=== PATIENT | female | born 1940 | race Caucasian/White ===

== ENCOUNTER → 2017-01-16 | Outpatient (CLI) | payer MEDICARE, OTHER ==
--- NOTE | 2017-01-16 16:23 | BD ---
EXAMINATION TYPE: MG DEXA axial skeleton. DATE OF EXAM: 01/16/2017 COMPARISON: NONE CLINICAL HISTORY: 76-year-old female osteoporosis Height: 5 FT 2 1/2 IN Weight: 151 FRAX RISK QUESTIONS: Alcohol (3 or more units per day): NO Family History (Parent hip fracture): YES Glucocorticoids (More than 3mos): NO (Ex: prednisone, prednisolone, methylprednisolone, dexamethasone, and hydrocortisone). History of Fracture in Adulthood: NO Secondary Osteoporosis: 1. Type 1 Diabetes: NO 2. Hyperthyroidism: NO 3. Menopause before 45: NO 4. Malnutrition: NO 5. Chronic liver disease: NO Rheumatoid Arthritis: NO Current Tobacco Use: NO RISK FACTORS HISTORY OF: Active: YES Postmenopausal woman: AGE 48 [employer] Lost more than 2 inches in height since high school: YES MEDICATIONS: Additional Medications: AMLODIPINE, ASPIRIN, LASIX, HYDROLAZINE, VIT D 3 , DIGOXIN, WARFARIN, ATORVAS TATIN,POTASSIUM, Additional History: EXAM MEASUREMENTS: Bone mineral densitometry was performed using the UserTesting System. Bone mineral density as measured about the Lumbar spine is: ----- L1-L4(G/cm2): 1.224 T Score Values are as follows: ----- L2: -0.5 ----- L3: 0.9 ----- L4: 1.7 ----- L1-L4: 0.4 BASELINE Bone mineral density about the R hip (g/cm2): 0.886 Bone mineral density about the L hip (g/cm2): 0.779 T Score values are as follows: -----R Neck: -1.1 -----L Neck: -1.9 -----R Total: -0.1 -----L Total: -1.1 BASELINE IMPRESSION: Osteopenia (T Score between -2.5 and -1 as noted by T score values There is slightly increased risk of fracture and the patient may be considered for treatment. Re-Scre en 2-5 years. NOTE: T-SCORE=SD OF THE YOUNG ADULT MEAN.
== END | disposition home or self-care (01) ==
LOC: RADBDWWP 13:12
PROVIDERS: ATTEND Family Medicine
DX: M85.88 Other specified disorders of bone density and structure, other site (principal)
CPT/HCPCS: 77080

== ENCOUNTER → 2017-06-25 | Outpatient (CLI) | payer MEDICARE, OTHER ==
--- NOTE | 2017-06-25 14:48 | XR ---
Left clavicle HISTORY: Pain 2 views of the left clavicle Relation to left ribs same date There is arthropathy at the acromioclavicular joint. Alignment and bone mineralization maintained. Le ft lung apex as visualized is normal. Patient is post median sternotomy. The aorta is dense. IMPRESSION: No fracture or dislocation. Acromioclavicular joint arthropathy.
--- NOTE | 2017-06-25 16:13 | XR ---
Left RIBS HISTORY: Chest pain left side, R07.89 4 views of the left ribs Bone mineralization is maintained. No evident displaced rib fracture. Left lung shows no abnormal den sity, pneumothorax, or pleural effusion. Postop changes incidentally noted to the left chest. Inferio r sternal wire is fractured. IMPRESSION: No evident displaced rib fracture. Bone scan could be performed for increased sensitivity as indicated.
--- NOTE | 2017-06-25 16:16 | XR ---
Left shoulder HISTORY: Pain 3 views of the left shoulder Acromioclavicular joint arthropathy is noted. Calcification present along the articular cartilage of the humeral head. There is no evident pneumothorax, left lung apex as visualized is normal. Bone mine ralization and alignment are maintained. Postop changes noted to the chest. Patient is status post me ashleigh sternotomy. There may be calcified granuloma present in the left upper lobe. IMPRESSION: No acute fracture or dislocation. Consider crystal deposition arthropathy.
== END | disposition home or self-care (01) ==
LOC: RADXRMAIN 12:14
PROVIDERS: ATTEND Internal Medicine Cardiovascular Disease
DX: M25.512 Pain in left shoulder (principal); R07.89 Other chest pain

== ENCOUNTER → 2018-03-06 | Outpatient (CLI) | payer MEDICARE, OTHER ==
[2018-03-06 11:03] LABS: HCT 41.4 % (34.0-46.0); HGB 13.2 gm/dL (11.4-16.0); MCH 30.4 pg (25.0-35.0); MCV 95.1 fL (80.0-100.0); Mean Platelet Volume 6.6; Platelet Count 296 k/uL (150-450); RBC 4.35 m/uL (3.80-5.40); RDW 13.8 % (11.5-15.5); WBC 6.1 k/uL (3.8-10.6)
[2018-03-06 11:15] LABS: Potassium 4.2 mmol/L (3.5-5.1)
== END | disposition home or self-care (01) ==
LOC: LABPAT 10:09
PROVIDERS: ATTEND Internal Medicine Interventional Cardiology
DX: Z01.812 Encounter for preprocedural laboratory examination (principal); I10 Essential (primary) hypertension; E78.1 Pure hyperglyceridemia; I25.10 Atherosclerotic heart disease of native coronary artery without angina pectoris
CPT/HCPCS: 36415; 80051; 82565; 84520; 85027

== ENCOUNTER 2018-03-25 08:53 | Day surgery (SDC) | payer MEDICARE, OTHER ==
[2018-03-17 17:07] VITALS: BMI 25.9
[2018-03-25] MEDS ORDERED: ASPIRIN 81 MG ONE (09:12)
[2018-03-25] MEDS ORDERED: SODIUM CHLORIDE 0.9% 1,000 ML IV ONE (09:20)
[2018-03-25 09:41] VITALS: RESP 16; TEMP 98.4
[2018-03-25 09:57] LABS: INR 1.1 (<1.2); Prothrombin Time 10.7 sec (9.0-12.0)
[2018-03-25] MEDS ORDERED: MIDAZOLAM 2 MG/2 ML VIAL IVP ONE (10:30)
[2018-03-25] MEDS ORDERED: LIDOCAINE 1% INJ 10MG/ML (20 ML MDV) SQ ONE (10:30)
[2018-03-25] MEDS ORDERED: IOPAMIDOL-250 100ML BTL IV ONE (10:40)
[2018-03-25] MEDS ORDERED: SODIUM CHLORIDE 0.9% 1,000 ML IV SCH (10:45)
--- NOTE | 2018-03-25 11:09 | AN ---
ANGIOGRAPHY REPORT PERIPHERAL ANGIOGRAM: DATE OF SERVICE: March 25, 2018 PERFORMING PHYSICIAN: Finn Márquez MD, control panel operator. PROCEDURE PERFORMED: 1. An abdominal aortogram. 2. Bilateral lower extremity runoff. INDICATION: This is a pleasant 78-year-old female patient who sees Dr. Graves in the office as an outpatient and sees Dr. Feldman as well who was experiencing bilateral lower extremities intermittent claudication and underwent an arterial duplex study and that revealed severe bilateral femoral artery disease. Because of that, she was brought in today to undergo an abdominal aortogram and bilateral lower extremity runoff. APPROACH: Right common femoral artery. COMPLICATION: None. LEVEL OF SEDATION: Moderate with sedation length of 10 minutes. PROCEDURE DESCRIPTION: After obtaining an informed consent, the patient was brought to cardiac catheter builder. The right common femoral artery was cannulated using micropuncture technique, the micropuncture wire passed easily and then I placed a 4-Congolese sheath in the right common femoral artery. After that, I did an abdominal aortogram and bilateral lower extremity runoff using 4-Congolese pigtail catheter which was initially placed at the level of the renal arteries then it was pulled into above the bifurcation of the aorta to right and left common iliac arteries. The procedure was completed without any complication. SELECTIVE PERIPHERAL ANGIOGRAM: 1. The aorta is calcified with mild disease only. 2. Iliac arteries: The right and left common iliac arteries are angiographically normal. 3. Common iliac arteries: The right and left common iliac arteries are calcified with mild disease only. 4. Internal iliac artery: The right and left internal are patent. 5. External iliac arteries the right and left external iliac arteries are angiographically normal. 6. Femoral: The right and left femoral arteries are angiographically normal. 7. Profunda: The right and left profunda are normal. 8. SFA: Both SFA are heavily calcified with severe disease bilaterally about 70% to 80%. Actually the disease on the left is worse than the right. 9. Popliteal: The right and left popliteal appeared to be normal. 10.Below the knee: There are 3 vessels runoff below the knee bilaterally. 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 POSTPROCEDURE MANAGEMENT: CRIPPLE CHASER of the right and left SFA on 2 separate sessions. MMODL / IJN: [id number] /
--- NOTE | 2018-03-25 11:09 | LTR ---
DATE OF SERVICE: 03/25/2018 RE: Erika Rogers Dear Dr. Feldman; Ms. Erika Rogers underwent today a peripheral angiogram and that revealed severe bilateral femoral artery disease. She will be brought back to undergo a balloon angioplasty of both femoral arteries. I want to thank you for allowing us to participate in her care and please do not hesitate to call if you have any question or concern. Sincerely, MD FABIENNE Khan / BRIANN: [id number] /
[2018-03-25] MEDS ORDERED: IOPAMIDOL-300 50ML BTL IV ONE (12:09)
[2018-03-25 16:44] VITALS: BP 145/65; PULSE 60
--- NOTE | 2018-03-26 10:26 | IR ---
Fluoroscopy HISTORY: Pain in right leg 1.4 minutes fluoroscopy time supplied to the referring clinician. 124 intraoperative C-arm images do cument the procedure. See dictated report from cardiology.
== END 2018-03-25 16:32 | disposition home or self-care (01) ==
LOC: CATHCVL 08:53
PROVIDERS: ATTEND Internal Medicine Interventional Cardiology
DX: I70.213 Atherosclerosis of native arteries of extremities with intermittent claudication, bilateral legs (principal); I70.0 Atherosclerosis of aorta; I25.10 Atherosclerotic heart disease of native coronary artery without angina pectoris; I48.2 Chronic atrial fibrillation; Z87.891 Personal history of nicotine dependence; Z95.2 Presence of prosthetic heart valve; Z95.5 Presence of coronary angioplasty implant and graft; E78.5 Hyperlipidemia, unspecified; Z79.01 Long term (current) use of anticoagulants; Z79.82 Long term (current) use of aspirin; Z79.899 Other long term (current) drug therapy
CPT/HCPCS: 36200; 75625; 75716; 85610; C1769 ×3; C1894; J2250; J2001; Q9966; Q9967

== ENCOUNTER → 2018-05-12 | Outpatient (CLI) | payer MEDICARE, OTHER ==
[2018-05-12 15:10] LABS: Potassium 4.3 mmol/L (3.5-5.1)
[2018-05-12 15:39] LABS: HCT 41.4 % (34.0-46.0); HGB 13.1 gm/dL (11.4-16.0); MCH 30.3 pg (25.0-35.0); MCHC 31.7 g/dL (31.0-37.0); MCV 95.5 fL (80.0-100.0); Mean Platelet Volume 6.2; Platelet Count 316 k/uL (150-450); RBC 4.34 m/uL (3.80-5.40); RDW 13.4 % (11.5-15.5); WBC 8.2 k/uL (3.8-10.6)
== END | disposition home or self-care (01) ==
LOC: LABPAT 13:45
PROVIDERS: ATTEND Internal Medicine Interventional Cardiology
DX: Z01.812 Encounter for preprocedural laboratory examination (principal); I70.213 Atherosclerosis of native arteries of extremities with intermittent claudication, bilateral legs
CPT/HCPCS: 36415; 80051; 82565; 84520; 85027

== ENCOUNTER 2018-05-27 12:37 | Day surgery (SDC) | payer MEDICARE, OTHER ==
[~2018-05-27 12:37] MED LIST: ASPIRIN 325 MG TAB PO ONE; SODIUM CHLORIDE 0.9% 1,000 ML in EMPTY BAG 1 BAG IV ONE
[2018-05-27 13:45] LABS: Prothrombin Time 10.8 sec (9.0-12.0)
[2018-05-27] MEDS ORDERED: MIDAZOLAM 2 MG/2 ML VIAL IVP ONE (15:16)
[2018-05-27] MEDS ORDERED: LIDOCAINE 1% INJ 10MG/ML (20 ML MDV) SQ ONE (15:17)
[2018-05-27] MEDS ORDERED: HEPARIN SODIUM 1,000 UN/ML (10ML VL) IV ONE (15:21)
[2018-05-27] MEDS ORDERED: fentaNYL (PF) 50 MCG/ML 2 ML AMP IVP ONE (15:46)
[2018-05-27] MEDS ORDERED: NITROGLYCERIN 1000MCG/10ML SYRINGE INTRAARTER ONE (15:54)
[2018-05-27] MEDS ORDERED: niCARdipine Syringe (1,000 mcg/10 mL) INTRAARTER ONE (15:54)
[2018-05-27] MEDS ORDERED: CLOPIDOGREL 75 MG TAB PO ONE (15:55)
[2018-05-27] MEDS ORDERED: traMADol 50 MG TAB PO PRN (16:07)
[2018-05-27] MEDS ORDERED: SODIUM CHLORIDE 0.9% 1,000 ML IV SCH (16:15)
[2018-05-27] MEDS: hydrALAZINE HCL 25 MG TAB PO SCH (17:43)
--- NOTE | 2018-05-27 18:05 | LTR ---
DATE OF SERVICE: 05/27/[address] Feldman: Ms. Ashleigh Rogers underwent successful balloon angioplasty of the left femoral artery with good angiographic results and without any complication. Thank you for allowing us to participate in her care and please do not hesitate to call for any questions or concerns. Sincerely, MMODL / IJN: [id number] /
[2018-05-27] MEDS ORDERED: ATROPINE SULFATE 0.1 MG/ML 10ML SYRINGE ONE (20:22)
[2018-05-27] MEDS ORDERED: ATORVASTATIN 20 MG TAB PO SCH (21:00)
[2018-05-27] MEDS ORDERED: DIGOXIN 125 MCG TAB PO SCH (21:00)
--- NOTE | 2018-05-28 01:32 | AN ---
ANGIOGRAPHY REPORT DATE OF SERVICE: 05/27/2018 PERFORMING PHYSICIAN: Finn Márquez MD, railway signal electrician. PROCEDURE PERFORMED: 1. Selective left [id number] angiogram. 2. Selective left SFA angiogram. 3. An atherectomy of the left SFA using the orbital atherectomy device from [employer]. 4. Successful balloon angioplasty of the left SFA using 5 mm x 150 mm Impact drug coated balloon with excellent angiographic results. 5. Selective right common femoral artery angiogram. INDICATION: This is a pleasant 86-year-old female patient who sees Dr. Graves in the office as an outpatient with a known history of hypertension and dyslipidemia and who was experiencing bilateral lower extremity intermittent claudication and underwent a peripheral angiogram and that revealed severe bilateral SFA disease. She was brought today to undergo a DICTATING MACHINE TYPIST of the left SFA. APPROACH: Right common femoral artery. COMPLICATION: None. LEVEL OF SEDATION: Moderate with sedation length of 45 minutes. PROCEDURE DESCRIPTION: After obtaining an informed consent, the patient was brought to cardiac concrete plant laborer. The right common femoral artery was cannulated using micropuncture technique, the micropuncture wire passed easily. Hen I placed a 6-Cymro sheath in the right common femoral artery. After that anticoagulation was initiated using heparin. After that I did select the left SFA using a 5-Cymro Rim catheter with 0.035 [employer] wire. After that, I did exchange my 11 cm 6-Cymro sheath into 55 cm 6-Cymro Raabe sheath using the 0.035 [employer] wire. After that, I did selective left [id number]-muq-[id number] angiogram and selective left SFA angiogram before I did atherectomy of the left SFA using the orbital atherectomy device from [employer]. Subsequently, balloon angioplasty using 5 mm x 100 mm drug-coated balloon wire and the balloon was inflated under 10 atmospheres for 20 seconds. The following angiogram showed good angiographic results and the procedure was completed without any complication. After that I did exchange my long sheath into short sheath using 0.035 [employer] wire. The procedure was completed without any complication. POSTPROCEDURE MANAGEMENT: 1. Dual anti-platelet therapy. 2. Risk factors modifications. 3. Follow up with the patient. MMODL / IJN: [id number] /
--- NOTE | 2018-05-28 07:56 | DS ---
DISCHARGE SUMMARY DATE OF ADMISSION: 05/27/2018 DATE OF DISCHARGE: 05/28/2018 BRIEF HISTORY: This is a pleasant 78-year-old female patient who underwent yesterday successful atherectomy and balloon angioplasty of the left SFA with good angiographic results and without any complication. The procedure was performed from the right groin which is soft and nontender and without any bruises. The patient is going to be discharged home on dual antiplatelet therapy and I will follow up with the patient in a week in the office to undergo a CONSTRUCTION ESTIMATOR of the right leg. MMDOMONIQUE / BRIANN: [id number] /
[2018-05-28 08:08] VITALS: BP 171/70; PULSE 56; RESP 16; TEMP 98.6
[2018-05-28] MEDS: hydrALAZINE HCL 25 MG TAB PO SCH (08:14)
[2018-05-28] MEDS ORDERED: CHOLECALCIFEROL 1,000 UNIT TAB PO SCH (09:00)
[2018-05-28] MEDS ORDERED: ASCORBIC ACID 500 MG TAB PO SCH (09:00)
[2018-05-28] MEDS ORDERED: amLODIPine 5 MG TAB PO SCH (09:00)
[2018-05-28] MEDS ORDERED: NON-FORMULARY DRUG (Ubidecarenone [Co Q-10] 100 MG) PO SCH (09:00)
[2018-05-28] MEDS ORDERED: CLOPIDOGREL 75 MG TAB PO SCH (09:00)
[2018-05-28] MEDS ORDERED: TURMERIC ROOT EXTRACT PO SCH (09:00)
[2018-05-28] MEDS ORDERED: CALCIUM CARB-VIT D 500MG-200UN 1 EACH TAB PO SCH (09:00)
[2018-05-28] MEDS ORDERED: FUROSEMIDE 40 MG TAB PO SCH (09:00)
[2018-05-28] MEDS ORDERED: ASPIRIN 81 MG PO SCH (09:00)
--- NOTE | 2018-05-28 09:34 | IR ---
EXAMINATION TYPE: IR ski maker wood femoral popliteal DATE OF EXAM: 05/27/2018 COMPARISON: NONE HISTORY: Fluoroscopy time. Fluoroscopy was provided to the referring clinician.
[2018-05-28] MEDS ORDERED: MULTIVITAMINS, THERA 1 EACH TAB PO SCH (12:00)
== END 2018-05-28 11:20 | disposition home or self-care (01) ==
LOC: CATHCVL 12:37 → 3SCARD 16:00 → CATHCVL 05-28 11:20
PROVIDERS: ATTEND Internal Medicine Interventional Cardiology
DX: I70.213 Atherosclerosis of native arteries of extremities with intermittent claudication, bilateral legs (principal); I25.10 Atherosclerotic heart disease of native coronary artery without angina pectoris; I10 Essential (primary) hypertension; E78.5 Hyperlipidemia, unspecified; I35.1 Nonrheumatic aortic (valve) insufficiency; E78.00 Pure hypercholesterolemia, unspecified; I25.9 Chronic ischemic heart disease, unspecified; I48.2 Chronic atrial fibrillation; R00.1 Bradycardia, unspecified; Z95.2 Presence of prosthetic heart valve; Z95.5 Presence of coronary angioplasty implant and graft; Z95.1 Presence of aortocoronary bypass graft; Z72.0 Tobacco use; Z79.01 Long term (current) use of anticoagulants; Z79.82 Long term (current) use of aspirin; Z79.899 Other long term (current) drug therapy
CPT/HCPCS: 37225; 82565; 85610; C1894 ×2; C1714; C1769 ×5; C1887; C1725; J2250; J2001; J3010; J1644

== ENCOUNTER → 2018-06-09 | Outpatient (CLI) | payer MEDICARE, OTHER ==
[2018-06-09 15:48] LABS: HCT 41.1 % (34.0-46.0); HGB 13.1 gm/dL (11.4-16.0); MCH 30.5 pg (25.0-35.0); MCHC 31.8 g/dL (31.0-37.0); Mean Platelet Volume 7.2; Platelet Count 371 k/uL (150-450); RBC 4.28 m/uL (3.80-5.40); RDW 13.6 % (11.5-15.5)
[2018-06-09 16:01] LABS: Potassium 3.7 mmol/L (3.5-5.1)
== END | disposition home or self-care (01) ==
LOC: LABPAT 15:12
PROVIDERS: ATTEND Internal Medicine Interventional Cardiology
DX: Z01.812 Encounter for preprocedural laboratory examination (principal); I70.213 Atherosclerosis of native arteries of extremities with intermittent claudication, bilateral legs
CPT/HCPCS: 80051; 82565; 84520; 85027

== ENCOUNTER 2018-06-18 14:52 | Emergency (ER) | payer MEDICARE, OTHER ==
--- NOTE | 2018-06-18 16:15 | ED ---
Extremity Problem HPI - General Chief complaint: Extremity Problem,Nontraumatic Stated complaint: Leg pain, had arteries removed Time Seen by Provider: 06/18/18 15:24 Source: patient, RN notes reviewed, old records reviewed Mode of arrival: wheelchair Limitations: no limitations - History of Present Illness Initial comments: Patient is an 78-year-old female who presents emergency department today with tingling of left knee pain and swelling. Patient reports that she twisted her knee 2 days ago. She's had a recent history of oral stenting by Dr. Leiva. She is on multiple blood thinners including Plavix aspirin L Rose. Patient reports that she has pain with any range of motion of her knee. She was seen by her concrete precast moulder today and they believe that she may have may hematoma or hemarthrosis. Patient reports that she has no peripheral paresthesias. She denies any other complaints. - Related Data Home Medications Medication Instructions Recorded Confirmed Aspirin [Adult Low Dose Aspirin EC] 81 mg PO DAILY 03/17/18 06/18/18 Atorvastatin [Lipitor] 40 mg PO HS 03/17/18 06/18/18 Calcium Carbonate/Vitamin D3 1 tab PO Q48H 03/17/18 06/18/18 [Calcium 600-Vit D3 400 Caplet] Cholecalciferol (Vitamin D3) 2,000 unit PO DAILY 03/17/18 06/18/18 [Vitamin D3] Digoxin [Lanoxin] 125 mcg PO HS 03/17/18 06/18/18 Furosemide [Lasix] 40 mg PO DAILY 03/17/18 06/18/18 Potassium Chloride [K-Tab ER] 10 meq PO Q48H 03/17/18 06/18/18 amLODIPine [Norvasc] 5 mg PO DAILY 03/17/18 06/18/18 hydrALAZINE HCL [Apresoline] 25 mg PO AC-BID 03/17/18 06/18/18 Ascorbic Acid [Vitamin C] 500 mg PO DAILY 05/19/18 06/18/18 Naproxen Sodium [Aleve] 220 - 440 mg PO Q6H PRN 05/19/18 06/18/18 Turmeric Root Extract [Turmeric] 1 tab PO DAILY 05/19/18 06/18/18 Ubidecarenone [Co Q-10] 100 mg PO DAILY 05/19/18 06/18/18 Warfarin [Coumadin] 5 mg PO SUTUTHSA 05/19/18 06/18/18 Warfarin [Coumadin] 7.5 mg PO MOWEFR 05/19/18 06/18/18 traMADol HCL [Ultram] 100 mg PO HS PRN 05/19/18 06/18/18 Atorvastatin [Lipitor] 20 mg PO HS 06/18/18 06/18/18 Previous Rx's Medication Instructions Recorded Clopidogrel [Plavix] 75 mg PO DAILY #90 tab 05/28/18 traMADol HCL [Ultram] 50 mg PO Q6HR PRN 3 Days #12 tab 06/18/18 Allergies Allergy/AdvReac Type Severity Reaction Status Date / Time No Known Allergies Allergy Verified 06/18/18 15:59 Review of Systems ROS Statement: Those systems with pertinent positive or pertinent negative responses have been documented in the HPI. ROS Other: All systems not noted in ROS Statement are negative. Past Medical History Past Medical History: Coronary Artery Disease (CAD), Hyperlipidemia, Hypertension, Musculoskeletal Disorder Additional Past Medical History / Comment(s): AORTIC VALVE REPAIRED W/ COW VALVE ; TAKES PO AB RX DAY OF DENTAL WORK, PLANNED 03/19/18. HEMORRHOIDS CURRENT. BACK PAIN, DDD. LEGS GET TIRED, HEAVY WHEN WALKING, US SHOWED POSS BLOCKAGE. OCC EDEMA LT ANKLE. History of Any Multi-Drug Resistant Organisms: None Reported Past Surgical History: Cardiac Valve Replacement, Heart Catheterization With Stent Additional Past Surgical History / Comment(s): FACELIFT. AORTIC VALVE REPLACED , COW VALVE, 06/2010. Past Anesthesia/Blood Transfusion Reactions: Motion Sickness Additional Past Anesthesia/Blood Transfusion Reaction / Comment(s): MOTION SICK MANY YEARS AGO Date of Last Stent Placement:: 04/2007 Past Psychological History: No Psychological Hx Reported Smoking Status: Former smoker - Past Family History Mother Family Medical History: Dementia General Exam Limitations: no limitations General appearance: alert, in no apparent distress Head exam: Present: atraumatic, normocephalic, normal inspection Eye exam: Present: normal appearance, PERRL, EOMI. Absent: scleral icterus, conjunctival injection, periorbital swelling ENT exam: Present: normal exam, mucous membranes moist Neck exam: Present: normal inspection. Absent: tenderness, meningismus, lymphadenopathy Respiratory exam: Present: normal lung sounds bilaterally. Absent: respiratory distress, wheezes, rales, rhonchi, stridor Cardiovascular Exam: Present: regular rate, normal rhythm, normal heart sounds. Absent: systolic murmur, diastolic murmur, rubs, gallop, clicks GI/Abdominal exam: Present: soft, normal bowel sounds. Absent: distended, tenderness, guarding, rebound, rigid Extremities exam: Present: normal inspection, full ROM, normal capillary refill. Absent: tenderness, pedal edema, joint swelling, calf tenderness Back exam: Present: normal inspection Neurological exam: Present: alert, oriented X3, CN II-XII intact Psychiatric exam: Present: normal affect, normal mood Skin exam: Present: warm, dry, intact, normal color. Absent: rash Course Vital Signs 06/18/18 06/18/18 15:04 17:39 Temperature 98.9 F 99.4 F Pulse Rate 58 L 63 Respiratory 16 18 Rate Blood Pressure 120/73 136/64 O2 Sat by Pulse 94 L 98 Oximetry Disposition Clinical Impression: Knee swelling Disposition: HOME SELF-CARE Condition: Good Additional Instructions: Follow-up with your primary care provider. Follow-up with orthopedics for possible knee drainage. Return to ED if any alarming signs or symptoms occur. Prescriptions: traMADol HCL [Ultram] 50 mg PO Q6HR PRN 3 Days #12 tab PRN Reason: Pain Is patient prescribed a controlled substance at d/c from ED?: Yes Referrals: Jermaine Feldman DO [Primary Care Provider] - 1-2 days Ryley Littlejohn DO [Medical Doctor] - 1-2 days Time of Disposition: 17:43
--- NOTE | 2018-06-18 16:40 | XR ---
Left knee HISTORY: Left knee pain 3 views of the left knee Bone mineralization is reduced. There are vascular calcifications present. Chondrocalcinosis is prese nt. Alignment is maintained. Marginal spurring present at the medial compartment. No fracture or disl ocation. Suprapatellar increased density is compatible joint effusion. Cloudlike calcification presen t posterior to the knee joint. IMPRESSION: Correlate for crystal deposition arthropathy. Joint effusion. Peripheral vascular occlusi ve disease.
[2018-06-18 17:40] VITALS: BP 136/64; PULSE 63; RESP 18; TEMP 99.4
[2018-06-18] MEDS ORDERED: traMADol 50 MG STARTER PACK 3 TAB BTL PO STA (17:41)
== END 2018-06-18 18:01 | disposition home or self-care (01) ==
LOC: EC 14:52
DX: M79.89 Other specified soft tissue disorders (principal); E78.5 Hyperlipidemia, unspecified; M25.562 Pain in left knee; R20.2 Paresthesia of skin; I25.10 Atherosclerotic heart disease of native coronary artery without angina pectoris; I10 Essential (primary) hypertension; Z87.891 Personal history of nicotine dependence; Z79.01 Long term (current) use of anticoagulants; Z79.02 Long term (current) use of antithrombotics/antiplatelets; Z79.82 Long term (current) use of aspirin; Z79.899 Other long term (current) drug therapy; Z87.39 Personal history of other diseases of the musculoskeletal system and connective tissue; Z95.2 Presence of prosthetic heart valve; Z95.5 Presence of coronary angioplasty implant and graft; Z98.890 Other specified postprocedural states; X50.1XXA Overexertion from prolonged static or awkward postures, initial encounter
CPT/HCPCS: 99284

== ENCOUNTER 2019-04-19 20:14 | Inpatient (IN) | payer MEDICARE, OTHER ==
--- NOTE | 2019-04-19 20:47 | ED ---
Weakness HPI - General Chief complaint: Nausea/Vomiting/Diarrhea Stated complaint: Flu Like Symptoms Time Seen by Provider: 04/19/19 20:17 Source: patient, EMS, RN notes reviewed, old records reviewed Mode of arrival: EMS Limitations: no limitations - History of Present Illness Initial comments: This is an 79-year-old female here with increasing weakness and feeling well. Patient states she has not been febrile for 2 days 3 days with increased nausea vomiting decreased oral intake and fevers. She was diagnosed with urinary tract infection yesterday given cough medication no other testing was done. Patient states she feels like U-splint medications she has not feeling well at this point is vomiting to the point the unable to take medications. MD Complaint: generalized weakness -: days(s) Location: generalized Severity: moderate Severity scale (1-10): 4 Consistency: constant Improves with: none Worsens with: none Associated Symptoms: dysuria, fever/chills, loss of appetite, nausea/vomiting, myalgias - Related Data Home Medications Medication Instructions Recorded Confirmed Aspirin [Adult Low Dose Aspirin EC] 81 mg PO DAILY 03/17/18 06/18/18 Atorvastatin [Lipitor] 40 mg PO HS 03/17/18 06/18/18 Calcium Carbonate/Vitamin D3 1 tab PO Q48H 03/17/18 06/18/18 [Calcium 600-Vit D3 400 Caplet] Cholecalciferol (Vitamin D3) 2,000 unit PO DAILY 03/17/18 06/18/18 [Vitamin D3] Digoxin [Lanoxin] 125 mcg PO HS 03/17/18 06/18/18 Furosemide [Lasix] 40 mg PO DAILY 03/17/18 06/18/18 Potassium Chloride [K-Tab ER] 10 meq PO Q48H 03/17/18 06/18/18 amLODIPine [Norvasc] 5 mg PO DAILY 03/17/18 06/18/18 hydrALAZINE HCL [Apresoline] 25 mg PO AC-BID 03/17/18 06/18/18 Ascorbic Acid [Vitamin C] 500 mg PO DAILY 05/19/18 06/18/18 Naproxen Sodium [Aleve] 220 - 440 mg PO Q6H PRN 05/19/18 06/18/18 Turmeric Root Extract [Turmeric] 1 tab PO DAILY 05/19/18 06/18/18 Ubidecarenone [Co Q-10] 100 mg PO DAILY 05/19/18 06/18/18 Warfarin [Coumadin] 5 mg PO SUTUTHSA 05/19/18 06/18/18 Warfarin [Coumadin] 7.5 mg PO MOWEFR 05/19/18 06/18/18 traMADol HCL [Ultram] 100 mg PO HS PRN 05/19/18 06/18/18 Atorvastatin [Lipitor] 20 mg PO HS 06/18/18 06/18/18 Previous Rx's Medication Instructions Recorded Clopidogrel [Plavix] 75 mg PO DAILY #90 tab 05/28/18 traMADol HCL [Ultram] 50 mg PO Q6HR PRN 3 Days #12 tab 06/18/18 Allergies Allergy/AdvReac Type Severity Reaction Status Date / Time No Known Allergies Allergy Verified 04/19/19 20:23 Review of Systems ROS Statement: Those systems with pertinent positive or pertinent negative responses have been documented in the HPI. ROS Other: All systems not noted in ROS Statement are negative. Past Medical History Past Medical History: Coronary Artery Disease (CAD), Hyperlipidemia, Hypertension, Musculoskeletal Disorder Additional Past Medical History / Comment(s): AORTIC VALVE REPAIRED W/ COW VALVE; TAKES PO AB RX DAY OF DENTAL WORK, PLANNED 03/19/18. HEMORRHOIDS CURRENT. BACK PAIN, DDD. LEGS GET TIRED, HEAVY WHEN WALKING, US SHOWED POSS BLOCKAGE. OCC EDEMA LT ANKLE. History of Any Multi-Drug Resistant Organisms: None Reported Past Surgical History: Cardiac Valve Replacement, Heart Catheterization With Stent Additional Past Surgical History / Comment(s): FACELIFT. AORTIC VALVE REPLACED, COW VALVE, 06/2010. Past Anesthesia/Blood Transfusion Reactions: Motion Sickness Additional Past Anesthesia/Blood Transfusion Reaction / Comment(s): MOTION SICK MANY YEARS AGO Date of Last Stent Placement:: 04/2007 Past Psychological History: No Psychological Hx Reported Smoking Status: Former smoker Past Alcohol Use History: Occasional Past Drug Use History: None Reported - Past Family History Mother Family Medical History: Dementia General Exam Limitations: no limitations General appearance: alert, in no apparent distress Head exam: Present: atraumatic, normocephalic, normal inspection Eye exam: Present: normal appearance, PERRL, EOMI. Absent: scleral icterus, conjunctival injection, periorbital swelling ENT exam: Present: normal exam, mucous membranes moist Neck exam: Present: normal inspection. Absent: tenderness, meningismus, lymphadenopathy Respiratory exam: Present: wheezes, decreased breath sounds. Absent: respiratory distress, rales, rhonchi, stridor Cardiovascular Exam: Present: regular rate, normal rhythm, normal heart sounds. Absent: systolic murmur, diastolic murmur, rubs, gallop, clicks GI/Abdominal exam: Present: soft, normal bowel sounds. Absent: distended, tenderness, guarding, rebound, rigid Extremities exam: Present: normal inspection, full ROM, normal capillary refill. Absent: tenderness, pedal edema, joint swelling, calf tenderness Back exam: Present: normal inspection Neurological exam: Present: alert, oriented X3, CN II-XII intact Psychiatric exam: Present: normal affect, normal mood Skin exam: Present: warm, dry, intact, normal color. Absent: rash Course Vital Signs 04/19/19 20:20 Temperature 99.2 F Pulse Rate 79 Respiratory 18 Rate Blood Pressure 150/75 O2 Sat by Pulse 95 Oximetry - Reevaluation(s) Reevaluation #1: 04/19/19 21:45 Medical records reviewed Reevaluation #2: 04/19/19 21:45 Patient improvement with symptom control here in the ER - Consultations Consultation #1: spoke w [facility] who are agreeable to admit Medical Decision Making - Medical Decision Making 79 female to the ED increasing weakness nausea and vomiting and cough with fever, patient found of pneumonia here year she has been on outpatient treatment for urinary tract infection since yesterday, will admit for IV antibiotics. He is keeping patient from being able tolerate oral medications - Lab Data Result diagrams: 04/19/19 20:25 Lab Results 04/19/19 04/19/19 Range/Units 20:25 20:25 WBC 7.1 (3.8-10.6) k/uL RBC 4.17 (3.80-5.40) m/uL Hgb 12.6 (11.4-16.0) gm/dL Hct 38.4 (34.0-46.0) % MCV 92.0 (80.0-100.0) fL MCH 30.2 (25.0-35.0) pg MCHC 32.8 (31.0-37.0) g/dL RDW 13.3 (11.5-15.5) % Plt Count 219 (150-450) k/uL Neutrophils % 81 % Lymphocytes % 9 % Monocytes % 7 % Eosinophils % 0 % Basophils % 0 % Neutrophils # 5.8 (1.3-7.7) k/uL Lymphocytes # 0.7 L (1.0-4.8) k/uL Monocytes # 0.5 (0-1.0) k/uL Eosinophils # 0.0 (0-0.7) k/uL Basophils # 0.0 (0-0.2) k/uL PT 15.9 H (9.0-12.0) sec INR 1.6 H (<1.2) APTT 29.4 (22.0-30.0) sec - Radiology Data Radiology results: report reviewed (X-rays positive for pneumonia), image reviewed Disposition Clinical Impression: Dehydration, Fever, Community acquired bacterial pneumonia, UTI (urinary tract infection) Disposition: ADMITTED IP TO THIS [facility] Condition: Fair Is patient prescribed a controlled substance at d/c from ED?: No Referrals: Jermaine Feldman DO [Primary Care Provider] - 1-2 days
[2019-04-19] MEDS ORDERED: SODIUM CHLORIDE 0.9% 500 ML 500 ML IV STA (20:53)
[2019-04-19] MEDS ORDERED: KETOROLAC 30 MG/ML 1 ML VIAL IVP STA (20:53)
[2019-04-19] MEDS ORDERED: ONDANSETRON 4 MG/2 ML VIAL IVP STA (20:53)
[2019-04-19] MEDS ORDERED: SODIUM CHLORIDE 0.9% 1,000 ML IV STA ×2 (20:53)
[2019-04-19 21:26] LABS: Basophils % (A) 0 %; Eosinophils % (A) 0 %; HCT 38.4 % (34.0-46.0); HGB 12.6 gm/dL (11.4-16.0); Lymphocytes # (A) 0.7 k/uL (1.0-4.8); Lymphocytes % (A) 9 %; MCH 30.2 pg (25.0-35.0); MCHC 32.8 g/dL (31.0-37.0); Mean Platelet Volume 7.3; Monocytes # (A) 0.5 k/uL (0-1.0); Monocytes % (A) 7 %; Neutrophils # (A) 5.8 k/uL (1.3-7.7); Neutrophils % (A) 81 %; Platelet Count 219 k/uL (150-450); RBC 4.17 m/uL (3.80-5.40); RDW 13.3 % (11.5-15.5); WBC 7.1 k/uL (3.8-10.6)
--- NOTE | 2019-04-19 21:33 | XR ---
EXAMINATION TYPE: XR chest 1V portable DATE OF EXAM: 04/19/2019 COMPARISON: 08/13/2010 HISTORY: Weakness TECHNIQUE: FINDINGS: Heart is enlarged. There is a mild infiltrate in the right lower lobe. The other lung field s are clear. There is no heart failure. There are sternal wires. There is no pleural effusion. IMPRESSION: There is mild right lower lobe pneumonia that appears new compared to old exam. Mild card iomegaly. No heart failure seen.
[2019-04-19 21:35] LABS: INR 1.6 (<1.2); Partial Thromboplastin Time 29.4 sec (22.0-30.0); Prothrombin Time 15.9 sec (9.0-12.0)
[2019-04-19] MEDS ORDERED: PNEUMONIA PROTOCOL UTILIZED 1 EACH MISC PO PRN (21:42)
[2019-04-19] MEDS ORDERED: AZITHROMYCIN 500 MG in SODIUM CHLORIDE 0.9% 250 ML IVPB STA (21:42)
[2019-04-19 21:54] LABS: Albumin 3.9 g/dL (3.5-5.0); Calcium 8.6 mg/dL (8.4-10.2); Magnesium 2.1 mg/dL (1.6-2.3); Phosphorus 3.4 mg/dL (2.5-4.5); Potassium 4.3 mmol/L (3.5-5.1); Total Bilirubin 0.9 mg/dL (0.2-1.3); Total Protein 6.5 g/dL (6.3-8.2)
[2019-04-20] MEDS: ACETAMINOPHEN TAB 325 MG TAB PO PRN ×2 (00:14→21:21)
[2019-04-20 06:18] LABS: Appearance,Urine Clear (Clear); Bilirubin,Urine Negative (Negative); Blood,Urine Negative (Negative); Color,Urine Yellow; Glucose,Urine (UA) Negative (Negative); Ketones,Urine Trace (Negative); Leukocyte Esterase,Urine Negative (Negative); Nitrite,Urine Negative (Negative); PH, Urine 5.5 (5.0-8.0); Protein,Urine Trace (Negative); Specific Gravity,Urine 1.019 (1.001-1.035); Urobilinogen,Urine <2.0 mg/dL (<2.0)
[2019-04-20] MEDS: IPRATROPIUM-ALBUTEROL 3 ML NEB INHALATION PRN ×3 (07:28→15:37)
[2019-04-20] MEDS: IBUPROFEN 600 MG TAB PO SCH ×2 (08:34→18:06)
--- NOTE | 2019-04-20 08:37 | XR ---
EXAMINATION TYPE: XR chest 1V DATE OF EXAM: 04/20/2019 COMPARISON: NONE HISTORY: Cough possible pneumonia TECHNIQUE: Single frontal view of the chest is obtained. FINDINGS: Heart is enlarged and is postsurgical change. There is soft tissue fullness in the upper m ediastinum. May represent a prominent thyroid gland. Slight mass effect upon the right margin of the trachea noted. Right lower lobe infiltrate seen. Underlying COPD noted. Arthropathy of the shoulders. No overt failure. IMPRESSION: 1. Cardiomegaly, COPD and right lower lobe infiltrate. 2. Impression upon the right lateral trachea could be related to thyroid, adenopathy not excluded con suture winder hand follow-up CT chest.
[2019-04-20] MEDS: ONDANSETRON 4 MG/2 ML VIAL IVP PRN ×2 (08:43→20:17)
[2019-04-20] MEDS ORDERED: ENOXAPARIN 40 MG/0.4 ML SYRINGE SQ SCH (09:00)
[2019-04-20] MEDS: amLODIPine 5 MG TAB PO SCH (14:35)
[2019-04-20] MEDS ORDERED: FUROSEMIDE 40 MG TAB PO SCH (15:00)
[2019-04-20 17:10] LABS: INR 1.8 (<1.2); Prothrombin Time 17.8 sec (9.0-12.0)
[2019-04-20] MEDS: WARFARIN 5 MG TAB PO SCH (18:08)
--- NOTE | 2019-04-20 18:51 | P.HPIM ---
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 Patient has not been feeling very well nauseous and was also having vomiting episodes at home. Patient says that she was recently presented to medical clinic with fever chills and low-grade fever and sweats. Patient was found to have urinary tract infection and was started on antibiotics. Patient says that she has not been feeling very well and continues to have nausea and generalized weakness. Patient does have cough without much sputum production. Does have decreased oral intake and subjective fevers at home. Presented to ER for further evaluation. Denied any complaints of chest pain. Patient did have mild short of breath. Denied any leg swelling. Chest x-ray showed there is mild right lower lobe pneumonia that appears new compared to old exam. Mild cardiomegaly. No heart failure seen. Repeat chest x-ray showed cardiomegaly, COPD and right lower lobe infiltrate. Impression upon the right lateral trachea could be related to thyroid, adenopathy not excluded consider follow-up CT chest. Influenza negative Urinalysis is negative for infection WBC 7.1 INR 1.6 T-max 101.2 on admission Review of Systems Constitutional: Patient does have subjective fever and chills. Generalized weakness and malaise.. Abdomen: Patient denied nausea vomiting and diarrhea and abdominal pain. Cardiovascular: Patient denies any chest pain or short of breath no palpitations. Respiratory: Patient does have cough congestion and shortness of breath Neurologic: Patient denied any numbness or tingling headache. Musculoskeletal: Patient denies any complaints of joint swelling or deformity. Skin: Negative Psychiatric: Negative Endocrine: No heat or cold intolerance. No recent weight gain. Genitourinary: No dysuria or hematuria. All other 14 point ROS negative except the above Past Medical History Past Medical History: Coronary Artery Disease (CAD), Hyperlipidemia, Hypertension, Musculoskeletal Disorder Additional Past Medical History / Comment(s): AORTIC VALVE REPAIRED W/ COW VALVE; TAKES PO AB RX DAY OF DENTAL WORK, PLANNED 03/19/18. HEMORRHOIDS CURRENT. BACK PAIN, DDD. LEGS GET TIRED, HEAVY WHEN WALKING, US SHOWED POSS BLOCKAGE. OCC EDEMA LT ANKLE. History of Any Multi-Drug Resistant Organisms: None Reported Past Surgical History: Cardiac Valve Replacement, Heart Catheterization With Stent Additional Past Surgical History / Comment(s): FACELIFT. AORTIC VALVE REPLACED, COW VALVE, 06/2010. Past Anesthesia/Blood Transfusion Reactions: Motion Sickness Additional Past Anesthesia/Blood Transfusion Reaction / Comment(s): MOTION SICK MANY YEARS AGO Date of Last Stent Placement:: 04/2007 Past Psychological History: No Psychological Hx Reported Smoking Status: Former smoker Past Alcohol Use History: Occasional Past Drug Use History: None Reported - Past Family History Mother Family Medical History: Dementia Medications and Allergies Home Medications Medication Instructions Recorded Confirmed Type Aspirin [Adult Low Dose Aspirin EC] 81 mg PO HS 03/17/18 04/19/19 History Atorvastatin [Lipitor] 40 mg PO HS 03/17/18 04/19/19 History Calcium Carbonate/Vitamin D3 1 tab PO Q7D 03/17/18 04/19/19 History [Calcium 600-Vit D3 400 Caplet] Cholecalciferol (Vitamin D3) 2,000 unit PO DAILY 03/17/18 04/19/19 History [Vitamin D3] Digoxin [Lanoxin] 125 mcg PO HS 03/17/18 04/19/19 History Furosemide [Lasix] 40 mg PO DAILY 03/17/18 04/19/19 History Potassium Chloride [K-Tab ER] 10 meq PO Q72H 03/17/18 04/19/19 History amLODIPine [Norvasc] 5 mg PO DAILY 03/17/18 04/19/19 History hydrALAZINE HCL [Apresoline] 25 mg PO AC-BID 03/17/18 04/19/19 History Ascorbic Acid [Vitamin C] 500 mg PO DAILY 05/19/18 04/19/19 History Turmeric Root Extract [Turmeric] 1 tab PO DAILY 05/19/18 04/19/19 History Ubidecarenone [Co Q-10] 100 mg PO DAILY 05/19/18 04/19/19 History Warfarin [Coumadin] 5 mg PO SUTUTHSA 05/19/18 04/19/19 History Warfarin [Coumadin] 7.5 mg PO MOWEFR 05/19/18 04/19/19 History Atorvastatin [Lipitor] 20 mg PO HS 06/18/18 04/19/19 History Benzonatate [Tessalon Perles] 100 mg PO TID 04/19/19 04/19/19 History Cephalexin [Keflex] 500 mg PO BID 04/19/19 04/19/19 History Multivitamins, Thera [Multivitamin 1 tab PO DAILY 04/19/19 04/19/19 History (formulary)] Allergies Allergy/AdvReac Type Severity Reaction Status Date / Time No Known Allergies Allergy Verified 04/19/19 22:11 Physical Exam Vitals: Vital Signs Temp Pulse Resp BP Pulse Ox 04/20/19 07:51 66 16 149/78 93 L 04/20/19 07:43 66 04/20/19 07:29 66 04/20/19 06:19 98.4 F 66 18 117/61 94 L 04/20/19 01:00 18 123/62 94 L 04/20/19 00:20 98.9 F 04/19/19 22:00 101.2 F H 72 20 141/68 95 04/19/19 20:20 99.2 F 79 18 150/75 95 Intake and Output 04/19/19 04/20/19 04/20/19 22:59 06:59 14:59 Other: Weight 63.503 kg PHYSICAL EXAMINATION: Patient is lying in the bed comfortably, no acute distress, awake alert and oriented.. HEENT: Normocephalic. Neck is supple. Pupils reactive. Nostrils clear. Oral cavity is moist. Ears reveal no drainage. Neck reveals no JVD, carotid bruits, or thyromegaly. CHEST EXAMINATION: Trachea is central. Symmetrical expansion. Bibasilar coarse breath sounds and no wheezing. Scattered rhonchi.. CARDIAC: Normal S1, S2 with no gallops. No murmurs ABDOMEN: Soft. Bowel sounds normal. No organomegaly. No abdominal bruits. Extremities: Trace edema. No clubbing or cyanosis Neurologically awake, alert, oriented x3 with well-coordinated movements. No focal deficits noted Skin: No rash or skin lesions. Psychiatric: Coperative. Nonsuicidal Musculoskeletal: No joint swelling or deformity. Normal range of motion. Results CBC & Chem 7: 04/19/19 20:25 04/19/19 20:25 Labs: Abnormal Lab Results - Last 24 Hours (Table) 04/19/19 04/19/19 04/19/19 Range/Units 20:25 20:25 20:25 Lymphocytes # 0.7 L (1.0-4.8) k/uL PT 15.9 H (9.0-12.0) sec INR 1.6 H (<1.2) Sodium 135 L (137-145) mmol/L BUN 19 H (7-17) mg/dL Glucose 129 H (74-99) mg/dL AST 49 H (14-36) U/L Urine Protein (Negative) Urine Ketones (Negative) 04/20/19 Range/Units 05:21 Lymphocytes # (1.0-4.8) k/uL PT (9.0-12.0) sec INR (<1.2) Sodium (137-145) mmol/L BUN (7-17) mg/dL Glucose (74-99) mg/dL AST (14-36) U/L Urine Protein Trace H (Negative) Urine Ketones Trace H (Negative) Thrombosis Risk Factor Assmnt - DVT/VTE Prophylaxis DVT/VTE Prophylaxis: Pharmacologic Prophylaxis ordered Assessment and Plan Assessment: Acute right lower lobe pneumonia sepsis secondary to above Recently diagnosed a UTI, currently on antibiotics at home in the form of keflex. Hypertension Hyperlipidemia Coronary artery disease with history of stent placement History of aortic valve replacement Previous history of smoking Subtherapeutic INR level Chronic atrial fibrillation with controlled ventricular rate Coumadin dosing Plan: Patient will be continued on antibiotics the form of ceftriaxone and az ithromycin. Continue with oxygen therapy as needed. IV hydration and monitor closely Continue with Coumadin dosing. Continue with metoprolol and digoxin. Continue the home medications and follow up closely. Further recommendations based on the clinical course. Time with Patient: Greater than 30
[2019-04-20] MEDS: ASPIRIN 81 MG PO SCH (20:26)
[2019-04-20] MEDS: ATORVASTATIN 20 MG TAB PO SCH (20:26)
[2019-04-20] MEDS: hydrALAZINE HCL 25 MG TAB PO SCH (20:26)
[2019-04-20] MEDS ORDERED: DIGOXIN 125 MCG TAB PO SCH (21:00)
[2019-04-20] MEDS ORDERED: AZITHROMYCIN 500 MG TAB PO SCH (21:43)
--- NOTE | 2019-04-20 22:19 | XR ---
EXAMINATION TYPE: XR chest 1V portable DATE OF EXAM: 04/20/2019 COMPARISON: Today HISTORY: Hypoxemia TECHNIQUE: Single view FINDINGS: There is blunting right costophrenic angle. There is some pulmonary interstitial edema and coalescent density right lower lobe. There are sternal wires. Heart appears enlarged. IMPRESSION: There is pulmonary edema that is new compared to exam this morning. There is new airspace infiltrate and pleural fluid right lung base compared to last exam. This could be congestive heart f ailure.
[2019-04-21] MEDS: IPRATROPIUM-ALBUTEROL 3 ML NEB INHALATION PRN ×4 (07:11→21:44)
[2019-04-21 07:27] LABS: INR 1.6 (<1.2); Prothrombin Time 15.7 sec (9.0-12.0)
--- NOTE | 2019-04-21 07:50 | XR ---
EXAMINATION TYPE: XR chest 1V portable DATE OF EXAM: 04/21/2019 COMPARISON: 04/20/2019 INDICATION: Increased short of breath TECHNIQUE: Single frontal view of the chest is obtained. FINDINGS: The heart size is moderately prominent. Sternotomy wires are present from prior cardiac valve surgery .. The pulmonary vasculature is normal. There is a right lower lobe infiltrate. Small right pleural effusion may be present. Mild left lower lobe infiltrate is not excluded. Findings appear stable from comparison. IMPRESSION: 1. Bibasilar infiltrates, stable. This is greater on the right. 2. Developing small right pleural effusion
[2019-04-21 08:06] LABS: Basophils % (A) 0 %; Eosinophils % (A) 0 %; HCT 39.3 % (34.0-46.0); HGB 12.8 gm/dL (11.4-16.0); Lymphocytes # (A) 0.9 k/uL (1.0-4.8); Lymphocytes % (A) 11 %; MCH 30.2 pg (25.0-35.0); MCHC 32.5 g/dL (31.0-37.0); MCV 92.9 fL (80.0-100.0); Mean Platelet Volume 7.2; Monocytes # (A) 0.2 k/uL (0-1.0); Monocytes % (A) 3 %; Neutrophils # (A) 6.8 k/uL (1.3-7.7); Neutrophils % (A) 84 %; Platelet Count 189 k/uL (150-450); RBC 4.23 m/uL (3.80-5.40); RDW 13.3 % (11.5-15.5)
[2019-04-21 08:13] LABS: Albumin 3.5 g/dL (3.5-5.0); Calcium 8.6 mg/dL (8.4-10.2); Potassium 3.7 mmol/L (3.5-5.1); Total Bilirubin 0.7 mg/dL (0.2-1.3); Total Protein 6.1 g/dL (6.3-8.2)
[2019-04-21 08:22] LABS: ABG HCO3 27 mmol/L (21-25); ABG Oxygen Saturation 97.9 % (94-97); ABG PCO2 36 mmHg (35-45); ABG PH 7.49 (7.35-7.45); ABG PO2 95 mmHg (83-108); ABG TCO2 28 mmol/L (19-24); Allen Test Performed? Yes
[2019-04-21] MEDS ORDERED: NON FORMULARY DRUG (Ubidecarenone [Co Q-10] 100 MG) PO SCH (09:00)
[2019-04-21] MEDS ORDERED: FUROSEMIDE 10 MG/ML 4 ML VIAL IV SCH (09:00)
[2019-04-21] MEDS: ONDANSETRON 4 MG/2 ML VIAL IVP PRN (09:21)
[2019-04-21] MEDS: ACETAMINOPHEN TAB 325 MG TAB PO PRN (09:21)
[2019-04-21] MEDS ORDERED: NALOXONE 0.4 MG/ML 1 ML VIAL IV PRN (09:52)
[2019-04-21 10:12] LABS: Glucose,Whole Blood 137 mg/dL (75-99)
[2019-04-21] MEDS ORDERED: FUROSEMIDE 10 MG/ML 4 ML VIAL IV STA (11:17)
[2019-04-21] MEDS: CHOLECALCIFEROL 1,000 UNIT TAB PO SCH (11:18)
[2019-04-21] MEDS: MULTIVITAMINS, THERA 1 EACH TAB PO SCH (11:18)
[2019-04-21] MEDS: amLODIPine 5 MG TAB PO SCH (11:18)
[2019-04-21] MEDS: hydrALAZINE HCL 25 MG TAB PO SCH ×2 (11:18→22:02)
[2019-04-21] MEDS: ASCORBIC ACID 500 MG TAB PO SCH (11:18)
[2019-04-21] MEDS: POTASSIUM CHLORIDE ER 10 MEQ TAB.ER.PRT PO SCH (11:18)
--- NOTE | 2019-04-21 12:03 | P.CRDCN ---
History of Present Illness History of present illness: This is Dr. 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 Graves as an outpatient PLAN: Stop digoxin If a heart rates increase then he will start on low-dose beta blockers Continue anticoagulation and keep INR at therapeutic level of the internal medicine/ICU team Management of pneumonitis per ICU team 2-D echo and Doppler study to assess cardiac structure and function and valves IV Lasix 40 mg every 12 Watch BUN/creatinine tsh HPI 79-year-old female presenting to the emergency room with weakness and not feeling well. She was complaining of nausea cough and shortness of breath initially. She had nausea vomiting and fever. She was initially diagnosed with UTI which was also complaining of a cough and shortness of breath The symptoms began about 2 days prior to admission Chest x-ray on the revealed a mild right lower lobe pneumonia that was new as compared to her old exam Twelve-lead ECG showed atrial fibrillation with a controlled ventricular response narrow QRS patient is on digoxin follow-up chest x-ray showed pulmonary edema with new airspace disease and pleural reaction in the right lung base She was transferred from the fourth floor as she started to deteriorate and become more short of breath ROS: No fever chills or rigors, no cough, phlegm or expectoration, no nausea, vomiting or diarrhea, no hematuria, dysuria, no musculoskeletal complaints, no strokes or seizures, no skin lesions. EXAMINATION: Visibly short of breath at rest Elevated blood pressure readings today but prior to that her blood pressures were in the normal range Reduced breath sounds bilaterally with bibasilar crackles heart sounds irregular normal no murmurs, S1 and S2 normal Abdomen is soft nontender No lower extremity edema Possible hepatojugular reflux REVIEW OF LABS, ECG & MEDICAL DATA sodium 140, potassium 3.7, BUN 17, creatinine 0.77, AST 46, ALT 26 BNP 2260 Hemoglobin 12.8 white count 8000 no leftward shift, low lymphocyte count Past Medical History Past Medical History: Coronary Artery Disease (CAD), Hyperlipidemia, Hypertension, Musculoskeletal Disorder Additional Past Medical History / Comment(s): AORTIC VALVE REPAIRED W/ COW VALVE; TAKES PO AB RX DAY OF DENTAL WORK, PLANNED 03/19/18. HEMORRHOIDS CURRENT. BACK PAIN, DDD. LEGS GET TIRED, HEAVY WHEN WALKING, US SHOWED POSS BLOCKAGE. OCC EDEMA LT ANKLE. History of Any Multi-Drug Resistant Organisms: None Reported Past Surgical History: Cardiac Valve Replacement, Heart Catheterization With Stent Additional Past Surgical History / Comment(s): FACELIFT. AORTIC VALVE REPLACED, COW VALVE, 06/2010. Past Anesthesia/Blood Transfusion Reactions: Motion Sickness Additional Past Anesthesia/Blood Transfusion Reaction / Comment(s): MOTION SICK MANY YEARS AGO Date of Last Stent Placement:: 04/2007 Past Psychological History: No Psychological Hx Reported Smoking Status: Former smoker Past Alcohol Use History: Occasional Past Drug Use History: None Reported - Past Family History Mother Family Medical History: Dementia Medications and Allergies Home Medications Medication Instructions Recorded Confirmed Type Aspirin [Adult Low Dose Aspirin EC] 81 mg PO HS 03/17/18 04/19/19 History Atorvastatin [Lipitor] 40 mg PO HS 03/17/18 04/19/19 History Calcium Carbonate/Vitamin D3 1 tab PO Q7D 03/17/18 04/19/19 History [Calcium 600-Vit D3 400 Caplet] Cholecalciferol (Vitamin D3) 2,000 unit PO DAILY 03/17/18 04/19/19 History [Vitamin D3] Digoxin [Lanoxin] 125 mcg PO HS 03/17/18 04/19/19 History Furosemide [Lasix] 40 mg PO DAILY 03/17/18 04/19/19 History Potassium Chloride [K-Tab ER] 10 meq PO Q72H 03/17/18 04/19/19 History amLODIPine [Norvasc] 5 mg PO DAILY 03/17/18 04/19/19 History hydrALAZINE HCL [Apresoline] 25 mg PO AC-BID 03/17/18 04/19/19 History Ascorbic Acid [Vitamin C] 500 mg PO DAILY 05/19/18 04/19/19 History Turmeric Root Extract [Turmeric] 1 tab PO DAILY 05/19/18 04/19/19 History Ubidecarenone [Co Q-10] 100 mg PO DAILY 05/19/18 04/19/19 History Warfarin [Coumadin] 5 mg PO SUTUTHSA 05/19/18 04/19/19 History Warfarin [Coumadin] 7.5 mg PO MOWEFR 05/19/18 04/19/19 History Atorvastatin [Lipitor] 20 mg PO HS 06/18/18 04/19/19 History Benzonatate [Tessalon Perles] 100 mg PO TID 04/19/19 04/19/19 History Cephalexin [Keflex] 500 mg PO BID 04/19/19 04/19/19 History Multivitamins, Thera [Multivitamin 1 tab PO DAILY 04/19/19 04/19/19 History (formulary)] Allergies Allergy/AdvReac Type Severity Reaction Status Date / Time No Known Allergies Allergy Verified 04/19/19 22:11 Physical Exam Vitals: Vital Signs Temp Pulse Pulse Resp BP BP Pulse Ox 04/21/19 09:20 102.4 F H 04/21/19 08:14 99.1 F 108 H 177/82 04/21/19 08:00 28 H 04/21/19 07:14 94 L 04/21/19 07:00 98 F 83 22 197/92 79 L 04/21/19 00:00 98 04/20/19 23:00 99.1 F 98 24 131/72 95 04/20/19 21:49 93 L 04/20/19 21:48 93 L 04/20/19 21:40 85 L 04/20/19 16:42 98.3 F 92 16 129/64 93 L 04/20/19 15:37 72 04/20/19 14:36 76 18 120/72 99 Intake and Output 04/20/19 04/21/19 04/21/19 22:59 06:59 14:59 Intake Total 800 80 530 Output Total 333 321 9529 Balance 650 -120 -1270 Intake: IV 80 50 0.9 Normal Saline 80 50 Intake, IV Titration 800 Amount cefTRIAXone 1 gm In 800 Sodium Chloride 0.9% 50 ml @ 100 mls/hr IVPB Q24H [facility] Rx#:[id number] Oral 480 Output: Urine 721 875 8848 Other: Weight 63.503 kg Results 04/21/19 07:30 04/21/19 07:30 Cardiac Enzymes 04/19/19 04/19/19 04/19/19 Range/Units 20:25 20:25 20:25 WBC 7.1 (3.8-10.6) k/uL RBC 4.17 (3.80-5.40) m/uL Hgb 12.6 (11.4-16.0) gm/dL Hct 38.4 (34.0-46.0) % MCV 92.0 (80.0-100.0) fL MCH 30.2 (25.0-35.0) pg MCHC 32.8 (31.0-37.0) g/dL RDW 13.3 (11.5-15.5) % Plt Count 219 (150-450) k/uL Neutrophils % 81 % Lymphocytes % 9 % Monocytes % 7 % Eosinophils % 0 % Basophils % 0 % Neutrophils # 5.8 (1.3-7.7) k/uL Lymphocytes # 0.7 L (1.0-4.8) k/uL Monocytes # 0.5 (0-1.0) k/uL Eosinophils # 0.0 (0-0.7) k/uL Basophils # 0.0 (0-0.2) k/uL PT (9.0-12.0) sec INR (<1.2) APTT (22.0-30.0) sec D-Dimer (<0.60) mg/L FEU Sample Site ABG pH (7.35-7.45) ABG pCO2 (35-45) mmHg ABG pO2 (83-108) mmHg ABG HCO3 (21-25) mmol/L ABG Total CO2 (19-24) mmol/L ABG O2 Saturation (94-97) % ABG Base Excess mmol/L Stephen Test FiO2 % Sodium 135 L (137-145) mmol/L Potassium 4.3 (3.5-5.1) mmol/L Chloride 101 (98-107) mmol/L Carbon Dioxide 28 (22-30) mmol/L Anion Gap 6 mmol/L BUN 19 H (7-17) mg/dL Creatinine 0.84 (0.52-1.04) mg/dL Est GFR (CKD-EPI)AfAm 75 (>60 ml/min/1.73 sqM) Est GFR (CKD-EPI)NonAf 65 (>60 ml/min/1.73 sqM) Glucose 129 H (74-99) mg/dL POC Glucose (mg/dL) (75-99) mg/dL POC Glu Convalescent Sitter ID Plasma Lactic Acid Mik 1.0 (0.7-2.0) mmol/L Calcium 8.6 (8.4-10.2) mg/dL Phosphorus 3.4 (2.5-4.5) mg/dL Magnesium 2.1 (1.6-2.3) mg/dL Total Bilirubin 0.9 (0.2-1.3) mg/dL AST (14-36) U/L ALT 24 (4-34) U/L Alkaline Phosphatase 69 (38-126) U/L NT-Pro-B Natriuret Pep pg/mL Total Protein 6.5 (6.3-8.2) g/dL Albumin 3.9 (3.5-5.0) g/dL Urine Color Urine Appearance (Clear) Urine pH (5.0-8.0) Ur Specific Henderson (1.001-1.035) Urine Protein (Negative) Urine Glucose (UA) (Negative) Urine Ketones (Negative) Urine Blood (Negative) Urine Nitrite (Negative) Urine Bilirubin (Negative) Urine Urobilinogen (<2.0) mg/dL Ur Leukocyte Esterase (Negative) Influenza Type A RNA (Not Detectd) Influenza Type B (PCR) (Not Detectd) 04/19/19 04/19/19 04/20/19 Range/Units 20:25 22:00 05:21 WBC (3.8-10.6) k/uL RBC (3.80-5.40) m/uL Hgb (11.4-16.0) gm/dL Hct (34.0-46.0) % MCV (80.0-100.0) fL MCH (25.0-35.0) pg MCHC (31.0-37.0) g/dL RDW (11.5-15.5) % Plt Count (150-450) k/uL Neutrophils % % Lymphocytes % % Monocytes % % Eosinophils % % Basophils % % Neutrophils # (1.3-7.7) k/uL Lymphocytes # (1.0-4.8) k/uL Monocytes # (0-1.0) k/uL Eosinophils # (0-0.7) k/uL Basophils # (0-0.2) k/uL PT 15.9 H (9.0-12.0) sec INR 1.6 H (<1.2) APTT 29.4 (22.0-30.0) sec D-Dimer (<0.60) mg/L FEU Sample Site ABG pH (7.35-7.45) ABG pCO2 (35-45) mmHg ABG pO2 (83-108) mmHg ABG HCO3 (21-25) mmol/L ABG Total CO2 (19-24) mmol/L ABG O2 Saturation (94-97) % ABG Base Excess mmol/L Stephen Test FiO2 % Sodium (137-145) mmol/L Potassium (3.5-5.1) mmol/L Chloride (98-107) mmol/L Carbon Dioxide (22-30) mmol/L Anion Gap mmol/L BUN (7-17) mg/dL Creatinine (0.52-1.04) mg/dL Est GFR (CKD-EPI)AfAm (>60 ml/min/1.73 sqM) Est GFR (CKD-EPI)NonAf (>60 ml/min/1.73 sqM) Glucose (74-99) mg/dL POC Glucose (mg/dL) (75-99) mg/dL POC Glu Convalescent Sitter ID Plasma Lactic Acid Mik (0.7-2.0) mmol/L Calcium (8.4-10.2) mg/dL Phosphorus (2.5-4.5) mg/dL Magnesium (1.6-2.3) mg/dL Total Bilirubin (0.2-1.3) mg/dL AST (14-36) U/L ALT (4-34) U/L Alkaline Phosphatase (38-126) U/L NT-Pro-B Natriuret Pep pg/mL Total Protein (6.3-8.2) g/dL Albumin (3.5-5.0) g/dL Urine Color Yellow Urine Appearance Clear (Clear) Urine pH 5.5 (5.0-8.0) Ur Specific Henderson 1.019 (1.001-1.035) Urine Protein Trace H (Negative) Urine Glucose (UA) Negative (Negative) Urine Ketones Trace H (Negative) Urine Blood Negative (Negative) Urine Nitrite Negative (Negative) Urine Bilirubin Negative (Negative) Urine Urobilinogen <2.0 (<2.0) mg/dL Ur Leukocyte Esterase Negative (Negative) Influenza Type A RNA Not Detected (Not Detectd) Influenza Type B (PCR) Not Detected (Not Detectd) 04/20/19 04/21/19 04/21/19 Range/Units 16:49 06:15 07:30 WBC 8.0 (3.8-10.6) k/uL RBC 4.23 (3.80-5.40) m/uL Hgb 12.8 (11.4-16.0) gm/dL Hct 39.3 (34.0-46.0) % MCV 92.9 (80.0-100.0) fL MCH 30.2 (25.0-35.0) pg MCHC 32.5 (31.0-37.0) g/dL RDW 13.3 (11.5-15.5) % Plt Count 189 (150-450) k/uL Neutrophils % 84 % Lymphocytes % 11 % Monocytes % 3 % Eosinophils % 0 % Basophils % 0 % Neutrophils # 6.8 (1.3-7.7) k/uL Lymphocytes # 0.9 L (1.0-4.8) k/uL Monocytes # 0.2 (0-1.0) k/uL Eosinophils # 0.0 (0-0.7) k/uL Basophils # 0.0 (0-0.2) k/uL PT 17.8 H 15.7 H (9.0-12.0) sec INR 1.8 H 1.6 H (<1.2) APTT (22.0-30.0) sec D-Dimer (<0.60) mg/L FEU Sample Site ABG pH (7.35-7.45) ABG pCO2 (35-45) mmHg ABG pO2 (83-108) mmHg ABG HCO3 (21-25) mmol/L ABG Total CO2 (19-24) mmol/L ABG O2 Saturation (94-97) % ABG Base Excess mmol/L Stephen Test FiO2 % Sodium (137-145) mmol/L Potassium (3.5-5.1) mmol/L Chloride (98-107) mmol/L Carbon Dioxide (22-30) mmol/L Anion Gap mmol/L BUN (7-17) mg/dL Creatinine (0.52-1.04) mg/dL Est GFR (CKD-EPI)AfAm (>60 ml/min/1.73 sqM) Est GFR (CKD-EPI)NonAf (>60 ml/min/1.73 sqM) Glucose (74-99) mg/dL POC Glucose (mg/dL) (75-99) mg/dL POC Glu Convalescent Sitter ID Plasma Lactic Acid Mik (0.7-2.0) mmol/L Calcium (8.4-10.2) mg/dL Phosphorus (2.5-4.5) mg/dL Magnesium (1.6-2.3) mg/dL Total Bilirubin (0.2-1.3) mg/dL AST (14-36) U/L ALT (4-34) U/L Alkaline Phosphatase (38-126) U/L NT-Pro-B Natriuret Pep pg/mL Total Protein (6.3-8.2) g/dL Albumin (3.5-5.0) g/dL Urine Color Urine Appearance (Clear) Urine pH (5.0-8.0) Ur Specific Henderson (1.001-1.035) Urine Protein (Negative) Urine Glucose (UA) (Negative) Urine Ketones (Negative) Urine Blood (Negative) Urine Nitrite (Negative) Urine Bilirubin (Negative) Urine Urobilinogen (<2.0) mg/dL Ur Leukocyte Esterase (Negative) Influenza Type A RNA (Not Detectd) Influenza Type B (PCR) (Not Detectd) 04/21/19 04/21/19 04/21/19 Range/Units 07:30 07:30 07:30 WBC (3.8-10.6) k/uL RBC (3.80-5.40) m/uL Hgb (11.4-16.0) gm/dL Hct (34.0-46.0) % MCV (80.0-100.0) fL MCH (25.0-35.0) pg MCHC (31.0-37.0) g/dL RDW (11.5-15.5) % Plt Count (150-450) k/uL Neutrophils % % Lymphocytes % % Monocytes % % Eosinophils % % Basophils % % Neutrophils # (1.3-7.7) k/uL Lymphocytes # (1.0-4.8) k/uL Monocytes # (0-1.0) k/uL Eosinophils # (0-0.7) k/uL Basophils # (0-0.2) k/uL PT (9.0-12.0) sec INR (<1.2) APTT (22.0-30.0) sec D-Dimer (<0.60) mg/L FEU Sample Site ABG pH (7.35-7.45) ABG pCO2 (35-45) mmHg ABG pO2 (83-108) mmHg ABG HCO3 (21-25) mmol/L ABG Total CO2 (19-24) mmol/L ABG O2 Saturation (94-97) % ABG Base Excess mmol/L Stephen Test FiO2 % Sodium 140 (137-145) mmol/L Potassium 3.7 (3.5-5.1) mmol/L Chloride 106 (98-107) mmol/L Carbon Dioxide 26 (22-30) mmol/L Anion Gap 8 mmol/L BUN 17 (7-17) mg/dL Creatinine 0.77 (0.52-1.04) mg/dL Est GFR (CKD-EPI)AfAm 84 (>60 ml/min/1.73 sqM) Est GFR (CKD-EPI)NonAf 73 (>60 ml/min/1.73 sqM) Glucose 122 H (74-99) mg/dL POC Glucose (mg/dL) (75-99) mg/dL POC Glu Convalescent Sitter ID Plasma Lactic Acid Mik 0.7 (0.7-2.0) mmol/L Calcium 8.6 (8.4-10.2) mg/dL Phosphorus (2.5-4.5) mg/dL Magnesium (1.6-2.3) mg/dL Total Bilirubin 0.7 (0.2-1.3) mg/dL AST 46 H (14-36) U/L ALT 26 (4-34) U/L Alkaline Phosphatase 70 (38-126) U/L NT-Pro-B Natriuret Pep 2260 pg/mL Total Protein 6.1 L (6.3-8.2) g/dL Albumin 3.5 (3.5-5.0) g/dL Urine Color Urine Appearance (Clear) Urine pH (5.0-8.0) Ur Specific Henderson (1.001-1.035) Urine Protein (Negative) Urine Glucose (UA) (Negative) Urine Ketones (Negative) Urine Blood (Negative) Urine Nitrite (Negative) Urine Bilirubin (Negative) Urine Urobilinogen (<2.0) mg/dL Ur Leukocyte Esterase (Negative) Influenza Type A RNA (Not Detectd) Influenza Type B (PCR) (Not Detectd) 04/21/19 04/21/19 04/21/19 Range/Units 07:30 07:30 08:20 WBC (3.8-10.6) k/uL RBC (3.80-5.40) m/uL Hgb (11.4-16.0) gm/dL Hct (34.0-46.0) % MCV (80.0-100.0) fL MCH (25.0-35.0) pg MCHC (31.0-37.0) g/dL RDW (11.5-15.5) % Plt Count (150-450) k/uL Neutrophils % % Lymphocytes % % Monocytes % % Eosinophils % % Basophils % % Neutrophils # (1.3-7.7) k/uL Lymphocytes # (1.0-4.8) k/uL Monocytes # (0-1.0) k/uL Eosinophils # (0-0.7) k/uL Basophils # (0-0.2) k/uL PT (9.0-12.0) sec INR (<1.2) APTT (22.0-30.0) sec D-Dimer 0.52 (<0.60) mg/L FEU Sample Site RRAD ABG pH 7.49 H (7.35-7.45) ABG pCO2 36 (35-45) mmHg ABG pO2 95 (83-108) mmHg ABG HCO3 27 H (21-25) mmol/L ABG Total CO2 28 H (19-24) mmol/L ABG O2 Saturation 97.9 H (94-97) % ABG Base Excess 4.0 mmol/L Stephen Test Yes FiO2 100 % Sodium (137-145) mmol/L Potassium (3.5-5.1) mmol/L Chloride (98-107) mmol/L Carbon Dioxide (22-30) mmol/L Anion Gap mmol/L BUN (7-17) mg/dL Creatinine (0.52-1.04) mg/dL Est GFR (CKD-EPI)AfAm (>60 ml/min/1.73 sqM) Est GFR (CKD-EPI)NonAf (>60 ml/min/1.73 sqM) Glucose (74-99) mg/dL POC Glucose (mg/dL) (75-99) mg/dL POC Glu Convalescent Sitter ID Plasma Lactic Acid Mik (0.7-2.0) mmol/L Calcium (8.4-10.2) mg/dL Phosphorus (2.5-4.5) mg/dL Magnesium 2.1 (1.6-2.3) mg/dL Total Bilirubin (0.2-1.3) mg/dL AST (14-36) U/L ALT (4-34) U/L Alkaline Phosphatase (38-126) U/L NT-Pro-B Natriuret Pep pg/mL Total Protein (6.3-8.2) g/dL Albumin (3.5-5.0) g/dL Urine Color Urine Appearance (Clear) Urine pH (5.0-8.0) Ur Specific Henderson (1.001-1.035) Urine Protein (Negative) Urine Glucose (UA) (Negative) Urine Ketones (Negative) Urine Blood (Negative) Urine Nitrite (Negative) Urine Bilirubin (Negative) Urine Urobilinogen (<2.0) mg/dL Ur Leukocyte Esterase (Negative) Influenza Type A RNA (Not Detectd) Influenza Type B (PCR) (Not Detectd) 04/21/19 Range/Units 10:10 WBC (3.8-10.6) k/uL RBC (3.80-5.40) m/uL Hgb (11.4-16.0) gm/dL Hct (34.0-46.0) % MCV (80.0-100.0) fL MCH (25.0-35.0) pg MCHC (31.0-37.0) g/dL RDW (11.5-15.5) % Plt Count (150-450) k/uL Neutrophils % % Lymphocytes % % Monocytes % % Eosinophils % % Basophils % % Neutrophils # (1.3-7.7) k/uL Lymphocytes # (1.0-4.8) k/uL Monocytes # (0-1.0) k/uL Eosinophils # (0-0.7) k/uL Basophils # (0-0.2) k/uL PT (9.0-12.0) sec INR (<1.2) APTT (22.0-30.0) sec D-Dimer (<0.60) mg/L FEU Sample Site ABG pH (7.35-7.45) ABG pCO2 (35-45) mmHg ABG pO2 (83-108) mmHg ABG HCO3 (21-25) mmol/L ABG Total CO2 (19-24) mmol/L ABG O2 Saturation (94-97) % ABG Base Excess mmol/L Stephen Test FiO2 % Sodium (137-145) mmol/L Potassium (3.5-5.1) mmol/L Chloride (98-107) mmol/L Carbon Dioxide (22-30) mmol/L Anion Gap mmol/L BUN (7-17) mg/dL Creatinine (0.52-1.04) mg/dL Est GFR (CKD-EPI)AfAm (>60 ml/min/1.73 sqM) Est GFR (CKD-EPI)NonAf (>60 ml/min/1.73 sqM) Glucose (74-99) mg/dL POC Glucose (mg/dL) 137 H (75-99) mg/dL POC Glu Convalescent Sitter ID Ursula Arrington Plasma Lactic Acid Mik (0.7-2.0) mmol/L Calcium (8.4-10.2) mg/dL Phosphorus (2.5-4.5) mg/dL Magnesium (1.6-2.3) mg/dL Total Bilirubin (0.2-1.3) mg/dL AST (14-36) U/L ALT (4-34) U/L Alkaline Phosphatase (38-126) U/L NT-Pro-B Natriuret Pep pg/mL Total Protein (6.3-8.2) g/dL Albumin (3.5-5.0) g/dL Urine Color Urine Appearance (Clear) Urine pH (5.0-8.0) Ur Specific Henderson (1.001-1.035) Urine Protein (Negative) Urine Glucose (UA) (Negative) Urine Ketones (Negative) Urine Blood (Negative) Urine Nitrite (Negative) Urine Bilirubin (Negative) Urine Urobilinogen (<2.0) mg/dL Ur Leukocyte Esterase (Negative) Influenza Type A RNA (Not Detectd) Influenza Type B (PCR) (Not Detectd) Coagulation 04/20/19 04/21/19 Range/Units 16:49 06:15 PT 17.8 H 15.7 H (9.0-12.0) sec CBC 04/21/19 Range/Units 07:30 WBC 8.0 (3.8-10.6) k/uL RBC 4.23 (3.80-5.40) m/uL Hgb 12.8 (11.4-16.0) gm/dL Hct 39.3 (34.0-46.0) % Plt Count 189 (150-450) k/uL Comprehensive Metabolic Panel 04/21/19 Range/Units 07:30 Sodium 140 (137-145) mmol/L Potassium 3.7 (3.5-5.1) mmol/L Chloride 106 (98-107) mmol/L Carbon Dioxide 26 (22-30) mmol/L BUN 17 (7-17) mg/dL Creatinine 0.77 (0.52-1.04) mg/dL Glucose 122 H (74-99) mg/dL Calcium 8.6 (8.4-10.2) mg/dL AST 46 H (14-36) U/L ALT 26 (4-34) U/L Alkaline Phosphatase 70 (38-126) U/L Total Protein 6.1 L (6.3-8.2) g/dL Albumin 3.5 (3.5-5.0) g/dL Current Medications Generic Name Dose Route Start Last Admin Trade Name Rustyq PRN Reason Stop Dose Admin Acetaminophen 650 mg 04/19/19 23:49 04/21/19 09:21 Tylenol Tab PO 650 mg Q4HR PRN Administration Fever and/ or Pain Albuterol/Ipratropium 3 ml 04/19/19 21:42 04/20/19 15:37 Duoneb 0.5 Mg-3 Mg/3 Ml Soln INHALATION 3 ml RT-Q4H PRN Administration shortness of breath Amlodipine Besylate 5 mg 04/20/19 14:30 04/21/19 11:18 Norvasc PO 5 mg DAILY MICHELLE Administration Ascorbic Acid 500 mg 04/21/19 09:00 04/21/19 11:18 Vitamin C PO 500 mg DAILY MICHELLE Administration Aspirin 81 mg 04/20/19 21:00 04/20/19 20:26 Aspirin PO 81 mg HS MICHELLE Administration Atorvastatin Calcium 20 mg 04/20/19 21:00 04/20/19 20:26 Lipitor PO 20 mg HS MICHELLE Administration Cholecalciferol 2,000 unit 04/21/19 09:00 04/21/19 11:18 Vitamin D3 (25 Mcg = 1000 Iu) PO 2,000 unit DAILY [facility] Administration Famotidine 20 mg 04/21/19 21:00 Pepcid PO BID MICHELLE Furosemide 40 mg 04/21/19 12:15 Lasix IV Q12HR MICHELLE Hydralazine HCl 25 mg 04/20/19 21:00 04/21/19 11:18 Apresoline PO 25 mg BID MICHELLE Administration Ceftriaxone Sodium 1 gm/ 50 mls @ 100 mls/hr 04/20/19 21:43 04/19/19 22:34 Sodium Chloride IVPB 100 mls/hr Q24H MICHELLE Administration Miscellaneous Information 1 each 04/19/19 21:42 Pneumonia Protocol Utilized PO ONCE PRN Per Protocol Miscellaneous Information 1 each 04/20/19 16:08 Coumadin Per Pharmacy MISCELLANE DIRECTED PRN Per Protocol Multivitamins 1 each 04/21/19 09:00 04/21/19 11:18 Theragran PO 1 each DAILY [facility] Administration Naloxone HCl 0.2 mg 04/21/19 09:52 Narcan IV Q2M PRN Opioid Reversal Ondansetron HCl 4 mg 04/20/19 08:38 04/21/19 09:21 Zofran IVP 4 mg Q6HR PRN Administration Nausea And Vomiting Potassium Chloride 10 meq 04/21/19 09:00 04/21/19 11:18 K-Dur 10 PO 10 meq Q72H [facility] Administration Warfarin Sodium 5 mg 04/20/19 18:15 04/20/19 18:08 Coumadin PO 5 mg [id number] [facility] Administration Protocol Warfarin Sodium 7.5 mg 04/21/19 18:00 Coumadin PO [email or web address] [facility] Protocol Intake and Output 04/20/19 04/21/19 04/21/19 22:59 06:59 14:59 Intake Total 800 80 530 Output Total 886 702 0092 Balance 650 -120 -1270 Intake: IV 80 50 0.9 Normal Saline 80 50 Intake, IV Titration 800 Amount cefTRIAXone 1 gm In 800 Sodium Chloride 0.9% 50 ml @ 100 mls/hr IVPB Q24H [facility] Rx#:[id number] Oral 480 Output: Urine 986 155 2790 Other: Weight 63.503 kg 04/21/19 07:30 04/21/19 07:30
[2019-04-21] MEDS: FUROSEMIDE 10 MG/ML 4 ML VIAL IV SCH ×2 (12:16→21:57)
[2019-04-21 12:23] LABS: Creatine Kinase MB 1.4 ng/mL (0.0-2.4)
[2019-04-21 12:35] LABS: Troponin I 0.038 ng/mL (0.000-0.034)
[2019-04-21 12:54] LABS: Appearance,Urine Clear (Clear); Bilirubin,Urine Negative (Negative); Blood,Urine Negative (Negative); Color,Urine Yellow; Glucose,Urine (UA) Negative (Negative); Ketones,Urine Negative (Negative); Leukocyte Esterase,Urine Negative (Negative); Nitrite,Urine Negative (Negative); PH, Urine 5.5 (5.0-8.0); Protein,Urine Negative (Negative); Urobilinogen,Urine <2.0 mg/dL (<2.0)
--- NOTE | 2019-04-21 13:46 | CONS ---
CONSULTATION PULMONARY/CRITICAL CARE CONSULTATION: DATE OF SERVICE: April 21, 2019 HISTORY OF PRESENT ILLNESS: This is an 79-year-old female who came into the emergency room, brought in by EMS for increasing weakness and not feeling well. The patient apparently was initially seen at [facility] or [facility], was thought to have a possible urinary tract infection and placed on antibiotics. The patient had been afebrile for a couple days prior to admission. In addition, she has had some nausea and vomiting as well as decreased oral intake. The patient does have a history of coronary artery disease and did have a cardiac stent many years ago. Her initial chest x-ray showed it to be normal, but subsequent to that and sometime today, she developed worsening respiratory status, fever, difficulty breathing, increased work of breathing and we transferred the patient to the ICU. We were going to place her on BiPAP because it appears that she does have heart failure. Anyway, because of the nausea and vomiting, we decided to go with AIRVO. Anyway, the patient is here now in the ICU. I have asked for a stat EKG and cardiology consultation. I believe she will need an echocardiogram. In addition, we are going to stop the Zithromax, Cipro, just on the Rocephin for now. It does not appear that she has a pneumonia. If anything, possible urinary tract infection, although the urinalysis here looks pretty good. She has only had 1 troponin. I will repeat that as well. Her IV is 0.9 at KVO. In addition, she is on AIRVO at 60 L/minutes and 100% FiO2. CURRENT MEDICATIONS: Include aspirin, Lipitor, vitamin D with calcium, digoxin, Lasix, potassium chloride, Norvasc, Apresoline, ascorbic acid, Aleve, turmeric root extract, coenzyme Q, warfarin, tramadol, and Lipitor. In addition, the patient was or is on Plavix. ALLERGIES: Denied. 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 SURGICAL HISTORY: Includes cardiac valve replacement, aortic valve, with a bovine valve, heart catheterization with stent, face-lift, and a stent in 1 of her peripheral lower extremities. SOCIAL HISTORY: Positive for about 40 years of tobacco use at about a pack a day. She started when she was about 16 or 18, quit when she was about 58 or 59. She does admit to occasional alcohol use. No illicit drug use. FAMILY HISTORY: Positive for mother with dementia. REVIEW OF SYSTEMS: CONSTITUTIONAL: Fatigue, fever. NEUROLOGIC negative. HEENT negative. CARDIOVASCULAR negative. PULMONARY shortness of breath. GI nausea and dry heaves. negative. RHEUMATOLOGIC negative. IMMUNOLOGIC negative ENDOCRINOLOGIC negative. DERMATOLOGIC negative. PHYSICAL EXAMINATION: VITAL SIGNS: Current vital signs are reviewed. Temperature is 102.4, heart rate is 108, respiratory rate 28, blood pressure 177/82. Mean 113. Saturations are in the mid 90s on 60 L/minute AIRVO and a FiO2 of about 92%. GENERAL: Appears in no acute distress. Looks pale. HEENT examination is grossly unremarkable. AIRVO is in place. NECK: Supple. Full range of motion. No adenopathy. Neck veins are flat. CARDIOVASCULAR examination reveals regular rhythm and rate. She is tachycardic. No distinct murmur noted. LUNGS: Reveal some coarse rhonchi and crackles. Breath sounds equal. ABDOMEN: Soft. EXTREMITIES are intact. No edema. SKIN: Without rash. NEUROLOGIC: Examination is nonfocal. LABS: Reviewed. White count 8, hemoglobin 12.8, hematocrit 39.3, platelet count 189,000. PT/INR is 15.7 and 1.6. D-dimer 0.52. Blood gases show a pO2 of 95, pCO2 of 36 and a pH is 7.49. That was on a non-rebreather. Sodium 140, potassium 3.7, chloride 106. CO2 26, anion gap is 8. BUN and creatinine were 17 and 0.77. The rest of the labs look okay. N terminal proBNP is elevated at 2260. Her troponin is less than 0.012. That was done yesterday. Urine looked clean. Influenza studies are negative. ' Her admission chest x-ray appears to be relatively normal. There may be some very mild early interstitial edema. The next x-ray done yesterday again looks about the same with some cardiomegaly and some mild interstitial changes. She had another x-ray done yesterday, which shows worsening fluid overload and possible infiltrate in the right lower lobe. Finally the chest x-ray from today shows a pattern that is consistent with fluid overload. She has cephalization fluid in the minor fissure. Bilateral pleural effusions and cardiomegaly. Medications are reviewed. They were adjusted. ASSESSMENT: 1. Rule out acute fluid overload, of unclear etiology, rule out ischemia. 2. Possible urinary tract infection/sepsis. 3. Status post aortic valve replacement with a bovine valve. 4. History of coronary artery disease with previous PCI and stent placement. 5. History of hyperlipidemia. 6. History of hypertension. 7. History of hemorrhoids. 8. Degenerative disc disease. 9. Lower extremity arterial blockage with claudication, status post stent placement. 10.Previous history of 40 years of tobacco use without significant pulmonary symptoms. PLAN: The patient is here in the ICU. We moved her from the 4th floor. She is on AIRVO. She will be maintained on AIRVO for the time being. I have asked Cardiology to see her. We will get another set of cardiac enzymes. We will ask for an echocardiogram. In addition, we stopped the Zithromax, maintain the Rocephin. We will make sure that she has cultures including blood urine and sputum. Additional recommendations and suggestions are forthcoming. Prognosis is guarded. Unnecessary medications were discontinued. She appears to be feeling a bit better over the last hour or so. MMODL / IJN: [id number] /
[2019-04-21] MEDS ORDERED: Potassium Replacement Protocol 1 EACH MISC MISCELLANE PRN (16:58)
[2019-04-21] MEDS: WARFARIN 7.5 MG TAB PO SCH (17:41)
[2019-04-21] MEDS: POTASSIUM CHLORIDE ER 20 MEQ TAB.ER PO SCH ×2 (17:41→18:51)
[2019-04-21] MEDS: FAMOTIDINE 20 MG TAB PO SCH (22:03)
[2019-04-21] MEDS: ASPIRIN 81 MG PO SCH (22:03)
[2019-04-21] MEDS: ATORVASTATIN 20 MG TAB PO SCH (22:03)
[2019-04-21] MEDS ORDERED: POTASSIUM CHLORIDE ER 20 MEQ TAB.ER PO SCH (23:00)
--- NOTE | 2019-04-22 00:03 | P.PN ---
Subjective Progress Note Date: 04/21/19 Principal diagnosis: Acute respiratory failure due to fluid overload is lying Patient is a 79-year-old female with a known history of atrial fibrillation, currently on Coumadin, coronary artery disease with history of stent placement, cardiac valve replacement with a bovine valve, hypertension, hyperlipidemia and previous history of smoking came to ER with complaints of cough and congestion for the past 4 days. Patient has not been feeling very well nauseous and was also having vomiting episodes at home. Patient says that she was recently presented to medical clinic with fever chills and low-grade fever and sweats. Patient was found to have urinary tract infection and was started on antibiotics. Patient says that she has not been feeling very well and continues to have nausea and generalized weakness. Patient does have cough without much sputum production. Does have decreased oral intake and subjective fevers at home. Presented to ER for further evaluation. Denied any complaints of chest pain. Patient did have mild short of breath. Denied any leg swelling. Chest x-ray showed there is mild right lower lobe pneumonia that appears new compared to old exam. Mild cardiomegaly. No heart failure seen. Repeat chest x-ray showed cardiomegaly, COPD and right lower lobe infiltrate. Impression upon the right lateral trachea could be related to thyroid, ad enopathy not excluded consider follow-up CT chest. Influenza negative Urinalysis is negative for infection WBC 7.1 INR 1.6 T-max 101.2 on admission 04/21/2019 Overnight patient went into respiratory distress and was desaturating. Repeat chest x-ray showed pulmonary edema which is new compared to last exam. There is new infiltrate and pleural fluid in the right lung base. Patient also developed fever with T-max of 102.2. Due to worsening respiratory status and fever patient was transferred to MICU for further management. BNP was 2140 and troponin 0.38 . patient is currently on Airvo. No complaints of chest pain. Nausea and vomiting improved. No headache or dizziness or lightheadedness. Patient was started on Lasix 40 mg IV twice daily. 2-D echocardiography was ordered. Cardiology and pulmonary is following. Active Medications Acetaminophen (Tylenol Tab) 650 mg PO Q4HR PRN PRN Reason: Fever and/ or Pain Last Admin: 04/21/19 09:21 Dose: 650 mg Documented by: Albuterol/Ipratropium (Duoneb 0.5 Mg-3 Mg/3 Ml Soln) 3 ml INHALATION RT-Q4H PRN PRN Reason: shortness of breath Last Admin: 04/21/19 21:44 Dose: 3 ml Documented by: Amlodipine Besylate (Norvasc) 5 mg PO DAILY [facility] Last Admin: 04/21/19 11:18 Dose: 5 mg Documented by: Ascorbic Acid (Vitamin C) 500 mg PO DAILY [facility] Last Admin: 04/21/19 11:18 Dose: 500 mg Documented by: Aspirin (Aspirin) 81 mg PO [facility] Last Admin: 04/21/19 22:03 Dose: 81 mg Documented by: Atorvastatin Calcium (Lipitor) 20 mg PO [facility] Last Admin: 04/21/19 22:03 Dose: 20 mg Documented by: Cholecalciferol (Vitamin D3 (25 Mcg = 1000 Iu)) 2,000 unit PO DAILY [facility] Last Admin: 04/21/19 11:18 Dose: 2,000 unit Documented by: Famotidine (Pepcid) 20 mg PO BID [facility] Last Admin: 04/21/19 22:03 Dose: 20 mg Documented by: Furosemide (Lasix) 40 mg IV Q12HR [facility] Last Admin: 04/21/19 21:57 Dose: 40 mg Documented by: Hydralazine HCl (Apresoline) 25 mg PO BID [facility] Last Admin: 04/21/19 22:02 Dose: 25 mg Documented by: Ceftriaxone Sodium 1 gm/ (Sodium Chloride) 50 mls @ 100 mls/hr IVPB Q24H [facility] Last Admin: 04/21/19 22:06 Dose: 100 mls/hr Documented by: Miscellaneous Information (Pneumonia Protocol Utilized) 1 each PO ONCE PRN PRN Reason: Per Protocol Miscellaneous Information (Coumadin Per Pharmacy) 1 each MISCELLANE DIRECTED PRN PRN Reason: Per Protocol Miscellaneous Information (Potassium Per Protocol) 1 each MISCELLANE DAILY PRN; Protocol PRN Reason: Per Protocol Multivitamins (Theragran) 1 each PO DAILY [facility] Last Admin: 04/21/19 11:18 Dose: 1 each Documented by: Naloxone HCl (Narcan) 0.2 mg IV Q2M PRN PRN Reason: Opioid Reversal Ondansetron HCl (Zofran) 4 mg IVP Q6HR PRN PRN Reason: Nausea And Vomiting Last Admin: 04/21/19 09:21 Dose: 4 mg Documented by: Potassium Chloride (K-Dur 10) 10 meq PO Q72H [facility] Last Admin: 04/21/19 11:18 Dose: 10 meq Documented by: Warfarin Sodium (Coumadin) 5 mg PO SuTuThSa@1800 MICHELLE; Protocol Last Admin: 04/20/19 18:08 Dose: 5 mg Documented by: Warfarin Sodium (Coumadin) 7.5 mg PO MoWeFr@1800 MICHELLE; Protocol Last Admin: 04/21/19 17:41 Dose: 7.5 mg Documented by: Objective - Vital Signs Vital signs: Vital Signs Temp 99.0 F 04/21/19 12:00 Pulse 73 04/21/19 21:57 Resp 15 04/21/19 19:00 BP 139/70 04/21/19 19:00 Pulse Ox 96 04/21/19 21:46 Intake & Output 04/21/19 04/21/19 04/22/19 06:59 18:59 06:59 Intake Total 880 840 10 Output Total 350 3035 45 Balance 530 -2195 -35 Intake: IV 80 120 10 0.9 Normal Saline 80 120 10 Intake, IV Titration 800 Amount cefTRIAXone 1 gm In 800 Sodium Chloride 0.9% 50 ml @ 100 mls/hr IVPB Q24H [facility] Rx#:[id number] Oral 720 Output: Urine 350 3035 45 - Exam PHYSICAL EXAMINATION: Patient is lying in the bed comfortably, no acute distress, awake alert and jose ented.. HEENT: Normocephalic. Neck is supple. Pupils reactive. Nostrils clear. Oral cavity is moist. Ears reveal no drainage. Neck reveals no JVD, carotid bruits, or thyromegaly. CHEST EXAMINATION: Trachea is central. Symmetrical expansion. Right basilar crackles. No wheezing. Scattered rhonchi.. CARDIAC: Normal S1, S2 with no gallops. No murmurs . Irregular rhythm ABDOMEN: Soft. Bowel sounds normal. No organomegaly. No abdominal bruits. Extremities: Trace edema. No clubbing or cyanosis Neurologically awake, alert, oriented x3 with well-coordinated movements. No focal deficits noted Skin: No rash or skin lesions. Psychiatric: Coperative. Nonsuicidal Musculoskeletal: No joint swelling or deformity. Normal range of motion. - Labs CBC & Chem 7: 04/21/19 07:30 04/21/19 20:42 Labs: Abnormal Lab Results - Last 24 Hours (Table) 04/21/19 04/21/19 04/21/19 Range/Units 06:15 07:30 07:30 Lymphocytes # 0.9 L (1.0-4.8) k/uL PT 15.7 H (9.0-12.0) sec INR 1.6 H (<1.2) ABG pH (7.35-7.45) ABG HCO3 (21-25) mmol/L ABG Total CO2 (19-24) mmol/L ABG O2 Saturation (94-97) % Potassium (3.5-5.1) mmol/L Glucose 122 H (74-99) mg/dL POC Glucose (mg/dL) (75-99) mg/dL AST 46 H (14-36) U/L Total Creatine Kinase (30-135) U/L Troponin I (0.000-0.034) ng/mL Total Protein 6.1 L (6.3-8.2) g/dL 04/21/19 04/21/19 04/21/19 Range/Units 07:30 08:20 10:10 Lymphocytes # (1.0-4.8) k/uL PT (9.0-12.0) sec INR (<1.2) ABG pH 7.49 H (7.35-7.45) ABG HCO3 27 H (21-25) mmol/L ABG Total CO2 28 H (19-24) mmol/L ABG O2 Saturation 97.9 H (94-97) % Potassium (3.5-5.1) mmol/L Glucose (74-99) mg/dL POC Glucose (mg/dL) 137 H (75-99) mg/dL AST (14-36) U/L Total Creatine Kinase 141 H (30-135) U/L Troponin I 0.038 H* (0.000-0.034) ng/mL Total Protein (6.3-8.2) g/dL 04/21/19 Range/Units 15:50 Lymphocytes # (1.0-4.8) k/uL PT (9.0-12.0) sec INR (<1.2) ABG pH (7.35-7.45) ABG HCO3 (21-25) mmol/L ABG Total CO2 (19-24) mmol/L ABG O2 Saturation (94-97) % Potassium 3.2 L (3.5-5.1) mmol/L Glucose (74-99) mg/dL POC Glucose (mg/dL) (75-99) mg/dL AST (14-36) U/L Total Creatine Kinase (30-135) U/L Troponin I (0.000-0.034) ng/mL Total Protein (6.3-8.2) g/dL Microbiology - Last 24 Hours (Table) 04/19/19 21:09 Blood Culture - Preliminary Blood No Growth after 24 hours Assessment and Plan Assessment: Fluid overload/pulmonary edema. Possible acute CHF. Ejection fraction unknown. BNP 2140. Acute right lower lobe pneumonia/pneumonitis sepsis secondary to above Recently diagnosed a UTI, currently on antibiotics at home in the form of keflex. Hypertension Hyperlipidemia Coronary artery disease with history of stent placement History of aortic valve replacement Previous history of smoking Subtherapeutic INR level Chronic atrial fibrillation with controlled ventricular rate Coumadin dosing Plan: Patient was started on IV Lasix 40 mg twice daily. Patient will be continued on antibiotics the form of ceftriaxone , discontinued azithromycin.. Continue with oxygen therapy as needed. currently on Airvo. Continue with Coumadin dosing. Continue with metoprolol. 2-D echocardiography was ordered. Pulmonary and cardiology is following. Continue the home medications and follow up closely. Further recommendations based on the clinical course. Time with Patient: Greater than 30
[2019-04-22 04:59] LABS: Basophils % (A) 0 %; Eosinophils % (A) 0 %; HCT 33.5 % (34.0-46.0); Lymphocytes # (A) 1.2 k/uL (1.0-4.8); Lymphocytes % (A) 20 %; MCH 33.5 pg (25.0-35.0); MCHC 35.9 g/dL (31.0-37.0); MCV 93.2 fL (80.0-100.0); Mean Platelet Volume 7.8; Monocytes # (A) 0.3 k/uL (0-1.0); Monocytes % (A) 6 %; Neutrophils # (A) 4.2 k/uL (1.3-7.7); Neutrophils % (A) 71 %; Platelet Count 171 k/uL (150-450); RDW 13.4 % (11.5-15.5); WBC 5.9 k/uL (3.8-10.6)
[2019-04-22 05:02] LABS: INR 2.1 (<1.2); Prothrombin Time 20.6 sec (9.0-12.0)
[2019-04-22 05:08] LABS: Calcium 8.3 mg/dL (8.4-10.2); Potassium 3.5 mmol/L (3.5-5.1)
[2019-04-22] MEDS: POTASSIUM CHLORIDE ER 20 MEQ TAB.ER PO SCH ×2 (06:18→10:25)
--- NOTE | 2019-04-22 08:58 | XR ---
EXAMINATION TYPE: XR chest 1V DATE OF EXAM: 04/22/2019 COMPARISON: 04/21/2019 HISTORY: Shortness of breath TECHNIQUE: Single frontal view of the chest is obtained. FINDINGS: The heart size is moderately prominent. Sternotomy wires are present from prior cardiac va lve surgery.. The pulmonary vasculature is normal. There is a right lower lobe infiltrate. Small righ t pleural effusion may be present. Mild left lower lobe infiltrate is not excluded. Findings appear s table from comparison. IMPRESSION: 1. Stable x-ray correlate for CHF otherwise consider pneumonia.
[2019-04-22] MEDS: methylPREDNISolone SOD SUCCI 40 MG/ML 1 ML VIAL IV SCH ×2 (09:22→16:49)
[2019-04-22] MEDS: amLODIPine 5 MG TAB PO SCH (09:23)
[2019-04-22] MEDS: MULTIVITAMINS, THERA 1 EACH TAB PO SCH (09:23)
[2019-04-22] MEDS: ASCORBIC ACID 500 MG TAB PO SCH (09:23)
[2019-04-22] MEDS: FAMOTIDINE 20 MG TAB PO SCH ×2 (09:23→21:05)
[2019-04-22] MEDS: CHOLECALCIFEROL 1,000 UNIT TAB PO SCH (09:23)
[2019-04-22] MEDS: hydrALAZINE HCL 25 MG TAB PO SCH ×2 (09:23→21:03)
[2019-04-22] MEDS: FUROSEMIDE 10 MG/ML 4 ML VIAL IV SCH ×2 (09:23→21:02)
--- NOTE | 2019-04-22 09:56 | ECHOF ---
Referral Reason:assess heart function MEASUREMENTS -------- HEIGHT: 162.6 cm WEIGHT: 65.8 kg BP: 124/65 RVIDd: 3.5 cm (< 3.3) IVSd: 1.1 cm (0.6 - 1.1) LVIDd: 3.7 cm (3.9 - 5.3) LVPWd: 1.1 cm (0.6 - 1.1) IVSs: 1.3 cm LVIDs: 2.8 cm LVPWs: 1.7 cm LA Diam: 4.2 cm (2.7 - 3.8) LAESV Index (A-L): 36.45 ml/m Ao Diam: 2.5 cm (2.0 - 3.7) AV Cusp: 1.1 cm (1.5 - 2.6) MV EXCURSION: 12.690 mm (> 18.000) MV EF SLOPE: 32 mm/s (70 - 150) EPSS: 0.6 cm AV maxP.98 mmHg AV meanP.44 mmHg RAP: 5.00 mmHg RVSP: 37.14 mmHg FINDINGS -------- Atrial fibrillation. This was a technically adequate study. The left ventricular size is normal. There is borderline concentric left ventricular hypertrophy. Overall left ventricular systolic function is normal with, an EF between 55 - 60 %. The right ventricle is mildly enlarged. LA is moderately dilated 34-39 ml/m2 The right atrial size is normal. Interatrial and interventricular septum intact. Peak/mean gradient across the Aortic Valve is 15.98mmHg / 7.44mmHg. Normally functioning bioprosthe tic valve. There is no stenosis of the bioprosthetic aortic valve. Mild mitral annular calcification present. Mild mitral regurgitation is present. Moderate to severe tricuspid regurgitation present. There is mild pulmonary hypertension. The rig ht ventricular systolic pressure, as measured by Doppler, is 37.14mmHg. Trace/mild (physiologic) pulmonic regurgitation. The aortic root size is normal. Normal inferior vena cava with normal inspiratory collapse consistent with estimated right atrial pre ssure of 5 mmHg. There is no pericardial effusion. CONCLUSIONS -------- 1. Atrial fibrillation. 2. This was a technically adequate study. 3. The left ventricular size is normal. 4. There is borderline concentric left ventricular hypertrophy. 5. Overall left ventricular systolic function is normal with, an EF between 55 - 60 %. 6. The right ventricle is mildly enlarged. 7. LA is moderately dilated 34-39 ml/m2 8. Peak/mean gradient across the Aortic Valve is 15.98mmHg / 7.44mmHg. 9. Normally functioning bioprosthetic valve. 10. There is no stenosis of the bioprosthetic aortic valve. 11. Mild mitral annular calcification present. 12. Mild mitral regurgitation is present. 13. Moderate to severe tricuspid regurgitation present. 14. There is mild pulmonary hypertension. 15. Trace/mild (physiologic) pulmonic regurgitation. 16. There is no pericardial effusion. CERTIFICATION TECHNICIAN: Florinda Alba RDCS
[2019-04-22] MEDS: SYMBICORT 160-4.5 MCG INHALER INHALATION SCH ×2 (10:29→20:06)
[2019-04-22] MEDS: IPRATROPIUM-ALBUTEROL 3 ML NEB INHALATION PRN ×3 (10:47→20:06)
--- NOTE | 2019-04-22 11:19 | P.PN ---
Subjective Progress Note Date: 04/22/19 This is a 79-year-old female with history of aortic valve replacement, chronic atrial fibrillation and also known ischemic heart disease with stent placement of the RCA who was admitted to the hospital with complaints of cough, shortness of breath for a few days prior to admission. Patient was seen in the [facility] clinic and was treated with antibiotics and cough stops. Because of progressive symptoms patient came to the emergency room and is admitted to the hospital for treatment of pneumonia. Patient also having fever and chills. Her EKG showed atrial fibrillation with controlled ventricular response. Echo Cardigan showed preserved LV function with a mild gradient across the aortic valve which seemed to be physiological. There is a moderate to severe tricuspid regurgitation, which patient is known to have with mildly elevated pulmonary artery pressures. Her symptoms appear more a pulmonary and pneumonia related. Chest x-ray shows bilateral infiltrates. Continue current medical therapy. From Cardec standpoint, we'll continue current medical therapy Objective - Vital Signs Vital signs: Vital Signs Temp 98.8 F 04/22/19 08:00 Pulse 74 04/22/19 11:10 Resp 13 04/22/19 10:00 BP 116/60 04/22/19 10:00 Pulse Ox 96 04/22/19 10:49 Intake & Output 04/21/19 04/22/19 04/22/19 18:59 06:59 18:59 Intake Total 840 630 30 Output Total 3035 1435 260 Balance -2195 -805 -230 Weight 66 kg Intake: IV 120 130 30 0.9 Normal Saline 120 130 30 Oral 720 500 Output: Urine 3035 1435 260 Other: Voiding Method Indwelling Catheter - Exam GENERAL EXAM: Patient is alert and oriented and doesn't appear to be in any acu te distress HEENT: Normocephalic. Normal reaction of pupils, equal size, normal range of extraocular motion. No erythema or exudates in the throat. NECK: No masses, no nuchal rigidity. CHEST: No chest wall deformity. LUNGS: Expiratory wheezes and rhonchi HEART: S1 and S2 normal. Irregular heart sounds ABDOMEN: No hepatosplenomegaly, normal bowel sounds, no guarding or rigidity. SKIN: No rashes CENTRAL NERVOUS SYSTEM: No focal deficits. EXTREMITIES: No cyanosis, clubbing or edema. - Labs CBC & Chem 7: 04/22/19 04:41 04/22/19 09:44 Labs: Abnormal Lab Results - Last 24 Hours (Table) 04/21/19 04/21/19 04/21/19 Range/Units 07:30 07:30 15:50 RBC (3.80-5.40) m/uL Hct (34.0-46.0) % PT (9.0-12.0) sec INR (<1.2) Potassium 3.2 L (3.5-5.1) mmol/L Carbon Dioxide (22-30) mmol/L Glucose (74-99) mg/dL Calcium (8.4-10.2) mg/dL Total Creatine Kinase 141 H (30-135) U/L Troponin I 0.038 H* (0.000-0.034) ng/mL Procalcitonin 1.71 H (0.02-0.09) ng/mL 04/22/19 04/22/19 04/22/19 Range/Units 04:41 04:41 04:41 RBC 3.60 L (3.80-5.40) m/uL Hct 33.5 L (34.0-46.0) % PT 20.6 H (9.0-12.0) sec INR 2.1 H (<1.2) Potassium (3.5-5.1) mmol/L Carbon Dioxide 34 H (22-30) mmol/L Glucose 100 H (74-99) mg/dL Calcium 8.3 L (8.4-10.2) mg/dL Total Creatine Kinase (30-135) U/L Troponin I (0.000-0.034) ng/mL Procalcitonin (0.02-0.09) ng/mL Microbiology - Last 24 Hours (Table) 04/21/19 17:13 Gram Stain - Preliminary Sputum Sputum Culture - Preliminary 04/19/19 21:09 Blood Culture - Preliminary Blood No Growth after 48 hours Assessment and Plan (1) Chronic atrial fibrillation Current Visit: Yes Status: Acute Code(s): I48.20 - CHRONIC ATRIAL FIBRILLATION, UNSPECIFIED SNOMED Code(s): 692882684 (2) Community acquired bacterial pneumonia Current Visit: Yes Status: Acute Code(s): J15.9 - UNSPECIFIED BACTERIAL PNEUMONIA SNOMED Code(s): 999273377 (3) Fever Current Visit: Yes Status: Acute Code(s): R50.9 - FEVER, UNSPECIFIED SNOMED Code(s): 551776239 (4) UTI (urinary tract infection) Current Visit: Yes Status: Acute Code(s): N39.0 - URINARY TRACT INFECTION, SITE NOT SPECIFIED SNOMED Code(s): 76763459 (5) Status post aortic valve replacement Current Visit: Yes Status: Acute Code(s): Z95.2 - PRESENCE OF PROSTHETIC HEART VALVE SNOMED Code(s): 2188139302593 (6) History of ischemic heart disease Current Visit: Yes Status: Acute Code(s): Z86.79 - PERSONAL HISTORY OF OTHER DISEASES OF THE CIRCULATORY SYSTEM SNOMED Code(s): 087326196 Plan: Continue current medical therapy. We will follow her echocardiogram showed normal LV function
--- NOTE | 2019-04-22 11:33 | PN ---
PROGRESS NOTE PULMONARY/CRITICAL CARE PROGRESS NOTE: DATE OF SERVICE: April 22, 2019. CRITICAL CARE TIME: 33 minutes. This is an 79-year-old female who we saw yesterday in consultation. She came into the emergency room, brought in by EMS for increasing weakness and just not feeling well. The patient was [facility], she was thought to have a urinary tract infection, placed on antibiotics. She had apparently been having a fever for a couple days prior to admission. In addition to fever, the patient was complaining of nausea and dry heaves. The patient was not able to take much in orally. The patient anyway developed worsening respiratory status and because of increased work of breathing. We transferred the patient to the ICU. We attempted BiPAP, but she could not tolerate it because of the dry heaves. We placed her on AIRVO. Currently, the patient is still on AIRVO at 50 L/minutes and 50% FiO2. That is an improvement from yesterday where she was on 60 L/minute and about 100% FiO2. The patient is not receiving any IV fluids save for saline at 10 mL an hour. The echocardiogram was done this morning by the multi care technician. She stated that the patient had pretty significant tricuspid regurgitation and her bilateral atria were enlarged. Her overall ejection fraction and cardiac function apparently looked normal. The rest of the valves apparently were okay. The patient is short of breath. She is coughing up some yellow phlegm. Today we added some Symbicort and steroids. Her chest x-ray shows a pattern of CHF. I was concerned about ischemia and I did have Cardiology see the patient. She is better today than she was yesterday, although I really do not have a good handle as to what the primary process is. I am not sure this is primarily a COPD exacerbation with purulent tracheobronchitis versus fluid overload for unclear reasons versus urinary tract infection/urosepsis. Anyway, as I mentioned, she is improved. PHYSICAL EXAMINATION: VITAL SIGNS: Current vital signs are reviewed. Her temperature is 99.2, heart rate 62, respiratory rate 17, blood pressure 124/65, mean 84, saturations are mid-to-high 90s on the AIRVO. GENERAL: She appears in no acute distress. She does appear a little pale and she is mildly diaphoretic. No respiratory distress. No audible wheezing, use of accessory muscles or conversational dyspnea. HEENT: Examination is grossly unremarkable. AIRVO cannula in place. NECK: Supple. Full range of motion. No adenopathy. CARDIOVASCULAR: Examination revealed regular rhythm and rate. Heart rate 70 beats per minute. S1, S2 normal. No murmur. LUNGS: Reveal some coarse rhonchi and some crackles. There are some mild expiratory wheezes. Breath sounds equal. ABDOMEN: Soft. Bowel sounds are heard. EXTREMITIES: Are intact. No cyanosis, clubbing, or edema. SKIN: Without rash. NEUROLOGIC: Examination is brief but nonfocal. Blood and sputum sampling thus far are negative. Urine apparently is negative thus far. LABS: Labs are reviewed. White count 5.9, hemoglobin 12.0, hematocrit 33.5, platelet count 171,000. PT, INR 20.6 and 2.1. Sodium, potassium normal. Chloride normal. CO2 is 34. Anion gap is 3. BUN and creatinine were 16 and 0.83. Urine is completely clear. N terminal proBNP was 2140. Troponin was just mildly elevated at 0.038. Chest x-ray in my opinion shows a pattern of ongoing fluid overload. Obviously, pneumonia cannot be excluded. There is cardiomegaly. There appears to be relatively smaller effusions maybe left greater than right. MEDICATIONS: Medications are reviewed. Currently, she is on Tylenol, amlodipine, ascorbic acid, aspirin, Lipitor, Symbicort, Rocephin, vitamin D3, famotidine, Lasix, hydralazine, DuoNeb, Solu-Medrol, multivitamins, Narcan, Zofran, potassium replacement protocol, and Coumadin. ASSESSMENT: 1. Rule out myocardial ischemia with associated fluid overload, currently being evaluated by Cardiology. 2. Possible urinary tract infection/sepsis. 3. Status post aortic valve replacement with bovine valve. 4. Rule out chronic obstructive pulmonary disease exacerbation in a patient with a previous history of heavy tobacco use. 5. History of coronary artery disease with previous PCI and stent placement. 6. History of hyperlipidemia. 7. History of hypertension. 8. History of hemorrhoids. 9. Degenerative disc disease. 10.Peripheral vascular occlusive disease with claudication, status post stent placement. 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 PLAN: The patient will have Symbicort and steroids added to her regimen. She is coughing up some yellow phlegm. She is on antibiotic. Her IV is saline at 10 mL an hour. She remains on AIRVO at 50 L/minute and 50% FiO2, which is improvement. We will wait for the official echocardiogram report. I will get an another cardiac enzyme. Additional recommendations and suggestions are forthcoming. Prognosis is guarded. CRITICAL CARE TIME: 33 minutes. MMSAHILL / BRIANN: [id number] /
[2019-04-22] MEDS: WARFARIN 5 MG TAB PO SCH (17:46)
[2019-04-22] MEDS: ASPIRIN 81 MG PO SCH (21:03)
[2019-04-22] MEDS: ATORVASTATIN 20 MG TAB PO SCH (21:03)
[2019-04-23] MEDS: methylPREDNISolone SOD SUCCI 40 MG/ML 1 ML VIAL IV SCH ×4 (00:51→23:55)
[2019-04-23 06:07] LABS: HCT 41.1 % (34.0-46.0); HGB 13.8 gm/dL (11.4-16.0); MCH 30.5 pg (25.0-35.0); MCHC 33.7 g/dL (31.0-37.0); MCV 90.5 fL (80.0-100.0); Mean Platelet Volume 7.8; Platelet Count 215 k/uL (150-450); RBC 4.55 m/uL (3.80-5.40); RDW 12.9 % (11.5-15.5); WBC 4.4 k/uL (3.8-10.6)
[2019-04-23 06:22] LABS: INR 2.4 (<1.2); Prothrombin Time 23.5 sec (9.0-12.0)
[2019-04-23 06:36] LABS: Potassium 4.3 mmol/L (3.5-5.1)
[2019-04-23 06:42] LABS: Lymphocytes # (M) 0.84 k/uL (1.0-4.8); Monocytes # (M) 0.13 k/uL (0-1.0); Neutrophils # (M) 3.43 k/uL (1.3-7.7); Neutrophils % (M) 78 %; Nucleated Red Blood Cells 0 /100 WBC (0-0); Total Cells Counted 100
[2019-04-23] MEDS: MULTIVITAMINS, THERA 1 EACH TAB PO SCH (08:58)
[2019-04-23] MEDS: FUROSEMIDE 10 MG/ML 4 ML VIAL IV SCH (08:58)
[2019-04-23] MEDS: amLODIPine 5 MG TAB PO SCH (08:58)
[2019-04-23] MEDS: ASCORBIC ACID 500 MG TAB PO SCH (08:58)
[2019-04-23] MEDS: FAMOTIDINE 20 MG TAB PO SCH ×2 (08:58→20:30)
[2019-04-23] MEDS: CHOLECALCIFEROL 1,000 UNIT TAB PO SCH (08:58)
[2019-04-23] MEDS: hydrALAZINE HCL 25 MG TAB PO SCH ×3 (08:58→20:30)
--- NOTE | 2019-04-23 09:39 | P.PN ---
Subjective Progress Note Date: 04/23/19 Principal diagnosis: Acute exacerbation of COPD, possible left lower lobe pneumonia, rule out myocardial ischemia, fluid overload, and urinary tract infection On 04/23/2019 patient seen in follow-up in intensive care unit, she is resting comfortably in bed, currently on 6 L per high flow nasal cannula with a pulse ox of 94-96%, afebrile, hemodynamically stable, 0.9 normal saline at a rate of 10 ML per hour, no other drips. Patient states she is breathing easier, still coug shelby up some brown phlegm, still congested, and bronchospastic but overall doing better, today's chest x-ray has been reviewed showing some patchy left base infiltrate or atelectasis, and atelectasis involving the right lower lobe. No fever last 48 hours, blood and sputum culture have shown no growth. Today's labs have been reviewed, showing white blood cell count of 4.4, hemoglobin of 13.8, INR is 2.4, sodium is 135, the rest of the electrolytes were within normal limits, BUN is 28, creatinine 0.74. Patient denies any chest pain, echocardiogram has been reviewed showing normal EF 55-60%, normally functioning bioprosthetic aortic valve, mild mitral regurg, moderate to severe tricuspid reg urgitation mild pulmonary hypertension with right-sided pressures of 37 mmHg. No pericardial effusion. Patient is on Rocephin for antibiotic coverage, she also remains on diuretics, and she is in -1715 mL fluid balance over the last 24 hours. Objective - Vital Signs Vital signs: Vital Signs Temp 98.6 F 04/23/19 08:00 Pulse 71 04/23/19 09:00 Resp 16 04/23/19 09:00 BP 120/56 04/23/19 09:00 Pulse Ox 94 L 04/23/19 09:00 Intake & Output 04/22/19 04/23/19 04/23/19 18:59 06:59 18:59 Intake Total 110 120 270 Output Total 1100 845 135 Balance -990 -725 135 Weight 66.2 kg Intake: IV 110 120 30 0.9 Normal Saline 110 120 30 Oral 240 Output: Urine 1100 845 135 Other: Voiding Method Indwelling Catheter Indwelling Catheter - Exam GENERAL EXAM: Alert, very pleasant, 79-year-old white female, on 6 L of oxygen per high flow cannula comfortable in no apparent distress. HEAD: Normocephalic/atraumatic. EYES: Normal reaction of pupils, equal size. Conjunctiva pink, sclera white. NOSE: Clear with pink turbinates. THROAT: No erythema or exudates. NECK: No masses, no JVD, no thyroid enlargement, no adenopathy. CHEST: No chest wall deformity. Symmetrical expansion. LUNGS: Equal air entry with diffuse rhonchi, wheezing, congested loose cough production of brown sputum CVS: Regular rate and rhythm, normal S1 and S2, no gallops, no murmurs, no rubs ABDOMEN: Soft, nontender. No hepatosplenomegaly, normal bowel sounds, no guarding or rigidity. EXTREMITIES: No clubbing, no edema, no cyanosis, 2+ pulses and upper and lower extremities. MUSCULOSKELETAL: Muscle strength and tone normal. SPINE: No scoliosis or deformity SKIN: No rashes CENTRAL NERVOUS SYSTEM: Alert and oriented -3. No focal deficits, tone is normal in all 4 extremities. PSYCHIATRIC: Alert and oriented -3. Appropriate affect. Intact judgment and insight. - Labs CBC & Chem 7: 04/23/19 05:42 04/23/19 05:42 Labs: Abnormal Lab Results - Last 24 Hours (Table) 04/21/19 04/23/19 04/23/19 Range/Units 07:30 05:42 05:42 Lymphocytes # (Manual) 0.84 L (1.0-4.8) k/uL PT 23.5 H (9.0-12.0) sec INR 2.4 H (<1.2) Sodium (137-145) mmol/L BUN (7-17) mg/dL Glucose (74-99) mg/dL Procalcitonin 1.71 H (0.02-0.09) ng/mL 04/23/19 Range/Units 05:42 Lymphocytes # (Manual) (1.0-4.8) k/uL PT (9.0-12.0) sec INR (<1.2) Sodium 135 L (137-145) mmol/L BUN 28 H (7-17) mg/dL Glucose 169 H (74-99) mg/dL Procalcitonin (0.02-0.09) ng/mL Microbiology - Last 24 Hours (Table) 04/21/19 17:13 Gram Stain - Final Sputum Sputum Culture - Final 12/30/19 21:09 Blood Culture - Preliminary Blood No Growth after 72 hours Assessment and Plan Plan: Assessment: #1. Acute hypoxemic respiratory failure related to acute exacerbation of chronic obstructive pulmonary disease, acute exacerbation of CHF with diastolic dysfunction, and possibility of left base pneumonia is not entirely excluded #2. Rule out myocardial ischemia with associated fluid overload being followed by cardiology #3. Urinary tract infection has been treated with antibiotics, this admission urinalysis was negative #4. 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 Suspect underlying chronic obstructive pulmonary disease in the patient with previous history of heavy tobacco use #6. History of coronary artery disease with previous PCI and stent placement #7. History of hyperlipidemia #8. History of hypertension #9. History of degenerative disc disease #10. Peripheral vascular occlusive disease with claudication status post stent placement #11. 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 Chronic atrial fibrillation, remains in A. fib, on Coumadin with therapeutic INR Plan: Continue current antibiotics, continue nebulized bronchodilators, and IV steroids, IV Lasix has been transitioned to oral Lasix, patient is maintaining negative fluid balance, oxygenation is improving, breathing easier, continue following electrolytes and renal profile. Today's chest x-ray has been reviewed, showing Possible left lower lobe infiltrate, and right lower lobe atelectasis. Her fever pattern has improved. Blood and sputum cultures have shown no growth. Continue Symbicort, continue DuoNeb. I performed a history & physical examination of the patient and discussed their management with my nurse practitioner, Monica Rios. I reviewed the nurse practitioner's note and agree with the documented findings and plan of care. Lung sounds are positive for diffuse rhonchi and wheezes throughout the lung alves. The findings and the impression was discussed with the patient. I attest to the documentation by the nurse practitioner. Time with Patient: Less than 30
--- NOTE | 2019-04-23 09:57 | P.PN ---
Subjective Progress Note Date: 04/23/19 This is a 79-year-old female with history of aortic valve replacement, chronic atrial fibrillation and also known ischemic heart disease with stent placement of the RCA who was admitted to the hospital with complaints of cough, shortness of breath for a few days prior to admission. Patient was seen in the [facility] clinic and was treated with antibiotics and cough stops. Because of progressive symptoms patient came to the emergency room and is admitted to the hospital for treatment of pneumonia. Patient also having fever and chills. Her EKG showed atrial fibrillation with controlled ventricular response. Echo Cardigan showed preserved LV function with a mild gradient across the aortic valve which seemed to be physiological. There is a moderate to severe tricuspid regurgitation, which patient is known to have with mildly elevated pulmonary artery pressures. Her symptoms appear more a pulmonary and pneumonia related. Chest x-ray shows bilateral infiltrates. Continue current medical therapy. From Cardec standpoint, we'll continue current medical therapy. 04/23/2019 : This 79-year-old female was admitted to the hospital with cough, shortness of breath and findings consistent with pneumonia and bronchitis. She is feeling much better today. Still coughing but improved during the usual low- sodium. Lungs show some crackles at both bases. Chest x-ray shows some improvement. Her blood pressures running about 110. We'll may discontinue Norvasc. Continue with the hydralazine. We'll also switch to by mouth diuretics. Patient is being transferred to medical floor Objective - Vital Signs Vital signs: Vital Signs Temp 98.6 F 04/23/19 08:00 Pulse 71 04/23/19 09:00 Resp 16 04/23/19 09:00 BP 120/56 04/23/19 09:00 Pulse Ox 94 L 04/23/19 09:00 Intake & Output 04/22/19 04/23/19 04/23/19 18:59 06:59 18:59 Intake Total 110 120 270 Output Total 1100 845 135 Balance -990 -725 135 Weight 66.2 kg Intake: IV 110 120 30 0.9 Normal Saline 110 120 30 Oral 240 Output: Urine 1100 845 135 Other: Voiding Method Indwelling Catheter Indwelling Catheter Indwelling Catheter - Exam GENERAL EXAM: Patient is alert and oriented and doesn't appear to be in any acute distress HEENT: Normocephalic. Normal reaction of pupils, equal size, normal range of extraocular motion. No erythema or exudates in the throat. NECK: No masses, no nuchal rigidity. CHEST: No chest wall deformity. LUNGS: Rales at both bases HEART: S1 and S2 normal. Irregular heart sounds ABDOMEN: No hepatosplenomegaly, normal bowel sounds, no guarding or rigidity. SKIN: No rashes CENTRAL NERVOUS SYSTEM: No focal deficits. EXTREMITIES: No cyanosis, clubbing or edema. - Labs CBC & Chem 7: 04/23/19 05:42 04/23/19 05:42 Labs: Abnormal Lab Results - Last 24 Hours (Table) 04/21/19 04/23/19 04/23/19 Range/Units 07:30 05:42 05:42 Lymphocytes # (Manual) 0.84 L (1.0-4.8) k/uL PT 23.5 H (9.0-12.0) sec INR 2.4 H (<1.2) Sodium (137-145) mmol/L BUN (7-17) mg/dL Glucose (74-99) mg/dL Procalcitonin 1.71 H (0.02-0.09) ng/mL 04/23/19 Range/Units 05:42 Lymphocytes # (Manual) (1.0-4.8) k/uL PT (9.0-12.0) sec INR (<1.2) Sodium 135 L (137-145) mmol/L BUN 28 H (7-17) mg/dL Glucose 169 H (74-99) mg/dL Procalcitonin (0.02-0.09) ng/mL Microbiology - Last 24 Hours (Table) 04/21/19 17:13 Gram Stain - Final Sputum Sputum Culture - Final 04/19/19 21:09 Blood Culture - Preliminary Blood No Growth after 72 hours Assessment and Plan (1) Chronic atrial fibrillation Current Visit: Yes Status: Acute Code(s): I48.20 - CHRONIC ATRIAL FIBRILLATION, UNSPECIFIED SNOMED Code(s): 472675109 (2) Community acquired bacterial pneumonia Current Visit: Yes Status: Acute Code(s): J15.9 - UNSPECIFIED BACTERIAL PNEUMONIA SNOMED Code(s): 508145419 (3) Fever Current Visit: Yes Status: Acute Code(s): R50.9 - FEVER, UNSPECIFIED SNOMED Code(s): 378261979 (4) UTI (urinary tract infection) Current Visit: Yes Status: Acute Code(s): N39.0 - URINARY TRACT INFECTION, SITE NOT SPECIFIED SNOMED Code(s): 91026059 (5) Status post aortic valve replacement Current Visit: Yes Status: Acute Code(s): Z95.2 - PRESENCE OF PROSTHETIC HEART VALVE SNOMED Code(s): 2446726631743 (6) History of ischemic heart disease Current Visit: Yes Status: Acute Code(s): Z86.79 - PERSONAL HISTORY OF OTHER DISEASES OF THE CIRCULATORY SYSTEM SNOMED Code(s): 881523119 Plan: Patient is feeling much better and seemed to be clinically improved. Changing to by mouth diuretics. Continue rest of the medication. Being transferred to medical floor.
--- NOTE | 2019-04-23 10:08 | XR ---
EXAMINATION TYPE: XR chest 1V portable DATE OF EXAM: 04/23/2019 COMPARISON: 04/22/2019 HISTORY: Shortness of breath TECHNIQUE: Single frontal view of the chest is obtained. FINDINGS: Heart is prominent is postoperative change with subsegmental areas of consolidation small left effusion. Hyperinflation suggests COPD. Postoperative change and atherosclerotic change aorta. N o pneumothorax. IMPRESSION: 1. Bilateral infiltrate with small effusion. Interval improvement of the interstitium suggestive of i mproving venous congestion or interstitial pneumonia.
[2019-04-23] MEDS: SYMBICORT 160-4.5 MCG INHALER INHALATION SCH ×2 (10:45→21:51)
[2019-04-23] MEDS: IPRATROPIUM-ALBUTEROL 3 ML NEB INHALATION PRN (10:45)
[2019-04-23] MEDS: FUROSEMIDE 40 MG TAB PO SCH (16:10)
[2019-04-23] MEDS: WARFARIN 7.5 MG TAB PO SCH (18:56)
[2019-04-23] MEDS: ATORVASTATIN 20 MG TAB PO SCH (20:30)
[2019-04-23] MEDS: ASPIRIN 81 MG PO SCH (20:30)
--- NOTE | 2019-04-23 22:01 | P.PN ---
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 Patient has not been feeling very well nauseous and was also having vomiting episodes at home. Patient says that she was recently presented to medical clinic with fever chills and low-grade fever and sweats. Patient was found to have urinary tract infection and was started on antibiotics. Patient says that she has not been feeling very well and continues to have nausea and generalized weakness. Patient does have cough without much sputum production. Does have decreased oral intake and subjective fevers at home. Presented to ER for further evaluation. Denied any complaints of chest pain. Patient did have mild short of breath. Denied any leg swelling. Chest x-ray showed there is mild right lower lobe pneumonia that appears new compared to old exam. Mild cardiomegaly. No heart failure seen. Repeat chest x-ray showed cardiomegaly, COPD and right lower lobe infiltrate. Impression upon the right lateral trachea could be related to thyroid, ad enopathy not excluded consider follow-up CT chest. Influenza negative Urinalysis is negative for infection WBC 7.1 INR 1.6 T-max 101.2 on admission 04/21/2019 Overnight patient went into respiratory distress and was desaturating. Repeat chest x-ray showed pulmonary edema which is new compared to last exam. There is new infiltrate and pleural fluid in the right lung base. Patient also developed fever with T-max of 102.2. Due to worsening respiratory status and fever patient was transferred to MICU for further management. BNP was 2140 and troponin 0.38 . patient is currently on Airvo. No complaints of chest pain. Nausea and vomiting improved. No headache or dizziness or lightheadedness. Patient was started on Lasix 40 mg IV twice daily. 2-D echocardiography was ordered. Cardiology and pulmonary is following. 04/22/2019 Patient's breathing status is improving. Currently on Airvo. Patient went into atrial fibrillation otherwise mentally retarded is controlled. 2-D echocardiogram showed normal ejection fraction. Moderate to severe tricuspid regurgitation. Patient is being continued on IV diuresis. Chest x- ray showed bilateral infiltrates. Continue with antibiotics. Pulmonary and cardiology is following. Active Medications Acetaminophen (Tylenol Tab) 650 mg PO Q4HR PRN PRN Reason: Fever and/ or Pain Last Admin: 04/21/19 09:21 Dose: 650 mg Documented by: Albuterol/Ipratropium (Duoneb 0.5 Mg-3 Mg/3 Ml Soln) 3 ml INHALATION RT-Q4H PRN PRN Reason: shortness of breath Last Admin: 04/21/19 21:44 Dose: 3 ml Documented by: Amlodipine Besylate (Norvasc) 5 mg PO DAILY [facility] Last Admin: 04/21/19 11:18 Dose: 5 mg Documented by: Ascorbic Acid (Vitamin C) 500 mg PO DAILY [facility] Last Admin: 04/21/19 11:18 Dose: 500 mg Documented by: Aspirin (Aspirin) 81 mg PO [facility] Last Admin: 04/21/19 22:03 Dose: 81 mg Documented by: Atorvastatin Calcium (Lipitor) 20 mg PO [facility] Last Admin: 04/21/19 22:03 Dose: 20 mg Documented by: Cholecalciferol (Vitamin D3 (25 Mcg = 1000 Iu)) 2,000 unit PO DAILY [facility] Last Admin: 04/21/19 11:18 Dose: 2,000 unit Documented by: Famotidine (Pepcid) 20 mg PO BID [facility] Last Admin: 04/21/19 22:03 Dose: 20 mg Documented by: Furosemide (Lasix) 40 mg IV Q12HR [facility] Last Admin: 04/21/19 21:57 Dose: 40 mg Documented by: Hydralazine HCl (Apresoline) 25 mg PO BID [facility] Last Admin: 04/21/19 22:02 Dose: 25 mg Documented by: Ceftriaxone Sodium 1 gm/ (Sodium Chloride) 50 mls @ 100 mls/hr IVPB Q24H [facility] Last Admin: 04/21/19 22:06 Dose: 100 mls/hr Documented by: Miscellaneous Information (Pneumonia Protocol Utilized) 1 each PO ONCE PRN PRN Reason: Per Protocol Miscellaneous Information (Coumadin Per Pharmacy) 1 each MISCELLANE DIRECTED PRN PRN Reason: Per Protocol Miscellaneous Information (Potassium Per Protocol) 1 each MISCELLANE DAILY PRN; Protocol PRN Reason: Per Protocol Multivitamins (Theragran) 1 each PO DAILY [facility] Last Admin: 04/21/19 11:18 Dose: 1 each Documented by: Naloxone HCl (Narcan) 0.2 mg IV Q2M PRN PRN Reason: Opioid Reversal Ondansetron HCl (Zofran) 4 mg IVP Q6HR PRN PRN Reason: Nausea And Vomiting Last Admin: 04/21/19 09:21 Dose: 4 mg Documented by: Potassium Chloride (K-Dur 10) 10 meq PO Q72H [facility] Last Admin: 04/21/19 11:18 Dose: 10 meq Documented by: Warfarin Sodium (Coumadin) 5 mg PO SuTuThSa@1800 MICHELLE; Protocol Last Admin: 04/20/19 18:08 Dose: 5 mg Documented by: Warfarin Sodium (Coumadin) 7.5 mg PO MoWeFr@1800 MICHELLE; Protocol Last Admin: 04/21/19 17:41 Dose: 7.5 mg Documented by: Objective - Vital Signs Vital signs: Vital Signs Temp 99.5 F 04/22/19 20:00 Pulse 88 04/22/19 21:00 Resp 22 04/22/19 21:00 BP 123/97 04/22/19 21:00 Pulse Ox 94 L 04/22/19 21:48 Intake & Output 04/22/19 04/22/19 04/23/19 06:59 18:59 06:59 Intake Total 630 110 30 Output Total 1435 1100 120 Balance -805 -990 -90 Weight 66 kg Intake: IV 130 110 30 0.9 Normal Saline 130 110 30 Oral 500 Output: Urine 1435 1100 120 Other: Voiding Method Indwelling Catheter Indwelling Catheter Indwelling Catheter - Exam PHYSICAL EXAMINATION: Patient is lying in the bed comfortably, no acute distress, awake alert and oriented.. HEENT: Normocephalic. Neck is supple. Pupils reactive. Nostrils clear. Oral cavity is moist. Ears reveal no drainage. Neck reveals no JVD, carotid bruits, or thyromegaly. CHEST EXAMINATION: Trachea is central. Symmetrical expansion. Right basilar crackles. No wheezing. Scattered rhonchi.. CARDIAC: Normal S1, S2 with no gallops. No murmurs . Irregular rhythm ABDOMEN: Soft. Bowel sounds normal. No organomegaly. No abdominal bruits. Extremities: Trace edema. No clubbing or cyanosis Neurologically awake, alert, oriented x3 with well-coordinated movements. No focal deficits noted Skin: No rash or skin lesions. Psychiatric: Coperative. Nonsuicidal Musculoskeletal: No joint swelling or deformity. Normal range of motion. - Labs CBC & Chem 7: 04/23/19 05:42 04/23/19 05:42 Labs: Abnormal Lab Results - Last 24 Hours (Table) 04/21/19 04/22/19 04/22/19 Range/Units 07:30 04:41 04:41 RBC 3.60 L (3.80-5.40) m/uL Hct 33.5 L (34.0-46.0) % PT 20.6 H (9.0-12.0) sec INR 2.1 H (<1.2) Carbon Dioxide (22-30) mmol/L Glucose (74-99) mg/dL Calcium (8.4-10.2) mg/dL Procalcitonin 1.71 H (0.02-0.09) ng/mL 04/22/19 Range/Units 04:41 RBC (3.80-5.40) m/uL Hct (34.0-46.0) % PT (9.0-12.0) sec INR (<1.2) Carbon Dioxide 34 H (22-30) mmol/L Glucose 100 H (74-99) mg/dL Calcium 8.3 L (8.4-10.2) mg/dL Procalcitonin (0.02-0.09) ng/mL Microbiology - Last 24 Hours (Table) 04/21/19 17:13 Gram Stain - Preliminary Sputum Sputum Culture - Preliminary 04/19/19 21:09 Blood Culture - Preliminary Blood No Growth after 48 hours Assessment and Plan Assessment: Fluid overload/pulmonary edema. Possible acute CHF with diastolic dysfunction/valvular abnormality.. BNP 2140. Moderate to severe tricuspid regurgitation. Acute right lower lobe pneumonia/pneumonitis sepsis secondary to above Recently diagnosed a UTI, currently on antibiotics at home in the form of keflex. Hypertension Hyperlipidemia Coronary artery disease with history of stent placement History of aortic valve replacement Previous history of smoking Subtherapeutic INR level Chronic atrial fibrillation with controlled ventricular rate Coumadin dosing Plan: Patient was started on IV Lasix 40 mg twice daily. Patient will be continued on antibiotics the form of ceftriaxone , discontinued azithromycin.. Continue with oxygen therapy as needed. currently on Airvo. Continue with Coumadin dosing. Continue with metoprolol. 2-D echocardiography showed normal LV function.. Pulmonary and cardiology is following. Time with Patient: Greater than 30
--- NOTE | 2019-04-23 22:42 | P.PN ---
Subjective Progress Note Date: 04/23/19 Principal diagnosis: Acute respiratory failure due to fluid overload is lying Patient is a 79-year-old female with a known history of atrial fibrillation, currently on Coumadin, coronary artery disease with history of stent placement, cardiac valve replacement with a bovine valve, hypertension, hyperlipidemia and previous history of smoking came to ER with complaints of cough and congestion for the past 4 days. Patient has not been feeling very well nauseous and was also having vomiting episodes at home. Patient says that she was recently presented to medical clinic with fever chills and low-grade fever and sweats. Patient was found to have urinary tract infection and was started on antibiotics. Patient says that she has not been feeling very well and continues to have nausea and generalized weakness. Patient does have cough without much sputum production. Does have decreased oral intake and subjective fevers at home. Presented to ER for further evaluation. Denied any complaints of chest pain. Patient did have mild short of breath. Denied any leg swelling. Chest x-ray showed there is mild right lower lobe pneumonia that appears new compared to old exam. Mild cardiomegaly. No heart failure seen. Repeat chest x-ray showed cardiomegaly, COPD and right lower lobe infiltrate. Impression upon the right lateral trachea could be related to thyroid, ad enopathy not excluded consider follow-up CT chest. Influenza negative Urinalysis is negative for infection WBC 7.1 INR 1.6 T-max 101.2 on admission 04/21/2019 Overnight patient went into respiratory distress and was desaturating. Repeat chest x-ray showed pulmonary edema which is new compared to last exam. There is new infiltrate and pleural fluid in the right lung base. Patient also developed fever with T-max of 102.2. Due to worsening respiratory status and fever patient was transferred to MICU for further management. BNP was 2140 and troponin 0.38 . patient is currently on Airvo. No complaints of chest pain. Nausea and vomiting improved. No headache or dizziness or lightheadedness. Patient was started on Lasix 40 mg IV twice daily. 2-D echocardiography was ordered. Cardiology and pulmonary is following. 04/22/2019 Patient's breathing status is improving. Currently on Airvo. Patient went into atrial fibrillation otherwise mentally retarded is controlled. 2-D echocardiogram showed normal ejection fraction. Moderate to severe tricuspid regurgitation. Patient is being continued on IV diuresis. Chest x- ray showed bilateral infiltrates. Continue with antibiotics. Pulmonary and cardiology is following. 04/23/2019 Patient is currently resting in the bed comfortably. Still requiring oxygen when nausea cannula at 6 L. Patient has been afebrile. Lasix has been changed to by mouth 40 mg twice a day. Chest x-ray showed patchy left basilar infiltrate or atelectasis. Patient has been afebrile. WBC 4.4, hemoglobin 13.8 and INR 2.4 patient is currently maintained in sinus rhythm. Patient is being transferred to medical floor today. Active Medications Acetaminophen (Tylenol Tab) 650 mg PO Q4HR PRN PRN Reason: Fever and/ or Pain Last Admin: 04/21/19 09:21 Dose: 650 mg Documented by: Albuterol/Ipratropium (Duoneb 0.5 Mg-3 Mg/3 Ml Soln) 3 ml INHALATION RT-Q4H PRN PRN Reason: shortness of breath Last Admin: 04/23/19 10:45 Dose: 3 ml Documented by: Amlodipine Besylate (Norvasc) 5 mg PO DAILY [facility] Last Admin: 04/23/19 08:58 Dose: 5 mg Documented by: Ascorbic Acid (Vitamin C) 500 mg PO DAILY [facility] Last Admin: 04/23/19 08:58 Dose: 500 mg Documented by: Aspirin (Aspirin) 81 mg PO HS [facility] Last Admin: 04/23/19 20:30 Dose: 81 mg Documented by: Atorvastatin Calcium (Lipitor) 20 mg PO HS [facility] Last Admin: 04/23/19 20:30 Dose: 20 mg Documented by: Budesonide/Formoterol Fumarate (Symbicort 160-4.5 Mcg Inhaler) 2 puff INHALATION RT-BID [facility] Last Admin: 04/23/19 21:51 Dose: 2 puff Documented by: Cholecalciferol (Vitamin D3 (25 Mcg = 1000 Iu)) 2,000 unit PO DAILY [facility] Last Admin: 04/23/19 08:58 Dose: 2,000 unit Documented by: Famotidine (Pepcid) 20 mg PO BID [facility] Last Admin: 04/23/19 20:30 Dose: 20 mg Documented by: Furosemide (Lasix) 40 mg PO BID@0900,1600 [facility] Last Admin: 04/23/19 16:10 Dose: 40 mg Documented by: Hydralazine HCl (Apresoline) 25 mg PO BID [facility] Last Admin: 04/23/19 20:30 Dose: 25 mg Documented by: Ceftriaxone Sodium 1 gm/ (Sodium Chloride) 50 mls @ 100 mls/hr IVPB Q24H [facility] Last Admin: 04/22/19 21:03 Dose: 100 mls/hr Documented by: Methylprednisolone Sodium Succinate (Solu-Medrol) 40 mg IV Q8HR [facility] Last Admin: 04/23/19 16:10 Dose: 40 mg Documented by: Miscellaneous Information (Pneumonia Protocol Utilized) 1 each PO ONCE PRN PRN Reason: Per Protocol Miscellaneous Information (Coumadin Per Pharmacy) 1 each MISCELLANE DIRECTED PRN PRN Reason: Per Protocol Miscellaneous Information (Potassium Per Protocol) 1 each MISCELLANE DAILY PRN; Protocol PRN Reason: Per Protocol Multivitamins (Theragran) 1 each PO DAILY [facility] Last Admin: 04/23/19 08:58 Dose: 1 each Documented by: Naloxone HCl (Narcan) 0.2 mg IV Q2M PRN PRN Reason: Opioid Reversal Ondansetron HCl (Zofran) 4 mg IVP Q6HR PRN PRN Reason: Nausea And Vomiting Last Admin: 04/21/19 09:21 Dose: 4 mg Documented by: Potassium Chloride (K-Dur 10) 10 meq PO Q72H [facility] Last Admin: 04/21/19 11:18 Dose: 10 meq Documented by: Warfarin Sodium (Coumadin) 5 mg PO SuTuThSa@1800 MICHELLE; Protocol Last Admin: 04/22/19 17:46 Dose: 5 mg Documented by: Warfarin Sodium (Coumadin) 7.5 mg PO MoWeFr@1800 MICHELLE; Protocol Last Admin: 04/23/19 18:56 Dose: 7.5 mg Documented by: Objective - Vital Signs Vital signs: Vital Signs Temp 98.6 F 04/23/19 08:00 Pulse 80 04/23/19 10:57 Resp 19 04/23/19 10:00 BP 105/61 04/23/19 10:00 Pulse Ox 96 04/23/19 10:00 Intake & Output 04/22/19 04/23/19 04/23/19 18:59 06:59 18:59 Intake Total 110 120 520 Output Total 1100 845 350 Balance -990 -725 170 Weight 66.2 kg Intake: IV 110 120 40 0.9 Normal Saline 110 120 40 Oral 480 Output: Urine 1100 845 350 Other: Voiding Method Indwelling Catheter Indwelling Catheter Indwelling Catheter - Exam PHYSICAL EXAMINATION: Patient is lying in the bed comfortably, no acute distress, awake alert and oriented.. HEENT: Normocephalic. Neck is supple. Pupils reactive. Nostrils clear. Oral cavity is moist. Ears reveal no drainage. Neck reveals no JVD, carotid bruits, or thyromegaly. CHEST EXAMINATION: Trachea is central. Symmetrical expansion. Right basilar crackles. No wheezing. Nonlabored breathing... CARDIAC: Normal S1, S2 with no gallops. No murmurs . Irregular rhythm ABDOMEN: Soft. Bowel sounds normal. No organomegaly. No abdominal bruits. Extremities: Trace edema. No clubbing or cyanosis Neurologically awake, alert, oriented x3 with well-coordinated movements. No focal deficits noted Skin: No rash or skin lesions. Psychiatric: Coperative. Nonsuicidal Musculoskeletal: No joint swelling or deformity. Normal range of motion. - Labs CBC & Chem 7: 04/23/19 05:42 04/23/19 05:42 Labs: Abnormal Lab Results - Last 24 Hours (Table) 04/23/19 04/23/19 04/23/19 Range/Units 05:42 05:42 05:42 Lymphocytes # (Manual) 0.84 L (1.0-4.8) k/uL PT 23.5 H (9.0-12.0) sec INR 2.4 H (<1.2) Sodium 135 L (137-145) mmol/L BUN 28 H (7-17) mg/dL Glucose 169 H (74-99) mg/dL Microbiology - Last 24 Hours (Table) 04/21/19 17:13 Gram Stain - Final Sputum Sputum Culture - Final 04/19/19 21:09 Blood Culture - Preliminary Blood No Growth after 72 hours Assessment and Plan Assessment: Fluid overload/pulmonary edema. Possible acute CHF with diastolic dysfunction/valvular abnormality.. BNP 2140. Moderate to severe tricuspid regurgitation. Acute right lower lobe pneumonia/pneumonitis sepsis secondary to above Recently diagnosed a UTI, currently on antibiotics at home in the form of keflex. Hypertension Hyperlipidemia Coronary artery disease with history of stent placement History of aortic valve replacement Previous history of smoking Subtherapeutic INR level Chronic atrial fibrillation with controlled ventricular rate Coumadin dosing Plan: Patient was started on IV Lasix 40 mg twice daily. Patient will be continued on antibiotics the form of ceftriaxone , discontinued azithromycin.. Continue with oxygen therapy as needed. currently on Airvo. Continue with Coumadin dosing. Continue with metoprolol. Lasix changed to by mouth 40 mg twice a day. 2-D echocardiography showed normal LV function.. Pulmonary and cardiology is following. Time with Patient: Greater than 30
[2019-04-24 07:55] LABS: INR 2.9 (<1.2); Prothrombin Time 28.4 sec (9.0-12.0)
[2019-04-24] MEDS: hydrALAZINE HCL 25 MG TAB PO SCH ×2 (08:09→20:33)
[2019-04-24] MEDS: FAMOTIDINE 20 MG TAB PO SCH ×2 (08:09→20:33)
[2019-04-24] MEDS: amLODIPine 5 MG TAB PO SCH (08:09)
[2019-04-24] MEDS: FUROSEMIDE 40 MG TAB PO SCH ×2 (08:09→16:18)
[2019-04-24] MEDS: POTASSIUM CHLORIDE ER 10 MEQ TAB.ER.PRT PO SCH (08:09)
[2019-04-24] MEDS: MULTIVITAMINS, THERA 1 EACH TAB PO SCH (08:09)
[2019-04-24] MEDS: ASCORBIC ACID 500 MG TAB PO SCH (08:09)
[2019-04-24] MEDS: methylPREDNISolone SOD SUCCI 40 MG/ML 1 ML VIAL IV SCH ×2 (08:09→16:18)
[2019-04-24] MEDS: CHOLECALCIFEROL 1,000 UNIT TAB PO SCH (08:09)
[2019-04-24] MEDS: SYMBICORT 160-4.5 MCG INHALER INHALATION SCH ×2 (10:02→19:55)
--- NOTE | 2019-04-24 14:57 | P.PN ---
Subjective Progress Note Date: 04/24/19 Principal diagnosis: Acute exacerbation of chronic obstructive pulmonary disease, left lower lobe pneumonia, fluid overload, urinary tract infection The patient is seen today 04/24/2019 in follow-up on the regular medical floor. She is awake and alert in no acute distress. Resting comfortably in bed. Denies any worsening shortness of breath, cough or congestion. She is yudelka ntaining O2 saturations in the mid 90s on 4 L high flow nasal cannula. She's afebrile. Hemodynamically stable. Sputum culture reveals no growth. Blood cultures reveal no growth. INR 2.9. She is continued on DuoNeb inhalations, Symbicort, IV Solu-Medrol, antibiotics in the form of ceftriaxone. Objective - Vital Signs Vital signs: Vital Signs Temp 97.4 F L 04/24/19 04:44 Pulse 70 04/24/19 04:44 Resp 16 04/24/19 04:44 BP 134/72 04/24/19 04:44 Pulse Ox 96 04/24/19 04:44 Intake & Output 04/23/19 04/24/19 04/24/19 18:59 06:59 18:59 Intake Total 520 1360 Output Total 350 Balance 170 1360 Intake: IV 40 0.9 Normal Saline 40 Intake, IV Titration 50 Amount cefTRIAXone 1 gm In 50 Sodium Chloride 0.9% 50 ml @ 100 mls/hr IVPB Q24H [facility] Rx#:[id number] Oral 480 1310 Output: Urine 350 Other: Voiding Method Indwelling Catheter Bedside Commode Bedside Commode # Voids 0 3 - Exam GENERAL EXAM: Alert, very pleasant, 79-year-old female patient, on 4 L of oxygen per high flow cannula comfortable in no apparent distress. HEAD: Normocephalic/atraumatic. EYES: Normal reaction of pupils, equal size. Conjunctiva pink, sclera white. NOSE: Clear with pink turbinates. THROAT: No erythema or exudates. NECK: No masses, no JVD, no thyroid enlargement, no adenopathy. CHEST: No chest wall deformity. Symmetrical expansion. LUNGS: Equal air entry with few scattered rhonchi, wheezing, congested cough CVS: Regular rate and rhythm, normal S1 and S2, no gallops, no murmurs, no rubs ABDOMEN: Soft, nontender. No hepatosplenomegaly, normal bowel sounds, no guarding or rigidity. EXTREMITIES: No clubbing, no edema, no cyanosis, 2+ pulses and upper and lower extremities. MUSCULOSKELETAL: Muscle strength and tone normal. SPINE: No scoliosis or deformity SKIN: No rashes CENTRAL NERVOUS SYSTEM: No focal deficits, tone is normal in all 4 extremities. PSYCHIATRIC: Alert and oriented -3. Appropriate affect. Intact judgment and insight. - Labs CBC & Chem 7: 04/23/19 05:42 04/23/19 05:42 Labs: Abnormal Lab Results - Last 24 Hours (Table) 04/24/19 Range/Units 07:25 PT 28.4 H (9.0-12.0) sec INR 2.9 H (<1.2) Microbiology - Last 24 Hours (Table) 04/19/19 21:09 Blood Culture - Preliminary Blood No Growth after 96 hours Assessment and Plan Assessment: #1. Acute hypoxemic respiratory failure related to acute exacerbation of chronic obstructive pulmonary disease, acute exacerbation of CHF with diastolic dysfunction, and possibility of left base pneumonia is not entirely excluded #2. Rule out myocardial ischemia with associated fluid overload being followed by cardiology #3. Urinary tract infection has been treated with antibiotics, this admission urinalysis was negative #4. 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 Suspect underlying chronic obstructive pulmonary disease in the patient with previous history of heavy tobacco use #6. History of coronary artery disease with previous PCI and stent placement #7. History of hyperlipidemia #8. History of hypertension #9. History of degenerative disc disease #10. Peripheral vascular occlusive disease with claudication status post stent placement #11. 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 Chronic atrial fibrillation, remains in A. fib, on Coumadin with therapeutic INR Plan: The patient was seen and evaluated by Dr. Chen. She is improved today and on the regular medical floor. We'll continue the current treatment plan for now. She is on oral diuretics. Continue antibiotics and bronchodilators. Increase her activity as tolerated. We'll continue to follow. I, the cosigning physician, performed a history & physical examination of the patient. Lungs sounds with few scattered rhonchi, end expiratory wheeze, diminished. Maintaining good O2 saturations in the 90s on 4 L high flow nasal cannula. I discussed the assessment and plan of care with my nurse practitioner, Alessandra Wong. I attest to the above note as dictated by her.
[2019-04-24] MEDS: WARFARIN 5 MG TAB PO SCH (17:35)
[2019-04-24] MEDS: ASPIRIN 81 MG PO SCH (20:33)
[2019-04-24] MEDS: ATORVASTATIN 20 MG TAB PO SCH (20:33)
--- NOTE | 2019-04-24 23:45 | P.PN ---
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 Patient has not been feeling very well nauseous and was also having vomiting episodes at home. Patient says that she was recently presented to medical clinic with fever chills and low-grade fever and sweats. Patient was found to have urinary tract infection and was started on antibiotics. Patient says that she has not been feeling very well and continues to have nausea and generalized weakness. Patient does have cough without much sputum production. Does have decreased oral intake and subjective fevers at home. Presented to ER for further evaluation. Denied any complaints of chest pain. Patient did have mild short of breath. Denied any leg swelling. Chest x-ray showed there is mild right lower lobe pneumonia that appears new compared to old exam. Mild cardiomegaly. No heart failure seen. Repeat chest x-ray showed cardiomegaly, COPD and right lower lobe infiltrate. Impression upon the right lateral trachea could be related to thyroid, ad enopathy not excluded consider follow-up CT chest. Influenza negative Urinalysis is negative for infection WBC 7.1 INR 1.6 T-max 101.2 on admission 04/21/2019 Overnight patient went into respiratory distress and was desaturating. Repeat chest x-ray showed pulmonary edema which is new compared to last exam. There is new infiltrate and pleural fluid in the right lung base. Patient also developed fever with T-max of 102.2. Due to worsening respiratory status and fever patient was transferred to MICU for further management. BNP was 2140 and troponin 0.38 . patient is currently on Airvo. No complaints of chest pain. Nausea and vomiting improved. No headache or dizziness or lightheadedness. Patient was started on Lasix 40 mg IV twice daily. 2-D echocardiography was ordered. Cardiology and pulmonary is following. 04/22/2019 Patient's breathing status is improving. Currently on Airvo. Patient went into atrial fibrillation otherwise mentally retarded is controlled. 2-D echocardiogram showed normal ejection fraction. Moderate to severe tricuspid regurgitation. Patient is being continued on IV diuresis. Chest x- ray showed bilateral infiltrates. Continue with antibiotics. Pulmonary and cardiology is following. 04/23/2019 Patient is currently resting in the bed comfortably. Still requiring oxygen when nausea cannula at 6 L. Patient has been afebrile. Lasix has been changed to by mouth 40 mg twice a day. Chest x-ray showed patchy left basilar infiltrate or atelectasis. Patient has been afebrile. WBC 4.4, hemoglobin 13.8 and INR 2.4 patient is currently maintained in sinus rhythm. Patient is being transferred to medical floor today. 04/24/2019 Patient is currently on 2 L oxygen with another cannula. Breathing status is much improved. Awake alert and oriented 3. Denied any complaints of chest pain or worsening shortness of breath. Cultures showed no growth. Patient is being continued on antibiotics in the form of ceftriaxone, Solu-Medrol and Symbicort. Pulmonary is following. INR is 2.9 today. Continued on Coumadin dosing for atrial fibrillation. Active Medications Acetaminophen (Tylenol Tab) 650 mg PO Q4HR PRN PRN Reason: Fever and/ or Pain Last Admin: 04/21/19 09:21 Dose: 650 mg Documented by: Albuterol/Ipratropium (Duoneb 0.5 Mg-3 Mg/3 Ml Soln) 3 ml INHALATION RT-Q4H PRN PRN Reason: shortness of breath Last Admin: 04/23/19 10:45 Dose: 3 ml Documented by: Amlodipine Besylate (Norvasc) 5 mg PO DAILY [facility] Last Admin: 04/23/19 08:58 Dose: 5 mg Documented by: Ascorbic Acid (Vitamin C) 500 mg PO DAILY [facility] Last Admin: 04/23/19 08:58 Dose: 500 mg Documented by: Aspirin (Aspirin) 81 mg PO HS [facility] Last Admin: 04/23/19 20:30 Dose: 81 mg Documented by: Atorvastatin Calcium (Lipitor) 20 mg PO [facility] Last Admin: 04/23/19 20:30 Dose: 20 mg Documented by: Budesonide/Formoterol Fumarate (Symbicort 160-4.5 Mcg Inhaler) 2 puff INHALATION RT-BID [facility] Last Admin: 04/23/19 21:51 Dose: 2 puff Documented by: Cholecalciferol (Vitamin D3 (25 Mcg = 1000 Iu)) 2,000 unit PO DAILY [facility] Last Admin: 04/23/19 08:58 Dose: 2,000 unit Documented by: Famotidine (Pepcid) 20 mg PO BID [facility] Last Admin: 04/23/19 20:30 Dose: 20 mg Documented by: Furosemide (Lasix) 40 mg PO BID@0900,1600 [facility] Last Admin: 04/23/19 16:10 Dose: 40 mg Documented by: Hydralazine HCl (Apresoline) 25 mg PO BID [facility] Last Admin: 04/23/19 20:30 Dose: 25 mg Documented by: Ceftriaxone Sodium 1 gm/ (Sodium Chloride) 50 mls @ 100 mls/hr IVPB Q24H [facility] Last Admin: 04/22/19 21:03 Dose: 100 mls/hr Documented by: Methylprednisolone Sodium Succinate (Solu-Medrol) 40 mg IV Q8HR [facility] Last Admin: 04/23/19 16:10 Dose: 40 mg Documented by: Miscellaneous Information (Pneumonia Protocol Utilized) 1 each PO ONCE PRN PRN Reason: Per Protocol Miscellaneous Information (Coumadin Per Pharmacy) 1 each MISCELLANE DIRECTED PRN PRN Reason: Per Protocol Miscellaneous Information (Potassium Per Protocol) 1 each MISCELLANE DAILY PRN; Protocol PRN Reason: Per Protocol Multivitamins (Theragran) 1 each PO DAILY [facility] Last Admin: 04/23/19 08:58 Dose: 1 each Documented by: Naloxone HCl (Narcan) 0.2 mg IV Q2M PRN PRN Reason: Opioid Reversal Ondansetron HCl (Zofran) 4 mg IVP Q6HR PRN PRN Reason: Nausea And Vomiting Last Admin: 04/21/19 09:21 Dose: 4 mg Documented by: Potassium Chloride (K-Dur 10) 10 meq PO Q72H [facility] Last Admin: 04/21/19 11:18 Dose: 10 meq Documented by: Warfarin Sodium (Coumadin) 5 mg PO SuTuThSa@1800 [facility]; Protocol Last Admin: 04/22/19 17:46 Dose: 5 mg Documented by: Warfarin Sodium (Coumadin) 7.5 mg PO MoWeFr@1800 [facility]; Protocol Last Admin: 04/23/19 18:56 Dose: 7.5 mg Documented by: Objective - Vital Signs Vital signs: Vital Signs Temp 97.4 F L 04/24/19 04:44 Pulse 70 04/24/19 04:44 Resp 16 04/24/19 04:44 BP 134/72 04/24/19 04:44 Pulse Ox 96 04/24/19 04:44 Intake & Output 04/23/19 04/24/19 04/24/19 18:59 06:59 18:59 Intake Total 520 1360 Output Total 350 Balance 170 1360 Intake: IV 40 0.9 Normal Saline 40 Intake, IV Titration 50 Amount cefTRIAXone 1 gm In 50 Sodium Chloride 0.9% 50 ml @ 100 mls/hr IVPB Q24H [facility] Rx#:[id number] Oral 480 1310 Output: Urine 350 Other: Voiding Method Indwelling Catheter Bedside Commode Bedside Commode # Voids 0 3 - Exam PHYSICAL EXAMINATION: Patient is lying in the bed comfortably, no acute distress, awake alert and oriented.. HEENT: Normocephalic. Neck is supple. Pupils reactive. Nostrils clear. Oral cavity is moist. Ears reveal no drainage. Neck reveals no JVD, carotid bruits, or thyromegaly. CHEST EXAMINATION: Trachea is central. Symmetrical expansion. Right basilar crackles. No wheezing. Nonlabored breathing... CARDIAC: Normal S1, S2 with no gallops. No murmurs . Irregular rhythm ABDOMEN: Soft. Bowel sounds normal. No organomegaly. No abdominal bruits. Extremities: Trace edema. No clubbing or cyanosis Neurologically awake, alert, oriented x3 with well-coordinated movements. No focal deficits noted Skin: No rash or skin lesions. Psychiatric: Coperative. Nonsuicidal Musculoskeletal: No joint swelling or deformity. Normal range of motion. - Labs CBC & Chem 7: 04/23/19 05:42 04/23/19 05:42 Labs: Abnormal Lab Results - Last 24 Hours (Table) 04/24/19 Range/Units 07:25 PT 28.4 H (9.0-12.0) sec INR 2.9 H (<1.2) Microbiology - Last 24 Hours (Table) 04/19/19 21:09 Blood Culture - Preliminary Blood No Growth after 96 hours 04/21/19 17:13 Gram Stain - Final Sputum Sputum Culture - Final Assessment and Plan Assessment: Fluid overload/pulmonary edema. Possible acute CHF with diastolic dysfunction/valvular abnormality.. BNP 2140. Moderate to severe tricuspid regurgitation. Acute right lower lobe pneumonia/pneumonitis sepsis secondary to above Recently diagnosed a UTI, currently on antibiotics at home in the form of keflex. Hypertension Hyperlipidemia Coronary artery disease with history of stent placement History of aortic valve replacement Previous history of smoking Subtherapeutic INR level Chronic atrial fibrillation with controlled ventricular rate Coumadin dosing Plan: Patient was started on IV Lasix 40 mg twice daily. Changed to by mouth. Patient will be continued on antibiotics the form of ceftriaxone , discontinued azithromycin.. Continue with oxygen therapy as needed. Titrate down to room air. Continue with Coumadin dosing. Continue with metoprolol. Lasix changed to by mouth 40 mg twice a day. 2-D echocardiography showed normal LV function.. Pulmonary and cardiology is following. Time with Patient: Greater than 30
[2019-04-25] MEDS: methylPREDNISolone SOD SUCCI 40 MG/ML 1 ML VIAL IV SCH ×4 (00:13→23:27)
[2019-04-25] MEDS: FAMOTIDINE 20 MG TAB PO SCH ×2 (08:15→20:46)
[2019-04-25] MEDS: FUROSEMIDE 40 MG TAB PO SCH ×2 (08:15→15:05)
[2019-04-25] MEDS: ASCORBIC ACID 500 MG TAB PO SCH (08:15)
[2019-04-25] MEDS: hydrALAZINE HCL 25 MG TAB PO SCH ×2 (08:15→20:46)
[2019-04-25] MEDS: MULTIVITAMINS, THERA 1 EACH TAB PO SCH (08:15)
[2019-04-25] MEDS: CHOLECALCIFEROL 1,000 UNIT TAB PO SCH (08:15)
[2019-04-25] MEDS: amLODIPine 5 MG TAB PO SCH (08:16)
[2019-04-25 08:41] LABS: Basophils % (A) 0 %; Eosinophils % (A) 0 %; HCT 41.8 % (34.0-46.0); HGB 13.6 gm/dL (11.4-16.0); Lymphocytes # (A) 1.2 k/uL (1.0-4.8); Lymphocytes % (A) 13 %; MCH 29.6 pg (25.0-35.0); MCHC 32.4 g/dL (31.0-37.0); MCV 91.4 fL (80.0-100.0); Mean Platelet Volume 7.7; Monocytes # (A) 0.8 k/uL (0-1.0); Monocytes % (A) 8 %; Neutrophils # (A) 7.6 k/uL (1.3-7.7); Neutrophils % (A) 77 %; Platelet Count 362 k/uL (150-450); RBC 4.57 m/uL (3.80-5.40); RDW 12.8 % (11.5-15.5); WBC 9.9 k/uL (3.8-10.6)
[2019-04-25] MEDS: SYMBICORT 160-4.5 MCG INHALER INHALATION SCH ×2 (08:41→19:51)
[2019-04-25 08:54] LABS: INR 3.7 (<1.2); Prothrombin Time 35.8 sec (9.0-12.0)
--- NOTE | 2019-04-25 12:49 | P.PN ---
Subjective Progress Note Date: 04/25/19 Principal diagnosis: Acute exacerbation of chronic obstructive pulmonary disease, left lower lobe pneumonia, fluid overload, urinary tract infection The patient is seen today 04/24/2019 in follow-up on the regular medical floor. She is awake and alert in no acute distress. Resting comfortably in bed. Denies any worsening shortness of breath, cough or congestion. She is yudelka ntaining O2 saturations in the mid 90s on 4 L high flow nasal cannula. She's afebrile. Hemodynamically stable. Sputum culture reveals no growth. Blood cultures reveal no growth. INR 2.9. She is continued on DuoNeb inhalations, Symbicort, IV Solu-Medrol, antibiotics in the form of ceftriaxone. Patient is seen today 04/25/2019 in follow-up on the regular medical floor. She is sitting up in a chair at the bedside. Doing much better today compared to the previous couple of days. No worsening shortness of breath, cough or congestion. She is maintaining O2 saturations in the 90s on 2 L/m per nasal cannula. She's been afebrile. Blood and sputum cultures reveal no growth. White count 9.9. Hemoglobin 13.6. INR 3.7. Creatinine 1.01. She is continued on DuoNeb inhalations, Symbicort, IV Solu-Medrol, antibiotics in the form of ceftriaxone. Objective - Vital Signs Vital signs: Vital Signs Temp 96.3 F L 04/25/19 05:00 Pulse 53 L 04/25/19 05:00 Resp 16 04/25/19 05:00 BP 151/80 04/25/19 05:00 Pulse Ox 93 L 04/25/19 05:00 Intake & Output 04/24/19 04/25/19 04/25/19 18:59 06:59 18:59 Intake Total 2360 50 Balance 2360 50 Intake: Intake, IV Titration 50 Amount cefTRIAXone 1 gm In 50 Sodium Chloride 0.9% 50 ml @ 100 mls/hr IVPB Q24H [facility] Rx#:[id number] Oral 2360 Other: Voiding Method Bedside Commode Bedside Commode Bedside Commode # Voids 2 2 # Bowel Movements 1 1 - Exam GENERAL EXAM: Alert, very pleasant, 79-year-old female patient, on 3 L of oxygen per cannula comfortable in no apparent distress. HEAD: Normocephalic/atraumatic. EYES: Normal reaction of pupils, equal size. Conjunctiva pink, sclera white. NOSE: Clear with pink turbinates. THROAT: No erythema or exudates. NECK: No masses, no JVD, no thyroid enlargement, no adenopathy. CHEST: No chest wall deformity. Symmetrical expansion. LUNGS: Equal air entry with few scattered rhonchi, wheezing CVS: Regular rate and rhythm, normal S1 and S2, no gallops, no murmurs, no rubs ABDOMEN: Soft, nontender. No hepatosplenomegaly, normal bowel sounds, no guarding or rigidity. EXTREMITIES: No clubbing, no edema, no cyanosis, 2+ pulses and upper and lower extremities. MUSCULOSKELETAL: Muscle strength and tone normal. SPINE: No scoliosis or deformity SKIN: No rashes CENTRAL NERVOUS SYSTEM: No focal deficits, tone is normal in all 4 extremities. PSYCHIATRIC: Alert and oriented -3. Appropriate affect. Intact judgment and insight. - Labs CBC & Chem 7: 04/25/19 07:54 04/25/19 07:54 Labs: Abnormal Lab Results - Last 24 Hours (Table) 04/25/19 04/25/19 Range/Units 07:54 07:54 PT 35.8 H (9.0-12.0) sec INR 3.7 H (<1.2) Carbon Dioxide 31 H (22-30) mmol/L BUN 40 H (7-17) mg/dL Glucose 132 H (74-99) mg/dL Microbiology - Last 24 Hours (Table) 04/19/19 21:09 Blood Culture - Preliminary Blood No Growth after 120 hours Assessment and Plan Assessment: #1. Acute hypoxemic respiratory failure related to acute exacerbation of chronic obstructive pulmonary disease, acute exacerbation of CHF with diastolic dysfunction, and possibility of left base pneumonia is not entirely excluded #2. Rule out myocardial ischemia with associated fluid overload being followed by cardiology #3. Urinary tract infection has been treated with antibiotics, this admission urinalysis was negative #4. 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 Suspect underlying chronic obstructive pulmonary disease in the patient with previous history of heavy tobacco use #6. History of coronary artery disease with previous PCI and stent placement #7. History of hyperlipidemia #8. History of hypertension #9. History of degenerative disc disease #10. Peripheral vascular occlusive disease with claudication status post stent placement #11. 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 Chronic atrial fibrillation, remains in A. fib, on Coumadin with therape utic INR Plan: The patient was seen and evaluated by Dr. Chen. She is improved today and on the regular medical floor. We'll continue the current treatment plan for now. We'll continue to follow. Probable discharge in the a.m. I, the cosigning physician, performed a history & physical examination of the patient. Lungs sounds with few scattered rhonchi, end expiratory wheeze, diminished. Maintaining good O2 saturations in the 90s on 2 L nasal cannula. I discussed the assessment and plan of care with my nurse practitioner, Alessandra Wong. I attest to the above note as dictated by her.
[2019-04-25] MEDS ORDERED: WARFARIN 0.5 MG TAB PO ONE (18:00)
[2019-04-25] MEDS: ATORVASTATIN 20 MG TAB PO SCH (20:46)
[2019-04-25] MEDS: ASPIRIN 81 MG PO SCH (20:46)
--- NOTE | 2019-04-26 00:15 | P.PN ---
Subjective Progress Note Date: 04/25/19 Principal diagnosis: Acute respiratory failure due to fluid overload is lying Patient is a 79-year-old female with a known history of atrial fibrillation, currently on Coumadin, coronary artery disease with history of stent placement, cardiac valve replacement with a bovine valve, hypertension, hyperlipidemia and previous history of smoking came to ER with complaints of cough and congestion for the past 4 days. Patient has not been feeling very well nauseous and was also having vomiting episodes at home. Patient says that she was recently presented to medical clinic with fever chills and low-grade fever and sweats. Patient was found to have urinary tract infection and was started on antibiotics. Patient says that she has not been feeling very well and continues to have nausea and generalized weakness. Patient does have cough without much sputum production. Does have decreased oral intake and subjective fevers at home. Presented to ER for further evaluation. Denied any complaints of chest pain. Patient did have mild short of breath. Denied any leg swelling. Chest x-ray showed there is mild right lower lobe pneumonia that appears new compared to old exam. Mild cardiomegaly. No heart failure seen. Repeat chest x-ray showed cardiomegaly, COPD and right lower lobe infiltrate. Impression upon the right lateral trachea could be related to thyroid, ad enopathy not excluded consider follow-up CT chest. Influenza negative Urinalysis is negative for infection WBC 7.1 INR 1.6 T-max 101.2 on admission 04/21/2019 Overnight patient went into respiratory distress and was desaturating. Repeat chest x-ray showed pulmonary edema which is new compared to last exam. There is new infiltrate and pleural fluid in the right lung base. Patient also developed fever with T-max of 102.2. Due to worsening respiratory status and fever patient was transferred to MICU for further management. BNP was 2140 and troponin 0.38 . patient is currently on Airvo. No complaints of chest pain. Nausea and vomiting improved. No headache or dizziness or lightheadedness. Patient was started on Lasix 40 mg IV twice daily. 2-D echocardiography was ordered. Cardiology and pulmonary is following. 04/22/2019 Patient's breathing status is improving. Currently on Airvo. Patient went into atrial fibrillation otherwise mentally retarded is controlled. 2-D echocardiogram showed normal ejection fraction. Moderate to severe tricuspid regurgitation. Patient is being continued on IV diuresis. Chest x- ray showed bilateral infiltrates. Continue with antibiotics. Pulmonary and cardiology is following. 04/23/2019 Patient is currently resting in the bed comfortably. Still requiring oxygen when nausea cannula at 6 L. Patient has been afebrile. Lasix has been changed to by mouth 40 mg twice a day. Chest x-ray showed patchy left basilar infiltrate or atelectasis. Patient has been afebrile. WBC 4.4, hemoglobin 13.8 and INR 2.4 patient is currently maintained in sinus rhythm. Patient is being transferred to medical floor today. 04/24/2019 Patient is currently on 2 L oxygen with another cannula. Breathing status is much improved. Awake alert and oriented 3. Denied any complaints of chest pain or worsening shortness of breath. Cultures showed no growth. Patient is being continued on antibiotics in the form of ceftriaxone, Solu-Medrol and Symbicort. Pulmonary is following. INR is 2.9 today. Continued on Coumadin dosing for atrial fibrillation. 04/25/2019 Patient is currently sitting in the bed comfortably. Oxygen is being titrated to room air. Tolerating very well. No complains of chest pain or shortness of breath. No nausea vomiting or abdominal pain. Tolerating oral diet. Diuresing 9.9, hemoglobin 13.6 and INR 3.7. Creatinine 1.01 Patient is being continued on IV steroids, DuoNeb's and Symbicort. Antibiotics in the form of ceftriaxone. Continued on oral Lasix. Anticipate discharge in the next 24 hours with more clinical improvement. Active Medications Acetaminophen (Tylenol Tab) 650 mg PO Q4HR PRN PRN Reason: Fever and/ or Pain Last Admin: 04/21/19 09:21 Dose: 650 mg Documented by: Albuterol/Ipratropium (Duoneb 0.5 Mg-3 Mg/3 Ml Soln) 3 ml INHALATION RT-Q4H PRN PRN Reason: shortness of breath Last Admin: 04/23/19 10:45 Dose: 3 ml Documented by: Amlodipine Besylate (Norvasc) 5 mg PO DAILY [facility] Last Admin: 04/23/19 08:58 Dose: 5 mg Documented by: Ascorbic Acid (Vitamin C) 500 mg PO DAILY [facility] Last Admin: 04/23/19 08:58 Dose: 500 mg Documented by: Aspirin (Aspirin) 81 mg PO HS [facility] Last Admin: 04/23/19 20:30 Dose: 81 mg Documented by: Atorvastatin Calcium (Lipitor) 20 mg PO HS [facility] Last Admin: 04/23/19 20:30 Dose: 20 mg Documented by: Budesonide/Formoterol Fumarate (Symbicort 160-4.5 Mcg Inhaler) 2 puff INHALATION RT-BID [facility] Last Admin: 04/23/19 21:51 Dose: 2 puff Documented by: Cholecalciferol (Vitamin D3 (25 Mcg = 1000 Iu)) 2,000 unit PO DAILY [facility] Last Admin: 04/23/19 08:58 Dose: 2,000 unit Documented by: Famotidine (Pepcid) 20 mg PO BID [facility] Last Admin: 04/23/19 20:30 Dose: 20 mg Documented by: Furosemide (Lasix) 40 mg PO BID@0900,1600 [facility] Last Admin: 04/23/19 16:10 Dose: 40 mg Documented by: Hydralazine HCl (Apresoline) 25 mg PO BID [facility] Last Admin: 04/23/19 20:30 Dose: 25 mg Documented by: Ceftriaxone Sodium 1 gm/ (Sodium Chloride) 50 mls @ 100 mls/hr IVPB Q24H [facility] Last Admin: 04/22/19 21:03 Dose: 100 mls/hr Documented by: Methylprednisolone Sodium Succinate (Solu-Medrol) 40 mg IV Q8HR [facility] Last Admin: 04/23/19 16:10 Dose: 40 mg Documented by: Miscellaneous Information (Pneumonia Protocol Utilized) 1 each PO ONCE PRN PRN Reason: Per Protocol Miscellaneous Information (Coumadin Per Pharmacy) 1 each MISCELLANE DIRECTED PRN PRN Reason: Per Protocol Miscellaneous Information (Potassium Per Protocol) 1 each MISCELLANE DAILY PRN; Protocol PRN Reason: Per Protocol Multivitamins (Theragran) 1 each PO DAILY [facility] Last Admin: 04/23/19 08:58 Dose: 1 each Documented by: Naloxone HCl (Narcan) 0.2 mg IV Q2M PRN PRN Reason: Opioid Reversal Ondansetron HCl (Zofran) 4 mg IVP Q6HR PRN PRN Reason: Nausea And Vomiting Last Admin: 04/21/19 09:21 Dose: 4 mg Documented by: Potassium Chloride (K-Dur 10) 10 meq PO Q72H [facility] Last Admin: 04/21/19 11:18 Dose: 10 meq Documented by: Warfarin Sodium (Coumadin) 5 mg PO SuTuThSa@1800 [facility]; Protocol Last Admin: 04/22/19 17:46 Dose: 5 mg Documented by: Warfarin Sodium (Coumadin) 7.5 mg PO MoWeFr@1800 [facility]; Protocol Last Admin: 04/23/19 18:56 Dose: 7.5 mg Documented by: Objective - Vital Signs Vital signs: Vital Signs Temp 98 F 04/25/19 21:00 Pulse 76 04/25/19 22:08 Resp 18 04/25/19 21:00 BP 166/81 04/25/19 22:08 Pulse Ox 93 L 04/25/19 21:00 Intake & Output 04/25/19 04/25/19 04/26/19 06:59 18:59 06:59 Intake Total 2360 50 50 Balance 2360 50 50 Intake: Intake, IV Titration 50 50 Amount cefTRIAXone 1 gm In 50 50 Sodium Chloride 0.9% 50 ml @ 100 mls/hr IVPB Q24H [facility] Rx#:[id number] Oral 2360 Other: Voiding Method Bedside Commode Bedside Commode Toilet # Voids 2 # Bowel Movements 1 - Exam PHYSICAL EXAMINATION: Patient is lying in the bed comfortably, no acute distress, awake alert and oriented.. HEENT: Normocephalic. Neck is supple. Pupils reactive. Nostrils clear. Oral cavity is moist. Ears reveal no drainage. Neck reveals no JVD, carotid bruits, or thyromegaly. CHEST EXAMINATION: Trachea is central. Symmetrical expansion. Right basilar crackles. No wheezing. Nonlabored breathing... CARDIAC: Normal S1, S2 with no gallops. No murmurs . Irregular rhythm ABDOMEN: Soft. Bowel sounds normal. No organomegaly. No abdominal bruits. Extremities: Trace edema. No clubbing or cyanosis Neurologically awake, alert, oriented x3 with well-coordinated movements. No focal deficits noted Skin: No rash or skin lesions. Psychiatric: Coperative. Nonsuicidal Musculoskeletal: No joint swelling or deformity. Normal range of motion. - Labs CBC & Chem 7: 04/25/19 07:54 04/25/19 07:54 Labs: Abnormal Lab Results - Last 24 Hours (Table) 04/25/19 04/25/19 Range/Units 07:54 07:54 PT 35.8 H (9.0-12.0) sec INR 3.7 H (<1.2) Carbon Dioxide 31 H (22-30) mmol/L BUN 40 H (7-17) mg/dL Glucose 132 H (74-99) mg/dL Microbiology - Last 24 Hours (Table) 04/19/19 21:09 Blood Culture - Final Blood No Growth after 144 hours Assessment and Plan Assessment: Fluid overload/pulmonary edema. Possible acute CHF with diastolic dysfunction/valvular abnormality.. BNP 2140. Moderate to severe tricuspid regurgitation. Acute right lower lobe pneumonia/pneumonitis sepsis secondary to above Recently diagnosed a UTI, currently on antibiotics at home in the form of keflex. Hypertension Hyperlipidemia Coronary artery disease with history of stent placement History of aortic valve replacement Previous history of smoking Subtherapeutic INR level Chronic atrial fibrillation with controlled ventricular rate Coumadin dosing Plan: Patient was started on IV Lasix 40 mg twice daily. Changed to by mouth. Patient will be continued on antibiotics the form of ceftriaxone , discontinued azithromycin.. Continue with oxygen therapy as needed. Titrate down to room air. Continue with Coumadin dosing. Continue with metoprolol. Lasix changed to by mouth 40 mg twice a day. 2-D echocardiography showed normal LV function.. Pulmonary and cardiology is following. Time with Patient: Greater than 30
[2019-04-26] MEDS: hydrALAZINE HCL 25 MG TAB PO SCH ×4 (04:49→21:21)
[2019-04-26] MEDS: amLODIPine 5 MG TAB PO SCH (04:49)
[2019-04-26 08:49] LABS: INR 3.2 (<1.2); Prothrombin Time 30.6 sec (9.0-12.0)
[2019-04-26] MEDS: methylPREDNISolone SOD SUCCI 40 MG/ML 1 ML VIAL IV SCH (09:16)
[2019-04-26] MEDS: ASCORBIC ACID 500 MG TAB PO SCH (09:16)
[2019-04-26] MEDS: MULTIVITAMINS, THERA 1 EACH TAB PO SCH (09:17)
[2019-04-26] MEDS: FUROSEMIDE 40 MG TAB PO SCH ×2 (09:17→17:00)
[2019-04-26] MEDS: FAMOTIDINE 20 MG TAB PO SCH ×2 (09:17→21:20)
[2019-04-26] MEDS: CHOLECALCIFEROL 1,000 UNIT TAB PO SCH (09:17)
[2019-04-26] MEDS: SYMBICORT 160-4.5 MCG INHALER INHALATION SCH ×2 (09:52→21:22)
[2019-04-26] MEDS ORDERED: amLODIPine 5 MG TAB PO STA (11:04)
[2019-04-26] MEDS ORDERED: predniSONE 20 MG TAB PO SCH (11:15)
[2019-04-26] MEDS: LORATADINE 10 MG TAB PO SCH ×2 (11:57→21:21)
[2019-04-26] MEDS: guaiFENesin 600 MG TABLET.ER PO SCH ×2 (11:58→21:20)
--- NOTE | 2019-04-26 17:12 | P.PN ---
Subjective Progress Note Date: 04/26/19 On 04/26/2019 and seeing the patient for a follow-up. Her main complaint today is the taste of the steroid pill. Otherwise, she is looking well. She is on room air oxygen. She had a right lower lobe pulmonary infiltrates/pneumonia that was treated. Her influenza was negative. UA was negative. She has no fever for now. She got diuresed with IV Lasix 40 mg IV push to 12 hours and she was switched to oral Lasix. The echocardiogram showed normal left ventricular ejection fraction. She was gradually weaned off the FiO2 and currently she is on room air oxygen. She is on long-term anticoagulation with warfarin. INR from yesterday was 3.7 and the Coumadin is currently on hold. We are still an ticipating discharge on this patient within next 24 hours. She has no other new complaints otherwise for now. Agents INR today is down to 3.2. Objective - Vital Signs Vital signs: Vital Signs Temp 97.6 F 04/26/19 12:02 Pulse 65 04/26/19 12:02 Resp 17 04/26/19 12:02 BP 146/88 04/26/19 12:02 Pulse Ox 96 04/26/19 12:02 Intake & Output 04/25/19 04/26/19 04/26/19 18:59 06:59 18:59 Intake Total 50 50 50 Balance 50 50 50 Intake: Intake, IV Titration 50 50 50 Amount cefTRIAXone 1 gm In 50 50 50 Sodium Chloride 0.9% 50 ml @ 100 mls/hr IVPB Q24H [facility] Rx#:[id number] Other: Voiding Method Bedside Commode Toilet Toilet # Voids 1 - Exam Patient is lying in the bed comfortably, no acute distress, awake alert and oriented.. HEENT: Normocephalic. Neck is supple. Pupils reactive. Nostrils clear. Oral cavity is moist. Ears reveal no drainage. Neck reveals no JVD, carotid bruits, or thyromegaly. CHEST EXAMINATION: Trachea is central. Symmetrical expansion. Right basilar crackles. No wheezing. Nonlabored breathing... CARDIAC: Normal S1, S2 with no gallops. No murmurs . Irregular rhythm ABDOMEN: Soft. Bowel sounds normal. No organomegaly. No abdominal bruits. Extremities: Trace edema. No clubbing or cyanosis Neurologically awake, alert, oriented x3 with well-coordinated movements. No focal deficits noted Skin: No rash or skin lesions. Psychiatric: Coperative. Nonsuicidal Musculoskeletal: No joint swelling or deformity. Normal range of motion. - Labs CBC & Chem 7: 04/25/19 07:54 04/25/19 07:54 Labs: Abnormal Lab Results - Last 24 Hours (Table) 04/26/19 Range/Units 07:37 PT 30.6 H (9.0-12.0) sec INR 3.2 H (<1.2) Microbiology - Last 24 Hours (Table) 04/19/19 21:09 Blood Culture - Final Blood No Growth after 144 hours Assessment and Plan Plan: #1. Acute hypoxemic respiratory failure related to acute exacerbation of chronic obstructive pulmonary disease, acute exacerbation of CHF with diastolic dysfunction, and possibility of left base pneumonia is not entirely excluded. The patient is fully recovered and the patient is currently on room air oxygen. #2. Rule out myocardial ischemia with associated fluid overload being followed by cardiology #3. Urinary tract infection has been treated with antibiotics, this admission urinalysis was negative #4. 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 Suspect underlying chronic obstructive pulmonary disease in the patient with previous history of heavy tobacco use #6. History of coronary artery disease with previous PCI and stent placement #7. History of hyperlipidemia #8. History of hypertension #9. History of degenerative disc disease #10. Peripheral vascular occlusive disease with claudication status post stent placement #11. 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 Chronic atrial fibrillation, remains in A. fib, on Coumadin with therapeutic INR and the patient's INR today is down to 3.2 Plan Stable pulmonary status Continue oral Lasix Room air oxygen and encourage increasing level of activity as tolerated Discharge planning is in progress Will drop the prednisone down to 20 mg for 3 days and then 10 mg for 3 days and then stop.
[2019-04-26] MEDS ORDERED: WARFARIN 0.5 MG TAB PO ONE (18:00)
[2019-04-26] MEDS: ASPIRIN 81 MG PO SCH (21:20)
[2019-04-26] MEDS: ATORVASTATIN 20 MG TAB PO SCH (21:20)
--- NOTE | 2019-04-26 22:59 | P.PN ---
Progress Note - Text Progress Note Date: 04/26/19 Presenting complaint: Short of breath Interval history: Patient is a 79-year-old female with a known history of atrial fibrillation, currently on Coumadin, coronary artery disease with history of stent placement, cardiac valve replacement with a bovine valve, hypertension, hyperlipidemia and previous history of smoking came to ER with complaints of cough and congestion for the past 4 days. Patient has not been feeling very well nauseous and was also having vomiting episodes at home. Patient says that she was recently presented to medical clinic with fever chills and low-grade fever and sweats. Patient was found to have urinary tract infection and was started on antibiotics. Patient says that she has not been feeling very well and continues to have nausea and generalized weakness. Patient does have cough without much sputum production. Does have decreased oral intake and subjective fevers at home. Presented to ER for further evaluation. Denied any complaints of chest pain. Patient did have mild short of breath. Denied any leg swelling. Admitted with-acute CHF exacerbation, right lower lobe pneumonia with sepsis Today-feeling better. Bit of a cough. Tired. After the bathroom. Oral intake improving. No fever no chills. Review of systems: Was done for constitutional, cardiovascular, GI, pulmonary. relevant finding as above Active Medications Acetaminophen (Tylenol Tab) 650 mg PO Q4HR PRN PRN Reason: Fever and/ or Pain Last Admin: 04/21/19 09:21 Dose: 650 mg Documented by: Albuterol/Ipratropium (Duoneb 0.5 Mg-3 Mg/3 Ml Soln) 3 ml INHALATION RT-Q4H PRN PRN Reason: shortness of breath Last Admin: 04/23/19 10:45 Dose: 3 ml Documented by: Amlodipine Besylate (Norvasc) 10 mg PO DAILY [facility] Ascorbic Acid (Vitamin C) 500 mg PO DAILY [facility] Last Admin: 04/26/19 09:16 Dose: 500 mg Documented by: Aspirin (Aspirin) 81 mg PO HS [facility] Last Admin: 04/26/19 21:20 Dose: 81 mg Documented by: Atorvastatin Calcium (Lipitor) 20 mg PO [facility] Last Admin: 04/26/19 21:20 Dose: 20 mg Documented by: Budesonide/Formoterol Fumarate (Symbicort 160-4.5 Mcg Inhaler) 2 puff INHALATION RT-BID [facility] Last Admin: 04/26/19 21:22 Dose: 2 puff Documented by: Cholecalciferol (Vitamin D3 (25 Mcg = 1000 Iu)) 2,000 unit PO DAILY [facility] Last Admin: 04/26/19 09:17 Dose: 2,000 unit Documented by: Famotidine (Pepcid) 20 mg PO BID [facility] Last Admin: 04/26/19 21:20 Dose: 20 mg Documented by: Furosemide (Lasix) 40 mg PO BID@0900,1600 [facility] Last Admin: 04/26/19 17:00 Dose: 40 mg Documented by: Guaifenesin (Mucinex) 1,200 mg PO Q12HR [facility] Last Admin: 04/26/19 21:20 Dose: 1,200 mg Documented by: Hydralazine HCl (Apresoline) 25 mg PO TID [facility] Last Admin: 04/26/19 21:21 Dose: 25 mg Documented by: Loratadine (Claritin) 5 mg PO Q12HR [facility] Last Admin: 04/26/19 21:21 Dose: 5 mg Documented by: Miscellaneous Information (Pneumonia Protocol Utilized) 1 each PO ONCE PRN PRN Reason: Per Protocol Miscellaneous Information (Coumadin Per Pharmacy) 1 each MISCELLANE DIRECTED PRN PRN Reason: Per Protocol Miscellaneous Information (Potassium Per Protocol) 1 each MISCELLANE DAILY PRN; Protocol PRN Reason: Per Protocol Multivitamins (Theragran) 1 each PO DAILY [facility] Last Admin: 04/26/19 09:17 Dose: 1 each Documented by: Naloxone HCl (Narcan) 0.2 mg IV Q2M PRN PRN Reason: Opioid Reversal Ondansetron HCl (Zofran) 4 mg IVP Q6HR PRN PRN Reason: Nausea And Vomiting Last Admin: 04/21/19 09:21 Dose: 4 mg Documented by: Potassium Chloride (K-Dur 10) 10 meq PO Q72H [facility] Last Admin: 04/24/19 08:09 Dose: 10 meq Documented by: Prednisone () 20 mg PO DAILY [facility] On examination: VITAL SIGNS: 97.6, 65, 17, 146/88, 96% room air GENERAL APPEARANCE: Sitting comfortable to bed, awake HEENT: Normal external appearance of nose and ear. Oral cavity normal EYES: Pupils equal. Conjunctiva normal. NECK: JVD not raised. Mass not palpable. RESPIRATORY: Respiratory effort normal. Decreased breath sounds CARDIOVASCULAR: First and second sounds normal. No edema. ABDOMEN: Soft. Liver and spleen not palpable. No tenderness. No mass palpable. PSYCHIATRY: Alert and oriented x3. Mood and affect normal. INVESTIGATIONS, reviewed in the clinical context: White count 9.9 hemoglobin 13.6 INR 3.2 2-D echo-EF 55-60%. [id number] tricuspid regurgitation EKG-atrial fibrillation Assessment: -Acute on chronic congestive heart failure exacerbation from diastolic dysfunction EF 55-60% -Moderate to severe tricuspid regurgitation. -Acute right lower lobe pneumonia/pneumonitis -sepsis secondary to above Recently diagnosed a UTI, currently on antibiotics at home in the form of keflex. -Hypertension -Hyperlipidemia Coronary artery disease with history of stent placement History of aortic valve replacement -Persistent atrial fibrillation with controlled ventricular rate -Coumadin dosing Plan: Discussed the case for Trevon the licensed master social worker. His since patient may not qualify for inpatient rehab. Encouraged the patient to ambulate. Spoke of nose. Have the patient sit up in a chair and walking the hallway with support. Patient will require a walker. Medications were reviewed. Adjusted accordingly. Care was discussed at length with the patient. Questions were answered. Total time spent today was about 40 minutes with over 25 minutes in discussion. Also discussed with the nurse.
[2019-04-27 07:49] LABS: INR 2.4 (<1.2); Prothrombin Time 23.7 sec (9.0-12.0)
[2019-04-27] MEDS: guaiFENesin 600 MG TABLET.ER PO SCH (08:45)
[2019-04-27] MEDS: MULTIVITAMINS, THERA 1 EACH TAB PO SCH (08:45)
[2019-04-27] MEDS: CHOLECALCIFEROL 1,000 UNIT TAB PO SCH (08:45)
[2019-04-27] MEDS: FAMOTIDINE 20 MG TAB PO SCH (08:45)
[2019-04-27] MEDS: hydrALAZINE HCL 25 MG TAB PO SCH (08:45)
[2019-04-27] MEDS: ASCORBIC ACID 500 MG TAB PO SCH (08:45)
[2019-04-27] MEDS: LORATADINE 10 MG TAB PO SCH (08:45)
[2019-04-27] MEDS: FUROSEMIDE 40 MG TAB PO SCH (08:45)
[2019-04-27] MEDS: POTASSIUM CHLORIDE ER 10 MEQ TAB.ER.PRT PO SCH (08:45)
[2019-04-27] MEDS ORDERED: predniSONE 20 MG TAB PO SCH (09:00)
[2019-04-27] MEDS ORDERED: amLODIPine 10 MG TAB PO SCH (09:00)
[2019-04-27] MEDS: SYMBICORT 160-4.5 MCG INHALER INHALATION SCH (09:46)
[2019-04-27 11:45] VITALS: BP 115/72; PULSE 61; RESP 17; TEMP 98.2
--- NOTE | 2019-04-27 11:54 | P.PN ---
Subjective Progress Note Date: 04/27/19 Principal diagnosis: Acute exacerbation of chronic obstructive pulmonary disease, left lower lobe pneumonia, fluid overload, urinary tract infection The patient is seen today 04/24/2019 in follow-up on the regular medical floor. She is awake and alert in no acute distress. Resting comfortably in bed. Denies any worsening shortness of breath, cough or congestion. She is yudelka ntaining O2 saturations in the mid 90s on 4 L high flow nasal cannula. She's afebrile. Hemodynamically stable. Sputum culture reveals no growth. Blood cultures reveal no growth. INR 2.9. She is continued on DuoNeb inhalations, Symbicort, IV Solu-Medrol, antibiotics in the form of ceftriaxone. Patient is seen today 04/25/2019 in follow-up on the regular medical floor. She is sitting up in a chair at the bedside. Doing much better today compared to the previous couple of days. No worsening shortness of breath, cough or congestion. She is maintaining O2 saturations in the 90s on 2 L/m per nasal cannula. She's been afebrile. Blood and sputum cultures reveal no growth. White count 9.9. Hemoglobin 13.6. INR 3.7. Creatinine 1.01. She is continued on DuoNeb inhalations, Symbicort, IV Solu-Medrol, antibiotics in the form of ceftriaxone. The patient is seen today 04/27/2019 in follow-up on the regular medical floor. She is currently sitting up in bed. Awake and alert in no acute distress. Breathing better today compared to yesterday. Still with some complaints of dyspnea on exertion. Still some weakness of the lower extremities. She is maintaining good O2 saturations in the 90s on room air. She's been afebrile. Hemodynamically stable. Blood and sputum cultures reveal no growth. INR 2.4. Objective - Vital Signs Vital signs: Vital Signs Temp 98.2 F 04/27/19 11:44 Pulse 61 04/27/19 11:44 Resp 17 04/27/19 11:44 BP 115/72 04/27/19 11:44 Pulse Ox 93 L 04/27/19 11:44 Intake & Output 04/26/19 04/27/19 04/27/19 18:59 06:59 18:59 Intake Total 50 Balance 50 Intake: Intake, IV Titration 50 Amount cefTRIAXone 1 gm In 50 Sodium Chloride 0.9% 50 ml @ 100 mls/hr IVPB Q24H [facility] Rx#:[id number] Other: Voiding Method Toilet Toilet Toilet # Voids 1 - Exam GENERAL EXAM: Alert, very pleasant, 79-year-old female patient, on room air comfortable in no apparent distress. HEAD: Normocephalic/atraumatic. EYES: Normal reaction of pupils, equal size. Conjunctiva pink, sclera white. NOSE: Clear with pink turbinates. THROAT: No erythema or exudates. NECK: No masses, no JVD, no thyroid enlargement, no adenopathy. CHEST: No chest wall deformity. Symmetrical expansion. LUNGS: Equal air entry with few scattered rhonchi, wheezing CVS: Regular rate and rhythm, normal S1 and S2, no gallops, no murmurs, no rubs ABDOMEN: Soft, nontender. No hepatosplenomegaly, normal bowel sounds, no guarding or rigidity. EXTREMITIES: No clubbing, no edema, no cyanosis, 2+ pulses and upper and lower extremities. MUSCULOSKELETAL: Muscle strength and tone normal. SPINE: No scoliosis or deformity SKIN: No rashes CENTRAL NERVOUS SYSTEM: No focal deficits, tone is normal in all 4 extremities. PSYCHIATRIC: Alert and oriented -3. Appropriate affect. Intact judgment and insight. - Labs CBC & Chem 7: 04/25/19 07:54 04/25/19 07:54 Labs: Abnormal Lab Results - Last 24 Hours (Table) 04/27/19 Range/Units 07:03 PT 23.7 H (9.0-12.0) sec INR 2.4 H (<1.2) Assessment and Plan Assessment: #1. Acute hypoxemic respiratory failure related to acute exacerbation of chronic obstructive pulmonary disease, acute exacerbation of CHF with diastolic dysfunction, and possibility of left base pneumonia is not entirely excluded #2. Rule out myocardial ischemia with associated fluid overload being followed by cardiology #3. Urinary tract infection has been treated with antibiotics, this admission urinalysis was negative #4. 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 Suspect underlying chronic obstructive pulmonary disease in the patient with previous history of heavy tobacco use #6. History of coronary artery disease with previous PCI and stent placement #7. History of hyperlipidemia #8. History of hypertension #9. History of degenerative disc disease #10. Peripheral vascular occlusive disease with claudication status post stent placement #11. 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 Chronic atrial fibrillation, remains in A. fib, on Coumadin with thera peutic INR Plan: The patient was seen and evaluated by Dr. Arizmendi. She is improved today and on the regular medical floor. We'll continue the current treatment plan for now. We'll continue to follow. Probable discharge today. I, the cosigning physician, performed a history & physical examination of the patient. Lungs sounds with few scattered rhonchi, end expiratory wheeze, diminished. Maintaining good O2 saturations in the 90s on 2 L nasal cannula. I discussed the assessment and plan of care with my nurse practitioner, Alessandra Wong. I attest to the above note as dictated by her.
--- NOTE | 2019-04-27 12:16 | P.DS ---
Providers Date of admission: 04/21/19 09:52 Expected date of discharge: 04/27/19 Attending physician: Obed Gonzalez Consults: 04/21/19 09:52 Consult Physician Stat Consulting Provider: Richie Chen Consult Reason/Comments: SOB Do you want consulting provider notified?: Already Contacted 04/21/19 11:16 Consult Physician Routine Consulting Provider: Finn Márquez Consult Reason/Comments: New CHF Do you want consulting provider notified?: Yes Primary care physician: Jermaine Feldman [facility] Course: Hospital course: Patient is a 79-year-old female with a known history of atrial fibrillation, currently on Coumadin, coronary artery disease with history of stent placement, cardiac valve replacement with a bovine valve, hypertension, hyperlipidemia and previous history of smoking came to ER with complaints of cough and congestion for the past 4 days. Patient has not been feeling very well nauseous and was also having vomiting episodes at home. Patient says that she was recently presented to medical clinic with fever chills and low-grade fever and sweats. Patient was found to have urinary tract infection and was started on antibiotics. Patient says that she has not been feeling very well and continues to have nausea and generalized weakness. Patient does have cough without much sputum production. Does have decreased oral intake and subjective fevers at h ome. Presented to ER for further evaluation. Denied any complaints of chest pain. Patient did have mild short of breath. Denied any leg swelling. Admitted with-acute CHF exacerbation, right lower lobe pneumonia with sepsis. Responded well to antibiotics, diuretics, bronchodilators. Today-feeling much better. Though weak. Has been using a walker. Appetite is improved. Heart rate is controlled. Care was discussed with the patient. Questions were answered. Discussion and discharge planning more than 35 minutes On examination: VITAL SIGNS: 98.2, 61, 17, 11 5/72, 93% room air GENERAL APPEARANCE: Sitting comfortable to bed, awake HEENT: Normal external appearance of nose and ear. Oral cavity normal EYES: Pupils equal. Conjunctiva normal. NECK: JVD not raised. Mass not palpable. RESPIRATORY: Respiratory effort normal. Decreased breath sounds CARDIOVASCULAR: First and second sounds normal. No edema. ABDOMEN: Soft. Liver and spleen not palpable. No tenderness. No mass palpable. PSYCHIATRY: Alert and oriented x3. Mood and affect normal. INVESTIGATIONS, reviewed in the clinical context: White count 9.9 hemoglobin 13.6 INR 2.4 2-D echo-EF 55-60%. [id number] tricuspid regurgitation EKG-atrial fibrillation Assessment: -Acute on chronic congestive heart failure exacerbation from diastolic dysfunction EF 55-60%, POA -Moderate to severe tricuspid regurgitation. -Acute right lower lobe pneumonia/pneumonitis, POA -sepsis secondary to above, POA -Recently diagnosed a UTI, currently on antibiotics at home in the form of keflex. -Hypertension -Hyperlipidemia -Coronary artery disease with history of stent placement History of aortic valve replacement -Persistent atrial fibrillation with controlled ventricular rate -Coumadin dosing -CODE STATUS-full code Disposition: [facility] Patient Condition at Discharge: Fair Plan - Discharge Summary New Discharge Prescriptions: New hydrALAZINE HCL [Apresoline] 25 mg PO TID tab Loratadine-Pseudoeph 5-120 mg [Claritin-D 12 Hour] 1 tab PO Q12HR #6 tab Ipratropium-Albuterol Nebulize [Duoneb 0.5 mg-3 mg/3 ml Soln] 3 ml INHALATION RT-Q4H PRN ampul.neb PRN Reason: shortness of breath guaiFENesin [Mucinex] 1,200 mg PO Q12HR tablet.er amLODIPine [Norvasc] 10 mg PO DAILY tab Famotidine [Pepcid] 20 mg PO BID tab predniSONE 20 mg PO DIRECTED #4 tab Budesonide-Formot 160-4.5 Mcg [Symbicort 160-4.5 Mcg Inhaler] 2 puff INHALATION RT-BID puff Continue Calcium Carbonate/Vitamin D3 [Calcium 600-Vit D3 400 Caplet] 1 tab PO Q7D Potassium Chloride [K-Tab ER] 10 meq PO Q72H Atorvastatin [Lipitor] 40 mg PO HS Cholecalciferol (Vitamin D3) [Vitamin D3] 2,000 unit PO DAILY Aspirin [Adult Low Dose Aspirin EC] 81 mg PO HS Warfarin [Coumadin] 7.5 mg PO MOWEFR Warfarin [Coumadin] 5 mg PO SUTUTHSA Ascorbic Acid [Vitamin C] 500 mg PO DAILY Multivitamins, Thera [Multivitamin (formulary)] 1 tab PO DAILY Changed Furosemide [Lasix] 40 mg PO BID #0 Discontinued hydrALAZINE HCL [Apresoline] 25 mg PO AC-BID Digoxin [Lanoxin] 125 mcg PO HS amLODIPine [Norvasc] 5 mg PO DAILY Atorvastatin [Lipitor] 20 mg PO HS Cephalexin [Keflex] 500 mg PO BID Benzonatate [Tessalon Perles] 100 mg PO TID No Action Turmeric Root Extract [Turmeric] 1 tab PO DAILY Ubidecarenone [Co Q-10] 100 mg PO DAILY Discharge Medication List Aspirin [Adult Low Dose Aspirin EC] 81 mg PO HS 03/17/18 [History] Atorvastatin [Lipitor] 40 mg PO HS 03/17/18 [History] Calcium Carbonate/Vitamin D3 [Calcium 600-Vit D3 400 Caplet] 1 tab PO Q7D 03/17/18 [History] Cholecalciferol (Vitamin D3) [Vitamin D3] 2,000 unit PO DAILY 03/17/18 [History] Potassium Chloride [K-Tab ER] 10 meq PO Q72H 03/17/18 [History] Ascorbic Acid [Vitamin C] 500 mg PO DAILY 05/19/18 [History] Turmeric Root Extract [Turmeric] 1 tab PO DAILY 05/19/18 [History] Ubidecarenone [Co Q-10] 100 mg PO DAILY 05/19/18 [History] Warfarin [Coumadin] 5 mg PO SUTUTHSA 05/19/18 [History] Warfarin [Coumadin] 7.5 mg PO MOWEFR 05/19/18 [History] Multivitamins, Thera [Multivitamin (formulary)] 1 tab PO DAILY 04/19/19 [History] Budesonide-Formot 160-4.5 Mcg [Symbicort 160-4.5 Mcg Inhaler] 2 puff INHALATION RT-BID puff 04/27/19 [Rx] Famotidine [Pepcid] 20 mg PO BID tab 04/27/19 [Rx] Furosemide [Lasix] 40 mg PO BID #0 04/27/19 [Rx] Ipratropium-Albuterol Nebulize [Duoneb 0.5 mg-3 mg/3 ml Soln] 3 ml INHALATION RT-Q4H PRN ampul.neb 04/27/19 [Rx] Loratadine-Pseudoeph 5-120 mg [Claritin-D 12 Hour] 1 tab PO Q12HR #6 tab 04/27/19 [Rx] amLODIPine [Norvasc] 10 mg PO DAILY tab 04/27/19 [Rx] guaiFENesin [Mucinex] 1,200 mg PO Q12HR tablet.er 04/27/19 [Rx] hydrALAZINE HCL [Apresoline] 25 mg PO TID tab 04/27/19 [Rx] predniSONE 20 mg PO DIRECTED #4 tab 04/27/19 [Rx] Follow up Appointment(s)/Referral(s): Cardiology, [Other] - 1 Week Jermaine Feldman DO [Primary Care Provider] - 1-2 days
[2019-04-27] MEDS ORDERED: WARFARIN 5 MG TAB PO ONE (18:00)
[2019-04-28] MEDS ORDERED: FAMOTIDINE 20 MG TAB PO SCH (09:00)
--- NOTE | 2019-04-29 13:32 | CDI ---
Documentation Clarification Form Date: 04/29/19 From: Saira Jimenez Phone: If you have a question about this query, please contact Rhea Tapia, Manager Of Regulatory Affairs at [phone] between 8am and 5pm. Admit Date: 04/21/19 Discharge Date: 04/27/19 Patient Name: Erika Rogers Visit Number: [id number] ATTENTION: The Clinical Documentation Specialists (CDI) and [facility] Coding Staff appreciate your assistance in clarifying documentation. Please respond to the clarification below the line at the bottom and electronically sign. The CDI & [facility] Coding staff will review the response and follow-up if needed. Please note: Queries are made part of the Legal Health Record. If you have any questions, please contact the author of this message via ITS. Dear Dr. Hayder Gonzalez, Patient has peripheral vascular occlusive disease with claudication, status post stent placement. History/Risk Factors: sepsis. UTI, PNA, ac/hr diastiolic CHF w HTN Clinical Indicators: lower extremity claudication with exertion per consult Doppler/Radiology Reports: none Treatment: s/p previous stent In your professional opinion, can the is atherosclerosis the cause of the peripheral vascular occlusive disease with claudication? Yes No Other, please specify Unable to determine Unable to determine MTDD
== END 2019-04-27 15:05 | DRG 871 ==
LOC: EC 20:14 → 4SSUR 21:42 → OBSVTOIN 04-21 09:52 → 2SICU 04-21 10:00 → 5NMEDONC 04-23 12:47
PROVIDERS: ADMIT Hospitalist; ATTEND Hospitalist
DX: A41.9 Sepsis, unspecified organism (principal); I50.33 Acute on chronic diastolic (congestive) heart failure; J15.9 Unspecified bacterial pneumonia; J96.00 Acute respiratory failure, unspecified whether with hypoxia or hypercapnia; N39.0 Urinary tract infection, site not specified; I48.19 Other persistent atrial fibrillation; J44.1 Chronic obstructive pulmonary disease with (acute) exacerbation; J44.0 Chronic obstructive pulmonary disease with (acute) lower respiratory infection; J98.11 Atelectasis; I11.0 Hypertensive heart disease with heart failure; I07.1 Rheumatic tricuspid insufficiency; E86.0 Dehydration; I25.10 Atherosclerotic heart disease of native coronary artery without angina pectoris; E78.5 Hyperlipidemia, unspecified; G89.29 Other chronic pain; M54.9 Dorsalgia, unspecified; K64.9 Unspecified hemorrhoids; I73.9 Peripheral vascular disease, unspecified; T45.515A Adverse effect of anticoagulants, initial encounter; R79.1 Abnormal coagulation profile; Z79.82 Long term (current) use of aspirin; Z79.01 Long term (current) use of anticoagulants; Z79.899 Other long term (current) drug therapy; Z87.891 Personal history of nicotine dependence; Z95.3 Presence of xenogenic heart valve; Z95.5 Presence of coronary angioplasty implant and graft; Z95.828 Presence of other vascular implants and grafts; Z98.890 Other specified postprocedural states; Z81.8 Family history of other mental and behavioral disorders
CPT/HCPCS: 36415; 36600; 71045; 80048; 80053; 81003; 82550; 82553; 82805; 83605; 83735; 83880; 84100; 84132; 84145; 84443; 84484; 85025; 85379; 85610; 85730; 87040; 87070; 87205; 87502; 93005; 93306; 94640; 94760; 94762; 96361; 96365; 96366; 96372; 96375; 96376; 99285

== ENCOUNTER → 2020-09-05 | Outpatient (CLI) | payer MEDICARE, OTHER ==
[2020-09-05 10:17] LABS: HCT 38.7 % (34.0-46.0); HGB 13.2 gm/dL (11.4-16.0); MCH 31.9 pg (25.0-35.0); MCHC 34.2 g/dL (31.0-37.0); MCV 93.2 fL (80.0-100.0); Mean Platelet Volume 6.8; Platelet Count 289 k/uL (150-450); RBC 4.15 m/uL (3.80-5.40); RDW 13.8 % (11.5-15.5); WBC 6.1 k/uL (3.8-10.6)
[2020-09-05 11:11] LABS: Potassium 4.1 mmol/L (3.5-5.1)
== END | disposition home or self-care (01) ==
LOC: LABPAT 09:41
PROVIDERS: ATTEND Internal Medicine Interventional Cardiology
DX: Z01.818 Encounter for other preprocedural examination (principal); I73.9 Peripheral vascular disease, unspecified
CPT/HCPCS: 36415; 80051; 82565; 84520; 85027

== ENCOUNTER 2020-09-06 08:48 | Day surgery (SDC) | payer MEDICARE, OTHER ==
[2020-09-01 17:48] VITALS: BMI 24.0
[~2020-09-06 08:48] MED LIST changes: -ASPIRIN 325 MG TAB PO ONE
[2020-09-06] MEDS ORDERED: SODIUM CHLORIDE 0.9% 1,000 ML in EMPTY BAG 1 BAG IV ONE (09:00)
[2020-09-06 09:19] VITALS: RESP 18; TEMP 98.3
[2020-09-06 09:49] LABS: INR 1.2 (<1.2); Prothrombin Time 12.8 sec (9.0-12.0)
[2020-09-06] MEDS ORDERED: MIDAZOLAM 2 MG/2 ML VIAL IV ONE (11:04)
[2020-09-06] MEDS ORDERED: LIDOCAINE 1% INJ 10MG/ML (20 ML MDV) SQ ONE (11:10)
[2020-09-06] MEDS ORDERED: IOPAMIDOL-250 100ML BTL INTRAARTER ONE (11:21)
[2020-09-06] MEDS ORDERED: SODIUM CHLORIDE 0.9% 1,000 ML IV SCH (12:30)
--- NOTE | 2020-09-06 15:45 | LTR ---
September 06, 2020 Re: Erika Rogers Dear Dr. Feldman: Ms. Erika Rogers underwent an abdominal aortogram and bilateral lower extremities runoff. The procedure revealed critical disease involving the right SFA. She will be brought back to undergo a BOTTOM TURNING LATHE TENDER of the right SFA. I want to thank you for allowing me to participate in her care and please do not hesitate to call if you have any question or concern. Sincerely, Finn Márquez MD MMDOMONIQUE / BRIANN: [id number] /
--- NOTE | 2020-09-06 15:57 | IR ---
Fluoroscopy HISTORY: Pain in leg 1.6 minutes fluoroscopy time supplied to the referring clinician. 161 intraoperative C-arm images do cument the procedure. See dictated report from cardiology.
[2020-09-06 16:07] VITALS: BP 132/58; PULSE 54
--- NOTE | 2020-09-06 21:54 | AN ---
ANGIOGRAPHY REPORT DATE OF SERVICE: 09/06/2020 PERFORMING PHYSICIAN: Finn Márquez M.D. PROCEDURES PERFORMED: 1. Abdominal aortogram. 2. Bilateral lower extremity runoff. INDICATION: This is a very pleasant 80-year-old female patient with peripheral arterial disease and prior angioplasty of the right leg. She was experiencing symptoms of discomfort concerning for intermittent claudication. She underwent an arterial duplex study and that came in to be abnormal and because of that an angiogram was advised. APPROACH: Right common femoral artery. COMPLICATIONS: None. LEVEL OF SEDATION: Moderate, with sedation length of 15 minutes. PROCEDURE DESCRIPTION: After obtaining informed consent, the patient was brought to the cardiac labor relations representative. The right common femoral artery was cannulated using micropuncture technique. The micropuncture wire passed easily. Then I placed a 5-Mongolian sheath. I did an abdominal aortogram and bilateral lower extremity runoff using 5-Mongolian pigtail catheter which was initially placed at the level of the renal arteries. Then it was pulled into above the bifurcation of the aorta. The procedure was completed without any complication. SELECTIVE PERIPHERAL ANGIOGRAM: 1. The aorta appeared to have mild disease only. 2. Common iliac arteries. Both appeared to have mild disease only. 3. Internal iliac arteries. Both appeared to be patent. 4. External iliac arteries. Both appeared to be angiographically normal. 5. Common femoral arteries. Both appeared to be angiographically normal. 6. Profundae. Both are patent. 7. SFA. The right SFA has a critical lesion in the mid portion and the left SFA has mild to moderate diffuse disease only. 8. Popliteals. The right popliteal appeared to have mild disease only and the left popliteal appeared to have mild disease only as well. 9. Below the knee. There is 3-vessel runoff below the knee bilaterally. CONCLUSION: 1. Mild aortoiliac disease. 2. Severe femoropopliteal disease with critical disease involving the mid right SFA. POST-PROCEDURE MANAGEMENT: 1. Aggressive cholesterol control. 2. The patient is going to be discharged home and brought back to undergo SAFETY INTERN of the right SFA. MMODL / IJN: [id number] /
--- NOTE | 2020-09-13 10:07 | CDI ---
Outpatient Documentation Clarification Form Date: 09/13/20 CDS.Flume Worker Name: Chana Farnsworth Patient Name Erika Rogers Account Number: [id number] Admit Date: 09/06/20 Discharge Date: 09/06/20 ATTENTION: The [facility] Coding Staff appreciate your assistance in clarifying documentation. Please respond to the clarification below the line at the bottom and electronically sign. The [facility] Coding Staff will review the response and follow-up if needed. Please Note: Queries are made part of the Legal Health Record. If you have any questions, please contact the Caul Puller: Dear Dr. Márquez, Please provide clarification as to the cause of the occlusive PAD. PAD/VD is considered unspecified. Greatest specificity is required for medical necessity support. Is underlying cause of the Occlusive PAD one of the following? Arteriosclerotic disease of the arteries Arteritis Necrotic Due to embolism/thrombosis Other - please specify below. MTDD
== END 2020-09-06 16:55 | disposition home or self-care (01) ==
LOC: CATHCVL 08:48
PROVIDERS: ATTEND Internal Medicine Interventional Cardiology
DX: I70.202 Unspecified atherosclerosis of native arteries of extremities, left leg (principal); I48.20 Chronic atrial fibrillation, unspecified; I35.9 Nonrheumatic aortic valve disorder, unspecified; Z20.822 Contact with and (suspected) exposure to COVID-19; R60.0 Localized edema; I25.10 Atherosclerotic heart disease of native coronary artery without angina pectoris; Z95.2 Presence of prosthetic heart valve; E78.5 Hyperlipidemia, unspecified; I10 Essential (primary) hypertension; Z72.0 Tobacco use; E78.00 Pure hypercholesterolemia, unspecified; Z79.01 Long term (current) use of anticoagulants; Z79.82 Long term (current) use of aspirin; Z79.890 Hormone replacement therapy; Z79.899 Other long term (current) drug therapy
CPT/HCPCS: 36200; 75625; 75716; 85610; 87635; C1769 ×4; C1894; J2250; J2001; Q9966

== ENCOUNTER 2020-09-27 08:52 | Day surgery (SDC) | payer MEDICARE, OTHER ==
[2020-09-25 15:52] VITALS: BMI 24.0
[~2020-09-27 08:52] MED LIST changes: +ALPRAZolam 0.25 MG TAB PO PRN; +ASPIRIN 325 MG TAB PO PRN
[2020-09-27 09:42] LABS: INR 1.2 (<1.2); Prothrombin Time 12.7 sec (9.0-12.0)
[2020-09-27] MEDS: MIDAZOLAM 2 MG/2 ML VIAL IVP ONE ×2 (10:26→11:01)
[2020-09-27] MEDS: fentaNYL (PF) 50 MCG/ML 2 ML AMP IVP ONE ×2 (10:26→11:13)
[2020-09-27] MEDS ORDERED: LIDOCAINE 1% INJ 10MG/ML (20 ML MDV) SQ ONE (10:27)
[2020-09-27] MEDS ORDERED: SODIUM CHLORIDE 0.9% 500 ML 500 ML with niCARdipine 6.25 MG, NITROGLYCERIN-D5W PMX 0.05... IV ONE ×4 (10:30)
[2020-09-27] MEDS ORDERED: HEPARIN SODIUM 1,000 UN/ML (10ML VL) IV ONE (10:36)
[2020-09-27] MEDS ORDERED: CLOPIDOGREL 75 MG TAB PO ONE (11:37)
[2020-09-27] MEDS ORDERED: IOPAMIDOL-250 100ML BTL INTRAARTER ONE (11:39)
[2020-09-27] MEDS ORDERED: SODIUM CHLORIDE 0.9% 1,000 ML IV SCH (11:45)
--- NOTE | 2020-09-27 11:59 | IR ---
EXAMINATION TYPE: IR ship captain femoral popliteal DATE OF EXAM: 09/27/2020 COMPARISON: NONE HISTORY: Fluoroscopy time. Fluoroscopy was provided to the referring clinician.
--- NOTE | 2020-09-27 18:48 | LTR ---
DATE OF SERVICE: 09/27/[address] Feldman: Ms. Erika Rogers underwent today successful balloon angioplasty of the right femoral artery with excellent angiographic results and without any complication. I want to thank you for allowing me to participate in her care and please do not hesitate to call if any questions or concerns. Sincerely, Finn Márquez MD MMSAHILL / BRIANN: [id number] /
[2020-09-27] MEDS: hydrALAZINE HCL 25 MG TAB PO SCH (20:03)
[2020-09-27] MEDS: traMADol 50 MG TAB PO PRN (20:03)
[2020-09-27] MEDS ORDERED: MELATONIN 5 MG TABLET PO SCH (21:00)
[2020-09-27] MEDS ORDERED: ATORVASTATIN 40 MG TAB PO SCH (21:00)
--- NOTE | 2020-09-27 22:49 | AN ---
ANGIOGRAPHY REPORT DATE OF SERVICE: September 27, 2020 PERFORMING PHYSICIAN: Finn Márquez MD. PROCEDURE PERFORMED: 1. An atherectomy of the right SFA using the with using the HawkOne device with extraction of significant plaque. 2. Intravascular ultrasound (IVUS) of the right SFA. 3. Successful balloon angioplasty of the right SFA using initially 6.0 x 120 chocolate balloon and subsequently 5.0 x 200 impact drug coated balloon with an excellent angiographic results. 4. Successful balloon angioplasty of the right posterior tibial artery. 5. Right lower extremity angiogram. INDICATION: This is an 80-year-old female patient with history of hypertension and dyslipidemia who sees Dr. Graves in the office, who was experiencing bilateral lower extremities intermittent claudication and she underwent an angiogram and that revealed severe disease involving the right SFA. She was brought today to undergo a COMPOSITE BOND WORKER of the right SFA. APPROACH: Right posterior tibial artery. COMPLICATION: None. LEVEL OF SEDATION: Moderate with sedation length of 66 minutes. COMPLICATION: None. PROCEDURE DESCRIPTION: After obtaining informed consent, the patient was brought to the cardiac open hearth furnace laborer. The right posterior tibial artery was cannulated using micropuncture technique, under ultrasound guidance, the micropuncture wire passed easily. Then I placed a slender 5/6 sheath at the right posterior tibial artery. Subsequently, continuous drip including a nitroglycerin as well as verapamil as well as heparin was initiated. After that, the patient was given a total of 5000 units of heparin IV. After that, I did selective posterior tibial artery angiogram which revealed a tight lesion in the right posterior tibial artery Thersea right after the takeoff from the TBT. Also I did perform an angiogram which revealed critical and calcified lesion involving the right SFA in the midportion. The lesion in the right SFA was crossed using a [address]. I did intravascular ultrasound which revealed a diameter of 5.5 mm. After that, I did atherectomy, I tried to advance the atherectomy device, but the device will not cross the ostial PT. At that point, I did balloon angioplasty using 2.5 mm balloon. With that I was able to advance the device all the way to the right SFA where I did atherectomy. After that, angioplasty was performed initially 6 mm Chocolate balloon. Subsequently, a 5 mm drug-coated balloon. The following angiogram showed excellent angiographic results and the procedure was completed without any complication. POSTPROCEDURE MANAGEMENT: 1. Dual anti-platelet therapy. 2. Risk factor modifications and follow up with the patient. MMODL / IJN: [id number] /
[2020-09-28 02:53] VITALS: RESP 16
[2020-09-28 07:55] VITALS: BP 133/69; PULSE 64; TEMP 98.3
[2020-09-28] MEDS: hydrALAZINE HCL 25 MG TAB PO SCH (08:40)
[2020-09-28] MEDS ORDERED: CHOLECALCIFEROL 25 MCG (1000 IU) TABLET PO SCH (09:00)
[2020-09-28] MEDS ORDERED: DIGOXIN 125 MCG TAB PO SCH (09:00)
[2020-09-28] MEDS ORDERED: FUROSEMIDE 40 MG TAB PO SCH (09:00)
[2020-09-28] MEDS ORDERED: ASPIRIN 81 MG PO SCH (09:00)
[2020-09-28] MEDS ORDERED: POTASSIUM CHLORIDE ER 10 MEQ TAB.ER.PRT PO SCH (09:00)
[2020-09-28] MEDS ORDERED: amLODIPine 10 MG TAB PO SCH (09:00)
[2020-09-28] MEDS ORDERED: ASCORBIC ACID 500 MG TAB PO SCH (09:00)
[2020-09-28] MEDS ORDERED: CLOPIDOGREL 75 MG TAB PO SCH (09:00)
[2020-09-28] MEDS ORDERED: MULTIVITAMINS, THERA 1 EACH TAB PO SCH (09:00)
--- NOTE | 2020-09-28 09:24 | P.DS ---
Providers Date of admission: September 27 Attending physician: Finn Márquez Primary care physician: [facility] Course: This is a pleasant 80-year-old female patient with underwent yesterday successful CREW MEMBER of the right SFA. The procedure was performed from pedal approach. The patient was seen today. The site is soft and nontender. The patient is going to be discharged home. Plan - Discharge Summary Discharge Rx Participant: No New Discharge Prescriptions: Continue Potassium Chloride [K-Tab ER] 10 meq PO Q48H Atorvastatin [Lipitor] 40 mg PO HS Cholecalciferol (Vitamin D3) [Vitamin D3] 2,000 unit PO DAILY Aspirin [Adult Low Dose Aspirin EC] 81 mg PO DAILY Ascorbic Acid [Vitamin C] 500 mg PO DAILY Turmeric Root Extract [Turmeric] 1 tab PO DAILY Multivitamins, Thera [Multivitamin (formulary)] 1 tab PO DAILY amLODIPine [Norvasc] 10 mg PO DAILY tab Furosemide [Lasix] 40 mg PO QAM Warfarin [Coumadin] 5 mg PO MOTUTHFRSA traMADol HCL [Ultram] 50 mg PO Q6HR PRN PRN Reason: Pain hydrALAZINE HCL [Apresoline] 25 mg PO BID Digoxin [Lanoxin] 125 mcg PO DAILY Melatonin 2.5 - 5 mg PO HS Warfarin [Coumadin] 7.5 mg PO SUWE Discharge Medication List Aspirin [Adult Low Dose Aspirin EC] 81 mg PO DAILY 03/17/18 [History] Atorvastatin [Lipitor] 40 mg PO HS 03/17/18 [History] Cholecalciferol (Vitamin D3) [Vitamin D3] 2,000 unit PO DAILY 03/17/18 [History] Potassium Chloride [K-Tab ER] 10 meq PO Q48H 03/17/18 [History] Ascorbic Acid [Vitamin C] 500 mg PO DAILY 05/19/18 [History] Turmeric Root Extract [Turmeric] 1 tab PO DAILY 05/19/18 [History] Multivitamins, Thera [Multivitamin (formulary)] 1 tab PO DAILY 04/19/19 [History] amLODIPine [Norvasc] 10 mg PO DAILY tab 04/27/19 [Rx] Digoxin [Lanoxin] 125 mcg PO DAILY 09/01/20 [History] Furosemide [Lasix] 40 mg PO QAM 09/01/20 [History] Melatonin 2.5 - 5 mg PO HS 09/01/20 [History] hydrALAZINE HCL [Apresoline] 25 mg PO BID 09/01/20 [History] traMADol HCL [Ultram] 50 mg PO Q6HR PRN 09/01/20 [History] Warfarin [Coumadin] 5 mg PO MOTUTHFRSA 09/25/20 [History] Warfarin [Coumadin] 7.5 mg PO SUWE 09/25/20 [History] Follow up Appointment(s)/Referral(s): Finn Márquez MD [STAFF PHYSICIAN] - 1 Week
--- NOTE | 2020-09-28 10:21 | P.PN ---
Progress Note - Text Progress Note Date: 09/28/20 This is an addendum to the previous discharge note. I was going to discharge the patient on antiplatelet with Coumadin area and I was going to discharge the patient on Plavix with Coumadin. Unfortunately in the past she developed left knee bleeding with Mrs. paige. Because of that I am going to send her home on Coumadin and aspirin only.
[2020-09-28] MEDS: traMADol 50 MG TAB PO PRN (11:01)
== END 2020-09-28 11:55 | disposition home or self-care (01) ==
LOC: CATHCVL 08:52 → 6NMEDSUR 15:04 → CATHCVL 09-28 11:55
PROVIDERS: ATTEND Internal Medicine Interventional Cardiology
DX: I70.211 Atherosclerosis of native arteries of extremities with intermittent claudication, right leg (principal); I25.10 Atherosclerotic heart disease of native coronary artery without angina pectoris; I35.2 Nonrheumatic aortic (valve) stenosis with insufficiency; E78.5 Hyperlipidemia, unspecified; I70.0 Atherosclerosis of aorta; I10 Essential (primary) hypertension; F17.210 Nicotine dependence, cigarettes, uncomplicated; E78.00 Pure hypercholesterolemia, unspecified; I48.20 Chronic atrial fibrillation, unspecified; Z20.822 Contact with and (suspected) exposure to COVID-19; Z98.890 Other specified postprocedural states; Z79.82 Long term (current) use of aspirin; Z79.899 Other long term (current) drug therapy
CPT/HCPCS: 37225; 37228; 37252; 85610; 87635; C1894 ×2; C1769 ×5; C1725 ×2; C1714; C1753; C2623; J2250; J1644 ×2; J2001; J3010; Q9966

== ENCOUNTER 2020-09-29 19:39 | Observation (INO) | payer MEDICARE, OTHER ==
[2020-09-29] MEDS ORDERED: MORPHINE SULFATE 2 MG/ML SYRINGE IVP STA (20:16)
[2020-09-29] MEDS ORDERED: ONDANSETRON 4 MG/2 ML VIAL IVP STA (20:17)
[2020-09-29] MEDS ORDERED: SODIUM CHLORIDE 0.9% 500 ML 500 ML IV ONE (20:17)
--- NOTE | 2020-09-29 20:27 | ED ---
General Adult HPI - General Chief complaint: Extremity Problem,Nontraumatic Stated complaint: Post Op R Leg Pain Time Seen by Provider: 09/29/20 20:05 Source: patient Mode of arrival: wheelchair Limitations: no limitations - History of Present Illness Initial comments: 80 year-old male patient presents to the emergency department for evaluation of pain, swelling, redness to the right foot and ankle. Patient is post op day #2 after angioplasty of right femoral artery with Dr. Márquez. Patient states they went through the ankle. Review of records shows that the procedure was successful and she had no complications. Patient states she has had pain since the procedure but it has become significantly worse. She is unable to bear weight on the foot or walk due to the pain. States it is more swollen and red. She reports chills, sweats, and concern for fever. Has been taking ibuprofen, tylenol, and tramadol without relief of pain. Denies nausea or vomiting. Denies any numbness or tingling to the foot. Patient denies any recent rash, cough, shortness of breath, chest pain, abdominal pain, nausea, vomiting, diarrhea, constipation, back pain, dizziness, weakness, hematuria, dysuria, urinary urgency, urinary frequency, headache, visual changes, or any other complaints. - Related Data Home Medications Medication Instructions Recorded Confirmed Aspirin [Adult Low Dose Aspirin EC] 81 mg PO DAILY 03/17/18 09/29/20 Atorvastatin [Lipitor] 40 mg PO HS 03/17/18 09/29/20 Cholecalciferol (Vitamin D3) 2,000 unit PO DAILY 03/17/18 09/29/20 [Vitamin D3] Potassium Chloride [K-Tab ER] 10 meq PO Q48H 03/17/18 09/29/20 Ascorbic Acid [Vitamin C] 500 mg PO Q48H 05/19/18 09/29/20 Turmeric Root Extract [Turmeric] 500 mg PO Q48H 05/19/18 09/29/20 Multivitamins, Thera [Multivitamin 1 tab PO Q48H 04/19/19 09/29/20 (formulary)] Digoxin [Lanoxin] 125 mcg PO DAILY 09/01/20 09/29/20 Furosemide [Lasix] 40 mg PO DAILY 09/01/20 09/29/20 Melatonin 2.5 - 5 mg PO HS PRN 09/01/20 09/29/20 hydrALAZINE HCL [Apresoline] 25 mg PO BID 09/01/20 09/29/20 traMADol HCL [Ultram] 50 mg PO Q6HR PRN 09/01/20 09/29/20 Warfarin [Coumadin] 5 mg PO SUMOTUTHFR 09/25/20 09/29/20 Warfarin [Coumadin] 7.5 mg PO WESA 09/25/20 09/29/20 Calcium Carbonate [Calcium] 600 mg PO Q48H 09/29/20 09/29/20 Ubidecarenone [Co Q-10] 100 mg PO Q48H 09/29/20 09/29/20 Previous Rx's Medication Instructions Recorded amLODIPine [Norvasc] 10 mg PO DAILY tab 04/27/19 Allergies Allergy/AdvReac Type Severity Reaction Status Date / Time No Known Allergies Allergy Verified 09/29/20 20:47 Review of Systems ROS Statement: Those systems with pertinent positive or pertinent negative responses have been documented in the HPI. ROS Other: All systems not noted in ROS Statement are negative. Past Medical History Past Medical History: No Reported History, Coronary Artery Disease (CAD), Hyperlipidemia, Hypertension, Musculoskeletal Disorder, Vascular Disorder Additional Past Medical History / Comment(s): AORTIC VALVE REPAIRED W/ COW VALVE; HEMORRHOIDS CURRENT. LEGS GET TIRED, HEAVY WHEN WALKING, OCC EDEMA LT ANKLE, urinary incontinence, probable covid 2019, fully vaccinated for covid now History of Any Multi-Drug Resistant Organisms: None Reported Past Surgical History: Cardiac Valve Replacement, Heart Catheterization With Stent Additional Past Surgical History / Comment(s): FACELIFT. AORTIC VALVE REPLACED- COW VALVE, 06/2010, left leg balloon angioplasty, cataracts removed Past Anesthesia/Blood Transfusion Reactions: Motion Sickness Additional Past Anesthesia/Blood Transfusion Reaction / Comment(s): MOTION SICK MANY YEARS AGO Date of Last Stent Placement:: 04/2007 Past Psychological History: No Psychological Hx Reported Smoking Status: Former smoker Past Alcohol Use History: Occasional Past Drug Use History: None Reported - Past Family History Mother Family Medical History: Dementia Father Family Medical History: Congestive Heart Failure (CHF), Hypertension General Exam Limitations: no limitations General appearance: alert, in no apparent distress, other (This is a well- developed, well-nourished adult female patient in no acute distress. Vital signs upon presentation are temperature 99.1F, pulse 77, respirations 18, blood pressure 120/55, pulse ox 99% on room air.) Eye exam: Present: normal appearance, PERRL, EOMI. Absent: scleral icterus, conjunctival injection, periorbital swelling ENT exam: Present: normal exam, normal oropharynx, mucous membranes moist Respiratory exam: Present: normal lung sounds bilaterally. Absent: respiratory distress, wheezes, rales, rhonchi, stridor Cardiovascular Exam: Present: regular rate, normal rhythm, normal heart sounds. Absent: systolic murmur, diastolic murmur, rubs, gallop, clicks GI/Abdominal exam: Present: soft, normal bowel sounds. Absent: distended, tenderness, guarding, rebound, rigid Extremities exam: Present: full ROM, normal capillary refill, other (Puncture wound to the medial ankle. Soft tissue swelling, erythema, noted over the foot and left ankle. No calf pain or tenderness. ). Absent: normal inspection, tenderness, pedal edema, joint swelling, calf tenderness Neurological exam: Present: alert, oriented X3, CN II-XII intact Psychiatric exam: Present: normal affect, normal mood Skin exam: Present: warm, dry, intact, normal color. Absent: rash Course Vital Signs 09/29/20 09/29/20 09/29/20 19:41 22:23 23:20 Temperature 99.1 F 98.4 F Pulse Rate 77 71 Pulse Rate [ 98 Pulse Oximetery ] Respiratory 18 14 16 Rate Blood Pressure 120/55 125/58 Blood Pressure 136/67 [Left Arm] O2 Sat by Pulse 99 97 98 Oximetry Medical Decision Making - Medical Decision Making 80-year-old female patient who is postop day #2 after having angioplasty of the right femoral artery presents for evaluation of right ankle and foot swelling and pain. Physical examination did reveal soft tissue swelling with overlying erythema and warmth to the right medial ankle and foot. Labs reviewed and did reveal white blood cell count at 12.0. She did have low-grade fever. We started her cellulitis. She'll be admitted for further evaluation. Dr. Márquez is consulted. Case discussed with my attending Dr. Oscar. - Lab Data Result diagrams: 09/29/20 20:30 09/29/20 20:30 Lab Results 09/29/20 09/29/20 09/29/20 Range/Units 20:10 20:30 20:30 WBC 12.0 H (3.8-10.6) k/uL RBC 3.91 (3.80-5.40) m/uL Hgb 12.2 (11.4-16.0) gm/dL Hct 36.1 (34.0-46.0) % MCV 92.5 (80.0-100.0) fL MCH 31.2 (25.0-35.0) pg MCHC 33.7 (31.0-37.0) g/dL RDW 13.6 (11.5-15.5) % Plt Count 246 (150-450) k/uL MPV 6.9 Neutrophils % 81 % Lymphocytes % 9 % Monocytes % 9 % Eosinophils % 0 % Basophils % 0 % Neutrophils # 9.7 H (1.3-7.7) k/uL Lymphocytes # 1.1 (1.0-4.8) k/uL Monocytes # 1.0 (0-1.0) k/uL Eosinophils # 0.0 (0-0.7) k/uL Basophils # 0.0 (0-0.2) k/uL Sodium 136 L (137-145) mmol/L Potassium 4.0 (3.5-5.1) mmol/L Chloride 100 (98-107) mmol/L Carbon Dioxide 30 (22-30) mmol/L Anion Gap 6 mmol/L BUN 19 H (7-17) mg/dL Creatinine 1.19 H (0.52-1.04) mg/dL Est GFR (CKD-EPI)AfAm 49 (>60 ml/min/1.73 sqM) Est GFR (CKD-EPI)NonAf 43 (>60 ml/min/1.73 sqM) Glucose 140 H (74-99) mg/dL Estimated Ave Glu mg/dL Hemoglobin A1c (4.0-6.0) % Plasma Lactic Acid Mik (0.7-2.0) mmol/L Calcium 9.4 (8.4-10.2) mg/dL Total Bilirubin 1.0 (0.2-1.3) mg/dL AST 25 (14-36) U/L ALT 15 (4-34) U/L Alkaline Phosphatase 69 (38-126) U/L Total Protein 6.5 (6.3-8.2) g/dL Albumin 4.1 (3.5-5.0) g/dL Coronavirus (PCR) Not Detected (Not Detectd) 09/29/20 09/29/20 Range/Units 20:30 20:30 WBC (3.8-10.6) k/uL RBC (3.80-5.40) m/uL Hgb (11.4-16.0) gm/dL Hct (34.0-46.0) % MCV (80.0-100.0) fL MCH (25.0-35.0) pg MCHC (31.0-37.0) g/dL RDW (11.5-15.5) % Plt Count (150-450) k/uL MPV Neutrophils % % Lymphocytes % % Monocytes % % Eosinophils % % Basophils % % Neutrophils # (1.3-7.7) k/uL Lymphocytes # (1.0-4.8) k/uL Monocytes # (0-1.0) k/uL Eosinophils # (0-0.7) k/uL Basophils # (0-0.2) k/uL Sodium (137-145) mmol/L Potassium (3.5-5.1) mmol/L Chloride (98-107) mmol/L Carbon Dioxide (22-30) mmol/L Anion Gap mmol/L BUN (7-17) mg/dL Creatinine (0.52-1.04) mg/dL Est GFR (CKD-EPI)AfAm (>60 ml/min/1.73 sqM) Est GFR (CKD-EPI)NonAf (>60 ml/min/1.73 sqM) Glucose (74-99) mg/dL Estimated Ave Glu mg/dL 123 Hemoglobin A1c 5.9 (4.0-6.0) % Plasma Lactic Acid Mik 0.9 (0.7-2.0) mmol/L Calcium (8.4-10.2) mg/dL Total Bilirubin (0.2-1.3) mg/dL AST (14-36) U/L ALT (4-34) U/L Alkaline Phosphatase (38-126) U/L Total Protein (6.3-8.2) g/dL Albumin (3.5-5.0) g/dL Coronavirus (PCR) (Not Detectd) Disposition Clinical Impression: Cellulitis of right ankle Disposition: ADMITTED IP TO THIS [facility] Condition: Serious Decision to Admit Reason: Admit from EC Decision Date: 09/29/20 Decision Time: 21:54
[2020-09-29 20:52] LABS: Basophils % (A) 0 %; Eosinophils % (A) 0 %; HCT 36.1 % (34.0-46.0); HGB 12.2 gm/dL (11.4-16.0); Lymphocytes # (A) 1.1 k/uL (1.0-4.8); Lymphocytes % (A) 9 %; MCH 31.2 pg (25.0-35.0); MCHC 33.7 g/dL (31.0-37.0); MCV 92.5 fL (80.0-100.0); Mean Platelet Volume 6.9; Monocytes % (A) 9 %; Neutrophils # (A) 9.7 k/uL (1.3-7.7); Neutrophils % (A) 81 %; Platelet Count 246 k/uL (150-450); RBC 3.91 m/uL (3.80-5.40); RDW 13.6 % (11.5-15.5)
[2020-09-29 21:04] LABS: Albumin 4.1 g/dL (3.5-5.0); Calcium 9.4 mg/dL (8.4-10.2); Total Protein 6.5 g/dL (6.3-8.2)
[2020-09-29] MEDS ORDERED: NALOXONE 0.4 MG/ML 1 ML VIAL IV PRN (21:50)
[2020-09-29] MEDS ORDERED: MORPHINE SULFATE 2 MG/ML SYRINGE IV PRN (21:50)
[2020-09-29] MEDS ORDERED: ONDANSETRON 4 MG/2 ML VIAL IVP PRN (21:50)
[2020-09-30 03:36] LABS: Hemoglobin A1C 5.9 % (4.0-6.0)
[2020-09-30] MEDS: ACETAMINOPHEN TAB 325 MG TAB PO PRN ×2 (09:14→17:36)
[2020-09-30] MEDS ORDERED: MELATONIN 5 MG TABLET PO PRN (09:56)
[2020-09-30] MEDS ORDERED: traMADol 50 MG TAB PO PRN (09:56)
--- NOTE | 2020-09-30 10:12 | P.CRDCN ---
History of Present Illness Consult date: 09/30/20 Chief complaint: Right lower extremity discomfort History of present illness: This is a very pleasant 80-year-old female patient who sees us in the office as an outpatient with a past medical history significant for permanent atrial fibrillation currently on oral anticoagulation with Coumadin as well as peripheral arterial disease and prior angioplasty with the most recent angioplasty was performed on the right SFA few days ago from right pedal approach. The procedure was uneventful and without any complication and the patient was discharged home in stable medical condition. She presented to the hospital and presented to the emergency department complaining of right foot discomfort for the last 24-48 hours reach she tried some [id number] medications without any improvement in the pain and because of that she decided to come. When she presented to the hospital she was found to have what it seems to be possible right lower extremity cellulitis. The right foot is definitely erythematous with skin changes consistent of redness. The foot itself is warm with diminished pedal pulse in it. I'm not concerned about any acute limb ischemia at this point. She is on antibiotic. She need to be restarted back on Coumadin along with aspirin. In the past she was started on Plavix. She developed bleeding in her knee. She denies any chest pain or chest discomfort or any shortness of breath or any dizziness or lightheadedness. Her main complaint is of pain in the right lower extremity. Beside that she has some tenderness below the knee right side I'm going to obtain venous duplex study to rule out any DVT. 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 LEGS GET TIRED, HEAVY WHEN WALKING, OCC EDEMA LT ANKLE, urinary incontinence, probable covid 2019, fully vaccinated for covid now History of Any Multi-Drug Resistant Organisms: None Reported Past Surgical History: Cardiac Valve Replacement, Heart Catheterization With Stent Additional Past Surgical History / Comment(s): FACELIFT. AORTIC VALVE REPLACED- COW VALVE, 06/2010, left leg balloon angioplasty, cataracts removed Past Anesthesia/Blood Transfusion Reactions: Motion Sickness Additional Past Anesthesia/Blood Transfusion Reaction / Comment(s): MOTION SICK MANY YEARS AGO Date of Last Stent Placement:: 04/2007 Past Psychological History: No Psychological Hx Reported Smoking Status: Former smoker Past Alcohol Use History: Occasional Past Drug Use History: None Reported - Past Family History Mother Family Medical History: Dementia Father Family Medical History: Congestive Heart Failure (CHF), Hypertension Medications and Allergies Home Medications Medication Instructions Recorded Confirmed Type Aspirin [Adult Low Dose Aspirin EC] 81 mg PO DAILY 03/17/18 09/29/20 History Atorvastatin [Lipitor] 40 mg PO HS 03/17/18 09/29/20 History Cholecalciferol (Vitamin D3) 2,000 unit PO DAILY 03/17/18 09/29/20 History [Vitamin D3] Potassium Chloride [K-Tab ER] 10 meq PO Q48H 03/17/18 09/29/20 History Ascorbic Acid [Vitamin C] 500 mg PO Q48H 05/19/18 09/29/20 History Turmeric Root Extract [Turmeric] 500 mg PO Q48H 05/19/18 09/29/20 History Multivitamins, Thera [Multivitamin 1 tab PO Q48H 04/19/19 09/29/20 History (formulary)] amLODIPine [Norvasc] 10 mg PO DAILY tab 04/27/19 09/29/20 Rx Digoxin [Lanoxin] 125 mcg PO DAILY 09/01/20 09/29/20 History Furosemide [Lasix] 40 mg PO DAILY 09/01/20 09/29/20 History Melatonin 2.5 - 5 mg PO HS PRN 09/01/20 09/29/20 History hydrALAZINE HCL [Apresoline] 25 mg PO BID 09/01/20 09/29/20 History traMADol HCL [Ultram] 50 mg PO Q6HR PRN 09/01/20 09/29/20 History Warfarin [Coumadin] 5 mg PO SUMOTUTHFR 09/25/20 09/29/20 History Warfarin [Coumadin] 7.5 mg PO WESA 09/25/20 09/29/20 History Calcium Carbonate [Calcium] 600 mg PO Q48H 09/29/20 09/29/20 History Ubidecarenone [Co Q-10] 100 mg PO Q48H 09/29/20 09/29/20 History Allergies Allergy/AdvReac Type Severity Reaction Status Date / Time No Known Allergies Allergy Verified 09/29/20 20:47 Physical Exam Vitals: Vital Signs Temp Pulse Pulse Resp BP BP Pulse Ox 09/30/20 07:38 99.7 F H 68 18 117/51 92 L 09/30/20 05:24 99.3 F 09/30/20 02:07 99.9 F H 67 15 109/49 95 09/29/20 23:20 98.4 F 98 16 136/67 98 09/29/20 22:23 71 14 125/58 97 09/29/20 19:41 99.1 F 77 18 120/55 99 Intake and Output 09/29/20 09/30/20 09/30/20 22:59 06:59 14:59 Other: # Voids 2 Weight 61.416 kg - Constitutional General appearance: no acute distress - Respiratory Respiratory: bilateral: CTA - Cardiovascular Rhythm: irregularly irregular Heart sounds: normal: S1, S2 Abnormal Heart Sounds: systolic murmur Results 09/29/20 20:30 09/29/20 20:30 Cardiac Enzymes 09/29/20 Range/Units 20:30 AST 25 (14-36) U/L CBC 09/29/20 Range/Units 20:30 WBC 12.0 H (3.8-10.6) k/uL RBC 3.91 (3.80-5.40) m/uL Hgb 12.2 (11.4-16.0) gm/dL Hct 36.1 (34.0-46.0) % Plt Count 246 (150-450) k/uL Comprehensive Metabolic Panel 09/29/20 Range/Units 20:30 Sodium 136 L (137-145) mmol/L Potassium 4.0 (3.5-5.1) mmol/L Chloride 100 (98-107) mmol/L Carbon Dioxide 30 (22-30) mmol/L BUN 19 H (7-17) mg/dL Creatinine 1.19 H (0.52-1.04) mg/dL Glucose 140 H (74-99) mg/dL Calcium 9.4 (8.4-10.2) mg/dL AST 25 (14-36) U/L ALT 15 (4-34) U/L Alkaline Phosphatase 69 (38-126) U/L Total Protein 6.5 (6.3-8.2) g/dL Albumin 4.1 (3.5-5.0) g/dL Current Medications Generic Name Dose Route Start Last Admin Trade Name Freq PRN Reason Stop Dose Admin Acetaminophen 650 mg 09/29/20 21:50 09/30/20 09:14 Acetaminophen Tab 325 Mg Tab PO 650 mg Q6HR PRN Administration Mild Pain or Fever > 100.5 Cefazolin Sodium 1,000 mg/ 50 mls @ 100 mls/hr 09/30/20 06:00 09/30/20 05:20 Sodium Chloride IVPB 100 mls/hr Q8H MICHELLE Administration Morphine Sulfate 2 mg 09/29/20 21:50 Morphine Sulfate 2 Mg/Ml Syringe IV Q3H PRN Severe Pain Naloxone HCl 0.2 mg 09/29/20 21:50 Naloxone 0.4 Mg/Ml 1 Ml Vial IV Q2M PRN Opioid Reversal Ondansetron HCl 4 mg 09/29/20 21:50 Ondansetron 4 Mg/2 Ml Vial IVP Q8HR PRN Nausea And Vomiting Polyethylene Glycol 17 gm 09/30/20 10:02 Polyethylene Glycol 3350 17 Gm Powd.Pack PO DAILY PRN Constipation Senna/Docusate Sodium 1 each 09/30/20 10:15 Sennosides-Docusate Sodium 1 Each Tab PO DAILY MICHELLE Intake and Output 09/29/20 09/30/20 09/30/20 22:59 06:59 14:59 Other: # Voids 2 Weight 61.416 kg 09/29/20 20:30 09/29/20 20:30 Assessment and Plan Assessment: Assessment #1 right lower extremity cellulitis #2 rule out DVT #3 PAD and status post angioplasty #4 multiple comorbid conditions Plan #1 continue the current medical regimen #2 rule out DVT by obtaining venous duplex study #3 restart the patient back on aspirin and Coumadin #4 follow-up with the patient
[2020-09-30] MEDS: ASCORBIC ACID 500 MG TAB PO SCH (10:37)
[2020-09-30] MEDS: CALCIUM CARBONATE 500 MG CHEWABLE PO SCH (10:37)
[2020-09-30] MEDS: SENNOSIDES-DOCUSATE SODIUM 1 EACH TAB PO SCH (10:37)
[2020-09-30] MEDS: HYDROcodone/APAP 5-325MG 1 EACH TAB PO PRN ×3 (10:37→23:32)
--- NOTE | 2020-09-30 11:01 | US ---
EXAMINATION TYPE: US venous doppler duplex LE RT DATE OF EXAM: 09/30/2020 10:37 AM COMPARISON: NONE CLINICAL HISTORY: 80-year-old female R/O DVT. Pain, edema, redness right leg. Post angioplasty right femoral artery. Patient on blood thinner due to history of cardiac surgery. SIDE PERFORMED: Right TECHNIQUE: The lower extremity deep venous system is examined utilizing real time linear array sonog magi with graded compression, doppler sonography and color-flow sonography. FINDINGS: VESSELS IMAGED: Common Femoral Vein Deep Femoral Vein Greater Saphenous Vein * Femoral Vein Popliteal Vein Small Saphenous Vein * Proximal Calf Veins (* superficial vessels) Right Leg: No evidence of DVT. Complex fluid collection right popliteal fossa = 5.3 x 1.2 x 2.1cm IMPRESSION: 1. No evidence for DVT within the right lower extremity imaged from the groin to the upper calf. 2. A moderately complex [id number] sized Menendez's cyst.
[2020-09-30 11:53] LABS: INR 1.1 (<1.2); Prothrombin Time 11.3 sec (9.0-12.0)
[2020-09-30] MEDS ORDERED: WARFARIN 7.5 MG TAB PO SCH (14:15)
--- NOTE | 2020-09-30 14:17 | P.HPIM ---
History of Present Illness 80-year-old pleasant female came in with complaints of redness local is of temperature in the low-grade fever along with burning sensation in the right foot. Found to have cellulitis of the right foot patient was admitted and was started on cefazolin, with improvement compared to yesterday as per the patient, patient has a professor disease and she had a stent placed to right superficial femoral artery a few days ago. Patient was comparing of night sweats as well. Patient denied any history of congestive heart failure is on diuretics does have history history of valve replacement and does have history of atrial fibrillatio n patient has a bioprosthetic aortic valve INR is only 1.1 patient that stay Coumadin because of valvular A. fib which will be resumed. Patient also takes aspirin at home. Patient had a Doppler of the right lower extremity which did not show any DVT. Review of Systems REVIEW OF SYSTEMS: CONSTITUTIONAL: No fever, no malaise, no fatigue. HEENT: No recent visual problems or hearing problems. Denied any sore throat. CARDIOVASCULAR: No chest pain, orthopnea, PND, no palpitations, no syncope. PULMONARY: No shortness of breath, no cough, no hemoptysis. GASTROINTESTINAL: No diarrhea, no nausea, no vomiting, no abdominal pain. NEUROLOGICAL: No headaches, no weakness, no numbness. HEMATOLOGICAL: Denies any bleeding or petechiae. GENITOURINARY: Denies any burning micturition, frequency, or urgency. MUSCULOSKELETAL/RHEUMATOLOGICAL: Denies any joint pain, swelling, or any muscle pain. ENDOCRINE: Denies any polyuria or polydipsia. The rest of the 14-point review of systems is negative. Past Medical History Past Medical History: No Reported History, Coronary Artery Disease (CAD), Hyperlipidemia, Hypertension, Musculoskeletal Disorder, Vascular Disorder Additional Past Medical History / Comment(s): AORTIC VALVE REPAIRED W/ COW VALVE; HEMORRHOIDS CURRENT. LEGS GET TIRED, HEAVY WHEN WALKING, OCC EDEMA LT ANKLE, urinary incontinence, probable covid 2019, fully vaccinated for cov id now History of Any Multi-Drug Resistant Organisms: None Reported Past Surgical History: Cardiac Valve Replacement, Heart Catheterization With Stent Additional Past Surgical History / Comment(s): FACELIFT. AORTIC VALVE REPLACED- COW VALVE, 06/2010, left leg balloon angioplasty, cataracts removed Past Anesthesia/Blood Transfusion Reactions: Motion Sickness Additional Past Anesthesia/Blood Transfusion Reaction / Comment(s): MOTION SICK MANY YEARS AGO Date of Last Stent Placement:: 04/2007 Past Psychological History: No Psychological Hx Reported Smoking Status: Former smoker Past Alcohol Use History: Occasional Past Drug Use History: None Reported - Past Family History Mother Family Medical History: Dementia Father Family Medical History: Congestive Heart Failure (CHF), Hypertension Medications and Allergies Home Medications Medication Instructions Recorded Confirmed Type Aspirin [Adult Low Dose Aspirin EC] 81 mg PO DAILY 03/17/18 09/29/20 History Atorvastatin [Lipitor] 40 mg PO HS 03/17/18 09/29/20 History Cholecalciferol (Vitamin D3) 2,000 unit PO DAILY 03/17/18 09/29/20 History [Vitamin D3] Potassium Chloride [K-Tab ER] 10 meq PO Q48H 03/17/18 09/29/20 History Ascorbic Acid [Vitamin C] 500 mg PO Q48H 05/19/18 09/29/20 History Turmeric Root Extract [Turmeric] 500 mg PO Q48H 05/19/18 09/29/20 History Multivitamins, Thera [Multivitamin 1 tab PO Q48H 04/19/19 09/29/20 History (formulary)] amLODIPine [Norvasc] 10 mg PO DAILY tab 04/27/19 09/29/20 Rx Digoxin [Lanoxin] 125 mcg PO DAILY 09/01/20 09/29/20 History Furosemide [Lasix] 40 mg PO DAILY 09/01/20 09/29/20 History Melatonin 2.5 - 5 mg PO HS PRN 09/01/20 09/29/20 History hydrALAZINE HCL [Apresoline] 25 mg PO BID 09/01/20 09/29/20 History traMADol HCL [Ultram] 50 mg PO Q6HR PRN 09/01/20 09/29/20 History Warfarin [Coumadin] 5 mg PO SUMOTUTHFR 09/25/20 09/29/20 History Warfarin [Coumadin] 7.5 mg PO WESA 09/25/20 09/29/20 History Calcium Carbonate [Calcium] 600 mg PO Q48H 09/29/20 09/29/20 History Ubidecarenone [Co Q-10] 100 mg PO Q48H 09/29/20 09/29/20 History Allergies Allergy/AdvReac Type Severity Reaction Status Date / Time No Known Allergies Allergy Verified 09/29/20 20:47 Physical Exam Vitals: Vital Signs Temp Pulse Pulse Resp BP BP Pulse Ox 09/30/20 07:38 99.7 F H 68 18 117/51 92 L 09/30/20 05:24 99.3 F 09/30/20 02:07 99.9 F H 67 15 109/49 95 09/29/20 23:20 98.4 F 98 16 136/67 98 09/29/20 22:23 71 14 125/58 97 09/29/20 19:41 99.1 F 77 18 120/55 99 Intake and Output 09/29/20 09/30/20 09/30/20 22:59 06:59 14:59 Other: Voiding Method Toilet Bedside Commode # Voids 2 Weight 61.416 kg PHYSICAL EXAMINATION: GENERAL: The patient is alert and oriented x3, not in any acute distress. Well developed, well nourished. HEENT: Pupils are round and equally reacting to light. EOMI. No scleral icterus. No conjunctival pallor. Normocephalic, atraumatic. No pharyngeal erythema. No thyromegaly. CARDIOVASCULAR: S1 and S2 present. No murmurs, rubs, or gallops. Loud heart sounds diuretic area secondary to artificial valve PULMONARY: Chest is clear to auscultation, no wheezing or crackles. ABDOMEN: Soft, nontender, nondistended, normoactive bowel sounds. No palpable or ganomegaly. MUSCULOSKELETAL: No joint swelling or deformity. EXTREMITIES: No cyanosis, clubbing, or pedal edema. NEUROLOGICAL: Gross neurological examination did not reveal any focal deficits. SKIN: Patient does have some increasing redness in the right calf area no localized of temperature although does appear to be cellulitic which apparently improved compared to yesterday patient doesn't have any history of MRSA in the past. Results CBC & Chem 7: 09/29/20 20:30 09/29/20 20:30 Labs: Abnormal Lab Results - Last 24 Hours (Table) 09/29/20 09/29/20 Range/Units 20:30 20:30 WBC 12.0 H (3.8-10.6) k/uL Neutrophils # 9.7 H (1.3-7.7) k/uL Sodium 136 L (137-145) mmol/L BUN 19 H (7-17) mg/dL Creatinine 1.19 H (0.52-1.04) mg/dL Glucose 140 H (74-99) mg/dL Thrombosis Risk Factor Assmnt - Choose All That Apply Any of the Below Risk Factors Present?: Yes Each Factor Represents 1 point: Medical pt on bed rest Other Risk Factors: Yes Each Risk Factor Represents 3 Points: Age 75 years or older Thrombosis Risk Factor Assessment Total Risk Factor Score: 4 Thrombosis Risk Factor Assessment Level: Moderate Risk Assessment and Plan Plan: -Cellulitis of the right lower extremity: Continue with ceftezolin, if patient has significant improvement by tomorrow patient will be discharged on oral Keflex at the time -Ruled out DVT -Peripheral artery disease and recent stent to superficial femoral artery continue with aspirin -Atrial fibrillation paroxysmal presently sinus rhythm, continue with anti- correlation with codeine patient is subtherapeutic. Patient will be resumed on home regimen of Coumadin and will recheck INR. -Coronary artery disease -hyperlipidemia next and-hypertension -History of bioprosthetic aortic valve -DVT prophylaxis with Lovenox, DVT prophylaxis dose for now until INR is at least 1.5
[2020-09-30] MEDS ORDERED: WARFARIN 5 MG TAB PO ONE (18:00)
[2020-09-30] MEDS ORDERED: WARFARIN 3 MG TAB PO ONE (18:00)
[2020-09-30] MEDS: ATORVASTATIN 40 MG TAB PO SCH (20:23)
[2020-10-01] MEDS: CHOLECALCIFEROL 25 MCG (1000 IU) TABLET PO SCH (07:22)
[2020-10-01] MEDS: ENOXAPARIN 40 MG/0.4 ML SYRINGE SQ SCH (07:22)
[2020-10-01] MEDS: HYDROcodone/APAP 5-325MG 1 EACH TAB PO PRN ×3 (07:22→20:20)
[2020-10-01] MEDS: amLODIPine 10 MG TAB PO SCH (07:22)
[2020-10-01] MEDS: ACETAMINOPHEN TAB 325 MG TAB PO PRN (07:23)
[2020-10-01] MEDS: ASPIRIN 81 MG PO SCH (07:23)
[2020-10-01] MEDS: DIGOXIN 125 MCG TAB PO SCH (07:23)
[2020-10-01] MEDS: SENNOSIDES-DOCUSATE SODIUM 1 EACH TAB PO SCH (07:23)
[2020-10-01] MEDS: polyethylene glycoL 3350 17 GM POWD.PACK PO PRN (07:25)
--- NOTE | 2020-10-01 10:42 | P.PN ---
Subjective Progress Note Date: 10/01/20 Principal diagnosis: PAD This is an 80-year-old female patient who was admitted to the hospital recently and underwent successful balloon angioplasty along with atherectomy of the right SFA from right pedal approach. The patient presented to the hospital complaining of severe right leg pain. Her foot was warm. She was diagnosed with right lower extremity cellulitis and she was started on antibiotic. She was seen this morning. She stated that the pain is better. She still have some redness on the skin. She still have a good warm foot and pulse in the right foot as well. She is on antibiotic. Venous Doppler study was performed and came in to be unremarkable for DVT. From a cardiac standpoint of view, we'll continue the current medical regimen and she is on Coumadin for oral anticoagulation. She is also on aspirin. In the past she did not tolerate Plavix. From the cardiac standpoint will continue the current medical regimen and follow-up with the patient on when necessary case Objective - Vital Signs Vital signs: Vital Signs Temp 99.6 F 10/01/20 07:32 Pulse 71 10/01/20 07:32 Resp 18 10/01/20 07:32 BP 150/57 10/01/20 07:32 Pulse Ox 96 10/01/20 07:32 Intake & Output 09/30/20 10/01/20 10/01/20 18:59 06:59 18:59 Other: Voiding Method Toilet Toilet Toilet Bedside Commode Bedside Commode Bedside Commode # Voids 1 - Constitutional General appearance: Present: no acute distress - Respiratory Respiratory: bilateral: CTA - Cardiovascular Rhythm: irregularly irregular Heart sounds: normal: S1, S2 - Labs CBC & Chem 7: 09/29/20 20:30 09/29/20 20:30 Labs: Microbiology - Last 24 Hours (Table) 09/29/20 22:05 Blood Culture - Preliminary Blood No Growth after 24 hours 09/29/20 20:30 Blood Culture - Preliminary Blood No Growth after 24 hours Assessment and Plan Assessment: Assessment #1 right lower extremity cellulitis #2 right lower extremity DVT was ruled out #3 PAD and status post angioplasty #4 multiple comorbid conditions Plan #1 continue the current medical regimen #2 follow-up with the patient on when necessary case
--- NOTE | 2020-10-01 11:26 | P.PN ---
Subjective 80-year-old pleasant female came in with complaints of redness local is of temperature in the low-grade fever along with burning sensation in the right foot. Found to have cellulitis of the right foot patient was admitted and was started on cefazolin, with improvement compared to yesterday as per the patient, patient has a professor disease and she had a stent placed to right superficial femoral artery a few days ago. Patient was comparing of night sweats as well. Patient denied any history of congestive heart failure is on diuretics does have history history of valve replacement and does have history of atrial fibrillation patient has a bioprosthetic aortic valve INR is only 1.1 patient that stay Coumadin because of valvular A. fib which will be resumed. Patient also takes aspirin at home. Patient had a Doppler of the right lower extremity which did not show any DVT. 10/01/2020 Patient redness in the right leg improved significantly but still can't bear weight and obtain PT and OT consultation can you with IV antibiotics for today possibility of discharge tomorrow. Constitutional: Denied any fatigue denied any fever. Cardio vascular: denied any chest pain, palpitations Gastrointestinal denied any nausea vomiting Pulmonary: Denied any shortness of breath cough Neurologic denied any new focal deficits All inpatient medications were reviewed and appropriate changes in these medications as dictated in the interval history and assessment and plan. Objective - Vital Signs Vital signs: Vital Signs Temp 99.6 F 10/01/20 07:32 Pulse 71 10/01/20 07:32 Resp 18 10/01/20 07:32 BP 150/57 10/01/20 07:32 Pulse Ox 96 10/01/20 07:32 Intake & Output 09/30/20 10/01/20 10/01/20 18:59 06:59 18:59 Other: Voiding Method Toilet Toilet Toilet Bedside Commode Bedside Commode Bedside Commode # Voids 1 - Exam PHYSICAL EXAMINATION: GENERAL: The patient is alert and oriented x3, not in any acute distress. Well developed, well nourished. HEENT: Pupils are round and equally reacting to light. EOMI. No scleral icterus. No conjunctival pallor. Normocephalic, atraumatic. No pharyngeal erythema. No thyromegaly. CARDIOVASCULAR: S1 and S2 present. No murmurs, rubs, or gallops. Loud heart sounds diuretic area secondary to artificial valve PULMONARY: Chest is clear to auscultation, no wheezing or crackles. ABDOMEN: Soft, nontender, nondistended, normoactive bowel sounds. No palpable organomegaly. MUSCULOSKELETAL: No joint swelling or deformity. EXTREMITIES: No cyanosis, clubbing, or pedal edema. NEUROLOGICAL: Gross neurological examination did not reveal any focal deficits. SKIN: As in the right calf significantly improved - Labs CBC & Chem 7: 09/29/20 20:30 09/29/20 20:30 Labs: Microbiology - Last 24 Hours (Table) 09/29/20 22:05 Blood Culture - Preliminary Blood No Growth after 24 hours 09/29/20 20:30 Blood Culture - Preliminary Blood No Growth after 24 hours Assessment and Plan Plan: -Cellulitis of the right lower extremity: Continue with ceftezolin, if patient has significant improvement by tomorrow patient will be discharged on oral Keflex at the time -Ruled out DVT -Peripheral artery disease and recent stent to superficial femoral artery continue with aspirin -Atrial fibrillation paroxysmal presently sinus rhythm, continue with anti- correlation with codeine patient is subtherapeutic. Patient will be resumed on home regimen of Coumadin and will recheck INR. -Coronary artery disease -hyperlipidemia -hypertension -History of bioprosthetic aortic valve -DVT prophylaxis with Lovenox, DVT prophylaxis dose for now until INR is at least 1.5
[2020-10-01 12:38] LABS: INR 1.1 (0.90-1.11); Prothrombin Time 11.9 sec (9.9-11.9)
[2020-10-01 12:39] LABS: HGB 11.7 g/dL (12.0-15.0); MCH 30.9 pg (27.0-32.0); MCHC 31.6 g/dL (32.0-37.0); MCV 97.6 fL (80.0-97.0); Mean Platelet Volume 9.8 fL (9.5-12.2); Platelet Count 235 X 10*3/uL (140-440); RBC 3.79 X 10*6/uL (4.10-5.20); RDW 14.1 % (11.5-14.5); WBC 7.56 X 10*3/uL (4.50-10.00)
[2020-10-01 12:43] LABS: Anion Gap 7.8 mmol/L (4.00-12.00); BUN/Creat Ratio 17.78 Ratio (12.00-20.00); Calcium 8.6 mg/dL (8.7-10.3); Carbon Dioxide 28.2 mmol/L (21.6-31.8); Non-African American GFR(CKD) 59.5 (60.0-200.0); Potassium 4.4 mmol/L (3.5-5.5)
[2020-10-01] MEDS ORDERED: WARFARIN 5 MG TAB PO SCH (14:08)
[2020-10-01] MEDS ORDERED: WARFARIN 10 MG TAB PO ONE (18:00)
[2020-10-01] MEDS: ATORVASTATIN 40 MG TAB PO SCH (20:19)
[2020-10-02 06:25] LABS: INR 1.4 (<1.2)
[2020-10-02 06:26] LABS: Prothrombin Time 13.8 sec (9.0-12.0)
[2020-10-02 09:03] LABS: African American GFR (CKD) 79.6 (60.0-200.0); Anion Gap 5.6 mmol/L (4.00-12.00); BUN/Creat Ratio 17.5 Ratio (12.00-20.00); Calcium 8.4 mg/dL (8.7-10.3); Carbon Dioxide 28.4 mmol/L (21.6-31.8); Non-African American GFR(CKD) 68.7 (60.0-200.0); Potassium 4.7 mmol/L (3.5-5.5)
[2020-10-02] MEDS ORDERED: bisacodyL 10 MG SUPP RECTAL STA (09:31)
[2020-10-02] MEDS: SENNOSIDES-DOCUSATE SODIUM 1 EACH TAB PO SCH (09:40)
[2020-10-02] MEDS: ASPIRIN 81 MG PO SCH (09:40)
[2020-10-02] MEDS: DIGOXIN 125 MCG TAB PO SCH (09:40)
[2020-10-02] MEDS: ENOXAPARIN 40 MG/0.4 ML SYRINGE SQ SCH (09:40)
[2020-10-02] MEDS: CALCIUM CARBONATE 500 MG CHEWABLE PO SCH (09:40)
[2020-10-02] MEDS: CHOLECALCIFEROL 25 MCG (1000 IU) TABLET PO SCH (09:40)
[2020-10-02] MEDS: ASCORBIC ACID 500 MG TAB PO SCH (09:40)
[2020-10-02] MEDS: amLODIPine 10 MG TAB PO SCH (09:40)
[2020-10-02] MEDS: LACTULOSE 20 GM/30 ML CUP PO PRN (14:23)
--- NOTE | 2020-10-02 16:49 | P.PN ---
Subjective 80-year-old pleasant female came in with complaints of redness local is of temperature in the low-grade fever along with burning sensation in the right foot. Found to have cellulitis of the right foot patient was admitted and was started on cefazolin, with improvement compared to yesterday as per the patient, patient has a professor disease and she had a stent placed to right superficial femoral artery a few days ago. Patient was comparing of night sweats as well. Patient denied any history of congestive heart failure is on diuretics does have history history of valve replacement and does have history of atrial fibrillation patient has a bioprosthetic aortic valve INR is only 1.1 patient that stay Coumadin because of valvular A. fib which will be resumed. Patient also takes aspirin at home. Patient had a Doppler of the right lower extremity which did not show any DVT. 10/01/2020 Patient redness in the right leg improved significantly but still can't bear weight and obtain PT and OT consultation can you with IV antibiotics for today possibility of discharge tomorrow. 10/02/2020 Insulin significant improved. Prior patient is awaiting discharge to subacute rehabilitation Constitutional: Denied any fatigue denied any fever. Cardio vascular: denied any chest pain, palpitations Gastrointestinal denied any nausea vomiting Pulmonary: Denied any shortness of breath cough Neurologic denied any new focal deficits All inpatient medications were reviewed and appropriate changes in these medications as dictated in the interval history and assessment and plan. Objective - Vital Signs Vital signs: Vital Signs Temp 98.6 F 10/02/20 14:00 Pulse 82 10/02/20 14:00 Resp 18 10/02/20 14:00 BP 153/64 10/02/20 14:00 Pulse Ox 99 10/02/20 14:00 Intake & Output 10/01/20 10/02/20 10/02/20 18:59 06:59 18:59 Other: Voiding Method Toilet Toilet Bedside Commode Bedside Commode # Voids 4 3 # Bowel Movements 1 - Exam PHYSICAL EXAMINATION: GENERAL: The patient is alert and oriented x3, not in any acute distress. Well developed, well nourished. HEENT: Pupils are round and equally reacting to light. EOMI. No scleral icterus. No conjunctival pallor. Normocephalic, atraumatic. No pharyngeal erythema. No thyromegaly. CARDIOVASCULAR: S1 and S2 present. No murmurs, rubs, or gallops. Loud heart sounds diuretic area secondary to artificial valve PULMONARY: Chest is clear to auscultation, no wheezing or crackles. ABDOMEN: Soft, nontender, nondistended, normoactive bowel sounds. No palpable organomegaly. MUSCULOSKELETAL: No joint swelling or deformity. EXTREMITIES: No cyanosis, clubbing, or pedal edema. NEUROLOGICAL: Gross neurological examination did not reveal any focal deficits. SKIN: As in the right calf significantly improved - Labs CBC & Chem 7: 10/01/20 07:02 10/02/20 05:38 Labs: Abnormal Lab Results - Last 24 Hours (Table) 10/02/20 10/02/20 Range/Units 05:38 05:38 PT 13.8 H (9.0-12.0) sec INR 1.4 H (<1.2) Calcium 8.4 L (8.7-10.3) mg/dL Microbiology - Last 24 Hours (Table) 09/29/20 22:05 Blood Culture - Preliminary Blood No Growth after 48 hours 09/29/20 20:30 Blood Culture - Preliminary Blood No Growth after 48 hours Assessment and Plan Plan: -Cellulitis of the right lower extremity: Continue with ceftezolin, if patient has significant improvement by tomorrow patient will be discharged on oral Keflex at the time -Ruled out DVT -Peripheral artery disease and recent stent to superficial femoral artery continue with aspirin -Atrial fibrillation paroxysmal presently sinus rhythm, continue with anti- correlation with codeine patient is subtherapeutic. Patient will be resumed on home regimen of Coumadin and will recheck INR. -Coronary artery disease -hyperlipidemia -hypertension -History of bioprosthetic aortic valve -DVT prophylaxis with Lovenox, DVT prophylaxis dose for now until INR is at least 1.5
[2020-10-02] MEDS ORDERED: WARFARIN 10 MG TAB PO ONE (18:00)
[2020-10-02] MEDS: ATORVASTATIN 40 MG TAB PO SCH (21:00)
[2020-10-02] MEDS: HYDROcodone/APAP 5-325MG 1 EACH TAB PO PRN (21:09)
[2020-10-03 05:46] LABS: INR 1.9 (<1.2); Prothrombin Time 18.5 sec (9.0-12.0)
[2020-10-03] MEDS: LACTULOSE 20 GM/30 ML CUP PO PRN (07:15)
[2020-10-03] MEDS: SENNOSIDES-DOCUSATE SODIUM 1 EACH TAB PO SCH (07:15)
[2020-10-03] MEDS: CHOLECALCIFEROL 25 MCG (1000 IU) TABLET PO SCH (07:15)
[2020-10-03] MEDS: ENOXAPARIN 40 MG/0.4 ML SYRINGE SQ SCH (07:15)
[2020-10-03] MEDS: polyethylene glycoL 3350 17 GM POWD.PACK PO PRN (07:15)
[2020-10-03] MEDS: DIGOXIN 125 MCG TAB PO SCH (07:15)
[2020-10-03] MEDS: ASPIRIN 81 MG PO SCH (07:16)
[2020-10-03] MEDS: amLODIPine 10 MG TAB PO SCH (07:16)
[2020-10-03] MEDS ORDERED: NA PHOS,M-B/NA PHOS,DI-BA 133 ML ENEMA RECTAL ONE (11:30)
[2020-10-03] MEDS: KETOROLAC 15 MG/ML 1 ML VIAL IVP SCH ×2 (11:44→17:05)
--- NOTE | 2020-10-03 12:21 | XR ---
EXAMINATION TYPE: XR ankle complete RT DATE OF EXAM: 10/03/2020 COMPARISON: NONE HISTORY: Pain and swelling FINDINGS: Three views of the ankle demonstrate the ankle mortise to be intact and symmetric. The joint spaces are preserved. The osseous structures are intact. Diffuse soft tissue edema. No destructive changes . Calcaneal spurs are noted. Faint soft tissue calcification along the plantar apical neurosis. Vascu lar calcification seen. IMPRESSION: 1. No definite acute fracture or dislocation, if symptoms persist follow-up study in 7 to 10 days wou ld be suggested.
--- NOTE | 2020-10-03 15:41 | P.PN ---
Subjective 80-year-old pleasant female came in with complaints of redness local is of temperature in the low-grade fever along with burning sensation in the right foot. Found to have cellulitis of the right foot patient was admitted and was started on cefazolin, with improvement compared to yesterday as per the patient, patient has a professor disease and she had a stent placed to right superficial femoral artery a few days ago. Patient was comparing of night sweats as well. Patient denied any history of congestive heart failure is on diuretics does have history history of valve replacement and does have history of atrial fibrillation patient has a bioprosthetic aortic valve INR is only 1.1 patient that stay Coumadin because of valvular A. fib which will be resumed. Patient also takes aspirin at home. Patient had a Doppler of the right lower extremity which did not show any DVT. 10/01/2020 Patient redness in the right leg improved significantly but still can't bear weight and obtain PT and OT consultation can you with IV antibiotics for today possibility of discharge tomorrow. 10/02/2020 Insulin significant improved. 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 Possibly surgery was consulted for the injection into the right ankle and also arthrocentesis. Patient was constipated quite a bit patient will have an edema today patient last bowel movement was about 10 days ago. Constitutional: Denied any fatigue denied any fever. Cardio vascular: denied any chest pain, palpitations Gastrointestinal denied any nausea vomiting Pulmonary: Denied any shortness of breath cough Neurologic denied any new focal deficits All inpatient medications were reviewed and appropriate changes in these medicat ions as dictated in the interval history and assessment and plan. Objective - Vital Signs Vital signs: Vital Signs Temp 98.0 F 10/03/20 14:00 Pulse 65 10/03/20 14:00 Resp 19 10/03/20 14:00 BP 126/76 10/03/20 14:00 Pulse Ox 98 10/03/20 14:00 Intake & Output 10/02/20 10/03/20 10/03/20 18:59 06:59 18:59 Intake Total 100 Balance 100 Intake: Intake, IV Titration 100 Amount ceFAZolin 1,000 mg In 100 Sodium Chloride 0.9% 50 ml @ 100 mls/hr IVPB Q8H [facility] Rx#:[id number] Other: # Voids 3 2 # Bowel Movements 1 - Exam PHYSICAL EXAMINATION: GENERAL: The patient is alert and oriented x3, not in any acute distress. Well developed, well nourished. HEENT: Pupils are round and equally reacting to light. EOMI. No scleral icterus. No conjunctival pallor. Normocephalic, atraumatic. No pharyngeal erythema. No thyromegaly. CARDIOVASCULAR: S1 and S2 present. No murmurs, rubs, or gallops. Loud heart sounds diuretic area secondary to artificial valve PULMONARY: Chest is clear to auscultation, no wheezing or crackles. ABDOMEN: Soft, nontender, nondistended, normoactive bowel sounds. No palpable organomegaly. MUSCULOSKELETAL: as mentioned above EXTREMITIES: No cyanosis, clubbing, or pedal edema. NEUROLOGICAL: Gross neurological examination did not reveal any focal deficits. SKIN: Cellultis right calf significantly improvedpatient has a bruise in the posterior aspect of the right leg and does have significant swelling of the right ankle active motions and passive motion in all directions is painful in the right ankle - Labs CBC & Chem 7: 10/01/20 07:02 10/02/20 05:38 Labs: Abnormal Lab Results - Last 24 Hours (Table) 10/03/20 Range/Units 04:37 PT 18.5 H (9.0-12.0) sec INR 1.9 H (<1.2) Microbiology - Last 24 Hours (Table) 09/29/20 22:05 Blood Culture - Preliminary Blood No Growth after 72 hours 09/29/20 20:30 Blood Culture - Preliminary Blood No Growth after 72 hours Assessment and Plan Plan: -Cellulitis of the right lower extremity: Continue with ceftezolin, iimproved now -Right ankle swelling probably osteoarthritis or inflammatory arthritis patient was started on Toradol along with GI prophylaxis -severe constipation -Ruled out DVT -Peripheral artery disease and recent stent to superficial femoral artery continue with aspirin -Atrial fibrillation paroxysmal presently sinus rhythm, continue with anti- correlation with codeine patient is subtherapeutic. Patient will be resumed on home regimen of Coumadin and will recheck INR. -Coronary artery disease -hyperlipidemia -hypertension -History of bioprosthetic aortic valve -DVT prophylaxis with Lovenox, DVT prophylaxis dose for now until INR is at least 1.9
--- NOTE | 2020-10-03 17:53 | P.CNOR ---
History of Present Illness - [facility] Consult date: 10/03/20 Requesting physician: Prince Lamar Consult reason: joint pain (Right ankle pain and swelling) History of present illness: Patient is a very pleasant 80-year-old female who is seen today at the bedside for further evaluation of her right ankle. She had a recent right angioplasty was performed on the right SFA performed on 09/27/2020 from right pedal approach. He was discharged on 09/28/2010. She returned to the emergency department on 09/29/2020 with increased swelling, pain, and difficulty ambulation in her right lower extremity significant at the ankle. Her swelling was most significant at the right ankle and lower extremity. She was diagnosed with cellulitis. She is been being treated Cefazolin. A Doppler of the right lower extremity was performed which did not show evidence of DVT. Patient has been making some progress since her readmittance to the hospital but does admit it has been slow. She has difficulty weightbearing on right lower extremity as a cause significant pain to her right ankle. She does continue to receive antibiotic medication. She feels the swelling, erythema, and pain at the right ankle has improved. She does continue to have some edema at the right ankle. She states her pain has been controlled with oral [place]. She does admit at the bedside her ankle pain has improved today. She is currently waiting for discharge to a rehabilitation facility. She did have x-rays performed of the right ankle without any significant findings. Patient also received Lovenox and Coumadin. Her past medical history includes coronary artery disease, hyperlipidemia, hypertension, and vascular disorder. Past Medical History Past Medical History: No Reported History, Coronary Artery Disease (CAD), Hyperlipidemia, Hypertension, Musculoskeletal Disorder, Vascular Disorder Additional Past Medical History / Comment(s): AORTIC VALVE REPAIRED W/ COW VALVE; HEMORRHOIDS CURRENT. LEGS GET TIRED, HEAVY WHEN WALKING, OCC EDEMA LT ANKLE, urinary incontinence, probable covid 2019, fully vaccinated for covid now History of Any Multi-Drug Resistant Organisms: None Reported Past Surgical History: Cardiac Valve Replacement, Heart Catheterization With Stent Additional Past Surgical History / Comment(s): FACELIFT. AORTIC VALVE REPLACED- COW VALVE, 06/2010, left leg balloon angioplasty, cataracts removed Past Anesthesia/Blood Transfusion Reactions: Motion Sickness Additional Past Anesthesia/Blood Transfusion Reaction / Comm: MOTION SICK MANY YEARS AGO Date of Last Stent Placement:: 04/2007 Past Psychological History: No Psychological Hx Reported Smoking Status: Former smoker Past Alcohol Use History: Occasional Past Drug Use History: None Reported - Past Family History Mother Family Medical History: Dementia Father Family Medical History: Congestive Heart Failure (CHF), Hypertension Medications and Allergies Home Medications Medication Instructions Recorded Confirmed Type Aspirin [Adult Low Dose Aspirin EC] 81 mg PO DAILY 03/17/18 09/29/20 History Atorvastatin [Lipitor] 40 mg PO HS 03/17/18 09/29/20 History Cholecalciferol (Vitamin D3) 2,000 unit PO DAILY 03/17/18 09/29/20 History [Vitamin D3] Ascorbic Acid [Vitamin C] 500 mg PO Q48H 05/19/18 09/29/20 History Turmeric Root Extract [Turmeric] 500 mg PO Q48H 05/19/18 09/29/20 History Multivitamins, Thera [Multivitamin 1 tab PO Q48H 04/19/19 09/29/20 History (formulary)] amLODIPine [Norvasc] 10 mg PO DAILY tab 04/27/19 09/29/20 Rx Digoxin [Lanoxin] 125 mcg PO DAILY 09/01/20 09/29/20 History Melatonin 2.5 - 5 mg PO HS PRN 09/01/20 09/29/20 History traMADol HCL [Ultram] 50 mg PO Q6HR PRN 09/01/20 09/29/20 History Calcium Carbonate [Calcium] 600 mg PO Q48H 09/29/20 09/29/20 History Ubidecarenone [Co Q-10] 100 mg PO Q48H 09/29/20 09/29/20 History Warfarin [Coumadin] 7.5 mg PO DAILY #0 10/02/20 09/29/20 Rx Allergies Allergy/AdvReac Type Severity Reaction Status Date / Time No Known Allergies Allergy Verified 09/29/20 20:47 Physical Examination Physical Exam: Patient is awake, alert, and oriented 3 Vital signs stable Good chest excursion with deep inspiration and expiration Evidence of some erythema around the medial and lateral ankle Generalized warmth to palpation around the entire right ankle Evidence of a small surgical puncture wound at the right medial posterior ankle 1+ pitting edema to the right ankle Small bruising at the distal right posterior thigh, the distal posterior calf, and the posterior lateral ankle Patient is able to perform some dorsiflexion and plantarflexion of the right ankle with some pain while doing so No significant pain or swelling over toes of the right foot No erythema at the toes of the right foot Patient is able to wiggle toes the right foot without significant difficulty Physical examination of her right lower extremity does show what appears to be improvement in right lower extremity swelling as her skin is less taut and does have some wrinkles No palpable fluid collection at the right ankle or foot Generalized soft tissue swelling of the right ankle No significant swelling of the right knee Results Pertinent studies: X-rays of the right ankle taken on 10/03/2020: No evidence of fracture dislocation at the right ankle; ankle mortise is well maintained - Labs Labs: Abnormal Lab Results - Last 24 Hours (Table) 10/03/20 Range/Units 04:37 PT 18.5 H (9.0-12.0) sec INR 1.9 H (<1.2) Microbiology - Last 24 Hours (Table) 09/29/20 22:05 Blood Culture - Preliminary Blood No Growth after 72 hours 09/29/20 20:30 Blood Culture - Preliminary Blood No Growth after 72 hours H & H 09/29/20 10/01/20 Range/Units 20:30 07:02 Hgb 12.2 11.7 L (11.4-16.0) gm/dL Hct 36.1 37.0 L (34.0-46.0) % Coagulation 09/30/20 10/01/20 10/02/20 Range/Units 11:20 07:02 05:38 INR 1.1 1.10 1.4 H (<1.2) 10/03/20 Range/Units 04:37 INR 1.9 H (<1.2) Result Diagrams: 10/01/20 07:02 10/02/20 05:38 Assessment and Plan Assessment: Assessment: Cellulitis right foot and ankle and right lower extremity Right ankle pain Inability ambulate on the right foot due to ankle pain Recent right angioplasty was performed on the right SFA performed on 09/27/2020 from right pedal approach Currently on anticoagulation with Lovenox and Coumadin Coronary artery disease Vascular disorder Hyperlipidemia Hypertension (1) Acute right ankle pain Current Visit: Yes Status: Acute Code(s): M25.571 - PAIN IN RIGHT ANKLE AND JOINTS OF RIGHT FOOT SNOMED Code(s): 23225310514899 (2) Right ankle swelling Current Visit: Yes Status: Acute Code(s): M25.471 - EFFUSION, RIGHT ANKLE SNOMED Code(s): 356489009 (3) Inability to ambulate due to ankle or foot Current Visit: Yes Status: Acute Code(s): R26.2 - DIFFICULTY IN WALKING, NOT ELSEWHERE CLASSIFIED SNOMED Code(s): 538162780 (4) Coronary artery disease Current Visit: Yes Status: Acute Code(s): I25.10 - ATHSCL HEART DISEASE OF [place] CORONARY ARTERY W/O ANG PCTRS SNOMED Code(s): 05127137 (5) Vascular disorder Current Visit: Yes Status: Acute Code(s): I99.9 - UNSPECIFIED DISORDER OF CIRCULATORY SYSTEM SNOMED Code(s): 40712595 (6) Hyperlipidemia Current Visit: Yes Status: Acute Code(s): E78.5 - HYPERLIPIDEMIA, UNSPECIFIED SNOMED Code(s): 83946463 (7) Hypertension Current Visit: Yes Status: Acute Code(s): I10 - ESSENTIAL (PRIMARY) HYPERTENSION SNOMED Code(s): 97285464 (8) Cellulitis of right ankle Current Visit: Yes Status: Acute Code(s): L03.115 - CELLULITIS OF RIGHT LOWER LIMB SNOMED Code(s): 62513430099466278 Plan: Plan: 1. Patient has been discussed in detail Dr. Aleksandr Hernandez. After physical examination of the patient, further discussion with the patient, in reviewing of imaging, we'll plan to continue conservative treatment at this time. Patient had a recent procedure performed with right angioplasty was performed on the right SFA performed on 09/27/2020 from right pedal approach. She was discharged the following day and returned to the hospital on 09/29/2020 with cellulitis in her right ankle and foot. She has been on Cefazolin with improvement since her readmission. Patient does not have a palpable fluid collection at her right ankle. She does have soft tissue swelling with +1 pitting edema at her right ankle. Overall she states the swelling and pain has improved since her admission. She does have evidence of a well-healed apparent surgical wound at the right medial posterior ankle. Patient has not had any recent injuries to her right ankle. She states her symptoms started following her recent procedure. I do not feel that after physical examination that her cellulitis has completely resolved. She continues to have some warmth and erythema around her right ankle along with swelling and edema. I do think she should continue conservative care with antibiotics as set forth by medicine. We also discussed she could benefit with elevation and ice. We would not plan for aspiration or injection at this time in regards to her right ankle. X-ray imaging was also negative for any fracture or dislocation. We did discuss she does not have any instability at her right ankle and she may weight-bear as tolerated on the right lower extremity. Nursing states patient is currently planning for discharge to a rehabilitation facility most likely tomorrow, 10/04/2020. We did discuss we will plan to follow up with her tomorrow for further evaluation prior to her discharge. 2. Patient will continue be seen and examined by multiple medical providers including medicine and cardiology 3. Continue pain control with [place] as prescribed as needed for control of her symptoms Time with Patient: Greater than 30 (Including obtaining history, physical examination, reviewing of imaging, and dictation.)
[2020-10-03] MEDS ORDERED: WARFARIN 10 MG TAB PO ONE (18:00)
[2020-10-03] MEDS: ATORVASTATIN 40 MG TAB PO SCH (21:04)
[2020-10-04] MEDS: KETOROLAC 15 MG/ML 1 ML VIAL IVP SCH ×3 (05:16→11:37)
[2020-10-04 06:08] LABS: INR 2.4 (<1.2); Prothrombin Time 23.6 sec (9.0-12.0)
[2020-10-04 08:20] VITALS: BP 145/74; PULSE 64; RESP 16; TEMP 98.4
[2020-10-04] MEDS: ASCORBIC ACID 500 MG TAB PO SCH (09:03)
[2020-10-04] MEDS: CHOLECALCIFEROL 25 MCG (1000 IU) TABLET PO SCH (09:03)
[2020-10-04] MEDS: SENNOSIDES-DOCUSATE SODIUM 1 EACH TAB PO SCH (09:03)
[2020-10-04] MEDS: ENOXAPARIN 40 MG/0.4 ML SYRINGE SQ SCH (09:03)
[2020-10-04] MEDS: CALCIUM CARBONATE 500 MG CHEWABLE PO SCH (09:03)
[2020-10-04] MEDS: amLODIPine 10 MG TAB PO SCH (09:04)
[2020-10-04] MEDS: DIGOXIN 125 MCG TAB PO SCH (09:04)
[2020-10-04] MEDS: ASPIRIN 81 MG PO SCH (09:04)
--- NOTE | 2020-10-04 11:54 | P.PN ---
Progress Note - Text Progress Note Date: 10/04/20 Orthopedics: History of present illness: Patient is a very pleasant 80-year-old female who is seen today at the bedside for follow-up evaluation of her right ankle. She had a recent right angioplasty was performed on the right SFA performed on 09/27/2020 from right pedal approach. He was discharged on 09/28/2010. She returned to the emergency department on 09/29/2020 with increased swelling, pain, and difficulty ambulation in her right lower extremity significant at the ankle. Her swelling was most significant at the right ankle and lower extremity. She was diagnosed with cellulitis. She is been being treated Cefazolin. A Doppler of the right lower extremity was performed which did not show evidence of DVT. Patient has been making some progress since her readmittance to the hospital but does admit it has been slow. She has difficulty weightbearing on right lower extremity as a cause significant pain to her right ankle. She does continue to receive antibiotic medication. She feels the swelling, erythema, and pain at the right ankle has improved. She does continue to have some edema at the right ankle. She states her pain has been controlled with oral [place]. I saw her at the bedside yesterday evening. This morning she states she has continued to have improvement even since yesterday. This morning she was able to ambulate to the restroom on her right lower extremity with the assistance of a walker. She has not been able to do that over the past several days. She does admit at the bedside her ankle pain has improved today. She is currently waiting for discharge to a rehabilitation facility. She did have x-rays performed of the right ankle without any significant findings. Patient also received Lovenox and Coumadin. Her past medical history includes coronary artery disease, hyperlipidemia, hypertension, and vascular disorder. She does feel she is ready for discharge today. Physical Exam: Patient is awake, alert, and oriented 3 Vital signs stable Good chest excursion with deep inspiration and expiration Evidence of some erythema around the medial and lateral ankle some improvement as compared to yesterday Generalized warmth to palpation around the entire right ankle Evidence of a small surgical puncture wound at the right medial posterior ankle 1+ pitting edema to the right ankle Small bruising at the distal right posterior thigh, the distal posterior calf, and the posterior lateral ankle Patient is able to perform better dorsiflexion and plantarflexion of the right ankle with some pain while doing so No significant pain or swelling over toes of the right foot No erythema at the toes of the right foot Patient is able to wiggle toes the right foot without significant difficulty Physical examination of her right lower extremity does show what appears to be improvement in right lower extremity swelling as her skin is less taut and does have some wrinkles No palpable fluid collection at the right ankle or foot Generalized soft tissue swelling of the right ankle No significant swelling of the right knee Pertinent studies: X-rays of the right ankle taken on 10/03/2020: No evidence of fracture dislocation at the right ankle; ankle mortise is well maintained Assessment: Cellulitis right foot and ankle and right lower extremity Right ankle pain Inability ambulate on the right foot due to ankle pain Recent right angioplasty was performed on the right SFA performed on 09/27/2020 from right pedal approach Currently on anticoagulation with Lovenox and Coumadin Coronary artery disease Vascular disorder Hyperlipidemia Hypertension Plan: 1. We will continue with our plan as set forth yesterday. Patient has continued to have improvement as compared to yesterday. She has been able to ambulate on her right lower extremity today with the assistance of a walker. Patient has been discussed in detail Dr. Aleksandr Hernandez. After physical examination of the patient, further discussion with the patient, in reviewing of imaging, we'll plan to continue conservative treatment at this time. Patient had a recent procedure performed with right angioplasty was performed on the right SFA performed on 09/27/2020 from right pedal approach. She was discharged the following day and returned to the hospital on 09/29/2020 with cellulitis in her right ankle and foot. She has been on Cefazolin with improvement since her readmission. Patient does not have a palpable fluid collection at her right ankle. She does have soft tissue swelling with +1 pitting edema at her right ankle. Overall she states the swelling and pain has improved since her admission with improvement since yesterday. She does have evidence of a well- healed apparent surgical wound at the right medial posterior ankle. Patient has not had any recent injuries to her right ankle. She states her symptoms started following her recent procedure. I do not feel that after physical examination that her cellulitis has completely resolved. She continues to have some warmth and erythema around her right ankle along with swelling and edema. I do think she should continue conservative care with antibiotics as set forth by medicine. We also discussed she could benefit with elevation and ice. We would not plan for aspiration or injection at this time in regards to her right ankle. X-ray imaging was also negative for any fracture or dislocation. We did discuss she does not have any instability at her right ankle and she may weight-bear as tolerated on the right lower extremity. Nursing states patient is currently planning for discharge to a rehabilitation facility most likely tomorrow, 10/04/2020. We discussed the patient may follow-up on an as-needed basis following discharge. If she has an exacerbation of her symptoms are her symptoms fail to improve, she may call the office for a follow-up appointment with Dr. Aleksandr Hernandez at [facility]. 2. Patient will continue be seen and examined by multiple medical providers including medicine and cardiology 3. Continue pain control with [place] as prescribed as needed for control of her symptoms
--- NOTE | 2020-10-04 13:13 | P.DS ---
Providers Date of admission: 09/29/20 21:46 Attending physician: Rema Mireles MD Consults: 10/03/20 11:33 Consult Physician Routine Consulting Provider: Carrington Tyler Consult Reason/Comments: right ankle swelling and pain Do you want consulting provider notified?: Yes Primary care physician: Jermaine [facility] Course: 80-year-old pleasant female came in with complaints of redness local is of temperature in the low-grade fever along with burning sensation in the right foot. Found to have cellulitis of the right foot patient was admitted and was started on cefazolin, with improvement compared to yesterday as per the patient, patient has a professor disease and she had a stent placed to right superficial femoral artery a few days ago. Patient was comparing of night sweats as well. Patient denied any history of congestive heart failure is on diuretics does have history history of valve replacement and does have history of atrial fibrillation patient has a bioprosthetic aortic valve INR is only 1.1 patient that stay Coumadin because of valvular A. fib which will be resumed. Patient also takes aspirin at home. Patient had a Doppler of the right lower extremity which did not show any DVT. 10/01/2020 Patient redness in the right leg improved significantly but still can't bear weight and obtain PT and OT consultation can you with IV antibiotics for today possibility of discharge tomorrow. 10/02/2020 Insulin significant improved. 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 Possibly surgery was consulted for the injection into the right ankle and also arthrocentesis. Patient was constipated quite a bit patient will have an edema today patient last bowel movement was about 10 days ago. 10/04/2020 Patient's right ankle swelling significantly improved and the orthopedic surgery evaluated the patient and that perspective patient woodshed and nonsteroidal anti-inflammatory medications. Since I'm starting her on nonsteroidal anti-in flammatory his tramadol was continued. Patient INR is therapy 2.4 I'm cutting down the dose of Coumadin to 5 mg from 7.5 mg daily and INR need to be checked in about the a day. Patient may have severe osteoarthritis and gouty arthritis. Patient had a big bowel movement yesterday patient will be discharged on MiraLAX on as-needed basis as well. Patient is being discharged to subacute rehabilitation patient is able to bear some weight today on the right leg. PHYSICAL EXAMINATION: GENERAL: The patient is alert and oriented x3, not in any acute distress. Well developed, well nourished. HEENT: Pupils are round and equally reacting to light. EOMI. No scleral icterus. No conjunctival pallor. Normocephalic, atraumatic. No pharyngeal erythema. No thyromegaly. CARDIOVASCULAR: S1 and S2 present. No murmurs, rubs, or gallops. Loud heart sounds diuretic area secondary to artificial valve PULMONARY: Chest is clear to auscultation, no wheezing or crackles. ABDOMEN: Soft, nontender, nondistended, normoactive bowel sounds. No palpable organomegaly. MUSCULOSKELETAL: as mentioned above EXTREMITIES: No cyanosis, clubbing, or pedal edema. NEUROLOGICAL: Gross neurological examination did not reveal any focal deficits. SKIN: Cellultis right calf significantly improvedpatient has a bruise in the posterior aspect of the right leg and does have significant swelling of the right ankle swelling and pain did improve Assessment and Plan Plan: -Cellulitis of the right lower extremity: Improved with cefazolin. Will be discharged on 3 more days of Keflex. -Right ankle swelling probably osteoarthritis or inflammatory arthritis, improved with nonsteroidal anti-inflammatories will be discharged on an SH. -severe constipation: Improved -Ruled out DVT -Peripheral artery disease and recent stent to superficial femoral artery continue with aspirin -Atrial fibrillation paroxysmal presently sinus rhythm, continue with Coumadin -Coronary artery disease -hyperlipidemia -hypertension -History of bioprosthetic aortic valve - Patient Condition at Discharge: Serious Plan - Discharge Summary Discharge Rx Participant: Yes New Discharge Prescriptions: New Naproxen [Naprosyn] 250 mg PO TID #21 tab polyethylene glycoL 3350 [Miralax] 17 gm PO DAILY PRN #15 packet PRN Reason: Constipation Warfarin [Coumadin] 5 mg PO DAILY #10 tab Cephalexin [Keflex] 500 mg PO Q8HR 3 Days #9 cap Famotidine [Pepcid] 20 mg PO BID #20 tablet Continue Atorvastatin [Lipitor] 40 mg PO HS Cholecalciferol (Vitamin D3) [Vitamin D3] 2,000 unit PO DAILY Aspirin [Adult Low Dose Aspirin EC] 81 mg PO DAILY Ascorbic Acid [Vitamin C] 500 mg PO Q48H Turmeric Root Extract [Turmeric] 500 mg PO Q48H Multivitamins, Thera [Multivitamin (formulary)] 1 tab PO Q48H amLODIPine [Norvasc] 10 mg PO DAILY tab Ubidecarenone [Co Q-10] 100 mg PO Q48H Digoxin [Lanoxin] 125 mcg PO DAILY Melatonin 2.5 - 5 mg PO HS PRN PRN Reason: Insomnia Calcium Carbonate [Calcium] 600 mg PO Q48H Discontinued Potassium Chloride [K-Tab ER] 10 meq PO Q48H Furosemide [Lasix] 40 mg PO DAILY Warfarin [Coumadin] 5 mg PO SUMOTUTHFR traMADol HCL [Ultram] 50 mg PO Q6HR PRN PRN Reason: Pain hydrALAZINE HCL [Apresoline] 25 mg PO BID Discharge Medication List Aspirin [Adult Low Dose Aspirin EC] 81 mg PO DAILY 03/17/18 [History] Atorvastatin [Lipitor] 40 mg PO HS 03/17/18 [History] Cholecalciferol (Vitamin D3) [Vitamin D3] 2,000 unit PO DAILY 03/17/18 [History] Ascorbic Acid [Vitamin C] 500 mg PO Q48H 05/19/18 [History] Turmeric Root Extract [Turmeric] 500 mg PO Q48H 05/19/18 [History] Multivitamins, Thera [Multivitamin (formulary)] 1 tab PO Q48H 04/19/19 [History] amLODIPine [Norvasc] 10 mg PO DAILY tab 04/27/19 [Rx] Digoxin [Lanoxin] 125 mcg PO DAILY 09/01/20 [History] Melatonin 2.5 - 5 mg PO HS PRN 09/01/20 [History] Calcium Carbonate [Calcium] 600 mg PO Q48H 09/29/20 [History] Ubidecarenone [Co Q-10] 100 mg PO Q48H 09/29/20 [History] Cephalexin [Keflex] 500 mg PO Q8HR 3 Days #9 cap 10/04/20 [Rx] Famotidine [Pepcid] 20 mg PO BID #20 tablet 10/04/20 [Rx] Naproxen [Naprosyn] 250 mg PO TID #21 tab 10/04/20 [Rx] Warfarin [Coumadin] 5 mg PO DAILY #10 tab 06/16/21 [Rx] polyethylene glycoL 3350 [Miralax] 17 gm PO DAILY PRN #15 packet 10/04/20 [Rx] Follow up Appointment(s)/Referral(s): Ck Hernandez MD [STAFF PHYSICIAN] - 1 Week Jermaine Feldman DO [Primary Care Provider] - 3 Days
[2020-10-04] MEDS ORDERED: WARFARIN 7.5 MG TAB PO ONE (18:00)
== END 2020-10-04 14:38 ==
LOC: EC 19:39 → 4SSUR 21:46
PROVIDERS: ADMIT Internal Medicine; ATTEND Internal Medicine
DX: L03.115 Cellulitis of right lower limb (principal); M79.604 Pain in right leg; R26.2 Difficulty in walking, not elsewhere classified; K59.00 Constipation, unspecified; I73.9 Peripheral vascular disease, unspecified; Z20.822 Contact with and (suspected) exposure to COVID-19; I48.21 Permanent atrial fibrillation; I25.10 Atherosclerotic heart disease of native coronary artery without angina pectoris; I10 Essential (primary) hypertension; E78.5 Hyperlipidemia, unspecified; M77.31 Calcaneal spur, right foot; Y84.8 Other medical procedures as the cause of abnormal reaction of the patient, or of later complication, without mention of misadventure at the time of the procedure; K64.9 Unspecified hemorrhoids; R32 Unspecified urinary incontinence; Z79.01 Long term (current) use of anticoagulants; Z79.899 Other long term (current) drug therapy; Z79.82 Long term (current) use of aspirin; Z98.41 Cataract extraction status, right eye; Z98.42 Cataract extraction status, left eye; Z87.891 Personal history of nicotine dependence; Z95.3 Presence of xenogenic heart valve; Z82.49 Family history of ischemic heart disease and other diseases of the circulatory system; Z81.8 Family history of other mental and behavioral disorders
CPT/HCPCS: 96376 ×2; 96366 ×3; 96372 ×4; 96375 ×2; 96365; 99285; 36415; 97161; 97530; 97535; 97165; 80053; 80048 ×2; 80162; 83605; 85025; 85027; 85610 ×5; 87040; 83036; 87635; 73610; 93971; G0378 ×6; J2405; J0690 ×6; J1650 ×4; J2270; J1885 ×2

== ENCOUNTER 2020-10-17 15:49 | Inpatient (IN) | payer MEDICARE, OTHER ==
[2020-10-17] MEDS ORDERED: SODIUM CHLORIDE 0.9% 1,000 ML IV STA (16:34)
[2020-10-17 16:48] LABS: Basophils % (A) 0 %; Eosinophils # (A) 0.1 k/uL (0-0.7); Eosinophils % (A) 1 %; HCT 35.7 % (34.0-46.0); HGB 11.8 gm/dL (11.4-16.0); Lymphocytes # (A) 1.1 k/uL (1.0-4.8); Lymphocytes % (A) 13 %; MCH 30.5 pg (25.0-35.0); MCHC 32.9 g/dL (31.0-37.0); MCV 92.8 fL (80.0-100.0); Mean Platelet Volume 6.6; Monocytes # (A) 0.6 k/uL (0-1.0); Monocytes % (A) 7 %; Neutrophils # (A) 6.6 k/uL (1.3-7.7); Neutrophils % (A) 77 %; Platelet Count 385 k/uL (150-450); RBC 3.85 m/uL (3.80-5.40); RDW 13.8 % (11.5-15.5); WBC 8.6 k/uL (3.8-10.6)
[2020-10-17 16:56] LABS: Calcium 9.3 mg/dL (8.4-10.2); Potassium 4.6 mmol/L (3.5-5.1); Total Bilirubin 0.6 mg/dL (0.2-1.3); Total Protein 6.5 g/dL (6.3-8.2)
--- NOTE | 2020-10-17 17:13 | US ---
EXAMINATION TYPE: US venous doppler duplex LE BI DATE OF EXAM: 10/17/2020 5:06 PM COMPARISON: US CLINICAL HISTORY: bilateral LE swelling . SIDE PERFORMED: Bilateral TECHNIQUE: The lower extremity deep venous system is examined utilizing real time linear array sonog magi with graded compression, doppler sonography and color-flow sonography. VESSELS IMAGED: Common Femoral Vein Deep Femoral Vein Greater Saphenous Vein * Femoral Vein Popliteal Vein Small Saphenous Vein * Proximal Calf Veins (* superficial vessels) Right Leg: Negative for DVT Left Leg: Negative for DVT IMPRESSION: No evidence for DVT.
[2020-10-17 17:37] LABS: INR 2.2 (<1.2); Partial Thromboplastin Time 38.2 sec (22.0-30.0); Prothrombin Time 21.8 sec (9.0-12.0)
--- NOTE | 2020-10-17 18:07 | ED ---
Extremity Problem HPI - General Source: patient Mode of arrival: wheelchair Limitations: no limitations <Barrett Choi - Last Filed: 10/17/20 18:52> <Donna Samayoa - Last Filed: 10/17/20 22:22> - General Chief complaint: Extremity Problem,Nontraumatic Stated complaint: Legs/Feet Swelling Time Seen by Provider: 10/17/20 16:24 - History of Present Illness Initial comments: Patient is an 80-year-old female that presents to the emergency department for right lower extremity swelling and pain. She notes she went to her primary care. She noted that her primary care felt her leg looked at and told her to come to the emergency room for evaluation for possible DVT. Patient was in no apparent distress while sitting up in bed during the exam and interview. She notes that she was recently seen by Dr. Márquez for a vascular procedure was discharged. She notes that she was brought back the next day for possible infection for which she was admitted for several days for medication and therapy. She was sent to [facility] for therapy and then discharged home. She notes that she's been home for a couple days been walking around and noticed that her right lower leg swelled up. Patient reports that her left leg was also starting to swell up very minimally compared to the right. Patient notes that she's been taking Keflex for a cellulitis for a while now. Patient did have full range of motion sensation in her bilateral lower extremities. She denied any injury trauma history of DVT. She does note that she has a history for chronic atrial fibrillation and aortic valve replacement and other comorbiditi es. She denied any chest pain shortness of breath headache nausea vomiting diarrhea constipation fever fatigue chills. (Barrett Choi) - Related Data Home Medications Medication Instructions Recorded Confirmed Aspirin [Adult Low Dose Aspirin EC] 81 mg PO DAILY 03/17/18 10/17/20 Atorvastatin [Lipitor] 40 mg PO HS 03/17/18 10/17/20 Ascorbic Acid [Vitamin C] 500 mg PO Q48H 05/19/18 10/17/20 Turmeric Root Extract [Turmeric] 500 mg PO Q48H 05/19/18 10/17/20 Multivitamins, Thera [Multivitamin 1 tab PO Q48H 04/19/19 10/17/20 (formulary)] Digoxin [Lanoxin] 125 mcg PO DAILY 09/01/20 10/17/20 Melatonin 2.5 - 5 mg PO HS PRN 09/01/20 10/17/20 Calcium Carbonate [Calcium] 600 mg PO Q48H 09/29/20 10/17/20 Ubidecarenone [Co Q-10] 100 mg PO Q48H 09/29/20 10/17/20 Cholecalciferol (Vitamin D3) 75 mcg PO DAILY 10/17/20 10/17/20 [Vitamin D3 (3000 Iu)] Warfarin [Coumadin] 5 mg PO HS 10/17/20 10/17/20 Previous Rx's Medication Instructions Recorded amLODIPine [Norvasc] 10 mg PO DAILY tab 04/27/19 Cephalexin [Keflex] 500 mg PO Q8HR 3 Days #9 cap 10/04/20 Famotidine [Pepcid] 20 mg PO BID #20 tablet 10/04/20 Allergies Allergy/AdvReac Type Severity Reaction Status Date / Time No Known Allergies Allergy Verified 10/17/20 19:16 Review of Systems ROS Other: All systems not noted in ROS Statement are negative. <Barrett Choi - Last Filed: 10/17/20 18:52> ROS Other: All systems not noted in ROS Statement are negative. <Donna Samayoa - Last Filed: 10/17/20 22:22> ROS Statement: Those systems with pertinent positive or pertinent negative responses have been documented in the HPI. Past Medical History Past Medical History: No Reported History, Coronary Artery Disease (CAD), Hyperlipidemia, Hypertension, Musculoskeletal Disorder, Vascular Disorder Additional Past Medical History / Comment(s): AORTIC VALVE REPAIRED W/ COW VALVE; HEMORRHOIDS CURRENT. LEGS GET TIRED, HEAVY WHEN WALKING, OCC EDEMA LT ANKLE, urinary incontinence, probable covid 2019, fully vaccinated for covid now History of Any Multi-Drug Resistant Organisms: None Reported Past Surgical History: Cardiac Valve Replacement, Heart Catheterization With Stent Additional Past Surgical History / Comment(s): FACELIFT. AORTIC VALVE REPLACED- COW VALVE, 06/2010, left leg balloon angioplasty, cataracts removed Past Anesthesia/Blood Transfusion Reactions: Motion Sickness Additional Past Anesthesia/Blood Transfusion Reaction / Comment(s): MOTION SICK MANY YEARS AGO Date of Last Stent Placement:: 04/2007 Past Psychological History: No Psychological Hx Reported Smoking Status: Former smoker Past Alcohol Use History: Occasional Past Drug Use History: None Reported - Past Family History Mother Family Medical History: Dementia Father Family Medical History: Congestive Heart Failure (CHF), Hypertension <Barrett Choi - Last Filed: 10/17/20 18:52> General Exam Limitations: no limitations General appearance: alert, in no apparent distress Head exam: Present: atraumatic, normocephalic, normal inspection Eye exam: Present: normal appearance, PERRL, EOMI. Absent: scleral icterus, conjunctival injection, periorbital swelling Neck exam: Present: normal inspection Respiratory exam: Present: normal lung sounds bilaterally. Absent: respiratory distress, wheezes, rales, rhonchi, stridor Cardiovascular Exam: Present: regular rate, normal rhythm, normal heart sounds. Absent: systolic murmur, diastolic murmur, rubs, gallop, clicks Right Lower Leg exam: Present: full ROM, tenderness (over the calf), swelling (2+), erythema. Absent: normal inspection, abrasion, laceration, ecchymosis, deformit y, crepitus, dislocation Ankle exam: Present: full ROM, swelling (2+). Absent: tenderness Foot/Toe exam: Present: full ROM, swelling (2+). Absent: tenderness Neurovascular tendon exam: Present: no vascular compromise Left Lower Leg exam: Present: normal inspection, full ROM, swelling (minimal) Ankle exam: Present: normal inspection, full ROM, swelling (minimal) Foot/Toe exam: Present: normal inspection, full ROM Neurovascular tendon exam: Present: no vascular compromise Neurological exam: Present: alert, oriented X3 Psychiatric exam: Present: normal affect, normal mood Skin exam: Present: warm, dry, intact, normal color, other (erythema streak traveling up the right leg on the posterior aspect.). Absent: rash <Barrett Choi - Last Filed: 10/17/20 18:52> Course Vital Signs 10/17/20 10/17/20 10/17/20 15:57 18:05 20:11 Temperature 99.2 F 99.9 F H Pulse Rate 63 80 75 Respiratory 16 18 18 Rate Blood Pressure 132/58 126/61 139/80 O2 Sat by Pulse 97 100 96 Oximetry Medical Decision Making - Lab Data Result diagrams: 10/17/20 16:37 06/29/21 16:37 <Barrett Choi - Last Filed: 10/17/20 18:52> - Lab Data Result diagrams: 10/17/20 16:37 10/17/20 16:37 <Donna Samayoa - Last Filed: 10/17/20 22:22> - Medical Decision Making 80-year-old female complaining of right lower extremity swelling and pain. He recently underwent a graft surgery. Labs, bilateral lower extremities ultrasound ordered. Labs unremarkable. Ultrasound negative for DVT. Patient does state that she's been on antibiotics for the last several weeks. Case discussed with Dr. Samayoa, patient will be admitted for potential infected graft. (Barrett Choi) Upon my evaluation of the patient she stated that she had a fever last night of 105 and woke up sweating. She stated that she noticed progressively worsening pain and redness in her leg. She does have a history of cellulitis after surgery on the right lower extremity. Patient states that this morning her leg was so swollen and painful she tripped and fell at home. She feels safe at home. At this time patient does have normal labs but evidence of cellulitis, fever at home and history of previous cellulitis and therefore i feel she warrants admission to the hospital antibiotics and evaluation by the senior quality engineer procedure as well as infectious disease. This plan was discussed with [facility] hospitalist group who accepts the admission. (Donna Samayoa) - Lab Data Lab Results 10/17/20 10/17/20 10/17/20 Range/Units 16:37 16:37 16:37 WBC 8.6 (3.8-10.6) k/uL RBC 3.85 (3.80-5.40) m/uL Hgb 11.8 (11.4-16.0) gm/dL Hct 35.7 (34.0-46.0) % MCV 92.8 (80.0-100.0) fL MCH 30.5 (25.0-35.0) pg MCHC 32.9 (31.0-37.0) g/dL RDW 13.8 (11.5-15.5) % Plt Count 385 (150-450) k/uL MPV 6.6 Neutrophils % 77 % Lymphocytes % 13 % Monocytes % 7 % Eosinophils % 1 % Basophils % 0 % Neutrophils # 6.6 (1.3-7.7) k/uL Lymphocytes # 1.1 (1.0-4.8) k/uL Monocytes # 0.6 (0-1.0) k/uL Eosinophils # 0.1 (0-0.7) k/uL Basophils # 0.0 (0-0.2) k/uL PT 21.8 H (9.0-12.0) sec INR 2.2 H (<1.2) APTT 38.2 H (22.0-30.0) sec Sodium (137-145) mmol/L Potassium (3.5-5.1) mmol/L Chloride (98-107) mmol/L Carbon Dioxide (22-30) mmol/L Anion Gap mmol/L BUN (7-17) mg/dL Creatinine (0.52-1.04) mg/dL Est GFR (CKD-EPI)AfAm (>60 ml/min/1.73 sqM) Est GFR (CKD-EPI)NonAf (>60 ml/min/1.73 sqM) Glucose (74-99) mg/dL Calcium (8.4-10.2) mg/dL Total Bilirubin (0.2-1.3) mg/dL AST (14-36) U/L ALT (4-34) U/L Alkaline Phosphatase (38-126) U/L Total Protein (6.3-8.2) g/dL Albumin (3.5-5.0) g/dL Urine Color Yellow Urine Appearance Clear (Clear) Urine pH 5.5 (5.0-8.0) Ur Specific [place] 1.021 (1.001-1.035) Urine Protein Trace H (Negative) Urine Glucose (UA) Negative (Negative) Urine Ketones 1+ H (Negative) Urine Blood Negative (Negative) Urine Nitrite Negative (Negative) Urine Bilirubin Negative (Negative) Urine Urobilinogen <2.0 (<2.0) mg/dL Ur Leukocyte Esterase Negative (Negative) Coronavirus (PCR) (Not Detectd) 10/17/20 10/17/20 Range/Units 16:37 18:57 WBC (3.8-10.6) k/uL RBC (3.80-5.40) m/uL Hgb (11.4-16.0) gm/dL Hct (34.0-46.0) % MCV (80.0-100.0) fL MCH (25.0-35.0) pg MCHC (31.0-37.0) g/dL RDW (11.5-15.5) % Plt Count (150-450) k/uL MPV Neutrophils % % Lymphocytes % % Monocytes % % Eosinophils % % Basophils % % Neutrophils # (1.3-7.7) k/uL Lymphocytes # (1.0-4.8) k/uL Monocytes # (0-1.0) k/uL Eosinophils # (0-0.7) k/uL Basophils # (0-0.2) k/uL PT (9.0-12.0) sec INR (<1.2) APTT (22.0-30.0) sec Sodium 134 L (137-145) mmol/L Potassium 4.6 (3.5-5.1) mmol/L Chloride 98 (98-107) mmol/L Carbon Dioxide 27 (22-30) mmol/L Anion Gap 9 mmol/L BUN 25 H (7-17) mg/dL Creatinine 0.95 (0.52-1.04) mg/dL Est GFR (CKD-EPI)AfAm 65 (>60 ml/min/1.73 sqM) Est GFR (CKD-EPI)NonAf 56 (>60 ml/min/1.73 sqM) Glucose 106 H (74-99) mg/dL Calcium 9.3 (8.4-10.2) mg/dL Total Bilirubin 0.6 (0.2-1.3) mg/dL AST 26 (14-36) U/L ALT 18 (4-34) U/L Alkaline Phosphatase 107 (38-126) U/L Total Protein 6.5 (6.3-8.2) g/dL Albumin 4.0 (3.5-5.0) g/dL Urine Color Urine Appearance (Clear) Urine pH (5.0-8.0) Ur Specific [place] (1.001-1.035) Urine Protein (Negative) Urine Glucose (UA) (Negative) Urine Ketones (Negative) Urine Blood (Negative) Urine Nitrite (Negative) Urine Bilirubin (Negative) Urine Urobilinogen (<2.0) mg/dL Ur Leukocyte Esterase (Negative) Coronavirus (PCR) Not Detected (Not Detectd) Disposition Is patient prescribed a controlled substance at d/c from ED?: No Time of Disposition: 18:54 <Barrett Choi - Last Filed: 10/17/20 18:52> <Donna Samayoa - Last Filed: 10/17/20 22:22> Clinical Impression: Cellulitis, Edema of lower extremity Disposition: ADMITTED IP TO THIS HOSP Condition: Stable
[2020-10-17 19:22] LABS: Appearance,Urine Clear (Clear); Bilirubin,Urine Negative (Negative); Blood,Urine Negative (Negative); Color,Urine Yellow; Glucose,Urine (UA) Negative (Negative); Ketones,Urine 1+ (Negative); Leukocyte Esterase,Urine Negative (Negative); Nitrite,Urine Negative (Negative); PH, Urine 5.5 (5.0-8.0); Protein,Urine Trace (Negative); Specific Gravity,Urine 1.021 (1.001-1.035); Urobilinogen,Urine <2.0 mg/dL (<2.0)
[2020-10-17] MEDS ORDERED: NALOXONE 0.4 MG/ML 1 ML VIAL IV PRN (19:25)
[2020-10-17] MEDS: WARFARIN 5 MG TAB PO SCH (21:07)
[2020-10-17] MEDS: ATORVASTATIN 40 MG TAB PO SCH (21:12)
[2020-10-17] MEDS: FAMOTIDINE 20 MG TAB PO SCH (21:12)
[2020-10-18] MEDS: HYDROcodone/APAP 7.5-325MG 1 EACH TAB PO PRN ×3 (00:25→19:54)
[2020-10-18] MEDS: MELATONIN 5 MG TABLET PO PRN ×2 (00:27→19:54)
[2020-10-18] MEDS: DIGOXIN 125 MCG TAB PO SCH (09:28)
[2020-10-18] MEDS: ASPIRIN 81 MG PO SCH (09:28)
[2020-10-18] MEDS: FAMOTIDINE 20 MG TAB PO SCH (09:28)
[2020-10-18] MEDS: amLODIPine 10 MG TAB PO SCH (09:32)
--- NOTE | 2020-10-18 13:30 | P.CRDCN ---
History of Present Illness History of present illness: HISTORY OF PRESENTING ILLNESS This is a pleasant 80-year-old female past medical history significant for chronic persistent atrial fibrillation on Coumadin, hypertension, hyperlipidemia, coronary artery disease status post PCI to RCA in 2007, peripheral artery disease. She follows in the office with Dr. Graves. Patient was found to have critical stenosis of the right superior threshold femoral artery. She was scheduled for an atherectomy and possible angioplasty. Patient underwent atherectomy of the right SFA and successful balloon angioplasty was performed on the right SFA and successful balloon angioplasty of the right posterior tibial artery on 09/27/2020 from right pedal approach. The procedure was uneventful without any complication the patient was discharged home in stable medical condition. 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 She presented back to the hospital and was admitted on 09/29/2020-10/04/20 due to right foot discomfort and cellulitis, she tried some udri-pyf-ldmberw medication without any improvement in pain. She also was found to have what seemed to be possibly right lower extremity cellulitis, with. Mattress with skin changes consistent of redness on the right lower extremity. There was no concern for acute limb ischemia at that time. She was started on IV Cefazolin and there was improvement. Orthopedics was consulted, with no intervention and recommended follow-up with orthopedics as an outpatient. Patient was discharged on Keflex 500 mg every 8 hours for 3 days. Patient presents to the hospital again with worsening right lower extremity redness and swelling. She states that this has not improved. She states that she had 105 fever at home. He also had symptoms of chills. She denies chest pain, shortness of breath, lightheadedness, dizziness, syncope. On exam, she does have redness and swelling to the right lower extremity. 2+ good pulses. DIAGNOSTICS Venous Doppler negative for DVT bilaterally. Laboratory reviewed, CBC unremarkable, sodium 134, potassium 4.6, BUN 25, serum creatinine 0.95, UA negative, COVID-19 negative Current cardiac medications include warfarin 5 mg nightly, atorvastatin 40 mg nightly, amlodipine 10 mg daily, digoxin 125mcg daily, aspirin 81 mg daily REVIEW OF SYSTEMS At the time of my exam: CONSTITUTIONAL: Positive fevers and chills CARDIOVASCULAR: Denies chest pain, shortness of breath, orthopnea, PND or palpitations. RESPIRATORY: Denies cough. GASTROINTESTINAL: Denies abdominal pain, diarrhea, constipation, nausea or vomiting. MUSCULOSKELETAL: Positive right lower extremity pain. NEUROLOGIC: Denies numbness, tingling, headacbe or weakness. ENDOCRINE: Denies fatigue, weight change, polydipsia or polyurina. GENITOURINARY: Denies burning, hematuria or urgency with micturation. HEMATOLOGIC: Denies history of anemia or bleeding. PHYSICAL EXAMINATION Blood pressure 133/63 heart rate 64 afebrile and maintaining oxygen saturation 97% on room air. T-max while admit is 99.9 CONSTITUTIONAL: No apparent distress. HEENT: Head is normocephalic. Pupils are equal, round. Sclerae anicteric. Mucous membranes of the mouth are moist. No JVD. No carotid bruit. CHEST EXAMINATION: Lungs are clear to auscultation. No chest wall tenderness is noted on palpation or with deep breathing. HEART EXAMINATION: Regular rate and rhythm. S1, S2 heard. Systolic murmur ABDOMEN: Soft, nontender. Positive bowel sounds. EXTREMITIES: 2+ peripheral pulses, 1+ right lower extremity swelling. Red erythema to the right lower ankle and calf/anaya NEUROLOGIC EXAMINATION: Patient is awake, alert and oriented x3. ASSESSMENT Recurrent Right lower extremity cellulitis Fever- reported 105 at home per patient Peripheral artery disease status post atherectomy and angioplasty of the right SFA on 09/27/2020 Chronic persistent atrial fibrillation on Coumadin Hypertension Hyperlipidemia Coronary artery disease status post PCI to RCA in 2007 PLAN Infectious disease has been consulted, appreciate recommendations. Continue home cardiac medications, warfarin, atorvastatin, amlodipine, digoxin No further testing at this time Further recommendations following clinical course Nurse Practitioner note has been reviewed, I agree with a documented findings and plan of care. Patient was seen and examined. Past Medical History Past Medical History: No Reported History, Coronary Artery Disease (CAD), Hyperlipidemia, Hypertension, Musculoskeletal Disorder, Vascular Disorder Additional Past Medical History / Comment(s): AORTIC VALVE REPAIRED W/ COW VALVE; HEMORRHOIDS CURRENT. LEGS GET TIRED, HEAVY WHEN WALKING, OCC EDEMA LT ANKLE, urinary incontinence, probable covid 2019, fully vaccinated for covid now History of Any Multi-Drug Resistant Organisms: None Reported Past Surgical History: Cardiac Valve Replacement, Heart Catheterization With Stent Additional Past Surgical History / Comment(s): FACELIFT. AORTIC VALVE REPLACED- COW VALVE, 06/2010, left leg balloon angioplasty, cataracts removed Past Anesthesia/Blood Transfusion Reactions: Motion Sickness Additional Past Anesthesia/Blood Transfusion Reaction / Comment(s): MOTION SICK MANY YEARS AGO Date of Last Stent Placement:: 04/2007 Past Psychological History: No Psychological Hx Reported Smoking Status: Former smoker Past Alcohol Use History: Occasional Additional Past Alcohol Use History / Comment(s): SMOKED AGE 16, 1 PPD OR LESS, QUIT 1994 EST. WINE AND/OR BEER, 1/2-1 GLASS 5X WK AVG Past Drug Use History: None Reported - Past Family History Mother Family Medical History: Dementia Father Family Medical History: Congestive Heart Failure (CHF), Hypertension Medications and Allergies Home Medications Medication Instructions Recorded Confirmed Type Aspirin [Adult Low Dose Aspirin EC] 81 mg PO DAILY 03/17/18 10/17/20 History Atorvastatin [Lipitor] 40 mg PO HS 03/17/18 10/17/20 History Ascorbic Acid [Vitamin C] 500 mg PO Q48H 05/19/18 10/17/20 History Turmeric Root Extract [Turmeric] 500 mg PO Q48H 05/19/18 10/17/20 History Multivitamins, Thera [Multivitamin 1 tab PO Q48H 04/19/19 10/17/20 History (formulary)] amLODIPine [Norvasc] 10 mg PO DAILY tab 04/27/19 10/17/20 Rx Digoxin [Lanoxin] 125 mcg PO DAILY 09/01/20 10/17/20 History Melatonin 2.5 - 5 mg PO HS PRN 09/01/20 10/17/20 History Calcium Carbonate [Calcium] 600 mg PO Q48H 09/29/20 10/17/20 History Ubidecarenone [Co Q-10] 100 mg PO Q48H 09/29/20 10/17/20 History Cephalexin [Keflex] 500 mg PO Q8HR 3 Days #9 cap 10/04/20 10/17/20 Rx Famotidine [Pepcid] 20 mg PO BID #20 tablet 10/04/20 10/17/20 Rx Cholecalciferol (Vitamin D3) 75 mcg PO DAILY 10/17/20 10/17/20 History [Vitamin D3 (3000 Iu)] Warfarin [Coumadin] 5 mg PO HS 10/17/20 10/17/20 History Allergies Allergy/AdvReac Type Severity Reaction Status Date / Time No Known Allergies Allergy Verified 10/17/20 19:16 Physical Exam Vitals: Vital Signs Temp Pulse Pulse Resp BP BP Pulse Ox 10/18/20 08:00 64 16 10/18/20 06:41 98.3 F 64 16 133/63 97 10/18/20 02:00 98.3 F 65 17 119/62 95 10/17/20 23:00 98.9 F 68 17 143/63 98 10/17/20 22:40 99.3 F 70 18 139/62 97 10/17/20 20:11 99.9 F H 75 18 139/80 96 10/17/20 18:05 80 18 126/61 100 10/17/20 15:57 99.2 F 63 16 132/58 97 Intake and Output 10/17/20 10/18/20 10/18/20 22:59 06:59 14:59 Intake Total 240 Balance 240 Intake: Oral 240 Other: Voiding Method Toilet Toilet External Catheter External Catheter # Voids 1 Weight 61.235 kg Results 10/17/20 16:37 10/17/20 16:37 Cardiac Enzymes 10/17/20 Range/Units 16:37 AST 26 (14-36) U/L Coagulation 10/17/20 Range/Units 16:37 PT 21.8 H (9.0-12.0) sec APTT 38.2 H (22.0-30.0) sec CBC 10/17/20 Range/Units 16:37 WBC 8.6 (3.8-10.6) k/uL RBC 3.85 (3.80-5.40) m/uL Hgb 11.8 (11.4-16.0) gm/dL Hct 35.7 (34.0-46.0) % Plt Count 385 (150-450) k/uL Comprehensive Metabolic Panel 10/17/20 Range/Units 16:37 Sodium 134 L (137-145) mmol/L Potassium 4.6 (3.5-5.1) mmol/L Chloride 98 (98-107) mmol/L Carbon Dioxide 27 (22-30) mmol/L BUN 25 H (7-17) mg/dL Creatinine 0.95 (0.52-1.04) mg/dL Glucose 106 H (74-99) mg/dL Calcium 9.3 (8.4-10.2) mg/dL AST 26 (14-36) U/L ALT 18 (4-34) U/L Alkaline Phosphatase 107 (38-126) U/L Total Protein 6.5 (6.3-8.2) g/dL Albumin 4.0 (3.5-5.0) g/dL Current Medications Generic Name Dose Route Start Last Admin Trade Name Freq PRN Reason Stop Dose Admin Hydrocodone Bitart/Acetaminophen 1 each 10/18/20 00:01 10/18/20 00:25 Hydrocodone/Apap 7.5-325mg 1 Each Tab PO 1 each Q4H PRN Administration Pain Amlodipine Besylate 10 mg 10/18/20 09:00 10/18/20 09:32 Amlodipine 10 Mg Tab PO 10 mg DAILY MICHELLE Administration Aspirin 81 mg 10/18/20 09:00 10/18/20 09:28 Aspirin 81 Mg PO 81 mg DAILY MICHELLE Administration Atorvastatin Calcium 40 mg 10/17/20 21:00 10/17/20 21:12 Atorvastatin 40 Mg Tab PO 40 mg HS MICHELLE Administration Calcium Carbonate/Glycine 500 mg 10/19/20 09:00 Calcium Carbonate 500 Mg Chewable PO Q48H MICHELLE Digoxin 125 mcg 10/18/20 09:00 10/18/20 09:28 Digoxin 125 Mcg Tab PO 125 mcg DAILY MICHELLE Administration Famotidine 20 mg 10/19/20 09:00 Famotidine 20 Mg Tab PO DAILY [facility] Cefazolin Sodium 2 gm/ Sodium 50 mls @ 100 mls/hr 10/18/20 12:00 Chloride IVPB Q8H MICHELLE Melatonin 5 mg 10/17/20 19:26 10/18/20 00:27 Melatonin 5 Mg Tablet PO 5 mg HS PRN Administration Insomnia Miscellaneous Information 0 each 10/18/20 07:57 Warfarin Per Pharmacy MISCELLANE DIRECTED PRN PER PROTOCOL Naloxone HCl 0.2 mg 10/17/20 19:25 Naloxone 0.4 Mg/Ml 1 Ml Vial IV Q2M PRN Opioid Reversal Warfarin Sodium 5 mg 10/17/20 21:00 10/17/20 21:07 Warfarin 5 Mg Tab PO 5 mg DAILY@1800 MICHELLE Administration Protocol Intake and Output 10/17/20 10/18/20 10/18/20 22:59 06:59 14:59 Intake Total 240 Balance 240 Intake: Oral 240 Other: Voiding Method Toilet Toilet External Catheter External Catheter # Voids 1 Weight 61.235 kg 10/17/20 16:37 10/17/20 16:37
[2020-10-18 14:04] LABS: INR 2.6 (<1.2)
--- NOTE | 2020-10-18 17:17 | P.HPIM ---
History of Present Illness Patient is a pleasant 80-year-old female was recently discharged from my service to subacute rehabilitation after she was treated for possible inflammatory arthritis of the right knee along with cellulitis of the right lower extremity at that time Doppler of the right lower extremity is negative was negative for DVT. Patient had another Doppler today of bilateral lower extremities which was negative for DVT again. Patient was treated with the ceftezolin for 4 days followed by 3 more days of Keflex needed patient's symptoms improved following her discharge and then patient was discharged from the subacute rehabitation after which patient started having worsening redness and swelling of the right lower extremity. Earlier this month the patient had an enterotomy for right superficial femoral artery with successful balloon angioplasty on the right superficial femoral artery and right posterior tibial artery from right pedal approach. After that patient had couple admissions with concerns of cellulitis. Infectious disease was consulted and patient remains on Cefazolin. REVIEW OF SYSTEMS: CONSTITUTIONAL: No fever, no malaise, no fatigue. HEENT: No recent visual problems or hearing problems. Denied any sore throat. CARDIOVASCULAR: No chest pain, orthopnea, PND, no palpitations, no syncope. PULMONARY: No shortness of breath, no cough, no hemoptysis. GASTROINTESTINAL: No diarrhea, no nausea, no vomiting, no abdominal pain. NEUROLOGICAL: No headaches, no weakness, no numbness. HEMATOLOGICAL: Denies any bleeding or petechiae. GENITOURINARY: Denies any burning micturition, frequency, or urgency. MUSCULOSKELETAL/RHEUMATOLOGICAL: Denies any joint pain, swelling, or any muscle pain. ENDOCRINE: Denies any polyuria or polydipsia. The rest of the 14-point review of systems is negative. PHYSICAL EXAMINATION: GENERAL: The patient is alert and oriented x3, not in any acute distress. Well developed, well nourished. HEENT: Pupils are round and equally reacting to light. EOMI. No scleral icterus. No conjunctival pallor. Normocephalic, atraumatic. No pharyngeal erythema. No thyromegaly. CARDIOVASCULAR: S1 and S2 present. No murmurs, rubs, or gallops. PULMONARY: Chest is clear to auscultation, no wheezing or crackles. ABDOMEN: Soft, nontender, nondistended, normoactive bowel sounds. No palpable organomegaly. MUSCULOSKELETAL: No joint swelling or deformity. EXTREMITIES: No cyanosis, clubbing, or pedal edema. NEUROLOGICAL: Gross neurological examination did not reveal any focal deficits. SKIN: Thickened redness of the right lower extremity extending just below midshin area involving the right ankle Assessment and plan -Recurrent right lower extremity cellulitis patient never had history of MRSA it appears patient starts getting cellulitis once she is done with antibiotics. Patient was also treated for inflammatory arthritis of the right ankle. Patient is presently on Cefazolin, awaiting infectious disease recommendations -Sepsis secondary to cellulitis as mentioned above -Peripheral artery disease with recent angioplasty as mentioned above -chronic persistent atrial fibrillation patient has valvular A. fib for which patient is on Coumadin patient had a bioprosthetic aortic valve replacement patient remains on Coumadin therapy can Coumadin and Coumadin will be continued at this time. -Hypertension -Hyperlipidemia and a stent-coronary artery disease with history of stenting in the past DVT prophylaxis: Coumadin as mentioned above Past Medical History Past Medical History: No Reported History, Coronary Artery Disease (CAD), Hyperlipidemia, Hypertension, Musculoskeletal Disorder, Vascular Disorder Additional Past Medical History / Comment(s): AORTIC VALVE REPAIRED W/ COW VALVE; HEMORRHOIDS CURRENT. LEGS GET TIRED, HEAVY WHEN WALKING, OCC EDEMA LT ANKLE, urinary incontinence, probable covid 2019, fully vaccinated for covid now History of Any Multi-Drug Resistant Organisms: None Reported Past Surgical History: Cardiac Valve Replacement, Heart Catheterization With Stent Additional Past Surgical History / Comment(s): FACELIFT. AORTIC VALVE REPLACED- COW VALVE, 06/2010, left leg balloon angioplasty, cataracts removed Past Anesthesia/Blood Transfusion Reactions: Motion Sickness Additional Past Anesthesia/Blood Transfusion Reaction / Comment(s): MOTION SICK MANY YEARS AGO Date of Last Stent Placement:: 04/2007 Past Psychological History: No Psychological Hx Reported Smoking Status: Former smoker Past Alcohol Use History: Occasional Additional Past Alcohol Use History / Comment(s): SMOKED AGE 16, 1 PPD OR LESS, QUIT 1994 EST. WINE AND/OR BEER, 1/2-1 GLASS 5X WK AVG Past Drug Use History: None Reported - Past Family History Mother Family Medical History: Dementia Father Family Medical History: Congestive Heart Failure (CHF), Hypertension Medications and Allergies Home Medications Medication Instructions Recorded Confirmed Type Aspirin [Adult Low Dose Aspirin EC] 81 mg PO DAILY 03/17/18 10/17/20 History Atorvastatin [Lipitor] 40 mg PO HS 03/17/18 10/17/20 History Ascorbic Acid [Vitamin C] 500 mg PO Q48H 05/19/18 10/17/20 History Turmeric Root Extract [Turmeric] 500 mg PO Q48H 05/19/18 10/17/20 History Multivitamins, Thera [Multivitamin 1 tab PO Q48H 04/19/19 10/17/20 History (formulary)] amLODIPine [Norvasc] 10 mg PO DAILY tab 04/27/19 10/17/20 Rx Digoxin [Lanoxin] 125 mcg PO DAILY 09/01/20 10/17/20 History Melatonin 2.5 - 5 mg PO HS PRN 09/01/20 10/17/20 History Calcium Carbonate [Calcium] 600 mg PO Q48H 09/29/20 10/17/20 History Ubidecarenone [Co Q-10] 100 mg PO Q48H 09/29/20 10/17/20 History Cephalexin [Keflex] 500 mg PO Q8HR 3 Days #9 cap 10/04/20 10/17/20 Rx Famotidine [Pepcid] 20 mg PO BID #20 tablet 10/04/20 10/17/20 Rx Cholecalciferol (Vitamin D3) 75 mcg PO DAILY 10/17/20 10/17/20 History [Vitamin D3 (3000 Iu)] Warfarin [Coumadin] 5 mg PO HS 10/17/20 10/17/20 History Allergies Allergy/AdvReac Type Severity Reaction Status Date / Time No Known Allergies Allergy Verified 10/17/20 19:16 Physical Exam Vitals: Vital Signs Temp Pulse Pulse Resp BP BP Pulse Ox 10/18/20 14:00 18 10/18/20 13:50 99.8 F H 52 L 18 126/48 97 10/18/20 08:00 64 16 10/18/20 06:41 98.3 F 64 16 133/63 97 10/18/20 02:00 98.3 F 65 17 119/62 95 10/17/20 23:00 98.9 F 68 17 143/63 98 10/17/20 22:40 99.3 F 70 18 139/62 97 10/17/20 20:11 99.9 F H 75 18 139/80 96 10/17/20 18:05 80 18 126/61 100 Intake and Output 10/18/20 10/18/20 10/18/20 06:59 14:59 22:59 Intake Total 720 Balance 720 Intake: Oral 720 Other: Voiding Method Toilet External Catheter # Voids 2 Results CBC & Chem 7: 10/17/20 16:37 10/17/20 16:37 Labs: Abnormal Lab Results - Last 24 Hours (Table) 10/17/20 10/17/20 10/18/20 Range/Units 16:37 16:37 13:44 PT 21.8 H 25.0 H (9.0-12.0) sec INR 2.2 H 2.6 H (<1.2) APTT 38.2 H (22.0-30.0) sec Urine Protein Trace H (Negative) Urine Ketones 1+ H (Negative) Thrombosis Risk Factor Assmnt - Choose All That Apply Each Risk Factor Represents 3 Points: Age 75 years or older Thrombosis Risk Factor Assessment Total Risk Factor Score: 3 Thrombosis Risk Factor Assessment Level: Moderate Risk
--- NOTE | 2020-10-18 17:43 | CONS ---
CONSULTATION REASON FOR CONSULTATION: Right lower extremity cellulitis. HISTORY OF PRESENT ILLNESS: The patient is an 80-year-old female who is status post right lower extremity percutaneous intervention. The patient mentioned she has been admitted to the hospital after the procedure was done as she was noticed to have significant swelling of the leg and has been treated with IV antibiotic therapy. Patient subsequently discharged to [facility] on the [place] and then discharged home. The patient presented back to the hospital yesterday for evaluation of increasing pain and swelling of the right lower extremity. The patient is complaining of pain to the leg to be more of a dull aching to throbbing. It is worse with walking. Patient did have some swelling in the rest of the leg and thigh area. Patient did have some chills, however, did not take her temperature. On presentation to the hospital the patient had a fever of 99.9 degrees Fahrenheit. The patient was not tachycardic and did have a normal white count. INR was 2.2. Kidney function was normal. Urine was negative. Patient did have a right lower extremity venous Doppler that has been negative for DVT. Patient will be treated with cefazolin. Infectious Disease was consulted for further management of antibiotic therapy. REVIEW OF SYSTEMS: Positive points have been mentioned in HPI. Rest of the systems are negative. MEDICAL HISTORY: Coronary artery disease, hyperlipidemia, hypertension, peripheral arterial disease, osteoarthritis. PAST SURGICAL HISTORY: Reviewed, percutaneous intervention to right leg, PTCA with stenting. SOCIAL HISTORY: The patient did have a history of smoking quite a few years ago. Rarely drinks. No drug use. FAMILY HISTORY: Father with history of dementia, history of CHF. ALLERGIES: No known drug allergies. MEDICATIONS: The patient is currently on [place], Norvasc, aspirin, Lipitor, cefazolin 1 g daily, Lanoxin, melatonin, Narcan, Coumadin. EXAMINATION: Her blood pressure is 126/48, pulse 58, temperature 98.4. General description is an elderly female lying in in no distress. No tachypnea or accessory muscles of respiration use. HEENT examination shows no pallor or scleral icterus. Oral mucous membrane is dry. Neck trachea central no thyromegaly. Lungs unlabored breathing. Clear to auscultation anteriorly. No wheeze or crackle. Heart S1, S2. Regular rate and rhythm. Abdomen soft no tenderness no rigidity. Extremities right leg did have swelling, minimal redness and warmth. No open wound or any drainage. Neurological patient is awake, alert, oriented x3 affect normal. LABS: Hemoglobin is 11.8, white count 8.6, BUN of 25, creatinine 0.95, INR 2.6. Electrolytes have been normal. DIAGNOSTIC IMPRESSION AND PLAN: Patient with acute right lower extremity pain in this patient apparently did recent intervention to the right leg percutaneous with symptoms starting after that. The patient did have minimal swelling with minimal redness and minimal warmth with concern for possible cellulitis failing outpatient antibiotic therapy. With diffuse tenderness could be more likely streptococcal disease. PLAN: 1. We will adjust the dose of cefazolin 2 grams every 8 hours. 2. Ryley the area of redness. 3. Keep the leg elevated. 4. We will follow along on clinical condition to further adjust medication if needed. Thank you for this consultation. FABIENNE / DELON: [id number] /
[2020-10-18] MEDS: WARFARIN 5 MG TAB PO SCH (18:07)
[2020-10-18] MEDS: ATORVASTATIN 40 MG TAB PO SCH (19:39)
[2020-10-19] MEDS: amLODIPine 10 MG TAB PO SCH (08:03)
[2020-10-19] MEDS: ASPIRIN 81 MG PO SCH (08:03)
[2020-10-19] MEDS: CALCIUM CARBONATE 500 MG CHEWABLE PO SCH (08:03)
[2020-10-19] MEDS: DIGOXIN 125 MCG TAB PO SCH (08:04)
[2020-10-19] MEDS ORDERED: FAMOTIDINE 20 MG TAB PO SCH (09:00)
--- NOTE | 2020-10-19 09:43 | XR ---
EXAMINATION TYPE: XR ankle complete RT DATE OF EXAM: 10/19/2020 COMPARISON: NONE HISTORY: Pain FINDINGS: Three views of the ankle demonstrate the ankle mortise to be intact and symmetric. The joint spaces are preserved. The osseous structures are intact. Tiny calcaneal spurs noted. Vascular calcification s noted. IMPRESSION: 1. No definite acute fracture or dislocation, if symptoms persist follow-up study in 7 to 10 days wou ld be suggested.
--- NOTE | 2020-10-19 09:58 | XR ---
EXAMINATION TYPE: XR foot complete RT DATE OF EXAM: 10/19/2020 COMPARISON: NONE HISTORY: Pain TECHNIQUE: Three views are submitted. FINDINGS: The osseous structures are intact. There is no acute fracture or dislocation. Severe arthropathy a nd hypertrophic change of the first MTP. Nonspecific sclerosis of the distal phalanx first digit. Vas cular calcifications noted. Calcaneal spurs noted. IMPRESSION: 1. No acute fracture or dislocation. If symptoms persist, follow-up exam in 7 to 10 days could be ob tained. 2. Severe hypertrophic arthropathy first MTP joint.
[2020-10-19] MEDS ORDERED: KETOROLAC 15 MG/ML 1 ML VIAL IVP PRN (10:01)
[2020-10-19] MEDS: DOCUSATE 100 MG CAP PO SCH (10:22)
[2020-10-19 10:45] LABS: INR 2.49 (0.90-1.11); Prothrombin Time 25.6 sec (9.9-11.9)
--- NOTE | 2020-10-19 13:31 | P.PN ---
Subjective This is a pleasant 80-year-old female past medical history significant for chronic persistent atrial fibrillation on Coumadin, hypertension, hyperlip idemia, coronary artery disease status post PCI to RCA in 2007, peripheral artery disease. She follows in the office with Dr. Graves. Patient was found to have critical stenosis of the right superior threshold femoral artery. She was scheduled for an atherectomy and possible angioplasty. Patient underwent atherectomy of the right SFA and successful balloon angioplasty was performed on the right SFA and successful balloon angioplasty of the right posterior tibial artery on 09/27/2020 from right pedal approach. The procedure was uneventful without any complication the patient was discharged home in stable medical condition. 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 She presented back to the hospital and was admitted on 09/29/2020-10/04/20 due to right foot discomfort and cellulitis, she tried some [id number] medication without any improvement in pain. She also was found to have what seemed to be possibly right lower extremity cellulitis, with. Mattress with skin changes consistent of redness on the right lower extremity. There was no concern for acute limb ischemia at that time. She was started on IV Cefazolin and there was improvement. Orthopedics was consulted, with no intervention and recommended follow-up with orthopedics as an outpatient. Patient was discharged on Keflex 500 mg every 8 hours for 3 days. Patient presents to the hospital again with worsening right lower extremity redness and swelling. She states that this has not improved. She states that she had 105 fever at home. He also had symptoms of chills. She denies chest pain, shortness of breath, lightheadedness, dizziness, syncope. On exam, she does have redness and swelling to the right lower extremity. 2+ good pulses.Venous Doppler negative for DVT bilaterally. 10/19/2020 Patient seen and examined at bedside, no acute distress. She continues to have significant right foot and ankle pain. Blood pressure 130/60, heart rate 65, temperature 99.4, maintaining oxygen saturation is 96% on room air. Laboratory data reviewed, pending today. Blood cultures are negative growth to date. INR 2.4. Patient was started on IV cefazolin. Currently being maintained on amlodipine 10 mg daily, aspirin 1 mg daily, atorvastatin 40 mg nightly, digoxin 125mcg daily, PO Warfarin. PHYSICAL EXAMINATION CONSTITUTIONAL: No apparent distress. HEENT: Neck supple CHEST EXAMINATION: Lungs are clear to auscultation. No chest wall tenderness is noted on palpation or with deep breathing. HEART EXAMINATION: Regular rate and rhythm. S1, S2 heard. Systolic murmur ABDOMEN: Soft, nontender. Positive bowel sounds. EXTREMITIES: 2+ peripheral pulses, 1+ right lower extremity swelling. Red erythema to the right lower ankle and calf/anaya, painful with movement. NEUROLOGIC EXAMINATION: Patient is awake, alert and oriented x3. ASSESSMENT Recurrent Right lower extremity cellulitis Fever- reported 105 at home per patient Peripheral artery disease status post atherectomy and angioplasty of the right SFA on 09/27/2020 Chronic persistent atrial fibrillation on Coumadin Hypertension Hyperlipidemia Coronary artery disease status post PCI to RCA in 2007 PLAN Infectious disease following, appreciate recommendations. Continue home cardiac medications, warfarin, atorvastatin, amlodipine, digoxin Will obtain Right Foot and Ankle Xrays Consult orthopedics, appreciate recommendations Further recommendations following clinical course Nurse Practitioner note has been reviewed, I agree with a documented findings and plan of care. Patient was seen and examined. Objective - Vital Signs Vital signs: Vital Signs Temp 99.4 F 10/19/20 07:10 Pulse 65 10/19/20 07:10 Resp 16 10/19/20 07:10 BP 132/68 10/19/20 07:10 Pulse Ox 96 10/19/20 07:10 Intake & Output 10/18/20 10/19/20 10/19/20 18:59 06:59 18:59 Intake Total 720 Output Total 1 302 Balance 719 -302 Intake: Oral 720 Output: Urine 300 Stool 1 2 Other: Voiding Method Toilet Toilet External Catheter External Catheter # Voids 2 1 # Bowel Movements 2 - Labs CBC & Chem 7: 10/17/20 16:37 10/17/20 16:37 Labs: Abnormal Lab Results - Last 24 Hours (Table) 10/18/20 10/19/20 Range/Units 13:44 04:36 PT 25.0 H 25.6 H (9.0-12.0) sec INR 2.6 H 2.49 H (<1.2) Microbiology - Last 24 Hours (Table) 10/17/20 19:55 Blood Culture - Preliminary Blood No Growth after 24 hours 10/17/20 19:24 Blood Culture - Preliminary Blood No Growth after 24 hours
[2020-10-19 13:54] LABS: Anion Gap 4.2 mmol/L (4.00-12.00); BUN/Creat Ratio 15.56 Ratio (12.00-20.00); C Reactive Protein 17.2 mg/dL (0.0-0.8); Calcium 8.8 mg/dL (8.7-10.3); Carbon Dioxide 27.8 mmol/L (21.6-31.8); Non-African American GFR(CKD) 59.5 (60.0-200.0); Potassium 4.6 mmol/L (3.5-5.5)
--- NOTE | 2020-10-19 14:27 | PN ---
PROGRESS NOTE DATE OF SERVICE: 10/19/2020 REASON FOR FOLLOW UP: Right lower extremity cellulitis. INTERVAL HISTORY: The patient is afebrile. The patient is breathing comfortably. Denies any chest pain, shortness of breath or cough. No abdominal pain. Still complaining of pain mostly on walking. Currently no open wound or any drainage. PHYSICAL EXAMINATION: Blood pressure 132/68 with a pulse of 65, temperature 99.4. She is 96% on 2 L nasal cannula. General description is an elderly female lying in bed in no distress. Respiratory system: Unlabored breathing, clear to auscultation anteriorly. Heart S1, S2. Regular rate and rhythm. Abdomen soft, no tenderness. Right leg with minimal swelling slightly warm. No open wound or any drainage. LABS: INR is 2.49. Blood cultures have been negative. DIAGNOSTIC IMPRESSION AND PLAN: Patient with right leg pain and swelling with concern for cellulitis. Very minimal swelling has been noticed and minimal warmth and advised compression socks to keep the swelling down that will help with her symptoms. Continue cefazolin, to finish therapy with oral Keflex. Continue supportive care. MMODL / IJN: [id number] /
--- NOTE | 2020-10-19 15:39 | P.PN ---
Subjective Patient is a pleasant 80-year-old female was recently discharged from my service to subacute rehabilitation after she was treated for possible inflammatory arthritis of the right knee along with cellulitis of the right lower extremity at that time Doppler of the right lower extremity is negative was negative for DVT. Patient had another Doppler today of bilateral lower extremities which was negative for DVT again. Patient was treated with the ceftezolin for 4 days followed by 3 more days of Keflex needed patient's symptoms improved following her discharge and then patient was discharged from the subacute rehabitation after which patient started having worsening redness and swelling of the right lower extremity. Earlier this month the patient had an enterotomy for right superficial femoral artery with successful balloon angioplasty on the right superficial femoral artery and right posterior tibial artery from right pedal approach. After that patient had couple admissions with concerns of cellulitis. Infectious disease was consulted and patient remains on Cefazolin. 10/19/2020 Patient had a near total resolution of her cellulitis in the right lower extremity with the present antibiotics with although patient is still complai demond of severe pain and unable to bear weight on that because of which, I'm unable to discharge the patient as we cannot find the placement today. Patient had an x-ray of the right foot and right ankle which were severe hypertrophic arthropathy of first metatarsophalangeal joint but her symptoms are in the right ankle. Orthopedic surgery was consulted by cardiology. PHYSICAL EXAMINATION: GENERAL: The patient is alert and oriented x3, not in any acute distress. Well developed, well nourished. HEENT: Pupils are round and equally reacting to light. EOMI. No scleral icterus. No conjunctival pallor. Normocephalic, atraumatic. No pharyngeal erythema. No thyromegaly. CARDIOVASCULAR: S1 and S2 present. No murmurs, rubs, or gallops. PULMONARY: Chest is clear to auscultation, no wheezing or crackles. ABDOMEN: Soft, nontender, nondistended, normoactive bowel sounds. No palpable organomegaly. MUSCULOSKELETAL: No joint swelling or deformity. EXTREMITIES: No cyanosis, clubbing, or pedal edema. NEUROLOGICAL: Gross neurological examination did not reveal any focal deficits. SKIN: Near total resolution of right lower extremity cellulitis Assessment and plan -Recurrent right lower extremity cellulitis patient never had history of MRSA it appears patient starts getting cellulitis once she is done with antibiotics. Patient was also treated for inflammatory arthritis of the right ankle. Significant improvement in cellulitis with above-mentioned antibiotics. -Inflammatory arthritis of the right ankle -Sepsis secondary to cellulitis as mentioned above -Peripheral artery disease with recent angioplasty as mentioned above -chronic persistent atrial fibrillation patient has valvular A. fib for which patient is on Coumadin patient had a bioprosthetic aortic valve replacement pat ient remains on Coumadin therapy can Coumadin and Coumadin will be continued at this time. -Hypertension -Hyperlipidemia and a stent-coronary artery disease with history of stenting in the past DVT prophylaxis: Coumadin as mentioned above Objective - Vital Signs Vital signs: Vital Signs Temp 99.4 F 10/19/20 14:41 Pulse 56 L 10/19/20 14:41 Resp 17 10/19/20 14:41 BP 121/62 10/19/20 14:41 Pulse Ox 98 10/19/20 14:41 Intake & Output 10/18/20 10/19/20 10/19/20 18:59 06:59 18:59 Intake Total 720 Output Total 1 302 875 Balance 299 302 875 Intake: Oral 720 Output: Urine 300 875 Stool 1 2 Other: Voiding Method Toilet Toilet External Catheter External Catheter # Voids 2 1 # Bowel Movements 2 0 - Labs CBC & Chem 7: 10/17/20 16:37 10/19/20 04:36 Labs: Abnormal Lab Results - Last 24 Hours (Table) 10/19/20 10/19/20 10/19/20 Range/Units 04:36 04:36 04:36 ESR 56 H (0-30) mm/Hr PT 25.6 H (9.9-11.9) sec INR 2.49 H (0.90-1.11) Est GFR (CKD-EPI)NonAf 59.5 L (60.0-200.0) Glucose 127 H (70-110) mg/dL C-Reactive Protein 17.2 H (0.0-0.8) mg/dL Microbiology - Last 24 Hours (Table) 10/17/20 19:55 Blood Culture - Preliminary Blood No Growth after 24 hours 10/17/20 19:24 Blood Culture - Preliminary Blood No Growth after 24 hours
[2020-10-19] MEDS: WARFARIN 5 MG TAB PO SCH (17:29)
[2020-10-19] MEDS: MELATONIN 5 MG TABLET PO PRN (20:17)
[2020-10-19] MEDS: FAMOTIDINE 20 MG TAB PO SCH (20:17)
[2020-10-19] MEDS: HYDROcodone/APAP 7.5-325MG 1 EACH TAB PO PRN (20:17)
[2020-10-19] MEDS: ATORVASTATIN 40 MG TAB PO SCH (20:17)
[2020-10-20 09:54] LABS: INR 2.25 (0.90-1.11); Prothrombin Time 23.3 sec (9.9-11.9)
[2020-10-20] MEDS: FAMOTIDINE 20 MG TAB PO SCH ×2 (10:05→21:16)
[2020-10-20] MEDS: amLODIPine 10 MG TAB PO SCH (10:05)
[2020-10-20] MEDS: DOCUSATE 100 MG CAP PO SCH (10:05)
[2020-10-20] MEDS: HYDROcodone/APAP 7.5-325MG 1 EACH TAB PO PRN (10:05)
[2020-10-20] MEDS: ASPIRIN 81 MG PO SCH (10:05)
[2020-10-20] MEDS: DIGOXIN 125 MCG TAB PO SCH (10:05)
[2020-10-20 10:10] LABS: HCT 37.6 % (37.2-46.3); HGB 11.8 g/dL (12.0-15.0); MCH 30.2 pg (27.0-32.0); MCHC 31.4 g/dL (32.0-37.0); MCV 96.2 fL (80.0-97.0); Mean Platelet Volume 9.6 fL (9.5-12.2); Platelet Count 393 X 10*3/uL (140-440); RBC 3.91 X 10*6/uL (4.10-5.20); WBC 7.13 X 10*3/uL (4.50-10.00)
[2020-10-20 11:29] LABS: African American GFR (CKD) 79.6 (60.0-200.0); Anion Gap 10.7 mmol/L (4.00-12.00); BUN/Creat Ratio 13.75 Ratio (12.00-20.00); Calcium 8.8 mg/dL (8.7-10.3); Carbon Dioxide 26.3 mmol/L (21.6-31.8); Non-African American GFR(CKD) 68.7 (60.0-200.0); Potassium 4.4 mmol/L (3.5-5.5)
--- NOTE | 2020-10-20 12:49 | P.PN ---
Subjective This is a pleasant 80-year-old female past medical history significant for chronic persistent atrial fibrillation on Coumadin, hypertension, hyperlip idemia, coronary artery disease status post PCI to RCA in 2007, peripheral artery disease. She follows in the office with Dr. Graves. Patient was found to have critical stenosis of the right superior threshold femoral artery. She was scheduled for an atherectomy and possible angioplasty. Patient underwent atherectomy of the right SFA and successful balloon angioplasty was performed on the right SFA and successful balloon angioplasty of the right posterior tibial artery on 09/27/2020 from right pedal approach. The procedure was uneventful without any complication the patient was discharged home in stable medical condition. 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 She presented back to the hospital and was admitted on 09/29/2020-10/04/20 due to right foot discomfort and cellulitis, she tried some [id number] medication without any improvement in pain. She also was found to have what seemed to be possibly right lower extremity cellulitis, with. Mattress with skin changes consistent of redness on the right lower extremity. There was no concern for acute limb ischemia at that time. She was started on IV Cefazolin and there was improvement. Orthopedics was consulted, with no intervention and recommended follow-up with orthopedics as an outpatient. Patient was discharged on Keflex 500 mg every 8 hours for 3 days. Patient presents to the hospital again with worsening right lower extremity redness and swelling. She states that this has not improved. She states that she had 105 fever at home. He also had symptoms of chills. She denies chest pain, shortness of breath, lightheadedness, dizziness, syncope. On exam, she does have redness and swelling to the right lower extremity. 2+ good pulses.Venous Doppler negative for DVT bilaterally. 10/19/2020 Foot and Ankle Xrays- revealed no acute fracture. Foot x-ray revealed severe hypertrophic arthropathy of the first MTP joint. 10/20/2020: Patient seen and examined at bedside, no acute distress. She continues to have right foot and ankle pain, but is this improved. She states she has had difficulty walking. Blood pressure 117/65, heart rate 62, afebrile, maintaining oxygen saturations 96% on room air. Patient was started on IV cefazolin. Currently being maintained on amlodipine 10 mg daily, aspirin 1 mg daily, atorvastatin 40 mg nightly, digoxin 125mcg daily, PO Warfarin. Laboratory data reviewed WBC 7, hemoglobin 9.8, platelets 393, INR is 2.2, sodium 143, potassium 4.4, BUN 11, serum creatinine 0.8 CRP elevated at 17.2 PHYSICAL EXAMINATION CONSTITUTIONAL: No apparent distress. HEENT: Neck supple CHEST EXAMINATION: Lungs are clear to auscultation. No chest wall tenderness is noted on palpation or with deep breathing. HEART EXAMINATION: Regular rate and rhythm. S1, S2 heard. Systolic murmur ABDOMEN: Soft, nontender. Positive bowel sounds. EXTREMITIES: 2+ peripheral pulses, 1+ right lower extremity swelling. Red erythema to the right lower ankle and calf/anaya, painful with movement. NEUROLOGIC EXAMINATION: Patient is awake, alert and oriented x3. ASSESSMENT Recurrent Right lower extremity cellulitis Fever- reported 105 at home per patient Peripheral artery disease status post atherectomy and angioplasty of the right SFA on 09/27/2020 Chronic persistent atrial fibrillation on Coumadin Hypertension Hyperlipidemia Coronary artery disease status post PCI to RCA in 2007 PLAN Infectious disease following, appreciate recommendations. Continue home cardiac medications, warfarin, atorvastatin, amlodipine, digoxin Plan for Podiatry to see patient and patient potentially being discharged to Rehab From cardiology perspective, no acute intervention or new recommendations at this time. We will sign off at this time, please reach out for any further questions or concerns. Patient follow up in the office Dr. Graves Nurse Practitioner note has been reviewed, I agree with a documented findings and plan of care. Patient was seen and examined. Objective - Vital Signs Vital signs: Vital Signs Temp 98.5 F 10/20/20 07:00 Pulse 66 10/20/20 07:00 Resp 18 10/20/20 07:00 BP 150/70 10/20/20 07:00 Pulse Ox 99 10/20/20 07:00 Intake & Output 10/19/20 10/20/20 10/20/20 18:59 06:59 18:59 Output Total 875 2 Balance -875 -2 Output: Urine 875 Stool 2 Other: Voiding Method Toilet Bedside Commode External Catheter # Voids 1 # Bowel Movements 0 0 - Labs CBC & Chem 7: 10/20/20 05:58 10/20/20 05:58 Labs: Abnormal Lab Results - Last 24 Hours (Table) 10/19/20 10/19/20 10/19/20 Range/Units 04:36 04:36 04:36 ESR 56 H (0-30) mm/Hr PT 25.6 H (9.9-11.9) sec INR 2.49 H (0.90-1.11) Est GFR (CKD-EPI)NonAf 59.5 L (60.0-200.0) Glucose 127 H (70-110) mg/dL C-Reactive Protein 17.2 H (0.0-0.8) mg/dL 10/20/20 Range/Units 05:58 ESR (0-30) mm/Hr PT 23.3 H (9.9-11.9) sec INR 2.25 H (0.90-1.11) Est GFR (CKD-EPI)NonAf (60.0-200.0) Glucose (70-110) mg/dL C-Reactive Protein (0.0-0.8) mg/dL Microbiology - Last 24 Hours (Table) 10/17/20 19:55 Blood Culture - Preliminary Blood No Growth after 48 hours 10/17/20 19:24 Blood Culture - Preliminary Blood No Growth after 48 hours
--- NOTE | 2020-10-20 13:42 | P.CNOR ---
History of Present Illness - [facility] Consult date: 10/20/20 Requesting physician: Aleksandr Hernandez Consult reason: joint pain History of present illness: Subjective This is a pleasant 80-year-old female past medical history significant for chronic persistent atrial fibrillation on Coumadin, hypertension, hyperlipidemia, coronary artery disease status post PCI to RCA in 2007, peripheral artery disease. She follows in the office with Dr. Graves. Patient was found to have critical stenosis of the right superior threshold femoral artery. She was scheduled for an atherectomy and possible angioplasty. Patient underwent atherectomy of the right SFA and successful balloon angioplasty was performed on the right SFA and successful balloon angioplasty of the right posterior tibial artery on 09/27/2020 from right pedal approach. The procedure was uneventful without any complication the patient was discharged home in stable medical condition. 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 She presented back to the hospital and was admitted on 09/29/2020-10/04/20 due to right foot discomfort and cellulitis, she tried some [id number] medication without any improvement in pain. She also was found to have what seemed to be possibly right lower extremity cellulitis, with. Mattress with skin changes consistent of redness on the right lower extremity. There was no concern for acute limb ischemia at that time. She was started on IV Cefazolin and there was improvement. Orthopedics was consulted, with no intervention and recommended follow-up with orthopedics as an outpatient. Patient was discharged on Keflex 500 mg every 8 hours for 3 days. Patient presents to the hospital again with worsening right lower extremity redness and swelling. She states that this has not improved. She states that she had 105 fever at home. He also had symptoms of chills. She denies chest pain, shortness of breath, lightheadedness, dizziness, syncope. On exam, she does have redness and swelling to the right lower extremity. 2+ good pulses.Venous Doppler negative for DVT bilaterally. 10/19/2020 Foot and Ankle Xrays- revealed no acute fracture. Foot x-ray revealed severe hypertrophic arthropathy of the first MTP joint. 10/20/2020: Patient seen and examined at bedside, no acute distress. She continues to have right foot and ankle pain, but is this improved. She states she has had difficulty walking. Blood pressure 117/65, heart rate 62, afebrile, maintaining oxygen saturations 96% on room air. Patient was started on IV cefazolin. Currently being maintained on amlodipine 10 mg daily, aspirin 1 mg daily, atorvastatin 40 mg nightly, digoxin 125mcg daily, PO Warfarin. Laboratory data reviewed WBC 7, hemoglobin 9.8, platelets 393, INR is 2.2, sodium 143, potassium 4.4, BUN 11, serum creatinine 0.8 CRP elevated at 17.2 10/20/20: Orthopedics: Patient's main complaint is pain around the lower leg just proximal to the ankle. This is where she had experienced severe redness and swelling prior to admission. Likely related to cellulitis. Her symptoms are improving as is her pain. Review of Systems Constitutional: Reports as per HPI Past Medical History Past Medical History: No Reported History, Coronary Artery Disease (CAD), Hyperlipidemia, Hypertension, Musculoskeletal Disorder, Vascular Disorder Additional Past Medical History / Comment(s): AORTIC VALVE REPAIRED W/ COW VALVE; HEMORRHOIDS CURRENT. LEGS GET TIRED, HEAVY WHEN WALKING, OCC EDEMA LT ANKLE, urinary incontinence, probable covid 2019, fully vaccinated for covid now History of Any Multi-Drug Resistant Organisms: None Reported Past Surgical History: Cardiac Valve Replacement, Heart Catheterization With Stent Additional Past Surgical History / Comment(s): FACELIFT. AORTIC VALVE REPLACED- COW VALVE, 06/2010, left leg balloon angioplasty, cataracts removed Past Anesthesia/Blood Transfusion Reactions: Motion Sickness Additional Past Anesthesia/Blood Transfusion Reaction / Comm: MOTION SICK MANY YEARS AGO Date of Last Stent Placement:: 04/2007 Past Psychological History: No Psychological Hx Reported Smoking Status: Former smoker Past Alcohol Use History: Occasional Additional Past Alcohol Use History / Comment(s): SMOKED AGE 16, 1 PPD OR LESS, QUIT 1994 EST. WINE AND/OR BEER, 1/2-1 GLASS 5X WK AVG Past Drug Use History: None Reported - Past Family History Mother Family Medical History: Dementia Father Family Medical History: Congestive Heart Failure (CHF), Hypertension Medications and Allergies Home Medications Medication Instructions Recorded Confirmed Type Aspirin [Adult Low Dose Aspirin EC] 81 mg PO DAILY 03/17/18 10/17/20 History Atorvastatin [Lipitor] 40 mg PO HS 03/17/18 10/17/20 History Ascorbic Acid [Vitamin C] 500 mg PO Q48H 05/19/18 10/17/20 History Turmeric Root Extract [Turmeric] 500 mg PO Q48H 05/19/18 10/17/20 History Multivitamins, Thera [Multivitamin 1 tab PO Q48H 04/19/19 10/17/20 History (formulary)] amLODIPine [Norvasc] 10 mg PO DAILY tab 04/27/19 10/17/20 Rx Digoxin [Lanoxin] 125 mcg PO DAILY 09/01/20 10/17/20 History Melatonin 2.5 - 5 mg PO HS PRN 09/01/20 10/17/20 History Calcium Carbonate [Calcium] 600 mg PO Q48H 09/29/20 10/17/20 History Ubidecarenone [Co Q-10] 100 mg PO Q48H 09/29/20 10/17/20 History Famotidine [Pepcid] 20 mg PO BID #20 tablet 10/04/20 10/17/20 Rx Cholecalciferol (Vitamin D3) 75 mcg PO DAILY 10/17/20 10/17/20 History [Vitamin D3 (3000 Iu)] Warfarin [Coumadin] 5 mg PO HS 10/17/20 10/17/20 History Cephalexin [Keflex] 500 mg PO Q8HR 7 Days #9 cap 10/20/20 10/17/20 Rx Famotidine [Pepcid] 20 mg PO BID #30 tablet 10/20/20 Rx Meloxicam [Mobic] 15 mg PO DAILY #10 tab 10/20/20 Rx Allergies Allergy/AdvReac Type Severity Reaction Status Date / Time No Known Allergies Allergy Verified 10/17/20 19:16 Physical Examination Osteopathic Statement: *. No significant issues noted on an osteopathic structural exam other than those noted in the History and Physical/Consult. - Ankle & Foot right Ankle appearance: swelling Foot appearance: normal Tenderness with palpation: posteromedial ankle, posterior ankle, posterolateral ankle, lateral ankle, anterolateral ankle Ankle pain worse with weight bearing: Yes Ankle pain relieved by non-weight bearing: Yes Foot pain worse with weight bearing: Yes Foot pain relieved by non-weight bearing: Yes Ankle alignment: normal Foot alignment: normal ROM: first MTP joint flexion: normal ROM: first MTP joint extension: normal Crepitus with motion: No Strength: dorsiflexion: 4/5 Strength: plantarflexion: 4/5 Strength: inversion: 4/5 Strength: eversion: 4/5 Results - Labs Labs: Abnormal Lab Results - Last 24 Hours (Table) 10/19/20 10/19/20 10/20/20 Range/Units 04:36 04:36 05:58 RBC 3.91 L (4.10-5.20) X 10*6/uL Hgb 11.8 L (12.0-15.0) g/dL MCHC 31.4 L (32.0-37.0) g/dL ESR 56 H (0-30) mm/Hr PT (9.9-11.9) sec INR (0.90-1.11) Est GFR (CKD-EPI)NonAf 59.5 L (60.0-200.0) Glucose 127 H (70-110) mg/dL C-Reactive Protein 17.2 H (0.0-0.8) mg/dL 10/20/20 10/20/20 Range/Units 05:58 05:58 RBC (4.10-5.20) X 10*6/uL Hgb (12.0-15.0) g/dL MCHC (32.0-37.0) g/dL ESR (0-30) mm/Hr PT 23.3 H (9.9-11.9) sec INR 2.25 H (0.90-1.11) Est GFR (CKD-EPI)NonAf (60.0-200.0) Glucose 111 H (70-110) mg/dL C-Reactive Protein (0.0-0.8) mg/dL Microbiology - Last 24 Hours (Table) 10/17/20 19:55 Blood Culture - Preliminary Blood No Growth after 48 hours 10/17/20 19:24 Blood Culture - Preliminary Blood No Growth after 48 hours H & H 10/17/20 10/20/20 Range/Units 16:37 05:58 Hgb 11.8 11.8 L (11.4-16.0) gm/dL Hct 35.7 37.6 (34.0-46.0) % Coagulation 10/17/20 10/18/20 10/19/20 Range/Units 16:37 13:44 04:36 INR 2.2 H 2.6 H 2.49 H (<1.2) 10/20/20 Range/Units 05:58 INR 2.25 H (<1.2) Result Diagrams: 10/20/20 05:58 10/20/20 05:58 - Diagnostic results Ankle/Foot x-ray: report reviewed, other (X-ray images were reviewed. The reported indicated severe hypertrophic arthropathy of the first metatarsal phalangeal joint. Upon my review there is very little to no degenerative changes the first metatarsal phalangeal joint. However there is some degeneration of the medial sesamoid.) Assessment and Plan Assessment: Right ankle and foot pain Plan: As reviewing the x-ray findings and performing the physical exam, my opinion that this tendon orthopedic issue. Her pain seems related directly to the development of the cellulitis in the right lower extremity with likely concomitant lymphangitis and phlebitis. Patient continues to improve on antibiotics. No orthopedic intervention is necessary
--- NOTE | 2020-10-20 15:06 | PN ---
PROGRESS NOTE DATE OF SERVICE: 10/20/2020 REASON FOR FOLLOWUP: Right lower extremity cellulitis. INTERVAL HISTORY: The patient is afebrile. The patient is breathing comfortably. Patient denies any chest pain, shortness of breath, abdominal pain. Overall pain and discomfort to the right leg has slightly decreased. PHYSICAL EXAMINATION: Blood pressure 150/70 with a pulse of 66, temperature 98.5, he is 99% on room air. General description is an elderly female lying in bed in no distress. Respiratory system: Unlabored breathing, clear to auscultation anteriorly. Heart S1, S2. Regular rate and rhythm. Abdomen is soft, no tenderness. Right leg swelling and redness has improved. LABS: Hemoglobin is 11.1, white count 7.13. BUN of 11, creatinine 0.8. IMPRESSION/PLAN: Acute right lower extremity cellulitis. Overall clinical improvement on cefazolin. Finish therapy with oral Keflex and close outpatient followup. MMODL / IJN: [id number] /
[2020-10-20] MEDS: WARFARIN 5 MG TAB PO SCH (17:51)
[2020-10-20] MEDS ORDERED: MAGNESIUM HYDROXIDE 2,400 MG/10 ML CUP PO PRN (17:57)
[2020-10-20] MEDS: MELATONIN 5 MG TABLET PO PRN (21:16)
[2020-10-20] MEDS: ATORVASTATIN 40 MG TAB PO SCH (21:16)
[2020-10-21 06:48] LABS: INR 2.5 (<1.2); Prothrombin Time 24.2 sec (9.0-12.0)
[2020-10-21 07:59] VITALS: BP 141/62; PULSE 59; RESP 17; TEMP 98.6
[2020-10-21] MEDS: CALCIUM CARBONATE 500 MG CHEWABLE PO SCH (08:37)
[2020-10-21] MEDS: ASPIRIN 81 MG PO SCH (08:37)
[2020-10-21] MEDS: DOCUSATE 100 MG CAP PO SCH (08:37)
[2020-10-21] MEDS: DIGOXIN 125 MCG TAB PO SCH (08:37)
[2020-10-21] MEDS: FAMOTIDINE 20 MG TAB PO SCH (08:37)
[2020-10-21] MEDS: amLODIPine 10 MG TAB PO SCH (08:37)
--- NOTE | 2020-10-21 13:42 | P.DS ---
Providers Date of admission: 10/17/20 19:25 Attending physician: Pham Dyson Consults: 10/17/20 19:25 Consult Physician Routine Consulting Provider: Finn Márquez Consult Reason/Comments: recurent infection after PAD procedure Do you want consulting provider notified?: Yes Consult Physician Urgent Consulting Provider: Mahendra Jessica Consult Reason/Comments: recurrent cellulitis after arterial stenting in RLE Do you want consulting provider notified?: Yes 10/19/20 15:36 Consult Physician Routine Consulting Provider: Adrian Allen Consult Reason/Comments: severe hypertrophic arthropathy on foot xray, severe pain Do you want consulting provider notified?: Yes Primary care physician: [facility] Course: Patient is a pleasant 80-year-old female was recently discharged from my service to subacute rehabilitation after she was treated for possible inflammatory arthritis of the right knee along with cellulitis of the right lower extremity at that time Doppler of the right lower extremity is negative was negative for DVT. Patient had another Doppler today of bilateral lower extremities which was negative for DVT again. Patient was treated with the ceftezolin for 4 days followed by 3 more days of Keflex needed patient's symptoms improved following her discharge and then patient was discharged from the subacute rehabitation after which patient started having worsening redness and swelling of the right lower extremity. Earlier this month the patient had an enterotomy for right superficial femoral artery with successful balloon angioplasty on the right superficial femoral artery and right posterior tibial artery from right pedal approach. After that patient had couple admissions with concerns of cellulitis. Infectious disease was consulted and patient remains on Cefazolin. 10/19/2020 Patient had a near total resolution of her cellulitis in the right lower extremity with the present antibiotics with although patient is still complaining of severe pain and unable to bear weight on that because of which, I'm unable to discharge the patient as we cannot find the placement today. Patient had an x-ray of the right foot and right ankle which were severe hypertr ophic arthropathy of first metatarsophalangeal joint but her symptoms are in the right ankle. Orthopedic surgery was consulted by cardiology. 10/20/2020 Patient was evaluated by all the prick surgery did not want any surgical intervention for right foot. Patient is awaiting disposition discharged to subacute rehabilitation awaiting prior authorization. 10/21/2020 patient is complaining of for pain and swelling in the left knee for which she'll continue anti-inflammatory medications PHYSICAL EXAMINATION: GENERAL: The patient is alert and oriented x3, not in any acute distress. Well developed, well nourished. HEENT: Pupils are round and equally reacting to light. EOMI. No scleral icterus. No conjunctival pallor. Normocephalic, atraumatic. No pharyngeal erythema. No thyromegaly. CARDIOVASCULAR: S1 and S2 present. No murmurs, rubs, or gallops. PULMONARY: Chest is clear to auscultation, no wheezing or crackles. ABDOMEN: Soft, nontender, nondistended, normoactive bowel sounds. No palpable organomegaly. MUSCULOSKELETAL: No joint swelling or deformity. EXTREMITIES: No cyanosis, clubbing, or pedal edema. NEUROLOGICAL: Gross neurological examination did not reveal any focal deficits. SKIN: Near total resolution of right lower extremity cellulitis Assessment and plan -Recurrent right lower extremity cellulitis patient never had history of MRSA it appears patient starts getting cellulitis once she is done with antibiotics. Patient was also treated for inflammatory arthritis of the right ankle. Significant improvement in cellulitis patient will be discharged on Keflex -Inflammatory arthritis of the right ankle, patient will be discharged on anti- inflammatory medications -Sepsis secondary to cellulitis as mentioned above -Peripheral artery disease with recent angioplasty as mentioned above -chronic persistent atrial fibrillation patient has valvular A. fib for which patient is on Coumadin patient had a bioprosthetic aortic valve replacement patient remains on Coumadin therapy can Coumadin and Coumadin will be continued at this time. -Hypertension -Hyperlipidemia -coronary artery disease with history of stenting in the past Patient Condition at Discharge: Stable Plan - Discharge Summary Discharge Rx Participant: No New Discharge Prescriptions: New Meloxicam [Mobic] 15 mg PO DAILY #10 tab Famotidine [Pepcid] 20 mg PO BID #30 tablet Continue Atorvastatin [Lipitor] 40 mg PO HS Aspirin [Adult Low Dose Aspirin EC] 81 mg PO DAILY Ascorbic Acid [Vitamin C] 500 mg PO Q48H Turmeric Root Extract [Turmeric] 500 mg PO Q48H Multivitamins, Thera [Multivitamin (formulary)] 1 tab PO Q48H amLODIPine [Norvasc] 10 mg PO DAILY tab Ubidecarenone [Co Q-10] 100 mg PO Q48H Digoxin [Lanoxin] 125 mcg PO DAILY Melatonin 2.5 - 5 mg PO HS PRN PRN Reason: Insomnia Calcium Carbonate [Calcium] 600 mg PO Q48H Famotidine [Pepcid] 20 mg PO BID #20 tablet Warfarin [Coumadin] 5 mg PO HS Cholecalciferol (Vitamin D3) [Vitamin D3 (3000 Iu)] 75 mcg PO DAILY Cephalexin [Keflex] 500 mg PO Q8HR 7 Days #9 cap Discharge Medication List Aspirin [Adult Low Dose Aspirin EC] 81 mg PO DAILY 03/17/18 [History] Atorvastatin [Lipitor] 40 mg PO HS 03/17/18 [History] Ascorbic Acid [Vitamin C] 500 mg PO Q48H 05/19/18 [History] Turmeric Root Extract [Turmeric] 500 mg PO Q48H 05/19/18 [History] Multivitamins, Thera [Multivitamin (formulary)] 1 tab PO Q48H 04/19/19 [History] amLODIPine [Norvasc] 10 mg PO DAILY tab 04/27/19 [Rx] Digoxin [Lanoxin] 125 mcg PO DAILY 09/01/20 [History] Melatonin 2.5 - 5 mg PO HS PRN 09/01/20 [History] Calcium Carbonate [Calcium] 600 mg PO Q48H 09/29/20 [History] Ubidecarenone [Co Q-10] 100 mg PO Q48H 09/29/20 [History] Famotidine [Pepcid] 20 mg PO BID #20 tablet 10/04/20 [Rx] Cholecalciferol (Vitamin D3) [Vitamin D3 (3000 Iu)] 75 mcg PO DAILY 10/17/20 [History] Warfarin [Coumadin] 5 mg PO HS 10/17/20 [History] Cephalexin [Keflex] 500 mg PO Q8HR 7 Days #9 cap 10/20/20 [Rx] Famotidine [Pepcid] 20 mg PO BID #30 tablet 10/20/20 [Rx] Meloxicam [Mobic] 15 mg PO DAILY #10 tab 10/20/20 [Rx] Follow up Appointment(s)/Referral(s): Ck Hernandez MD [STAFF PHYSICIAN] - 3 Days Adrian Allen DPM [Doctor of Osteopathic Medicine] - 1 Week Roshan Graves MD [Family Provider] - 2 Weeks Discharge Disposition: HOME WITH HOSPICE
[2020-10-21] MEDS: HYDROcodone/APAP 7.5-325MG 1 EACH TAB PO PRN (14:13)
--- NOTE | 2020-10-21 14:54 | PN ---
PROGRESS NOTE DATE OF SERVICE: 10/21/2020 REASON FOR FOLLOWUP: Right lower extremity cellulitis. INTERVAL HISTORY: The patient are afebrile. The patient is breathing comfortably. Denies having any chest pain, shortness of breath or cough. No abdominal pain or any worsening pain to the right leg. PHYSICAL EXAMINATION: Blood pressure 141/62 with a pulse of 59, temperature 98.3, she is 95% on room air. General description is an elderly female lying in bed in no distress. Respiratory system: Unlabored breathing, clear to auscultation anteriorly. Heart S1, S2. Regular rate and rhythm. Abdomen is soft, no tenderness. Right leg swelling has improved. LABS: INR is 2.5. No CBC was done today. DIAGNOSTIC IMPRESSION AND PLAN: Patient with right lower extremity cellulitis with overall improvement on cefazolin. Finish therapy with oral Keflex for a week along with Checo wrap to the leg to keep the swelling down and close outpatient followup. MMODL / IJN: [id number] /
== END 2020-10-21 14:52 | DRG 872 ==
LOC: EC 15:49 → OBSVTOIN 19:25 → 6NMEDSUR 19:25
PROVIDERS: ADMIT Hospitalist; ATTEND Hospitalist
DX: A41.9 Sepsis, unspecified organism (principal); L03.115 Cellulitis of right lower limb; I48.19 Other persistent atrial fibrillation; E78.5 Hyperlipidemia, unspecified; I10 Essential (primary) hypertension; I25.10 Atherosclerotic heart disease of native coronary artery without angina pectoris; I73.9 Peripheral vascular disease, unspecified; M06.4 Inflammatory polyarthropathy; M19.071 Primary osteoarthritis, right ankle and foot; Z91.81 History of falling; Z86.16 Personal history of COVID-19; Z20.822 Contact with and (suspected) exposure to COVID-19; Z79.01 Long term (current) use of anticoagulants; Z79.1 Long term (current) use of non-steroidal anti-inflammatories (NSAID); Z79.82 Long term (current) use of aspirin; Z79.899 Other long term (current) drug therapy; Z82.49 Family history of ischemic heart disease and other diseases of the circulatory system; Z87.891 Personal history of nicotine dependence; Z95.3 Presence of xenogenic heart valve; Z95.5 Presence of coronary angioplasty implant and graft; Z82.0 Family history of epilepsy and other diseases of the nervous system; Z98.890 Other specified postprocedural states; Z75.1 Person awaiting admission to adequate facility elsewhere
CPT/HCPCS: 36415; 80048; 80053; 81003; 85025; 85027; 85610; 85652; 85730; 86140; 87040; 87635; 93970; 96360; 96361; 99285

== ENCOUNTER 2021-07-28 13:45 | Observation (INO) | payer MEDICARE, OTHER ==
[2021-07-28 15:17] LABS: Basophils # (A) 0.1 k/uL (0-0.2); Basophils % (A) 1 %; Eosinophils % (A) 0 %; HCT 44.9 % (34.0-46.0); HGB 14.4 gm/dL (11.4-16.0); Lymphocytes # (A) 0.6 k/uL (1.0-4.8); Lymphocytes % (A) 10 %; MCH 30.6 pg (25.0-35.0); MCHC 32.1 g/dL (31.0-37.0); MCV 95.4 fL (80.0-100.0); Mean Platelet Volume 7.1; Monocytes # (A) 0.4 k/uL (0-1.0); Monocytes % (A) 7 %; Neutrophils # (A) 4.8 k/uL (1.3-7.7); Neutrophils % (A) 78 %; Platelet Count 283 k/uL (150-450); RBC 4.71 m/uL (3.80-5.40); WBC 6.2 k/uL (3.8-10.6)
[2021-07-28 15:28] LABS: Albumin 4.2 g/dL (3.5-5.0); Magnesium 2.1 mg/dL (1.6-2.3); Potassium 4.2 mmol/L (3.5-5.1); Total Bilirubin 0.9 mg/dL (0.2-1.3); Total Protein 7.2 g/dL (6.3-8.2)
[2021-07-28 15:31] LABS: INR 2.3 (<1.2); Partial Thromboplastin Time 32.9 sec (22.0-30.0); Prothrombin Time 22.6 sec (9.0-12.0)
--- NOTE | 2021-07-28 15:40 | XR ---
EXAMINATION TYPE: XR chest 2V DATE OF EXAM: 07/28/2021 COMPARISON: 04/23/2019 HISTORY: Chest pain TECHNIQUE: 2 views FINDINGS: Heart is normal. Lungs are clear of consolidation. There are sternal wires. There are no hi lar masses. Costophrenic angles are clear. There is cardiac valve surgery. IMPRESSION: No active cardiopulmonary disease. There is clearing of the small left pleural effusion a nd pleural reaction compared to old exam.
[2021-07-28] MEDS ORDERED: ONDANSETRON 4 MG/2 ML VIAL IVP STA ×2 (16:46→18:32)
[2021-07-28] MEDS ORDERED: IPRATROPIUM-ALBUTEROL 3 ML NEB INHALATION STA (16:46)
[2021-07-28] MEDS ORDERED: ACETAMINOPHEN TAB 325 MG TAB PO STA (16:46)
--- NOTE | 2021-07-28 16:47 | ED ---
General Adult HPI - General Chief complaint: Chest Pain Stated complaint: Chest pain,SOB Time Seen by Provider: 07/28/21 14:41 Source: patient Mode of arrival: wheelchair Limitations: no limitations - History of Present Illness Initial comments: Susan is a pleasant 81-year-old female presents the ER today for evaluation of 2-3 days of fevers, chills, bodyaches, not feeling well. She reports she couldn't sleep last night because she felt like she was wheezing though she didn't feel short of breath. She's had 3 negative COVID tests at home and negative influenza test that the [facility]. Patient states she just can't eat or drink she is worried she is getting dehydrated she has a fever and just doesn't feel well at all. Patient states that she's having pain in her heart, does have a cardiac history. - Related Data Home Medications Medication Instructions Recorded Confirmed Aspirin [Adult Low Dose Aspirin EC] 81 mg PO DAILY 03/17/18 07/28/21 Atorvastatin [Lipitor] 40 mg PO HS 03/17/18 07/28/21 Turmeric Root Extract [Turmeric] 500 mg PO Q48H 05/19/18 07/28/21 Multivitamins, Thera [Multivitamin 1 tab PO Q48H 04/19/19 07/28/21 (formulary)] Digoxin [Lanoxin] 125 mcg PO DAILY 09/01/20 07/28/21 Melatonin 5 mg PO HS PRN 09/01/20 07/28/21 Ubidecarenone [Co Q-10] 100 mg PO Q48H 09/29/20 07/28/21 Warfarin [Coumadin] 5 mg PO MOTUWEFRSA@2100 10/17/20 07/28/21 Benzonatate [Tessalon Perles] 200 mg PO TID PRN 07/28/21 07/28/21 Cefuroxime Axetil [Ceftin] 500 mg PO BID 07/28/21 07/28/21 Cholecalciferol [Vitamin D3 (25 50 mcg PO TID 07/28/21 07/28/21 Mcg = 1000 Iu)] Furosemide [Lasix] 20 mg PO DAILY 07/28/21 07/28/21 Potassium Chloride [Potassium 8 meq PO Q48H 07/28/21 07/28/21 Chloride ER] Warfarin [Coumadin] 7.5 mg PO SUTH@2100 07/28/21 07/28/21 Previous Rx's Medication Instructions Recorded amLODIPine [Norvasc] 10 mg PO DAILY tab 04/27/19 Allergies Allergy/AdvReac Type Severity Reaction Status Date / Time No Known Allergies Allergy Verified 07/28/21 16:52 Review of Systems ROS Statement: Those systems with pertinent positive or pertinent negative responses have been documented in the HPI. ROS Other: All systems not noted in ROS Statement are negative. Past Medical History Past Medical History: No Reported History, Coronary Artery Disease (CAD), Hyperlipidemia, Hypertension, Musculoskeletal Disorder, Vascular Disorder Additional Past Medical History / Comment(s): AORTIC VALVE REPAIRED W/ COW VALVE; HEMORRHOIDS CURRENT. LEGS GET TIRED, HEAVY WHEN WALKING, OCC EDEMA LT ANKLE, urinary incontinence, probable covid 2019, fully vaccinated for covid now History of Any Multi-Drug Resistant Organisms: None Reported Past Surgical History: Cardiac Valve Replacement, Heart Catheterization With Stent Additional Past Surgical History / Comment(s): FACELIFT. AORTIC VALVE REPLACED- COW VALVE, 06/2010, left leg balloon angioplasty, cataracts removed Past Anesthesia/Blood Transfusion Reactions: Motion Sickness Additional Past Anesthesia/Blood Transfusion Reaction / Comment(s): MOTION SICK MANY YEARS AGO Date of Last Stent Placement:: 04/2007 Past Psychological History: No Psychological Hx Reported Smoking Status: Former smoker Past Alcohol Use History: Occasional Past Drug Use History: None Reported - Past Family History Mother Family Medical History: Dementia Father Family Medical History: Congestive Heart Failure (CHF), Hypertension General Exam - General Exam Comments Initial Comments: Physical Exam GENERAL: Ill appearing HENT: Normocephalic, Atraumatic. EYES: PERRL, EOMI PULMONARY: Unlabored respirations, wheezing is noted in the right lung alves CARDIOVASCULAR: No tachycardia ABDOMEN: Soft and nontender with normal bowel sounds. SKIN: Skin is clear with no lesions or rashes and otherwise unremarkable. : Deferred NEUROLOGIC: Patient is alert and oriented x3. Moving all extremities spontaneously MUSCULOSKELETAL: Normal extremities with adequate strength and full range of motion. No lower extremity swelling or edema. No calf tenderness. PSYCHIATRIC: Normal psychiatric evaluation. Limitations: no limitations Course Vital Signs 07/28/21 07/28/21 07/28/21 13:51 17:44 18:01 Temperature 99.9 F H Pulse Rate 68 85 85 Respiratory 20 18 18 Rate Blood Pressure 190/89 O2 Sat by Pulse 95 Oximetry 07/28/21 18:28 Temperature Pulse Rate 96 Respiratory 18 Rate Blood Pressure 146/60 O2 Sat by Pulse 93 L Oximetry EKG Findings - EKG Comments: EKG Findings:: EKG was obtained due to complaint of chest pain, EKG was obtained at 1406, rate is 87 rhythm is A. fib no acute ST elevations or depressions evidence of ischemia or infarction. Medical Decision Making - Medical Decision Making She was seen and evaluated, history is obtained from the patient, this patient is unwell-appearing 81-year-old female appears to be suffering from a viral illness, COVID and influenza are negative however giving her advanced age report of chest pain decreased oral intake and concern for developing dehydration I don't feel she is stable for discharge home. She will be admitted for further observation. - Lab Data Result diagrams: 07/28/21 14:44 07/28/21 14:44 Lab Results 07/28/21 07/28/21 07/28/21 Range/Units 14:44 14:44 14:44 WBC 6.2 (3.8-10.6) k/uL RBC 4.71 (3.80-5.40) m/uL Hgb 14.4 (11.4-16.0) gm/dL Hct 44.9 (34.0-46.0) % MCV 95.4 (80.0-100.0) fL MCH 30.6 (25.0-35.0) pg MCHC 32.1 (31.0-37.0) g/dL RDW 13.0 (11.5-15.5) % Plt Count 283 (150-450) k/uL MPV 7.1 Neutrophils % 78 % Lymphocytes % 10 % Monocytes % 7 % Eosinophils % 0 % Basophils % 1 % Neutrophils # 4.8 (1.3-7.7) k/uL Lymphocytes # 0.6 L (1.0-4.8) k/uL Monocytes # 0.4 (0-1.0) k/uL Eosinophils # 0.0 (0-0.7) k/uL Basophils # 0.1 (0-0.2) k/uL PT 22.6 H (9.0-12.0) sec INR 2.3 H (<1.2) APTT 32.9 H (22.0-30.0) sec Sodium 134 L (137-145) mmol/L Potassium 4.2 (3.5-5.1) mmol/L Chloride 100 (98-107) mmol/L Carbon Dioxide 28 (22-30) mmol/L Anion Gap 6 mmol/L BUN 17 (7-17) mg/dL Creatinine 0.95 (0.52-1.04) mg/dL Est GFR (CKD-EPI)AfAm 64 (>60 ml/min/1.73 sqM) Est GFR (CKD-EPI)NonAf 56 (>60 ml/min/1.73 sqM) Glucose 121 H (74-99) mg/dL Calcium 9.0 (8.4-10.2) mg/dL Magnesium 2.1 (1.6-2.3) mg/dL Total Bilirubin 0.9 (0.2-1.3) mg/dL AST 35 (14-36) U/L ALT 23 (4-34) U/L Alkaline Phosphatase 98 (38-126) U/L Troponin I (0.000-0.034) ng/mL Total Protein 7.2 (6.3-8.2) g/dL Albumin 4.2 (3.5-5.0) g/dL Coronavirus (PCR) (Not Detectd) Influenza Type A RNA (Not Detectd) Influenza Type B (PCR) (Not Detectd) 07/28/21 07/28/21 07/28/21 Range/Units 14:44 14:58 14:58 WBC (3.8-10.6) k/uL RBC (3.80-5.40) m/uL Hgb (11.4-16.0) gm/dL Hct (34.0-46.0) % MCV (80.0-100.0) fL MCH (25.0-35.0) pg MCHC (31.0-37.0) g/dL RDW (11.5-15.5) % Plt Count (150-450) k/uL MPV Neutrophils % % Lymphocytes % % Monocytes % % Eosinophils % % Basophils % % Neutrophils # (1.3-7.7) k/uL Lymphocytes # (1.0-4.8) k/uL Monocytes # (0-1.0) k/uL Eosinophils # (0-0.7) k/uL Basophils # (0-0.2) k/uL PT (9.0-12.0) sec INR (<1.2) APTT (22.0-30.0) sec Sodium (137-145) mmol/L Potassium (3.5-5.1) mmol/L Chloride (98-107) mmol/L Carbon Dioxide (22-30) mmol/L Anion Gap mmol/L BUN (7-17) mg/dL Creatinine (0.52-1.04) mg/dL Est GFR (CKD-EPI)AfAm (>60 ml/min/1.73 sqM) Est GFR (CKD-EPI)NonAf (>60 ml/min/1.73 sqM) Glucose (74-99) mg/dL Calcium (8.4-10.2) mg/dL Magnesium (1.6-2.3) mg/dL Total Bilirubin (0.2-1.3) mg/dL AST (14-36) U/L ALT (4-34) U/L Alkaline Phosphatase (38-126) U/L Troponin I <0.012 (0.000-0.034) ng/mL Total Protein (6.3-8.2) g/dL Albumin (3.5-5.0) g/dL Coronavirus (PCR) Not Detected (Not Detectd) Influenza Type A RNA Not Detected (Not Detectd) Influenza Type B (PCR) Not Detected (Not Detectd) Disposition Clinical Impression: Viral upper respiratory illness, Chest pain, Nausea and vomiting Disposition: ADMITTED IP TO THIS HOSP Condition: Stable
[2021-07-28] MEDS: SODIUM CHLORIDE 0.9% 1,000 ML IV SCH (17:42)
[2021-07-28] MEDS ORDERED: NITROGLYCERIN SL TABS 0.4 MG TAB SUBLINGUAL PRN (17:44)
[2021-07-28] MEDS ORDERED: NALOXONE 0.4 MG/ML 1 ML VIAL IV PRN (20:58)
[2021-07-28] MEDS ORDERED: WARFARIN 5 MG TAB PO SCH (21:00)
--- NOTE | 2021-07-28 21:22 | P.HPIM ---
History of Present Illness H&P Date: 07/28/21 Chief Complaint: Chest pain Patient is a 80 year old F with PMH of CAD, AV value replacement, hypertension, dyslipidemia, atrial fibrillation presents to the ED for cough and chest pain. Patient reports cough productive of yellow sputum that has been ongoing since Friday. Her symptoms have been progressively getting worse. This morning, patient reported worsening of her breathing associated with wheezing. She reports fever and chills today. She reports sharp chest pain, only when she coughs. She is a previous smoker, quit 20 years ago. She could not sleep last night due to her cough. She denies any history of COPD or asthma. She reports a remote history of COVID pneumonia. She denies any headache, lower extremity edema, nausea or vomiting, palpitations, changes in urination or bowel habits. She denies any dizziness, numbness/weakness/tingling of the extremities. In the ED she had a fever of 100.4F, vital signs were otherwise stable. O2 satuation was 93% on room air. CBC showed leukopenia of 0.6. INR was 2.3. CMP showed sodium of 134, and glucose of 121. Flu and COVID test negative. Chest XRay showed no acute pathology and resolving small left pleural effusion. Patient is admitted for chest pain, rule out acute coronary syndrome. Review of Systems All systems: negative Past Medical History Past Medical History: No Reported History, Coronary Artery Disease (CAD), Hyperlipidemia, Hypertension, Musculoskeletal Disorder, Vascular Disorder Additional Past Medical History / Comment(s): AORTIC VALVE REPAIRED W/ COW VALVE; HEMORRHOIDS CURRENT. LEGS GET TIRED, HEAVY WHEN WALKING, OCC EDEMA LT ANKLE, urinary incontinence, probable covid 2019, fully vaccinated for covid now History of Any Multi-Drug Resistant Organisms: None Reported Past Surgical History: Cardiac Valve Replacement, Heart Catheterization With Stent Additional Past Surgical History / Comment(s): FACELIFT. AORTIC VALVE REPLACED- COW VALVE, 06/2010, left leg balloon angioplasty, cataracts removed Past Anesthesia/Blood Transfusion Reactions: Motion Sickness Additional Past Anesthesia/Blood Transfusion Reaction / Comment(s): MOTION SICK MANY YEARS AGO Date of Last Stent Placement:: 04/2007 Past Psychological History: No Psychological Hx Reported Smoking Status: Former smoker Past Alcohol Use History: Occasional Past Drug Use History: None Reported - Past Family History Mother Family Medical History: Dementia Father Family Medical History: Congestive Heart Failure (CHF), Hypertension Medications and Allergies Home Medications Medication Instructions Recorded Confirmed Type Aspirin [Adult Low Dose Aspirin EC] 81 mg PO DAILY 03/17/18 07/28/21 History Atorvastatin [Lipitor] 40 mg PO HS 03/17/18 07/28/21 History Turmeric Root Extract [Turmeric] 500 mg PO Q48H 05/19/18 07/28/21 History Multivitamins, Thera [Multivitamin 1 tab PO Q48H 04/19/19 07/28/21 History (formulary)] amLODIPine [Norvasc] 10 mg PO DAILY tab 04/27/19 07/28/21 Rx Digoxin [Lanoxin] 125 mcg PO DAILY 09/01/20 07/28/21 History Melatonin 5 mg PO HS PRN 09/01/20 07/28/21 History Ubidecarenone [Co Q-10] 100 mg PO Q48H 09/29/20 07/28/21 History Warfarin [Coumadin] 5 mg PO MOTUWEFRSA@2100 10/17/20 07/28/21 History Benzonatate [Tessalon Perles] 200 mg PO TID PRN 07/28/21 07/28/21 History Cefuroxime Axetil [Ceftin] 500 mg PO BID 07/28/21 07/28/21 History Cholecalciferol [Vitamin D3 (25 50 mcg PO TID 07/28/21 07/28/21 History Mcg = 1000 Iu)] Furosemide [Lasix] 20 mg PO DAILY 07/28/21 07/28/21 History Potassium Chloride [Potassium 8 meq PO Q48H 07/28/21 07/28/21 History Chloride ER] Warfarin [Coumadin] 7.5 mg PO SUTH@2100 07/28/21 07/28/21 History Allergies Allergy/AdvReac Type Severity Reaction Status Date / Time No Known Allergies Allergy Verified 07/28/21 16:52 Physical Exam Vitals: Vital Signs Temp Pulse Pulse Resp BP Pulse Ox 07/28/21 19:55 96 18 07/28/21 18:28 96 18 146/60 93 L 07/28/21 18:01 85 18 07/28/21 17:44 85 18 07/28/21 13:51 99.9 F H 68 20 190/89 95 Intake and Output 07/28/21 07/28/21 07/28/21 06:59 14:59 22:59 Other: Voiding Method Toilet Weight 65.771 kg 65.771 kg General: [non toxic], [no distress], [appears at stated age] Derm: [warm], [dry] Head: [atraumatic], [normocephalic], [symmetric] Eyes: [EOMI], [no lid lag], [anicteric sclera] Mouth: [no lip lesion], [mucus membranes moist] Cardiovascular: [Irregularly irregular], [no murmur], [positive posterior tibial pulse bilateral], Lungs: [CTA bilateral], [no rhonchi, no rales] , [no accessory muscle use] Abdominal: [soft], [ nontender to palpation], [no guarding], [no appreciable organomegaly] Ext: [no gross muscle atrophy], [no edema], [no contractures] Neuro: [no focal neuro deficits] Psych: [Alert], [oriented], [appropriate affect] Results CBC & Chem 7: 07/28/21 14:44 07/28/21 14:44 Labs: Abnormal Lab Results - Last 24 Hours (Table) 07/28/21 07/28/21 07/28/21 Range/Units 14:44 14:44 14:44 Lymphocytes # 0.6 L (1.0-4.8) k/uL PT 22.6 H (9.0-12.0) sec INR 2.3 H (<1.2) APTT 32.9 H (22.0-30.0) sec Sodium 134 L (137-145) mmol/L Glucose 121 H (74-99) mg/dL Thrombosis Risk Factor Assmnt - Choose All That Apply Each Risk Factor Represents 3 Points: Age 75 years or older Thrombosis Risk Factor Assessment Total Risk Factor Score: 3 Thrombosis Risk Factor Assessment Level: Moderate Risk Assessment and Plan Assessment: #Chest pain #Cough related to Acute bronchitis #Subtherapeutic INR #Obesity Chronic conditions: CAD, hypertension, dyslipidemia, atrial fibrillation Patient presents with worsening shortness of breath. She reports symptoms of productive cough which is likely a viral URI. COVID and Flu is negative. She will be started on Azithromycin 500 mg IV daily for 3 days. She will be given Albuterol neb as needed for shortness of breath and wheezing. She will be placed on telemetry monitoring. Her chest pain is atypical and likely related to her cough. Troponin/EKG will be trended and ACS will be ruled out. Echocardiogram will be ordered. Her coumadin will be restarted. She would benefit from a structured weight loss program. Patient names her daugher decision maker if she cant make decisions for herself. She would like to be FULL CODE.
[2021-07-28] MEDS: ATORVASTATIN 40 MG TAB PO SCH (21:53)
[2021-07-28] MEDS: AZITHROMYCIN 500 MG in SODIUM CHLORIDE 0.9% 250 ML IVPB SCH (21:54)
[2021-07-29] MEDS: SODIUM CHLORIDE 0.9% 1,000 ML IV SCH ×2 (05:25→20:47)
[2021-07-29 07:30] LABS: INR 2.3 (<1.2); Prothrombin Time 22.6 sec (9.0-12.0)
[2021-07-29] MEDS: FUROSEMIDE 20 MG TAB PO SCH (08:38)
[2021-07-29] MEDS: DIGOXIN 125 MCG TAB PO SCH (08:38)
[2021-07-29] MEDS: ASPIRIN 325 MG TAB PO SCH (08:38)
[2021-07-29] MEDS: amLODIPine 10 MG TAB PO SCH (08:38)
[2021-07-29] MEDS ORDERED: ACETAMINOPHEN TAB 325 MG TAB PO PRN (08:55)
[2021-07-29] MEDS ORDERED: NON FORMULARY DRUG (Aspirin [Adult Low Dose Aspirin Ec] 81 MG Tablet.Dr) PO SCH (09:00)
--- NOTE | 2021-07-29 10:13 | P.DS ---
Providers Date of admission: 07/28/21 17:44 Expected date of discharge: 07/29/21 Attending physician: Analy Alvarez DO Primary care physician: [facility] Course: Patient is a 80 year old F with PMH of CAD, AV value replacement, hypertension, dyslipidemia, atrial fibrillation presents to the ED for cough and chest pain. Patient reports cough productive of yellow sputum that has been ongoing since Friday. Her symptoms have been progressively getting worse. This morning, patient reported worsening of her breathing associated with wheezing. She reports fever and chills today. She reports sharp chest pain, only when she coughs. She is a previous smoker, quit 20 years ago. She could not sleep last night due to her cough. She denies any history of COPD or asthma. She reports a remote history of COVID pneumonia. She denies any headache, lower extremity edema, nausea or vomiting, palpitations, changes in urination or bowel habits. She denies any dizziness, numbness/weakness/tingling of the extremities. In the ED she had a fever of 100.4F, vital signs were otherwise stable. O2 satuation was 93% on room air. CBC showed leukopenia of 0.6. INR was 2.3. CMP showed sodium of 134, and glucose of 121. Flu and COVID test negative. Chest XRay showed no acute pathology and resolving small left pleural effusion. Patient is admitted for chest pain, rule out acute coronary syndrome. Her troponins were trended and came back as less than 0.0122, 0.017. EKG showed no ST elevation or depression. Her chest pain was thought to be atypical in nature. Cardiology evaluated the patient and cleared the patient for discharge. She did get low-grade fevers which was relieved with Tylenol or mouth. Echocardiogram was ordered but not available today. Patient was seen and examined earlier this morning. She reported slight improvement in her breathing. Nursing reports O2 saturation of 89% this morning that quickly improved when patient woke up and sat up. She continues to report whistling while breathing. She states that she feels worn out. She is concerned about going home due to the fact that she lives alone. Hopeful anticipated discharge this afternoon if patient agreeable. Home O2 eval prior to discharge. She'll be prescribed albuterol inhaler and azithromycin for 3 days. She is advised to come back to the ED for worsening of her symptoms. She was advised her symptoms are likely related to an upper viral infection. General: [non toxic], [no distress], [appears at stated age] Derm: [warm], [dry] Head: [atraumatic], [normocephalic], [symmetric] Eyes: [EOMI], [no lid lag], [anicteric sclera] Mouth: [no lip lesion], [mucus membranes moist] Cardiovascular: [Irregularly irregular], [no murmur] Lungs: [CTA bilateral], [no rhonchi, no rales] , [no accessory muscle use] Ext: [no gross muscle atrophy], [no edema], [no contractures] Neuro: [no focal neuro deficits] Psych: [Alert], [oriented], [appropriate affect] Discharge Diagnosis: #Chest pain, ACS ruled out, likely related to her cough #Cough related to Acute bronchitis #Subtherapeutic INR #Obesity Chronic conditions: CAD, hypertension, dyslipidemia, atrial fibrillation This complex discharge took about 45 minutes to complete. Pertinent Studies: Chest x-ray Patient Condition at Discharge: Stable Plan - Discharge Summary Discharge Rx Participant: No New Discharge Prescriptions: New Albuterol Inhaler [Ventolin Hfa Inhaler] 1 puff INHALATION RT-QID #8 gm Azithromycin [Zithromax Tri-Qamar (3 tabs)] 500 mg PO DAILY 3 Days #3 tab Continue Atorvastatin [Lipitor] 40 mg PO HS Aspirin [Adult Low Dose Aspirin EC] 81 mg PO DAILY Turmeric Root Extract [Turmeric] 500 mg PO Q48H Multivitamins, Thera [Multivitamin (formulary)] 1 tab PO Q48H amLODIPine [Norvasc] 10 mg PO DAILY tab Ubidecarenone [Co Q-10] 100 mg PO Q48H Benzonatate [Tessalon Perles] 200 mg PO TID PRN PRN Reason: Cough Warfarin [Coumadin] 7.5 mg PO SUTH@2100 Furosemide [Lasix] 20 mg PO DAILY Digoxin [Lanoxin] 125 mcg PO DAILY Melatonin 5 mg PO HS PRN PRN Reason: Insomnia Warfarin [Coumadin] 5 mg PO MOTUWEFRSA@2100 Potassium Chloride [Potassium Chloride ER] 8 meq PO Q48H Cholecalciferol [Vitamin D3 (25 Mcg = 1000 Iu)] 50 mcg PO TID Discontinued Cefuroxime Axetil [Ceftin] 500 mg PO BID Discharge Medication List Aspirin [Adult Low Dose Aspirin EC] 81 mg PO DAILY 03/17/18 [History] Atorvastatin [Lipitor] 40 mg PO HS 03/17/18 [History] Turmeric Root Extract [Turmeric] 500 mg PO Q48H 05/19/18 [History] Multivitamins, Thera [Multivitamin (formulary)] 1 tab PO Q48H 04/19/19 [History] amLODIPine [Norvasc] 10 mg PO DAILY tab 04/27/19 [Rx] Digoxin [Lanoxin] 125 mcg PO DAILY 09/01/20 [History] Melatonin 5 mg PO HS PRN 09/01/20 [History] Ubidecarenone [Co Q-10] 100 mg PO Q48H 09/29/20 [History] Warfarin [Coumadin] 5 mg PO MOTUWEFRSA@209910/17/20 [History] Benzonatate [Tessalon Perles] 200 mg PO TID PRN 07/28/21 [History] Cholecalciferol [Vitamin D3 (25 Mcg = 1000 Iu)] 50 mcg PO TID 07/28/21 [History] Furosemide [Lasix] 20 mg PO DAILY 07/28/21 [History] Potassium Chloride [Potassium Chloride ER] 8 meq PO Q48H 07/28/21 [History] Warfarin [Coumadin] 7.5 mg PO SUTH@209907/28/21 [History] Albuterol Inhaler [Ventolin Hfa Inhaler] 1 puff INHALATION RT-QID #8 gm 07/29/21 [Rx] Azithromycin [Zithromax Tri-Qamar (3 tabs)] 500 mg PO DAILY 3 Days #3 tab 07/29/21 [Rx] Follow up Appointment(s)/Referral(s): Jermaine Feldman DO [Primary Care Provider] - 1-2 days Activity/Diet/Wound Care/Special Instructions: Diet: Cardiac Follow-up with your PCP within 3 days of discharge. Come back to the ED for fever greater than 100.4 Fahrenheit not relieved with Tylenol, worsening chest pain, shortness of breath, dizziness. Discharge Disposition: HOME SELF-CARE
[2021-07-29 11:33] LABS: Basophils # (A) 0.02 X 10*3/uL (0.00-0.10); Basophils % (A) 0.4 %; Eosinophils # (A) 0.01 X 10*3/uL (0.04-0.35); Eosinophils % (A) 0.2 %; HCT 38.5 % (37.2-46.3); Immature Grans, Automated 0.5 %; Lymphocytes # (A) 1.22 X 10*3/uL (0.90-5.00); Lymphocytes % (A) 22.3 %; MCH 30.3 pg (27.0-32.0); MCHC 31.2 g/dL (32.0-37.0); MCV 97.2 fL (80.0-97.0); Mean Platelet Volume 9.6 fL (9.5-12.2); Monocytes # (A) 0.82 X 10*3/uL (0.20-1.00); NRBC Per 100 WBC 0 /100 WBCS (0.0-0.0); Neutrophils # (A) 3.37 X 10*3/uL (1.80-7.70); Neutrophils % (A) 61.6 %; Platelet Count 222 X 10*3/uL (140-440); RBC 3.96 X 10*6/uL (4.10-5.20); RDW 13.5 % (11.5-14.5); WBC 5.47 X 10*3/uL (4.50-10.00)
[2021-07-29 11:46] LABS: African American GFR (CKD) 65.6 (60.0-200.0); Anion Gap 11.6 mmol/L (10.00-18.00); BUN/Creat Ratio 18.86 Ratio (12.00-20.00); Blood Urea Nitrogen 17.6 mg/dL (9.0-27.0); Calcium 8.5 mg/dL (8.7-10.3); Carbon Dioxide 22.9 mmol/L (20.0-27.5); Non-African American GFR(CKD) 56.6 (60.0-200.0)
--- NOTE | 2021-07-29 13:22 | P.CRDCN ---
History of Present Illness Consult date: 07/29/21 History of present illness: HISTORY OF PRESENTING ILLNESS This is a 81-year-old female patient of Dr. Graves with past medical history of chronic persistent atrial fibrillation on Coumadin, hypertension, hyperlipidemia, coronary artery disease status post PCI to RCA in 2007, peripheral artery disease status post atherectomy and angioplasty of the right SFA and successful balloon angioplasty of the right posterior tibial artery on 09/27/2020, remote history of tobacco use quit 20 years ago. Patient presented due to cough and chest pain that started on Friday with yellow sputum production, mild shortness of breath and wheezing and sweats. Patient was found to be febrile at 100.4. EKG atrial fibrillation 87 bpm Troponin negative on 3 draws. INR 2.3. BUN 17 creatinine 0.95. Coronavirus, influenza A, influenza B negative. Chest x-ray normal REVIEW OF SYSTEMS At the time of my exam: CONSTITUTIONAL: Eyes fevers and chills CARDIOVASCULAR: Denies chest pain, mild shortness of breath, orthopnea, PND or palpitations. RESPIRATORY: Reports cough with yellow sputum production. GASTROINTESTINAL: Denies abdominal pain, diarrhea, constipation, nausea or vom iting. MUSCULOSKELETAL: No neck, back pain. NEUROLOGIC: Denies numbness, tingling, headacbe or weakness. ENDOCRINE: Denies fatigue, weight change, polydipsia or polyurina. GENITOURINARY: Denies burning, hematuria or urgency with micturation. HEMATOLOGIC: Denies history of anemia or bleeding. PHYSICAL EXAMINATION CONSTITUTIONAL: No apparent distress. HEENT: Head is normocephalic. Pupils are equal, round. Sclerae anicteric. Mucous membranes of the mouth are moist. No JVD. No carotid bruit. CHEST EXAMINATION: Lungs are clear to auscultation. No chest wall tenderness is noted on palpation or with deep breathing. HEART EXAMINATION: Regular rate and rhythm. S1, S2 heard. Systolic murmur ABDOMEN: Soft, nontender. Positive bowel sounds. EXTREMITIES: 2+ peripheral pulses, 1+ right lower extremity swelling. Red erythema to the right lower ankle and calf/anaya NEUROLOGIC EXAMINATION: Patient is awake, alert and oriented x3. ASSESSMENT Acute bronchitis Chronic persistent atrial fibrillation on Coumadin Hypertension Peripheral artery disease Hyperlipidemia Coronary artery disease status post PCI to RCA in 2007 PLAN Continue home cardiac medications, warfarin, atorvastatin, amlodipine, digoxin No further testing at this time Patient is cleared for discharge from cardiology, follow-up in the office with Dr. Graves. Nurse Practitioner note has been reviewed, I agree with a documented findings and plan of care. Patient was seen and examined. Past Medical History Past Medical History: No Reported History, Coronary Artery Disease (CAD), Hyperlipidemia, Hypertension, Musculoskeletal Disorder, Vascular Disorder Additional Past Medical History / Comment(s): AORTIC VALVE REPAIRED W/ COW VALVE; HEMORRHOIDS CURRENT. LEGS GET TIRED, HEAVY WHEN WALKING, OCC EDEMA LT ANKLE, urinary incontinence, probable covid 2019, fully vaccinated for covid now History of Any Multi-Drug Resistant Organisms: None Reported Past Surgical History: Cardiac Valve Replacement, Heart Catheterization With Stent Additional Past Surgical History / Comment(s): FACELIFT. AORTIC VALVE REPLACED- COW VALVE, 06/2010, left leg balloon angioplasty, cataracts removed Past Anesthesia/Blood Transfusion Reactions: Motion Sickness Additional Past Anesthesia/Blood Transfusion Reaction / Comment(s): MOTION SICK MANY YEARS AGO Date of Last Stent Placement:: 04/2007 Past Psychological History: No Psychological Hx Reported Smoking Status: Former smoker Past Alcohol Use History: Occasional Past Drug Use History: None Reported - Past Family History Mother Family Medical History: Dementia Father Family Medical History: Congestive Heart Failure (CHF), Hypertension Medications and Allergies Home Medications Medication Instructions Recorded Confirmed Type Aspirin [Adult Low Dose Aspirin EC] 81 mg PO DAILY 03/17/18 07/28/21 History Atorvastatin [Lipitor] 40 mg PO HS 03/17/18 07/28/21 History Turmeric Root Extract [Turmeric] 500 mg PO Q48H 05/19/18 07/28/21 History Multivitamins, Thera [Multivitamin 1 tab PO Q48H 04/19/19 07/28/21 History (formulary)] amLODIPine [Norvasc] 10 mg PO DAILY tab 04/27/19 07/28/21 Rx Digoxin [Lanoxin] 125 mcg PO DAILY 09/01/20 07/28/21 History Melatonin 5 mg PO HS PRN 09/01/20 07/28/21 History Ubidecarenone [Co Q-10] 100 mg PO Q48H 09/29/20 07/28/21 History Warfarin [Coumadin] 5 mg PO MOTUWEFRSA@2100 10/17/20 07/28/21 History Benzonatate [Tessalon Perles] 200 mg PO TID PRN 07/28/21 07/28/21 History Cholecalciferol [Vitamin D3 (25 50 mcg PO TID 07/28/21 07/28/21 History Mcg = 1000 Iu)] Furosemide [Lasix] 20 mg PO DAILY 07/28/21 07/28/21 History Potassium Chloride [Potassium 8 meq PO Q48H 07/28/21 07/28/21 History Chloride ER] Warfarin [Coumadin] 7.5 mg PO SUTH@2100 07/28/21 07/28/21 History Albuterol Inhaler [Ventolin Hfa 1 puff INHALATION RT-QID #8 gm 07/29/21 Rx Inhaler] Azithromycin [Zithromax Tri-Qamar (3 500 mg PO DAILY 3 Days #3 tab 07/29/21 Rx tabs)] Allergies Allergy/AdvReac Type Severity Reaction Status Date / Time No Known Allergies Allergy Verified 07/28/21 16:52 Physical Exam Vitals: Vital Signs Temp Pulse Pulse Resp BP BP Pulse Ox 07/29/21 07:10 99.5 F 66 18 135/62 90 L 07/29/21 03:40 98.3 F 71 18 128/73 94 L 07/28/21 19:55 96 18 07/28/21 19:51 100.4 F H 87 17 149/67 93 L 07/28/21 18:28 96 18 146/60 93 L 07/28/21 18:01 85 18 07/28/21 17:44 85 18 07/28/21 13:51 99.9 F H 68 20 190/89 95 Intake and Output 07/28/21 07/29/21 07/29/21 22:59 06:59 14:59 Other: Voiding Method Toilet Weight 65.771 kg Results 07/29/21 06:36 07/29/21 06:36 Cardiac Enzymes 07/28/21 07/28/21 07/28/21 Range/Units 14:44 14:44 20:03 AST 35 (14-36) U/L Troponin I <0.012 <0.012 (0.000-0.034) ng/mL 07/28/21 Range/Units 22:35 AST (14-36) U/L Troponin I 0.017 (0.000-0.034) ng/mL Coagulation 07/28/21 07/29/21 Range/Units 14:44 06:36 PT 22.6 H 22.6 H (9.0-12.0) sec APTT 32.9 H (22.0-30.0) sec CBC 07/28/21 Range/Units 14:44 WBC 6.2 (3.8-10.6) k/uL RBC 4.71 (3.80-5.40) m/uL Hgb 14.4 (11.4-16.0) gm/dL Hct 44.9 (34.0-46.0) % Plt Count 283 (150-450) k/uL Comprehensive Metabolic Panel 07/28/21 Range/Units 14:44 Sodium 134 L (137-145) mmol/L Potassium 4.2 (3.5-5.1) mmol/L Chloride 100 (98-107) mmol/L Carbon Dioxide 28 (22-30) mmol/L BUN 17 (7-17) mg/dL Creatinine 0.95 (0.52-1.04) mg/dL Glucose 121 H (74-99) mg/dL Calcium 9.0 (8.4-10.2) mg/dL AST 35 (14-36) U/L ALT 23 (4-34) U/L Alkaline Phosphatase 98 (38-126) U/L Total Protein 7.2 (6.3-8.2) g/dL Albumin 4.2 (3.5-5.0) g/dL Current Medications Generic Name Dose Route Start Last Admin Trade Name Freq PRN Reason Stop Dose Admin Albuterol Sulfate 2.5 mg 07/28/21 21:05 Albuterol Nebulized 2.5 Mg/3 Ml INHALATION RT-QID PRN Shortness Of Breath Or Wheezing Amlodipine Besylate 10 mg 07/29/21 09:00 Amlodipine 10 Mg Tab PO DAILY [facility] Aspirin 325 mg 07/29/21 09:00 Aspirin 325 Mg Tab PO DAILY [facility] Atorvastatin Calcium 40 mg 07/28/21 21:00 07/28/21 21:53 Atorvastatin 40 Mg Tab PO 40 mg HS MICHELLE Administration Digoxin 125 mcg 07/29/21 09:00 Digoxin 125 Mcg Tab PO DAILY [facility] Furosemide 20 mg 07/29/21 09:00 Furosemide 20 Mg Tab PO DAILY [facility] Sodium Chloride 1,000 mls @ 75 mls/hr 07/28/21 17:00 07/29/21 05:25 Saline 0.9% IV 75 mls/hr .[id number] MICHELLE Administration Azithromycin 500 mg/ Sodium 250 mls @ 250 mls/hr 07/28/21 22:00 07/28/21 21:54 Chloride IVPB 07/30/21 21:59 250 mls/hr 2100 MICHELLE Administration Protocol Miscellaneous Information 0 each 07/28/21 21:02 Warfarin Per Pharmacy MISCELLANE DIRECTED PRN ANTICOAG Naloxone HCl 0.2 mg 07/28/21 20:58 Naloxone 0.4 Mg/Ml 1 Ml Vial IV Q2M PRN Opioid Reversal Nitroglycerin 0.4 mg 07/28/21 17:44 Nitroglycerin Sl Tabs 0.4 Mg Tab SUBLINGUAL Q5M PRN Chest Pain Warfarin Sodium 5 mg 07/28/21 21:00 07/28/21 21:54 Warfarin 5 Mg Tab PO 5 mg MOTUWEFRSA@2100 [facility] Administration Protocol Warfarin Sodium 7.5 mg 07/29/21 21:00 Warfarin 7.5 Mg Tab PO SUTH@2100 MICHELLE Protocol Intake and Output 07/28/21 07/29/21 07/29/21 22:59 06:59 14:59 Other: Voiding Method Toilet Weight 65.771 kg 07/28/21 14:44 07/28/21 14:44
[2021-07-29] MEDS: ALBUTEROL NEBULIZED 2.5 MG/3 ML INHALATION PRN (17:54)
[2021-07-29] MEDS: AZITHROMYCIN 500 MG in SODIUM CHLORIDE 0.9% 250 ML IVPB SCH (20:48)
[2021-07-29] MEDS: ATORVASTATIN 40 MG TAB PO SCH (20:48)
[2021-07-29] MEDS ORDERED: WARFARIN 7.5 MG TAB PO SCH (21:00)
[2021-07-30 07:10] LABS: INR 2.4 (<1.2); Prothrombin Time 24.1 sec (9.0-12.0)
[2021-07-30 07:35] VITALS: RESP 18
[2021-07-30] MEDS: ALBUTEROL NEBULIZED 2.5 MG/3 ML INHALATION PRN ×2 (07:44→15:41)
--- NOTE | 2021-07-30 07:54 | P.PN ---
Subjective HISTORY OF PRESENTING ILLNESS This is a 81-year-old female patient of Dr. Graves with past medical history of chronic persistent atrial fibrillation on Coumadin, hypertension, hyperlipidemia, coronary artery disease status post PCI to RCA in 2007, peripheral artery disease status post atherectomy and angioplasty of the right SFA and successful balloon angioplasty of the right posterior tibial artery on 09/27/2020, remote history of tobacco use quit 20 years ago. Patient presented due to cough and chest pain that started on Friday with yellow sputum production, mild shortness of breath and wheezing and sweats. Patient was found to be febrile at 100.4. EKG atrial fibrillation 87 bpm Troponin negative on 3 draws. INR 2.3. BUN 17 creatinine 0.95. Coronavirus, influenza A, influenza B negative. Chest x-ray normal 07/30 Patient seen and examined. Patient admits to continued cough with productive sputum and shortness breath with wheeze. She has been receiving nebulizers. Denies any chest pain or pressure. PHYSICAL EXAMINATION CONSTITUTIONAL: No apparent distress. HEENT: Head is normocephalic. Pupils are equal, round. Sclerae anicteric. Mucous membranes of the mouth are moist. No JVD. No carotid bruit. CHEST EXAMINATION: Lungs are clear to auscultation. No chest wall tenderness is noted on palpation or with deep breathing. HEART EXAMINATION: Regular rate and rhythm. S1, S2 heard. Systolic murmur ABDOMEN: Soft, nontender. Positive bowel sounds. EXTREMITIES: 2+ peripheral pulses, 1+ right lower extremity swelling. Red erythema to the right lower ankle and calf/anaya NEUROLOGIC EXAMINATION: Patient is awake, alert and oriented x3. ASSESSMENT Acute bronchitis Chronic persistent atrial fibrillation on Coumadin Hypertension Peripheral artery disease Hyperlipidemia Coronary artery disease status post PCI to RCA in 2007 PLAN Continue home cardiac medications, warfarin, atorvastatin, amlodipine, digoxin Continue with current supportive care. Stable from cardiology standpoint for discharge home. Please call with any questions. Objective - Vital Signs Vital signs: Vital Signs Temp 98.3 F 07/30/21 07:00 Pulse 66 07/30/21 07:45 Resp 18 07/30/21 07:00 BP 161/73 07/30/21 07:00 Pulse Ox 95 07/30/21 07:00 Intake & Output 07/29/21 07/30/21 07/30/21 18:59 06:59 18:59 Intake Total 200 Balance 200 Intake: Oral 200 Other: Voiding Method Toilet Toilet # Voids 1 2 # Bowel Movements 1 - Labs CBC & Chem 7: 07/29/21 06:36 07/29/21 06:36 Labs: Abnormal Lab Results - Last 24 Hours (Table) 07/29/21 07/29/21 07/30/21 Range/Units 06:36 06:36 06:33 RBC 3.96 L (4.10-5.20) X 10*6/uL MCV 97.2 H (80.0-97.0) fL MCHC 31.2 L (32.0-37.0) g/dL Eosinophils # 0.01 L (0.04-0.35) X 10*3/uL PT 24.1 H (9.0-12.0) sec INR 2.4 H (<1.2) Est GFR (CKD-EPI)NonAf 56.6 L (60.0-200.0) Calcium 8.5 L (8.7-10.3) mg/dL
[2021-07-30] MEDS: amLODIPine 10 MG TAB PO SCH (08:52)
[2021-07-30] MEDS: DIGOXIN 125 MCG TAB PO SCH (08:52)
[2021-07-30] MEDS: FUROSEMIDE 20 MG TAB PO SCH (08:52)
[2021-07-30] MEDS: ASPIRIN 325 MG TAB PO SCH (08:52)
--- NOTE | 2021-07-30 12:30 | ECHOF ---
Referral Reason:Chest pain MEASUREMENTS -------- HEIGHT: 160.0 cm WEIGHT: 65.8 kg BP: 129/69 RVIDd: 3.8 cm (< 3.3) IVSd: 1.2 cm (0.6 - 1.1) LVIDd: 4.5 cm (3.9 - 5.3) LVPWd: 1.1 cm (0.6 - 1.1) IVSs: 1.6 cm LVIDs: 2.7 cm LVPWs: 1.3 cm LA Diam: 4.4 cm (2.7 - 3.8) LAESV Index (A-L): 56.47 ml/m Ao Diam: 2.6 cm (2.0 - 3.7) AV Cusp: 0.8 cm (1.5 - 2.6) MV EXCURSION: 11.892 mm (> 18.000) MV EF SLOPE: 27 mm/s (70 - 150) EPSS: 0.3 cm AV maxP.05 mmHg AV meanP.88 mmHg RAP: 5.00 mmHg RVSP: 39.38 mmHg FINDINGS -------- This was a technically good study. The left ventricular size is normal. There is borderline concentric left ventricular hypertrophy. Left ventricular systolic function is hyperdynamic with an estimated EF of >70%. The right ventricle is mild to moderately enlarged. LA is severely dilated >40 ml/m2 The right atrium is moderately enlarged. Interatrial and interventricular septum intact. There is mild to moderate aortic valve sclerosis. There is mild regurgitation of the bioprosthetic aortic valve. The mitral valve leaflets are mildly thickened. Mild mitral annular calcification present. Mild-t o-moderate mitral regurgitation is present. The peak and mean MV gradients are 15.29mmHg 2.94mmHg as measured by doppler. Moderate to severe tricuspid regurgitation present. There is mild pulmonary hypertension. The rig ht ventricular systolic pressure, as measured by Doppler, is 39.38mmHg. Trace/mild (physiologic) pulmonic regurgitation. The aortic root size is normal. Normal inferior vena cava with normal inspiratory collapse consistent with estimated right atrial pre ssure of 5 mmHg. There is no pericardial effusion. CONCLUSIONS -------- 1. The left ventricular size is normal. 2. There is borderline concentric left ventricular hypertrophy. 3. Left ventricular systolic function is hyperdynamic with an estimated EF of >70%. 4. The right ventricle is mild to moderately enlarged. 5. LA is severely dilated >40 ml/m2 6. The right atrium is moderately enlarged. 7. There is mild to moderate aortic valve sclerosis. 8. There is mild regurgitation of the bioprosthetic aortic valve. 9. The mitral valve leaflets are mildly thickened. 10. Mild mitral annular calcification present. 11. [id number] mitral regurgitation is present. 12. The peak and mean MV gradients are 15.29mmHg 2.94mmHg as measured by doppler. 13. Moderate to severe tricuspid regurgitation present. 14. There is mild pulmonary hypertension. 15. The right ventricular systolic pressure, as measured by Doppler, is 39.38mmHg. 16. Trace/mild (physiologic) pulmonic regurgitation. 17. There is no pericardial effusion. PLATEN [employer]ESS FEEDER: TIAGO Díaz
[2021-07-30 14:19] VITALS: BP 145/68; TEMP 98.6
[2021-07-30 15:43] VITALS: PULSE 68
--- NOTE | 2021-07-30 16:11 | P.DS ---
Providers Date of admission: 07/30/21 14:02 Expected date of discharge: 07/30/21 Attending physician: Analy Alvarez DO Primary care physician: Jermaine Feldman [place] [facility] Course: Discharge Diagnosis: Atypical chest pain, acute coronary event ruled out Acute bronchitis Subtherapeutic INR, INR normalized at 2.4 upon discharge. Prescription sent for repeat INR levels in 3 days. History of CAD History of aortic valve replacement on anticoagulation with Coumadin Atrial fibrillation on anticoagulation with Coumadin Hypertension Hyperlipidemia Hospital Course: Patient is a 80 year old F with PMH of CAD, AV value replacement, hypertension, dyslipidemia, atrial fibrillation presents to the ED for cough and chest pain. Patient reports cough productive of yellow sputum that has been ongoing since Friday. Her symptoms have been progressively getting worse. This morning, patient reported worsening of her breathing associated with wheezing. She reports fever and chills today. She reports sharp chest pain, only when she coughs. She is a previous smoker, quit 20 years ago. She could not sleep last night due to her cough. She denies any history of COPD or asthma. She reports a remote history of COVID pneumonia. She denies any headache, lower extremity edema, nausea or vomiting, palpitations, changes in urination or bowel habits. She denies any dizziness, numbness/weakness/tingling of the extremities. In the ED she had a fever of 100.4F, vital signs were otherwise stable. O2 satuation was 93% on room air. CBC showed leukopenia of 0.6. INR was 2.3. CMP showed sodium of 134, and glucose of 121. Flu and COVID test negative. Chest XRay showed no acute pathology and resolving small left pleural effusion. Patient is admitted for chest pain, rule out acute coronary syndrome. Her troponins were trended and came back as less than 0.0122, 0.017. EKG showed atrial fib with a controlled ventricular rate of [address] elevation or depression. She did get low-grade fevers which was relieved with Tylenol or mouth. Echocardiogram revealing hyperdynamic EF of greater than 70% with a severely dilated left atrium, moderately enlarged right atrium, moderate aortic valve sclerosis, mild regurgitation of the bioprosthetic aortic valve, mild to moderate mitral valve regurgitation, and moderate to severe tricuspid regurgitation with mild pulmonary hypertension. Her chest pain was thought to be atypical in nature. Cardiology evaluated the patient and cleared the patient for discharge. Patient monitored over 2 day hospitalization period. Each day she slightly improved however patient continued to have slight weakness. She was evaluated by PT/OT and it is recommended that patient be transferred to a subacute rehab for physical therapy to improve her strength and endurance to ensure safety upon discharge home. Patient is medically stable for discharge and is being discharged to [facility]. Patient will continue a 3 day course of azithromycin and will be sent home with an albuterol inhaler. Patient otherwise stable for discharge at this time. Physical examination: Patient was seen and fully evaluated at bedside. She reports continued weakness but states she is feeling better. She was evaluated by PT/OT and they're recommending a subacute rehab facility. Patient requesting to be transferred to [facility] and case management was able to make these arrangements. Patient is medically stable at this time and follow up outpatient with PCP and cardiology as discussed. INR is therapeutic this morning and patient will be discharged with prescription to have repeat INR levels assessed in 3 days. Patient medically stable at this time denying any chest pain, palpitations, dizziness, lightheadedness, nausea, vomiting, or experiencing any numbness/tingling in her extremities. Vital signs reviewed and stable. General: Nontoxic, no distress and appears stated age. Derm: Skin warm and dry, normal coloration for ethnicity. Head: Atraumatic, normocephalic and symmetric. Eyes: EOMs intact, no lid lag, and anicteric sclera Mouth: no lip lesions, mucus membranes moist Cardiovascular: regular rate and rhythm with normal S1S2, no murmur, positive posterior tibial pulses bilaterally, and cap refill < 2 seconds. Lungs: Respirations even, regular, and unlabored on room air. Lungs CTA b ilaterally, no rhonchi, no rales, no wheezing, and no accessory muscle usage. Abdominal: soft, nontender to palpation, no guarding, no appreciable organomegaly Ext: ROM intact. No gross muscle atrophy, no edema, no contractures Neuro: Speech clear, face symmetrical and CN II-XII grossly intact with no noted focal neuro deficits Psych: Alert and oriented to person, place, time, and situation. Appropriate and pleasant affect. A total of 38 minutes of time were spent preparing this complex discharge summary. Patient Condition at Discharge: Stable Plan - Discharge Summary Discharge Rx Participant: No New Discharge Prescriptions: New Albuterol Inhaler [Ventolin Hfa Inhaler] 1 puff INHALATION RT-QID #8 gm Azithromycin [Zithromax Tri-Qamar (3 tabs)] 500 mg PO DAILY 3 Days #3 tab Continue Atorvastatin [Lipitor] 40 mg PO HS Aspirin [Adult Low Dose Aspirin EC] 81 mg PO DAILY Turmeric Root Extract [Turmeric] 500 mg PO Q48H Multivitamins, Thera [Multivitamin (formulary)] 1 tab PO Q48H amLODIPine [Norvasc] 10 mg PO DAILY tab Ubidecarenone [Co Q-10] 100 mg PO Q48H Benzonatate [Tessalon Perles] 200 mg PO TID PRN PRN Reason: Cough Warfarin [Coumadin] 7.5 mg PO SUTH@2100 Furosemide [Lasix] 20 mg PO DAILY Digoxin [Lanoxin] 125 mcg PO DAILY Melatonin 5 mg PO HS PRN PRN Reason: Insomnia Warfarin [Coumadin] 5 mg PO MOTUWEFRSA@2100 Potassium Chloride [Potassium Chloride ER] 8 meq PO Q48H Cholecalciferol [Vitamin D3 (25 Mcg = 1000 Iu)] 50 mcg PO TID Discontinued Cefuroxime Axetil [Ceftin] 500 mg PO BID Discharge Medication List Aspirin [Adult Low Dose Aspirin EC] 81 mg PO DAILY 03/17/18 [History] Atorvastatin [Lipitor] 40 mg PO HS 03/17/18 [History] Turmeric Root Extract [Turmeric] 500 mg PO Q48H 05/19/18 [History] Multivitamins, Thera [Multivitamin (formulary)] 1 tab PO Q48H 04/19/19 [History] amLODIPine [Norvasc] 10 mg PO DAILY tab 04/27/19 [Rx] Digoxin [Lanoxin] 125 mcg PO DAILY 09/01/20 [History] Melatonin 5 mg PO HS PRN 09/01/20 [History] Ubidecarenone [Co Q-10] 100 mg PO Q48H 09/29/20 [History] Warfarin [Coumadin] 5 mg PO MOTUWEFRSA@2100 10/17/20 [History] Benzonatate [Tessalon Perles] 200 mg PO TID PRN 07/28/21 [History] Cholecalciferol [Vitamin D3 (25 Mcg = 1000 Iu)] 50 mcg PO TID 07/28/21 [History] Furosemide [Lasix] 20 mg PO DAILY 07/28/21 [History] Potassium Chloride [Potassium Chloride ER] 8 meq PO Q48H 07/28/21 [History] Warfarin [Coumadin] 7.5 mg PO SUTH@2100 07/28/21 [History] Albuterol Inhaler [Ventolin Hfa Inhaler] 1 puff INHALATION RT-QID #8 gm 07/29/21 [Rx] Azithromycin [Zithromax Tri-Qamar (3 tabs)] 500 mg PO DAILY 3 Days #3 tab 07/29/21 [Rx] Follow up Appointment(s)/Referral(s): Javier Wiseman DO [STAFF PHYSICIAN] - 2 Weeks Jermaine Feldman DO [Primary Care Provider] - 1-2 days Ambulatory/Diagnostic Orders: Prothrombin Time INR [LAB.AMB] Time Frame: 3 Days, Location: None Selected Activity/Diet/Wound Care/Special Instructions: Activity: As tolerated. Take breaks as needed. Diet: Heart healthy and carb consistent diet. Avoid salts, or foods with hidden salts such as canned or boxed foods and frozen dinners. Extra salt makes your heart work harder and traps the fluid in your body for longer. Special Instructions: Take all of your medications as directed and remember to keep all of your doctor's appointments and follow-up as needed. Thank you for allowing us to participate in your care, it was truly a pleasure having you for our patient!!! Discharge Disposition: TRANSFER TO SNF/ECF
== END 2021-07-30 17:08 ==
LOC: EC 13:45 → 6NMEDSUR 17:44 → OBSVTOIN 07-30 14:02 → INTOOBSV 07-30 14:02 → UNDODISIN 07-30 17:08
PROVIDERS: ADMIT Internal Medicine; ATTEND Internal Medicine
DX: R07.89 Other chest pain (principal); J20.9 Acute bronchitis, unspecified; R79.1 Abnormal coagulation profile; E66.9 Obesity, unspecified; Z68.25 Body mass index [BMI] 25.0-25.9, adult; I25.10 Atherosclerotic heart disease of native coronary artery without angina pectoris; I10 Essential (primary) hypertension; E78.5 Hyperlipidemia, unspecified; I48.19 Other persistent atrial fibrillation; I08.3 Combined rheumatic disorders of mitral, aortic and tricuspid valves; I73.9 Peripheral vascular disease, unspecified; R32 Unspecified urinary incontinence; R60.0 Localized edema; J06.9 Acute upper respiratory infection, unspecified; R68.83 Chills (without fever); R11.2 Nausea with vomiting, unspecified; D72.819 Decreased white blood cell count, unspecified; I27.20 Pulmonary hypertension, unspecified; Z20.822 Contact with and (suspected) exposure to COVID-19; Z87.891 Personal history of nicotine dependence; Z86.16 Personal history of COVID-19; Z87.01 Personal history of pneumonia (recurrent); Z79.82 Long term (current) use of aspirin; Z79.899 Other long term (current) drug therapy; Z79.01 Long term (current) use of anticoagulants; Z71.9 Counseling, unspecified; Z95.2 Presence of prosthetic heart valve; Z82.49 Family history of ischemic heart disease and other diseases of the circulatory system; Z81.8 Family history of other mental and behavioral disorders
CPT/HCPCS: 96361 ×2; 96365; 96366 ×2; 96376; 96375; 99285; 36415; 94640 ×4; 93005; 93306; 97162; 97166; 80053; 80048; 83735; 84484 ×2; 85025 ×2; 85610 ×3; 85730; 87502; 87635; 71046; G0378 ×3; J2405; J0456 ×2; 96374

== ENCOUNTER 2021-09-08 14:40 | Emergency (ER) | payer MEDICARE, OTHER ==
[2021-09-08 15:16] VITALS: BP 112/54; PULSE 71; RESP 18; TEMP 98.1
[2021-09-08] MEDS ORDERED: LIDOCAINE 1% INJ 10MG/ML (5 ML VIAL-PF) SQ ONE (16:26)
[2021-09-08] MEDS ORDERED: DIPH,PERTUS(ACELL)TETVAC-LF 0.5 ML VIAL IM ONE (16:26)
[2021-09-08] MEDS ORDERED: BACITRACIN OINT 1 EACH PACKET TOPICAL ONE (16:26)
--- NOTE | 2021-09-08 16:38 | ED ---
General Adult HPI - General Chief complaint: Wound/Laceration Stated complaint: L leg lac,on blood thinners Time Seen by Provider: 09/08/21 16:24 Source: patient, RN notes reviewed Mode of arrival: wheelchair Limitations: no limitations - History of Present Illness Initial comments: 81-year-old female presents to the emergency department accompanied by her daughter for evaluation of injury to the left lower extremity. 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 Patient states the corner of the door tore her skin. She does take warfarin due to history of valve replacement. Bleeding was controlled prior to arrival with track pressure. Last tetanus shot was more than 5 years ago. Patient denies any further injury or fall. - Related Data Home Medications Medication Instructions Recorded Confirmed Aspirin [Adult Low Dose Aspirin EC] 81 mg PO DAILY 03/17/18 07/28/21 Atorvastatin [Lipitor] 40 mg PO HS 03/17/18 07/28/21 Turmeric Root Extract [Turmeric] 500 mg PO Q48H 05/19/18 07/28/21 Multivitamins, Thera [Multivitamin 1 tab PO Q48H 04/19/19 07/28/21 (formulary)] Digoxin [Lanoxin] 125 mcg PO DAILY 09/01/20 07/28/21 Melatonin 5 mg PO HS PRN 09/01/20 07/28/21 Ubidecarenone [Co Q-10] 100 mg PO Q48H 09/29/20 07/28/21 Warfarin [Coumadin] 5 mg PO [id number]@209910/17/20 07/28/21 Benzonatate [Tessalon Perles] 200 mg PO TID PRN 07/28/21 07/28/21 Cholecalciferol [Vitamin D3 (25 50 mcg PO TID 07/28/21 07/28/21 Mcg = 1000 Iu)] Furosemide [Lasix] 20 mg PO DAILY 07/28/21 07/28/21 Potassium Chloride [Potassium 8 meq PO Q48H 07/28/21 07/28/21 Chloride ER] Warfarin [Coumadin] 7.5 mg PO SUTH@209907/28/21 07/28/21 Previous Rx's Medication Instructions Recorded amLODIPine [Norvasc] 10 mg PO DAILY tab 04/27/19 Albuterol Inhaler [Ventolin Hfa 1 puff INHALATION RT-QID #8 gm 07/29/21 Inhaler] Azithromycin [Zithromax Tri-Qamar (3 500 mg PO DAILY 3 Days #3 tab 07/29/21 tabs)] Allergies Allergy/AdvReac Type Severity Reaction Status Date / Time No Known Allergies Allergy Verified 09/08/21 15:13 Review of Systems ROS Statement: Those systems with pertinent positive or pertinent negative responses have been documented in the HPI. ROS Other: All systems not noted in ROS Statement are negative. Past Medical History Past Medical History: No Reported History, Coronary Artery Disease (CAD), Hyperlipidemia, Hypertension, Musculoskeletal Disorder, Vascular Disorder Additional Past Medical History / Comment(s): AORTIC VALVE REPAIRED W/ COW VALVE; HEMORRHOIDS CURRENT. LEGS GET TIRED, HEAVY WHEN WALKING, OCC EDEMA LT ANKLE, urinary incontinence, probable covid 2019, fully vaccinated for covid now History of Any Multi-Drug Resistant Organisms: None Reported Past Surgical History: Cardiac Valve Replacement, Heart Catheterization With Stent Additional Past Surgical History / Comment(s): FACELIFT. AORTIC VALVE REPLACED- COW VALVE, 06/2010, left leg balloon angioplasty, cataracts removed Past Anesthesia/Blood Transfusion Reactions: Motion Sickness Additional Past Anesthesia/Blood Transfusion Reaction / Comment(s): MOTION SICK MANY YEARS AGO Date of Last Stent Placement:: 04/2007 Past Psychological History: No Psychological Hx Reported Smoking Status: Former smoker Past Alcohol Use History: Occasional Past Drug Use History: None Reported - Past Family History Mother Family Medical History: Dementia Father Family Medical History: Congestive Heart Failure (CHF), Hypertension General Exam Limitations: no limitations, physical limitation (Patient does have pain with weightbearing on the left lower extremity) General appearance: alert, in no apparent distress, other (Well-developed, well- nourished female in no acute distress. Initial temperature 98.1, pulse 71, respirations 18, blood pressure 112/54, pulse ox 95% on room air.) Head exam: Present: atraumatic, normocephalic, normal inspection Respiratory exam: Present: normal lung sounds bilaterally. Absent: respiratory distress, wheezes, rales, rhonchi, stridor Cardiovascular Exam: Present: regular rate, normal rhythm, normal heart sounds. Absent: systolic murmur, diastolic murmur, rubs, gallop, clicks GI/Abdominal exam: Present: soft, normal bowel sounds. Absent: distended, tenderness, guarding, rebound, rigid Left Knee exam: Present: normal inspection, full ROM, swelling (Mild left lower extremity edema patient states is not new, and is undergoing medication changes in order to address this.). Absent: tenderness Lower Leg exam: Present: tenderness (Tenderness upon palpation around wound), swelling (Mild, nonpitting edema), laceration (5 cm curvilinear laceration lateral aspect of the left lower leg; bleeding controlled prior to arrival. Small area of contusion surrounding wound.) Foot/Toe exam: Present: normal inspection, full ROM, swelling. Absent: tenderness Neurovascular tendon exam: Present: no vascular compromise. Absent: pulse deficit, abnormal cap refill, motor deficit, sensory deficit, tendon deficit Gait: observed and limited by pain Neurological exam: Present: alert, oriented X3, CN II-XII intact Psychiatric exam: Present: normal affect, normal mood Skin exam: Present: warm, dry, normal color Course Vital Signs 09/08/21 15:14 Temperature 98.1 F Pulse Rate 71 Respiratory 18 Rate Blood Pressure 112/54 O2 Sat by Pulse 95 Oximetry Procedures - Laceration Laceration #1 Consent Obtained: verbal consent Indication: laceration Site: lower extremity (Left, medial aspect) Size (cm): 5 Description: linear Depth: simple, single layer Anesthetic Used: lidocaine 1% Anesthesia Technique: local infiltration Amount (mls): 5 Pre-repair: wound explored, irrigated extensively Type of Sutures: nylon Size of Sutures: 4-0 Number of Sutures: 9 Technique: simple, interrupted Patient Tolerated Procedure: well, no complications Additional Comments: Procedure explained and consent obtained. Wound was anesthetized with 5 mL of lidocaine. Good anesthesia was achieved. Wound was thoroughly irrigated. No foreign body or deep structure injury noted. Wound was approximated with good alignment using 9 simple interrupted sutures. Bacitracin dressing applied. Patient tolerated procedure well with no complications. Wound care and follow- up instructions discussed at length. Patient and daughter verbalized understanding. Medical Decision Making - Medical Decision Making 81-year-old female with a past medical history hypertension, PAD, and without replacement the emergency department for evaluation of wound to the left lower extremity. Upon exam, patient is well-appearing and in no acute distress. Has had a 5 cm curvilinear laceration sustained when she exited her vehicle catching the lower leg on the corner of the car door. Patient's tetanus shot was updated. 9 simple interrupted sutures were placed in the left lower extremity with good closure. No foreign body or osseous injury on x-ray. Wound care discussed at length with patient and daughter. Instructed to see PCP for wound recheck on Friday or Friday. Discussed prophylactic antibiotic therapy, however patient is able to be seen by her PCP for wound recheck, therefore will defer this. Return parameters discussed in detail. Patient and daughter verbalized understanding and agreed with this plan. Attending: Jane. - Radiology Data Radiology results: report reviewed, image reviewed X-ray of the left tibia and fibula was obtained. Report was reviewed in its entirety. Impression per Dr. Reaves is #1 no evidence of acute fracture. #2 moderate tricompartmental osteoarthritis. #3. Moderate atherosclerosis of the arterial vasculature. 4. Small knee joint effusion. Disposition Clinical Impression: Laceration of left lower extremity Disposition: HOME SELF-CARE Condition: Stable Instructions (If sedation given, give patient instructions): Care For Your Stitches (ED), Laceration (ED) Additional Instructions: Keep wound clean, covered and dry for the first 24 hours. May change dressing tomorrow evening. Gently cleanse wound with mild soap and water, then apply antibiotic ointment to wound, then cover with gauze or Band-Aid. Keep injured leg elevated while at rest. May apply ice. Consider Tylenol for mild discomfort. Please see your PCP on Friday or Friday for a wound recheck. Monitor carefully for signs of infection including increased redness, pain, or foul-smelling drainage. Return to the emergency department with any new, worsening, or concerning symptoms. Sutures to be removed in 10 days. Is patient prescribed a controlled substance at d/c from ED?: No Referrals: Jermaine Feldman DO [Primary Care Provider] - 1-2 days Time of Disposition: 17:49
--- NOTE | 2021-09-08 16:55 | XR ---
EXAMINATION TYPE: XR tibia fibula LT DATE OF EXAM: 09/08/2021 4:43 PM INDICATION: Patient age:Female; 81 years old; Reason for study: left leg injury; COMPARISON: None TECHNIQUE: The left tibia/fibula was examined in AP and lateral projections. FINDINGS: Joint space narrowing with tibial plateau osteophyte formation and osteophytes of the zaldivar la. There is atherosclerosis of the arterial vasculature. No evidence of any acute osseous pathology, joint dislocation. There is a small joint effusion. Increased density within the menisci suggests ch ondrocalcinosis. IMPRESSION: 1. No evidence of acute fracture. 2. Moderate tricompartmental osteoarthrosis changes. 3. Moderate atherosclerosis of the arterial vasculature. 4. Small knee joint effusion.
== END 2021-09-08 18:20 | disposition home or self-care (01) ==
LOC: EC 14:40
DX: S81.812A Laceration without foreign body, left lower leg, initial encounter (principal); Z23 Encounter for immunization; W23.1XXA Caught, crushed, jammed, or pinched between stationary objects, initial encounter
CPT/HCPCS: 73590; 90715; 12002; 90471; 99283; J2001

== ENCOUNTER → 2021-12-28 | Outpatient (CLI) | payer MEDICARE, OTHER ==
--- NOTE | 2021-12-28 14:19 | BD ---
EXAMINATION TYPE: Axial Bone Density DATE OF EXAM: 12/28/2021 COMPARISON: 01-16-2017 CLINICAL HISTORY: 81 years year old Female. ICD-10 CODE: M85.80 DISORDER OF BONE DENSITY Height: 62IN Weight: 142 FRAX RISK QUESTIONS: Family History (Parent hip fracture): YES Secondary Osteoporosis: RISK FACTORS HISTORY OF: Postmenopausal woman: YES Lost more than 2 inches in height since high school: YES MEDICATIONS: Additional Medications: BP MED, CHOLESTEROL MED, CARDIAC MED, CALCIUM, VITAMIN D Additional History: EXAM MEASUREMENTS: Bone mineral densitometry was performed using the [employer]. Bone mineral density as measured about the Lumbar spine is: ----- L1-L4(G/cm2): 1.182 T Score Values are as follows: ----- L1: -0.3 ----- L2: -1.1 ----- L3: -0.2 ----- L4: 1.4 ----- L1-L4: 0.0 Bone mineral density has: Decreased 5.8% since study of: 01-16-2017 Bone mineral density about the R hip (g/cm2): 0.888 Bone mineral density about the L hip (g/cm2): 0.808 T Score values are as follows: -----R Neck: -1.2 -----L Neck: -2.1 -----R Total: -0.9 -----L Total: -1.6 Bone mineral density has: Decreased -8.4% since study of: 01-16-2017 FRAX%s: The graph provided illustrates a 31.0% chance for a major osteoporotic fx and a 20.9% chance for the hips probability for fx in 10 years time. IMPRESSION: Osteopenia (T Score between -2.5 and -1). There is slightly increased risk of fracture and the patient may be considered for treatment. Re-Screen 2-5 years. NOTE: T-SCORE=SD OF THE YOUNG ADULT MEAN.
== END | disposition home or self-care (01) ==
LOC: RADBDWWP 12:24
PROVIDERS: ATTEND Family Medicine
DX: M85.851 Other specified disorders of bone density and structure, right thigh (principal); M85.852 Other specified disorders of bone density and structure, left thigh; M85.88 Other specified disorders of bone density and structure, other site; Z78.0 Asymptomatic menopausal state
CPT/HCPCS: 77080

== ENCOUNTER → 2022-03-28 | Outpatient (CLI) | payer MEDICARE, OTHER ==
--- NOTE | 2022-03-28 10:44 | XR ---
EXAM TYPE: LUMBAR SPINE X RAY SERIES COMPARISON: NONE HISTORY: Low back pain TECHNIQUE: 3 views are submitted. FINDINGS: Alignment is anatomic. The pedicles are intact. The transverse processes are intact. There is diff use osteopenia with multilevel degenerative disc disease and facet arthropathy. Grade 1 anterolisthes is of L4 and L5. Vascular calcifications noted. IMPRESSION: 1. Multilevel degenerative disc disease and facet arthropathy most marked at L5-S1. There is a grade 1 anterolisthesis L4-L5. Suspect foraminal encroachment bilaterally
== END | disposition home or self-care (01) ==
LOC: RADXRMAIN 10:02
PROVIDERS: ATTEND Nurse Practitioner Family
DX: M51.37 Other intervertebral disc degeneration, lumbosacral region (principal); M47.817 Spondylosis without myelopathy or radiculopathy, lumbosacral region; M43.16 Spondylolisthesis, lumbar region
CPT/HCPCS: 72100

== ENCOUNTER → 2022-08-01 | Outpatient (CLI) | payer MEDICARE, OTHER ==
--- NOTE | 2022-08-01 14:24 | XR ---
EXAMINATION TYPE: XR Hip Complete LT DATE OF EXAM: 08/01/2022 COMPARISON: None HISTORY: Pain TECHNIQUE: 2 view left hip FINDINGS: There is loss of the joint space. Femoral head articulates with the acetabulum. No acute fr actures are evident. Vascular calcification is present. Follow-up exams can be performed 7-10 days ac tetlin trauma for continued pain. IMPRESSION: 1. No acute osseous abnormality. 2. Moderately advanced degenerative changes with loss of interspace of the left hip.
== END | disposition home or self-care (01) ==
LOC: RADXRMAIN 12:08
PROVIDERS: ATTEND Family Medicine
DX: M16.12 Unilateral primary osteoarthritis, left hip (principal)
CPT/HCPCS: 73502

== ENCOUNTER → 2022-08-20 | Outpatient (CLI) | payer MEDICARE, OTHER ==
--- NOTE | 2022-08-20 13:27 | MR ---
EXAMINATION TYPE: MR lumbar spine wo/w con DATE OF EXAM: 08/20/2022 COMPARISON: NONE HISTORY: Low back pain into left side. TECHNIQUE: Multiplanar, multisequence images of the lumbar spine is performed without and with IV contrast, util izing 6 mL intravenous Gadavist FINDINGS: Sagittal images of the lumbar spine show vertebral body heights to appear satisfactory. Mul tilevel spondylolisthesis with grade 1 retrolisthesis of L1 on L2 and L2 on L3. There is grade 1 ante rolisthesis of L4 on L5. Multilevel disc desiccation. Multilevel mild to moderate disc space narrowi ng with relative sparing of L1-L2 level. The conus medullaris is normal in position and signal ending at T12-L1 disc space level. The bone marrow signal intensity is within normal limits. No abnormal p ostcontrast enhancement is seen. [id number] multilevel anterior spurring is present. Axial images at T12-L1 level shows mild broad-based disc bulge minimally effacing the anterior thecal sac. Axial images at L1-L2 level show gzan-be-mzmqkzfa broad disc bulge mildly effacing the anterior theca l sac. Patent bilateral neural foramina. Axial images at L2-L3 level show mild broad disc bulge minimally effacing the anterior thecal sac. Pa tent bilateral neural foramina. Mild facet arthropathy bilaterally. Axial images at L3-L4 level show moderate broad-based posterior disc protrusion mildly effacing many anterior thecal sac along with mild left-sided anterior inferior neural foraminal narrowing. Right-si ded neural foramen is patent. There is mild to moderate facet arthropathy and ligamentum flavum hyper trophy bilaterally effacing the posterior lateral thecal sac. Axial images at the L4-L5 levels with spondylolisthesis with moderate facet arthropathy effacing the posterolateral thecal sac. There is mild broad-based posterior disc protrusion effacing the anterior thecal sac. There is mild bilateral anterior inferior neural foraminal narrowing. Axial images at the L5-S1 level shows mild to moderate facet arthropathy and ligamentum flavum hypert rophy. There is mild/moderate broad disc bulge. There is minimal effacement of the anterior thecal sa c. There is mild bilateral anterior inferior neural foraminal narrowing. Paraspinal muscle bulk is preserved. IMPRESSION: Multilevel spondylolisthesis and degenerative change in the lumbar spine as detailed abov e. No abnormal enhancement is seen.
== END | disposition home or self-care (01) ==
LOC: RADMRIMAIN 11:14
PROVIDERS: ATTEND Family Medicine
DX: M47.26 Other spondylosis with radiculopathy, lumbar region (principal); M43.16 Spondylolisthesis, lumbar region
CPT/HCPCS: 72158; A9585

== ENCOUNTER → 2022-11-21 | Outpatient (CLI) | payer MEDICARE, OTHER ==
[2022-11-21 17:16] LABS: INR 1.06 sec (0.93-1.11)
== END | disposition home or self-care (01) ==
LOC: LABWHC1 10:31
PROVIDERS: ATTEND Physical Medicine & Rehabilitation
DX: M54.51 Vertebrogenic low back pain (principal); M47.816 Spondylosis without myelopathy or radiculopathy, lumbar region; M43.16 Spondylolisthesis, lumbar region; M48.062 Spinal stenosis, lumbar region with neurogenic claudication; M47.817 Spondylosis without myelopathy or radiculopathy, lumbosacral region; M41.26 Other idiopathic scoliosis, lumbar region; Z79.01 Long term (current) use of anticoagulants
CPT/HCPCS: 36415; 85610

== ENCOUNTER 2023-01-23 07:22 | Observation (INO) | payer MEDICARE, OTHER ==
[~2023-01-23 07:22] MED LIST changes: +ALPRAZolam 0.5 MG TAB PO PRN; +ASPIRIN 325 MG TAB PO STA; +ATORVASTATIN 80 MG TAB PO STA; +HEPARIN SODIUM,PORCINE (1 ML) 2,500 UNIT in SODIUM CHLORIDE 0.9% 250 ML IRRIGATION PRN; +HEPARIN SODIUM,PORCINE 10,000 UNIT in SODIUM CHLORIDE 0.9% 1,000 ML IRRIGATION PRN; +NITROGLYCERIN SL TABS 0.4 MG TAB SUBLINGUAL PRN
[2023-01-23] MEDS ORDERED: SODIUM CHLORIDE 0.9% 1,000 ML IV ONE (07:37)
[2023-01-23] MEDS ORDERED: fentaNYL (PF) 50 MCG/ML 2 ML AMP ONE (09:49)
[2023-01-23] MEDS ORDERED: MIDAZOLAM 2 MG/2 ML VIAL IVP ONE (09:50)
[2023-01-23] MEDS ORDERED: fentaNYL (PF) 50 MCG/ML 2 ML AMP IVP ONE (09:50)
[2023-01-23] MEDS ORDERED: LIDOCAINE 1% INJ 10MG/ML (20 ML MDV) SQ ONE (09:52)
[2023-01-23] MEDS ORDERED: hydrALAZINE HCL 20 MG/ML 1 ML VIAL ONE (09:54)
[2023-01-23] MEDS ORDERED: ENALAPRILAT 1.25 MG/ML 1 ML VIAL ONE (09:54)
[2023-01-23] MEDS ORDERED: ENALAPRILAT 1.25 MG/ML 1 ML VIAL IV ONE (09:55)
[2023-01-23] MEDS ORDERED: hydrALAZINE HCL 20 MG/ML 1 ML VIAL IV ONE (09:55)
[2023-01-23] MEDS ORDERED: CLOPIDOGREL 75 MG TAB ONE (10:02)
[2023-01-23] MEDS ORDERED: CLOPIDOGREL 75 MG TAB PO ONE (10:04)
[2023-01-23] MEDS ORDERED: HEPARIN SODIUM 1,000 UN/ML (10ML VL) ONE (10:05)
[2023-01-23] MEDS: HEPARIN SODIUM 1,000 UN/ML (10ML VL) IV ONE ×2 (10:06→10:24)
[2023-01-23] MEDS ORDERED: NITROGLYCERIN 1000MCG/10ML SYRINGE INTRACORON ONE (10:15)
[2023-01-23] MEDS ORDERED: IOPAMIDOL-370 100ML BTL INJ ONE (10:27)
[2023-01-23] MEDS ORDERED: ZOLPIDEM 5 MG TAB PO PRN (10:45)
[2023-01-23] MEDS ORDERED: NITROGLYCERIN SL TABS 0.4 MG TAB SUBLINGUAL PRN (10:45)
[2023-01-23] MEDS ORDERED: RX INFO: IV CONTRAST WAS GIVEN 1 EACH MISC MISCELLANE PRN (10:45)
[2023-01-23] MEDS ORDERED: NON FORMULARY DRUG (Ubidecarenone [Co Q-10] 100 MG Capsule) PO SCH (10:45)
[2023-01-23] MEDS ORDERED: ATROPINE SULFATE 0.1 MG/ML 10ML SYRINGE IV PRN (10:45)
[2023-01-23] MEDS ORDERED: SODIUM CHLORIDE 0.9% 1,000 ML in EMPTY BAG 1 BAG IV SCH (10:45)
[2023-01-23] MEDS ORDERED: MAG HYDROX/AL HYDROX/SIMETH 30 ML CUP PO PRN (10:45)
[2023-01-23] MEDS ORDERED: NON FORMULARY DRUG (Turmeric Root Extract [Turmeric] 500 MG Capsule) PO SCH (10:45)
--- NOTE | 2023-01-23 10:59 | IR ---
EXAMINATION TYPE: IR angio lower extremity LT DATE OF EXAM: 01/23/2023 COMPARISON: NONE HISTORY: Fluoroscopy time. Fluoroscopy was provided to the referring clinician.
--- NOTE | 2023-01-23 12:23 | P.PCN ---
Date of Procedure: 01/23/23 Operative Findings: CARDIAC CATHETERIZATION AND PERCUTANEOUS CORONARY INTERVENTION PERFORMING PHYSICIAN: Finn Márquez MD, [facility] PROCEDURE PERFORMED: 1. Selective right and left coronary angiogram 2. Successful stenting of distal RCA using 3.25 x 15 Xience DINESH with an excellent angiographic results 3. Adjunctive use of intravascular ultrasound 4. Selective left SFA angiogram 5. Ultrasound-guided access of the right common femoral artery 6. Selective right common femoral artery angiogram INDICATION: This is an 83-year-old female patient with CAD and prior stenting of the RCA was seen in the office recently for chest discomfort and shortness of breath with exertion concerning for angina. She had abnormal stress is showing ischemia and in the light of that a heart catheterization was advised COMPLICATION: None APPROACH: Right common femoral artery LEVEL OF SEDATION: Moderate with the sedation time off 36 minutes PROCEDURE DESCRIPTION: After obtaining an informed consent the patient was brought to the cardiac chemical laboratory chief. The right common femoral artery was cannulated using micropuncture technique under ultrasound guidance and the micropuncture wire passed easily then I placed a 6-Chilean sheath. After that I did selective right and left coronary angiogram using JR4 and JL4 catheters. Subsequently I did intervene on the right coronary artery. After that I did selective left SFA angiogram. The procedure was completed with no complication. SELECTIVE CORONARY ANGIOGRAM: The right coronary artery: Large caliber vessel and a dominant vessel. The proximal RCA appears to be nicolas nted and the stent is patent. The mid RCA has mild to moderate disease only. The RCA distally has a focal lesion appears to be in the range of 80-90%. The RCA after that bifurcates into PDA and PLV branches both appeared to be angiographically normal Left main: Is angiographically normal. Bifurcates into LCx and LAD The left circumflex: Large caliber vessel nondominant vessel. The LCx has mild disease only. The left anterior descending artery: Large caliber vessel. The LAD appears to have mild disease only. Gives rise into the first and second diagonal and both appeared to be angiographically normal PCI OF THE RCA: Anticoagulation was initiated using heparin with continuous ACT monitoring. Subsequently I did wire the right coronary artery using a run-through wire. Intravascular ultrasound was performed and showed a diameter of the RCA around 3 mm. Predilatation was performed using 2.5 mm balloon before I deployed a 3.25 x 15 mm stent where the stent was positioned under fluoroscopy guidance and deployed under fluoroscopy guidance. Final angiogram was performed and showed an excellent angiographic results and the procedure was completed was no complication LEFT SFA ANGIOGRAM: Because the patient was scheduled to undergo an aortogram with runoff with a heart catheterization and because we are limited in the amount of contrast and because she was symptomatic mainly in the left leg and the Doppler showed left SFA disease I decided to do only and SFA angiogram on the left side. So I did selective the left common femoral artery using 035 stiff Glidewire with a rim catheter. The rim was advanced over the wire to the left iliac/left femoral artery. Left SFA angiogram was performed and showed an ostial lesion appears to be in the range of 70% and mid SFA appears to be in the range of 70% was SFA is extremely calcified CONCLUSION: 1. Critical disease involving the distal RCA. I did perform successful stenting of the distal RCA as described above. 2. Severe disease involving the left SFA POSTPROCEDURE MANAGEMENT: 1. Dual antiplatelet therapy using aspirin and Plavix for 6 month 2. Aggressive cholesterol control 3. Follow-up with the patient
[2023-01-23 15:26] VITALS: BMI 24.7
[2023-01-23] MEDS: hydrALAZINE HCL 20 MG/ML 1 ML VIAL IVP PRN ×2 (17:18→23:41)
[2023-01-23] MEDS: CHOLECALCIFEROL 25 MCG (1000 IU) TABLET PO SCH ×2 (17:19→19:59)
[2023-01-23] MEDS: ATORVASTATIN 40 MG TAB PO SCH (19:59)
[2023-01-23] MEDS: lisinopriL 20 MG TAB PO SCH (19:59)
[2023-01-24 07:53] LABS: African American GFR (CKD) 68 (>60 ml/min/1.73 sqM); Non-African American GFR(CKD) 59 (>60 ml/min/1.73 sqM)
[2023-01-24] MEDS ORDERED: MULTIVITAMINS, THERA 1 EACH TAB PO SCH (09:00)
[2023-01-24] MEDS: lisinopriL 20 MG TAB PO SCH ×2 (09:14→19:52)
[2023-01-24] MEDS: CHOLECALCIFEROL 25 MCG (1000 IU) TABLET PO SCH ×3 (09:14→19:52)
[2023-01-24] MEDS: METOPROLOL TARTRATE 12.5 MG TAB PO SCH (09:15)
[2023-01-24] MEDS: ASPIRIN 81 MG PO SCH (09:15)
[2023-01-24] MEDS: ASCORBIC ACID 500 MG TAB PO SCH (09:15)
[2023-01-24] MEDS: DIGOXIN 125 MCG TAB PO SCH (09:15)
[2023-01-24] MEDS: FUROSEMIDE 40 MG TAB PO SCH (09:15)
[2023-01-24] MEDS: CLOPIDOGREL 75 MG TAB PO SCH (09:15)
[2023-01-24] MEDS ORDERED: amLODIPine 5 MG TAB PO SCH (09:30)
[2023-01-24] MEDS: hydroCHLOROthiazide 25 MG TAB PO SCH (09:53)
--- NOTE | 2023-01-24 11:21 | P.PN ---
Subjective Progress Note Date: 01/24/23 Principal diagnosis: CAD The patient is an 83-year-old female patient was CAD and prior stenting of the RCA as well as hypertension and dyslipidemia and valvular heart disease and permanent atrial fibrillation. She underwent yesterday heart catheterization and stenting of the distal right coronary artery with an excellent angiographic results and with no complication January [id number] The patient was seen and evaluated this morning. She is asymptomatic interval chest pain or chest discomfort but she had some issues with bleeding from the groin yesterday and FemoStop was applied. She still have mild bruise of the right groin. The pressure beside that remains elevated and consistent with hypertension crisis. For that reason I advised the patient to stay overnight f or additional 24-hour monitoring to watch the groin and adjust her blood pressure medications. Clinically she is stable otherwise. She has no pain in the chest and no shortness of breath. She is in nature fibrillation with overall controlled heart rate The examination is remarkable for mildly tender groin with mild bruises only. Assessment CAD Permanent in nature fibrillation Valvular heart disease Hypertension Dyslipidemia Plan Add diuretic to the current medical regimen Add amlodipine to the current medical regimen Monitor the patient for additional 24 hours Follow-up with the patient Objective - Vital Signs Vital signs: Vital Signs Temp 98.5 F 01/24/23 09:30 Pulse 73 01/24/23 09:30 Resp 16 01/24/23 09:30 BP 163/71 01/24/23 09:30 Pulse Ox 97 01/24/23 09:30 FiO2 Intake & Output 01/23/23 01/24/23 01/24/23 18:59 06:59 18:59 Intake Total 885 450 540 Balance 885 450 540 Weight 61.5 kg Intake: IV 525 Oral 360 450 540 Other: # Voids 2 1 - Labs CBC & Chem 7: 01/24/23 07:05
[2023-01-24] MEDS: ATORVASTATIN 40 MG TAB PO SCH (19:52)
[2023-01-25] MEDS: FUROSEMIDE 40 MG TAB PO SCH (08:47)
[2023-01-25] MEDS: CLOPIDOGREL 75 MG TAB PO SCH (08:47)
[2023-01-25] MEDS: METOPROLOL TARTRATE 12.5 MG TAB PO SCH (08:47)
[2023-01-25] MEDS: ASCORBIC ACID 500 MG TAB PO SCH (08:47)
[2023-01-25] MEDS: ASPIRIN 81 MG PO SCH (08:47)
[2023-01-25] MEDS: CHOLECALCIFEROL 25 MCG (1000 IU) TABLET PO SCH ×2 (08:47→10:49)
[2023-01-25] MEDS: DIGOXIN 125 MCG TAB PO SCH (08:47)
[2023-01-25] MEDS: hydroCHLOROthiazide 25 MG TAB PO SCH (08:47)
[2023-01-25] MEDS: lisinopriL 20 MG TAB PO SCH (08:47)
[2023-01-25] MEDS ORDERED: amLODIPine 5 MG TAB PO SCH (09:00)
[2023-01-25] MEDS ORDERED: POTASSIUM CHLORIDE ER 10 MEQ TAB.ER.PRT PO SCH (09:00)
[2023-01-25 09:03] VITALS: BP 134/67; PULSE 81; RESP 16; TEMP 98.2
--- NOTE | 2023-01-25 10:25 | P.DS ---
Providers Attending physician: Finn Márquez Consults: 01/23/23 10:46 Consult Physician Routine Consulting Provider: [facility] Consult Reason/Comments: Post Interventional Patient Do you want consulting provider notified?: Already Contacted Primary care physician: [facility] Hospital Course: The patient is a pleasant 83-year-old female patient was underwent stenting of the distal RCA the day before yesterday. We get the patient overnight because of hypertension and small the groin complication. 01/25/2023 The patient was seen and evaluated this morning. She seems to be stable and she is asymptomatic and now hemodynamically stable. The patient would like to go home. She will be discharged on triple therapy. I'll follow-up with the patient next week in the office Plan - Discharge Summary Discharge Rx Participant: No New Discharge Prescriptions: New amLODIPine [Norvasc] 5 mg PO BID #60 tab Clopidogrel [Plavix] 75 mg PO DAILY #90 tablet hydroCHLOROthiazide [Hydrodiuril] 25 mg PO DAILY #90 tab Nitroglycerin Sl Tabs [Nitrostat] 0.4 mg SUBLINGUAL Q5M PRN #100 tab PRN Reason: Chest Pain Continue Atorvastatin [Lipitor] 40 mg PO HS Aspirin [Adult Low Dose Aspirin EC] 81 mg PO DAILY Furosemide [Lasix] 40 mg PO DAILY Metoprolol(Unk) 12.5 mg PO DAILY Digoxin [Lanoxin] 125 mcg PO DAILY Potassium Chloride [Potassium Chloride ER] 8 meq PO Q48H Lisinpril(Unk) 20 mg PO BID Discontinued Warfarin [Coumadin] 7.5 mg PO SUTH@2100 Warfarin [Coumadin] 5 mg PO [id number]@2100 No Action Turmeric Root Extract [Turmeric] 500 mg PO Q48H Multivitamins, Thera [Multivitamin (formulary)] 1 tab PO Q48H Ubidecarenone [Co Q-10] 100 mg PO Q48H Cholecalciferol [Vitamin D3 (25 Mcg = 1000 Iu)] 50 mcg PO TID Vit C(Unk) 1 tab PO DAILY Discharge Medication List Aspirin [Adult Low Dose Aspirin EC] 81 mg PO DAILY 03/17/18 [History] Atorvastatin [Lipitor] 40 mg PO HS 03/17/18 [History] Turmeric Root Extract [Turmeric] 500 mg PO Q48H 05/19/18 [History] Multivitamins, Thera [Multivitamin (formulary)] 1 tab PO Q48H 04/19/19 [History] Digoxin [Lanoxin] 125 mcg PO DAILY 09/01/20 [History] Ubidecarenone [Co Q-10] 100 mg PO Q48H 09/29/20 [History] Cholecalciferol [Vitamin D3 (25 Mcg = 1000 Iu)] 50 mcg PO TID 07/28/21 [History] Furosemide [Lasix] 40 mg PO DAILY 07/28/21 [History] Potassium Chloride [Potassium Chloride ER] 8 meq PO Q48H 07/28/21 [History] Lisinpril(Unk) 20 mg PO BID 01/16/23 [History] Metoprolol(Unk) 12.5 mg PO DAILY 01/16/23 [History] Vit C(Unk) 1 tab PO DAILY 01/16/23 [History] Clopidogrel [Plavix] 75 mg PO DAILY #90 tablet 01/24/23 [Rx] Nitroglycerin Sl Tabs [Nitrostat] 0.4 mg SUBLINGUAL Q5M PRN #100 tab 01/25/23 [Rx] amLODIPine [Norvasc] 5 mg PO BID #60 tab 01/25/23 [Rx] hydroCHLOROthiazide [Hydrodiuril] 25 mg PO DAILY #90 tab 01/25/23 [Rx] Follow up Appointment(s)/Referral(s): Finn Márquez MD [STAFF PHYSICIAN] - 01/30/23 10:45 am (FRIDAY) Patient Instructions/Handouts: Heart Catheterization (DC), Angiogram (DC), Angio-Seal (DC) Activity/Diet/Wound Care/Special Instructions: CARDIAC CATH Support your puncture site by applying firm, steady pressure whenever you cough, laugh, sneeze or bear down to have a bowel movement (2-day restriction). Watch for any excessive bruising, active bleeding, a firm knot forming under your skin, extreme tenderness and signs of infection (redness, swelling, fever). IF PUNCTURE BLEEDS, APPLY FIRM DIRECT PRESSURE AND GO TO ER. DO NOT DRIVE SELF. Shower daily, do not soak puncture in a tub bath, jacuzzi, pool, white etc. for 1 week. This is to prevent risk of infection. Drink plenty of fluids the day of and day after your procedure to flush contrast dye out of your kidneys. Take all medications as directed. Never stop any new medication without your physicians OK. No driving for 2 days after procedure. 10- pound weight lifting restriction for 1 week. Low sodium/low fat diet. Activity limited until follow up appointment with your electrical supervisor, avoid stairs for two days In case of any problems, please call [facility] @ [phone]. Just some important facts for you to know after your stent placement Aspirin as anti-platelet therapy - Aspirin lessens the chance of heart attack and stroke. It helps prevent blood clots from forming, allowing the blood to flow more easily. Each day, you will take one 81 mg (non-enteric coated) tablet daily. Do not stop unless instructed by your doctor. Anti-platelet Therapy. -In addition to aspirin, you will take one additional anti-platelet medication daily. This will help prevent a clot from forming in your stent: Ticagreler (Brillinta) -You will need to take your anti-platelet medicine every day for 12 months -Please consult your heart doctor before you stop this medicine. -They may want you to continue for a longer period of time. Statins -A statin medication lowers cholesterol levels in the blood. This helps slow the progression of heart disease. - Please take your statin medication as prescribed by your doctor. -You may be taking one of the following statins: Rosuvastatin Beta blockers -Your Medication: Metoprolol Is a medication that protects your heart from stress and can prevent future heart attacks. It can slow your heart rate. It can take weeks for your body to get used to a beta [place]. The dose may need to be changed a few times as your body adjusts CORRINA Inhibitor -Your medication:Lisinopril used to reduce cardiovascular events and decrease blood pressure these medications are also known to prevent left ventricular remodeling after you have suffered a myocardial infarction. Do not stop taking these medicines without talking to your doctor. -Take all other medicines as directed by your doctor. Do not take any extra aspirin or ibuprofen. They can increase your risk of bleeding. Many [id number] drugs contain aspirin. If you are unsure about what the drug contains, check with your pharmacist before taking it. -For mild discomfort, you may take plain Tylenol (acetaminophen). Follow dose directions, but do not take more than 4,000 mg of acetaminophen in 24 hours. Contact your doctor right away or go to the nearest hospital Emergency Room if you have: -Severe angina or chest pain. (This may be a sign of a problem with your stent.) -Excessive bruising, blood in urine/stool or black tarry stools. Healthy LifeStyle It is important to keep a heart healthy lifestyle. This can improve your long- term health and decrease your risk for heart attacks. -Managing your blood cholesterol, blood pressure, weight, and stress. -The importance of regular exercise. -Heart Healthy Diet: Include more plants in your diet. Eat lots of fresh vegetables and fresh fruits. Eat good fats: plant based oils, avocado, nuts, beans, legumes. Eat more seafood. Limit Meat. Switch to whole grains. -Avoid fried foods and animal fats and processed meats Follow up with your PCP and [facility] Thank you for allowing us to participate in your care, it was truly a pleasure having you for our patient!!!
== END 2023-01-25 12:50 | disposition home or self-care (01) ==
LOC: CATHCVL 07:22 → 3SCARD 10:17 → CATHCVL 01-25 11:20 → 3SCARD 01-25 11:23
PROVIDERS: ADMIT Internal Medicine Interventional Cardiology; ATTEND Internal Medicine Interventional Cardiology
DX: I25.10 Atherosclerotic heart disease of native coronary artery without angina pectoris (principal); I10 Essential (primary) hypertension; E78.5 Hyperlipidemia, unspecified; I48.21 Permanent atrial fibrillation; I38 Endocarditis, valve unspecified; Z95.5 Presence of coronary angioplasty implant and graft
CPT/HCPCS: 94760; 36247; 92978; 93454; 75710; 82565; 85610; G0378; C9600; C1760; C1769 ×4; C1887; C1894 ×2; C1725; C1753; C1874; J2250; J0360; J2001; J3010; J1644; Q9967; J2305

== ENCOUNTER 2023-01-26 14:20 | Observation (INO) | payer MEDICARE, OTHER ==
[2023-01-26] MEDS ORDERED: ASPIRIN 81 MG PO STA (14:35)
[2023-01-26] MEDS ORDERED: NITROGLYCERIN OINT 1 INCH/GM PACKET TOPICAL STA (14:35)
--- NOTE | 2023-01-26 14:37 | ED ---
General Adult HPI - General Stated complaint: Chest Pain Time Seen by Provider: 01/26/23 14:28 Source: patient, EMS, RN notes reviewed Mode of arrival: EMS Limitations: no limitations - History of Present Illness Initial comments: Patient is a pleasant 83-year-old female presenting to the emergency department with concerns with chest discomfort. Onset of symptoms was this morning. Patient was just recently discharged yesterday from the hospital and had cardiac stent placed. Patient had reported 99% blockage. Patient states discomfort feels like burning. Discomfort is now more mild rated 2/10. Patient did have mild associated dyspnea earlier. - Related Data Home Medications Medication Instructions Recorded Confirmed Aspirin [Adult Low Dose Aspirin EC] 81 mg PO DAILY 03/17/18 01/23/23 Atorvastatin [Lipitor] 40 mg PO HS 03/17/18 01/23/23 Turmeric Root Extract [Turmeric] 500 mg PO Q48H 05/19/18 01/23/23 Multivitamins, Thera [Multivitamin 1 tab PO Q48H 04/19/19 01/23/23 (formulary)] Digoxin [Lanoxin] 125 mcg PO DAILY 09/01/20 01/16/23 Ubidecarenone [Co Q-10] 100 mg PO Q48H 09/29/20 01/23/23 Cholecalciferol [Vitamin D3 (25 50 mcg PO TID 07/28/21 01/23/23 Mcg = 1000 Iu)] Furosemide [Lasix] 40 mg PO DAILY 07/28/21 01/16/23 Potassium Chloride [Potassium 8 meq PO Q48H 07/28/21 01/16/23 Chloride ER] Lisinpril(Unk) 20 mg PO BID 01/16/23 01/16/23 Metoprolol(Unk) 12.5 mg PO DAILY 01/16/23 01/16/23 Vit C(Unk) 1 tab PO DAILY 01/16/23 01/23/23 Previous Rx's Medication Instructions Recorded Clopidogrel [Plavix] 75 mg PO DAILY #90 tablet 01/24/23 Nitroglycerin Sl Tabs [Nitrostat] 0.4 mg SUBLINGUAL Q5M PRN #100 tab 01/25/23 amLODIPine [Norvasc] 5 mg PO BID #60 tab 01/25/23 hydroCHLOROthiazide [Hydrodiuril] 25 mg PO DAILY #90 tab 01/25/23 Allergies Allergy/AdvReac Type Severity Reaction Status Date / Time No Known Allergies Allergy Verified 01/26/23 14:43 Review of Systems ROS Statement: Those systems with pertinent positive or pertinent negative responses have been documented in the HPI. ROS Other: All systems not noted in ROS Statement are negative. Constitutional: Denies: fever Eyes: Denies: eye pain ENT: Denies: ear pain Cardiovascular: Reports: as per HPI, chest pain Musculoskeletal: Denies: back pain Past Medical History Past Medical History: Coronary Artery Disease (CAD), Hyperlipidemia, Hypertension, Musculoskeletal Disorder, Vascular Disorder Additional Past Medical History / Comment(s): AORTIC VALVE REPAIRED W/ COW VALVE; HEMORRHOIDS CURRENT. LEGS GET TIRED, HEAVY WHEN WALKING, OCC EDEMA LT ANKLE, urinary incontinence, probable covid 2019, fully vaccinated for covid now History of Any Multi-Drug Resistant Organisms: None Reported Past Surgical History: Cardiac Valve Replacement, Heart Catheterization With Stent Additional Past Surgical History / Comment(s): FACELIFT. AORTIC VALVE REPLACED- COW VALVE, 06/2010, vicente leg balloon angioplasty, cataracts removed Past Anesthesia/Blood Transfusion Reactions: Motion Sickness Additional Past Anesthesia/Blood Transfusion Reaction / Comment(s): MOTION SICK MANY YEARS AGO Date of Last Stent Placement:: 04/2007 Smoking Status: Former smoker - Past Family History Mother Family Medical History: Dementia Father Family Medical History: Congestive Heart Failure (CHF), Hypertension General Exam Limitations: no limitations General appearance: alert, in no apparent distress Head exam: Present: normocephalic Eye exam: Present: normal appearance Neck exam: Present: normal inspection Respiratory exam: Present: normal lung sounds bilaterally. Absent: chest wall tenderness Cardiovascular Exam: Present: regular rate, normal rhythm Expanded Peripheral pulses: 2+: Radial (R), Radial (L), Posterior Tibialis (R), Posterior Tibialis (L) GI/Abdominal exam: Present: soft. Absent: tenderness Extremities exam: Present: normal inspection. Absent: pedal edema, calf tenderness Neurological exam: Present: alert Psychiatric exam: Present: normal affect, normal mood Skin exam: Present: normal color Course Vital Signs 01/26/23 01/26/23 14:38 15:30 Temperature 98.4 F Pulse Rate 52 L 50 L Respiratory 18 22 Rate Blood Pressure 117/45 117/45 O2 Sat by Pulse 100 100 Oximetry EKG Findings - EKG Results: EKG: interpreted by ERMD (Irregular rhythm with a rate of 54. Left axis. Borderline intraventricular conduction delay. Septal Q waves. Nonspecific T waves.) Medical Decision Making - Medical Decision Making Was pt. sent in by a medical professional or institution (, PA, MOBILE DEVICE DEVELOPER, urgent care, hospital, or senior living...) When possible be specific @ -No Did you speak to anyone other than the patient for history (EMS, parent, family, police, friend...)? What history was obtained from this source @ -EMS helps provide history, during transfer Did you review nursing and triage notes (agree or disagree)? Why? @ -I reviewed and agree with nursing and triage notes Were old charts reviewed (outside hosp., previous admission, EMS record, old EKG, old radiological studies, urgent care reports/EKG's, senior living records)? Report findings @ -No old charts were reviewed Differential Diagnosis (chest pain, altered mental status, abdominal pain women, abdominal pain men, vaginal bleeding, weakness, fever, dyspnea, syncope, headache, dizziness, GI bleed, back pain, seizure, CVA, palpatations, mental health, musculoskeletal)? @ -Differential Chest Pain: Stable Angina, Unstable Angina, STEMI, NSTEMI Aortic Dissection, Pneumothorax, Musculoskeletal, Esophageal Spasm GERD, Cholecystitis, Pancreatitis, Zoster, this is not meant to be an all-inclusive list. EKG interpreted by me (3pts min.). @ -As above X-rays interpreted by me (1pt min.). @ -Chest x-ray shows sternotomy wires. CT interpreted by me (1pt min.). @ -None done U/S interpreted by me (1pt. min.). @ -None done What testing was considered but not performed or refused? (CT, X-rays, U/S, labs)? Why? @ -None What meds were considered but not given or refused? Why? @ -None Did you discuss the management of the patient with other professionals (professionals i.e. , ARPITA, MOBILE DEVICE DEVELOPER, lab, RT, psych nurse, social media campaign manager, education assistant, teacher, search and rescue officer, case briefer)? Give summary @ -Case was discussed with Dr. mireles, who will admit covering Dr. Feldman Was smoking cessation discussed for >3mins.? @ -No Was critical care preformed (if so, how long)? @ -No Were there social determinants of health that impacted care today? How? (Homelessness, low income, unemployed, alcoholism, drug addiction, transportation, low edu. Level, literacy, decrease access to med. care, snf, rehab)? @ -No Was there de-escalation of care discussed even if they declined (Discuss DNR or withdrawal of care, Hospice)? DNR status @ -No What co-morbidities impacted this encounter? (DM, HTN, Smoking, COPD, CAD, Cancer, CVA, ARF, Chemo, Hep., AIDS, mental health diagnosis, sleep apnea, morbid obesity)? @ -None Was patient admitted / discharged? Hospital course, mention meds given and route, prescriptions, significant lab abnormalities, going to OR and other perti nent info. @ -Patient reevaluated. Patient resting comfortably in bed, only mild discomfort this time. Patient and family updated. Admission orders written. Patient will be admitted with cardiac consult. Undiagnosed new problem with uncertain prognosis? @ -No Drug Therapy requiring intensive monitoring for toxicity (Heparin, Nitro, Insulin, Cardizem)? @ -No Were any procedures done? @ -No Diagnosis/symptom? @ -Chest pain Acute, or Chronic, or Acute on Chronic? @ -Acute Uncomplicated (without systemic symptoms) or Complicated (systemic symptoms)? @ -default Side effects of treatment? @ -No Exacerbation, Progression, or Severe Exacerbation? @ -No Poses a threat to life or bodily function? How? (Chest pain, [place], [place], pneumonia, PE, COPD, DKA, ARF, appy, cholecystitis, CVA, Diverticulitis, Homicidal, Suicidal, threat to staff... and all critical care pts) @ -No - Lab Data Result diagrams: 01/26/23 14:54 01/26/23 14:54 Lab Results 01/26/23 01/26/23 01/26/23 Range/Units 14:54 14:54 14:54 WBC 8.3 (3.8-10.6) k/uL RBC 4.05 (3.80-5.40) m/uL Hgb 12.7 (11.4-16.0) gm/dL Hct 38.5 (34.0-46.0) % MCV 95.0 (80.0-100.0) fL MCH 31.3 (25.0-35.0) pg MCHC 32.9 (31.0-37.0) g/dL RDW 15.0 (11.5-15.5) % Plt Count 323 (150-450) k/uL MPV 7.4 Neutrophils % 77 % Lymphocytes % 14 % Monocytes % 6 % Eosinophils % 1 % Basophils % 1 % Neutrophils # 6.4 (1.3-7.7) k/uL Lymphocytes # 1.1 (1.0-4.8) k/uL Monocytes # 0.5 (0-1.0) k/uL Eosinophils # 0.1 (0-0.7) k/uL Basophils # 0.0 (0-0.2) k/uL PT 10.4 (9.0-12.0) sec INR 1.0 (<1.2) APTT 23.4 (22.0-30.0) sec Sodium 136 L (137-145) mmol/L Potassium 4.0 (3.5-5.1) mmol/L Chloride 101 (98-107) mmol/L Carbon Dioxide 22 (22-30) mmol/L Anion Gap 13 mmol/L BUN 33 H (7-17) mg/dL Creatinine 1.92 H (0.52-1.04) mg/dL Est GFR (CKD-EPI)AfAm 27 (>60 ml/min/1.73 sqM) Est GFR (CKD-EPI)NonAf 23 (>60 ml/min/1.73 sqM) Glucose 101 H (74-99) mg/dL Calcium 9.2 (8.4-10.2) mg/dL Magnesium 2.2 (1.6-2.3) mg/dL Total Bilirubin 0.8 (0.2-1.3) mg/dL AST 31 (14-36) U/L ALT 22 (4-34) U/L Alkaline Phosphatase 81 (38-126) U/L Troponin I (0.000-0.034) ng/mL NT-Pro-B Natriuret Pep 1520 pg/mL Total Protein 6.3 (6.3-8.2) g/dL Albumin 3.8 (3.5-5.0) g/dL 01/26/23 Range/Units 14:54 WBC (3.8-10.6) k/uL RBC (3.80-5.40) m/uL Hgb (11.4-16.0) gm/dL Hct (34.0-46.0) % MCV (80.0-100.0) fL MCH (25.0-35.0) pg MCHC (31.0-37.0) g/dL RDW (11.5-15.5) % Plt Count (150-450) k/uL MPV Neutrophils % % Lymphocytes % % Monocytes % % Eosinophils % % Basophils % % Neutrophils # (1.3-7.7) k/uL Lymphocytes # (1.0-4.8) k/uL Monocytes # (0-1.0) k/uL Eosinophils # (0-0.7) k/uL Basophils # (0-0.2) k/uL PT (9.0-12.0) sec INR (<1.2) APTT (22.0-30.0) sec Sodium (137-145) mmol/L Potassium (3.5-5.1) mmol/L Chloride (98-107) mmol/L Carbon Dioxide (22-30) mmol/L Anion Gap mmol/L BUN (7-17) mg/dL Creatinine (0.52-1.04) mg/dL Est GFR (CKD-EPI)AfAm (>60 ml/min/1.73 sqM) Est GFR (CKD-EPI)NonAf (>60 ml/min/1.73 sqM) Glucose (74-99) mg/dL Calcium (8.4-10.2) mg/dL Magnesium (1.6-2.3) mg/dL Total Bilirubin (0.2-1.3) mg/dL AST (14-36) U/L ALT (4-34) U/L Alkaline Phosphatase (38-126) U/L Troponin I 0.046 H* (0.000-0.034) ng/mL NT-Pro-B Natriuret Pep pg/mL Total Protein (6.3-8.2) g/dL Albumin (3.5-5.0) g/dL Disposition Clinical Impression: Chest pain Disposition: ADMITTED IP TO THIS HOSP Is patient prescribed a controlled substance at d/c from ED?: No Referrals: Jermaine Feldman DO [Primary Care Provider] - 1-2 days Time of Disposition: 16:22
[2023-01-26 15:25] LABS: Basophils % (A) 1 %; Eosinophils # (A) 0.1 k/uL (0-0.7); Eosinophils % (A) 1 %; HCT 38.5 % (34.0-46.0); HGB 12.7 gm/dL (11.4-16.0); Lymphocytes # (A) 1.1 k/uL (1.0-4.8); Lymphocytes % (A) 14 %; MCH 31.3 pg (25.0-35.0); MCHC 32.9 g/dL (31.0-37.0); Mean Platelet Volume 7.4; Monocytes # (A) 0.5 k/uL (0-1.0); Monocytes % (A) 6 %; Neutrophils # (A) 6.4 k/uL (1.3-7.7); Neutrophils % (A) 77 %; Platelet Count 323 k/uL (150-450); RBC 4.05 m/uL (3.80-5.40); WBC 8.3 k/uL (3.8-10.6)
[2023-01-26 15:32] LABS: Partial Thromboplastin Time 23.4 sec (22.0-30.0); Prothrombin Time 10.4 sec (9.0-12.0)
[2023-01-26 15:56] LABS: ALT 22 U/L (4-34); AST 31 U/L (14-36); African American GFR (CKD) 27 (>60 ml/min/1.73 sqM); Albumin 3.8 g/dL (3.5-5.0); Alkaline Phosphatase 81 U/L (38-126); Anion Gap 13 mmol/L; Blood Urea Nitrogen 33 mg/dL (7-17); Calcium 9.2 mg/dL (8.4-10.2); Carbon Dioxide 22 mmol/L (22-30); Chloride 101 mmol/L (98-107); Glucose 101 mg/dL (74-99); Magnesium 2.2 mg/dL (1.6-2.3); Non-African American GFR(CKD) 23 (>60 ml/min/1.73 sqM); Sodium 136 mmol/L (137-145); Total Bilirubin 0.8 mg/dL (0.2-1.3); Total Protein 6.3 g/dL (6.3-8.2)
[2023-01-26 16:04] LABS: NT-Pro-B-Type Natriuretic Pept 1520 pg/mL
--- NOTE | 2023-01-26 16:21 | XR ---
EXAMINATION TYPE: XR chest 2V DATE OF EXAM: 01/26/2023 COMPARISON: 07/28/2021 HISTORY: Chest pain TECHNIQUE: Frontal and lateral views of the chest are obtained. FINDINGS: There is a prosthetic aortic valve and median sternotomy wires. The cardiac silhouette is mildly prominent and the thoracic aorta is tortuous. Pulmonary vasculature is not congested. There is no airspace consolidation or abnormal interstitial opacity. There is no pleural effusion or pneumothorax. Comparison the prior study reveals no interval change. IMPRESSION: 1. Postsurgical changes as described above. 2. Mild cardiomegaly without overt CHF. 3. No acute cardiopulmonary disease. 4. No interval change
[2023-01-26] MEDS ORDERED: NITROGLYCERIN SL TABS 0.4 MG TAB SUBLINGUAL PRN (16:22)
[2023-01-26] MEDS ORDERED: ONDANSETRON 4 MG/2 ML VIAL IVP PRN (18:17)
[2023-01-26] MEDS ORDERED: ACETAMINOPHEN TAB 325 MG TAB PO PRN (18:17)
[2023-01-26] MEDS ORDERED: NALOXONE 0.4 MG/ML 1 ML VIAL IV PRN (18:17)
[2023-01-26] MEDS: CLOPIDOGREL 75 MG TAB PO SCH (18:53)
[2023-01-26] MEDS: METOPROLOL SUCCINATE (ER) 25 MG TAB.ER.24H PO SCH (18:53)
[2023-01-26] MEDS: NITROGLYCERIN OINT 1 INCH/GM PACKET TOPICAL SCH ×2 (18:53→23:08)
[2023-01-26] MEDS: SODIUM CHLORIDE 0.9% 1,000 ML IV SCH (18:53)
[2023-01-26] MEDS: MELATONIN 1 MG TAB PO SCH (20:09)
[2023-01-26] MEDS: CHOLECALCIFEROL 25 MCG (1000 IU) TABLET PO SCH (20:09)
[2023-01-26] MEDS: lisinopriL 20 MG TAB PO SCH (20:10)
[2023-01-26] MEDS: ATORVASTATIN 40 MG TAB PO SCH (20:10)
[2023-01-26] MEDS: amLODIPine 5 MG TAB PO SCH (20:10)
[2023-01-27] MEDS: NITROGLYCERIN OINT 1 INCH/GM PACKET TOPICAL SCH ×4 (06:45→23:03)
[2023-01-27] MEDS: ASCORBIC ACID 500 MG TAB PO SCH (09:27)
[2023-01-27] MEDS: FUROSEMIDE 40 MG TAB PO SCH (09:27)
[2023-01-27] MEDS: CHOLECALCIFEROL 25 MCG (1000 IU) TABLET PO SCH ×3 (09:27→21:12)
[2023-01-27] MEDS: METOPROLOL SUCCINATE (ER) 25 MG TAB.ER.24H PO SCH (09:27)
[2023-01-27] MEDS: DIGOXIN 125 MCG TAB PO SCH (09:27)
[2023-01-27] MEDS: ASPIRIN 325 MG TAB PO SCH (09:27)
[2023-01-27] MEDS: lisinopriL 20 MG TAB PO SCH ×2 (09:27→21:12)
[2023-01-27] MEDS: amLODIPine 5 MG TAB PO SCH (09:27)
[2023-01-27] MEDS: CLOPIDOGREL 75 MG TAB PO SCH (09:27)
[2023-01-27 13:42] LABS: HCT 38.5 % (34.0-46.0); HGB 12.2 gm/dL (11.4-16.0); Hypochromasia Slight; MCH 30.4 pg (25.0-35.0); MCHC 31.6 g/dL (31.0-37.0); MCV 96.3 fL (80.0-100.0); Platelet Count 334 k/uL (150-450); WBC 8.8 k/uL (3.8-10.6)
[2023-01-27 14:01] LABS: African American GFR (CKD) 42 (>60 ml/min/1.73 sqM); Anion Gap 12 mmol/L; Blood Urea Nitrogen 32 mg/dL (7-17); Calcium 9.3 mg/dL (8.4-10.2); Carbon Dioxide 25 mmol/L (22-30); Chloride 100 mmol/L (98-107); Glucose 148 mg/dL (74-99); Magnesium 2.1 mg/dL (1.6-2.3); Non-African American GFR(CKD) 36 (>60 ml/min/1.73 sqM); Sodium 137 mmol/L (137-145)
--- NOTE | 2023-01-27 15:40 | P.CRDCN ---
History of Present Illness Consult date: 01/27/23 Consult reason: chest pain History of present illness: History of present illness: This is an 83-year-old female patient of Dr. 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 We have been asked to evaluate the patient for chest pain. She had a recent hospitalization for cardiac catheterization and stenting of the distal right coronary artery with Dr. Márquez. Blood pressure medications were changed at that time by adding a hydrochlorothiazide and amlodipine as well as Plavix and Nitrostat. Patient states that she went home on Friday and her daughter stayed at the house until around 8:00. She states she had a little bit of discomfort in her chest on and off which she was told was due to the stent. She states she took melatonin she was able to sleep through the night without any issues. The next morning she had taken all of her medications and was trying to get off the couch when she started blacking out. She felt like all the blood work overhead and she is not able to ambulate. She states that her blood pressure recently was 200 systolic and the flank medication changes were made. She states she is eating and drinking okay but she doesn't have much appetite. EKG atrial fibrillation with ventricular rate of 54. Chest x-ray: postsurgical changes. Mild cardiomegaly no acute cardiopulmonary disease. CBC is unremarkable. Electrolytes are normal. BUN initially 33 and repeat 32. Initial creatinine 1.92 with repeat of 1.35. At the time of discharge from the hospital 01/24, creatinine was 0.89. Troponin 0.046, 0.056 and 0.050. Home cardiac medications: amlodipine 5 mg twice daily, aspirin 81 mg daily, atorvastatin 40 mg at bedtime, Plavix 75 mg daily, digoxin 125 g daily, Lasix 40 mg daily, hydrochlorothiazide 25 mg daily, lisinopril 20 mg twice daily, metoprolol succinate 12.5 mg daily, Nitrostat as needed, potassium chloride 10 mEq every 48 hours. CoQ10 100 mg every 48 hours. Echocardiogram 05/16/2022 revealed normal EF, prosthetic AV, moderate TR, mild pulmonary hypertension, moderate MR. Review Of Systems: At the time of my evaluation: Constitutional: No fever, no chills. No weakness, fatigue or lethargy. EENT: No headache. No dizziness. Lungs: No shortness of breath, cough, no sputum production. No wheezing. Cardiovascular: No chest pain, no lower extremity edema. No palpitations. No paroxysmal nocturnal dyspnea. No orthopnea. No lightheadedness or dizziness. No syncopal episodes. Abdominal: No abdominal pain. No nausea, vomiting. No diarrhea. No constipation. No bloody or tarry stools. Genitourinary: No dysuria.. No urinary retention. Musculoskeletal: No myalgias. No muscle weakness, no frequent falls. No back pain. No neck pain. Integumentary: No wounds. No rash. No unusual bruising. Neurologic: No aphasia. No facial droop. No change in mentation. No head injury. No headache. Physical examination: Gen: This is an 83-year-old female. She is resting in bed appears to be comfortable and in no acute distress VS: reviewed HEENT: Head is atraumatic, normocephalic. Pupils equal, round. Sclerae is anicteric. NECK: Supple. No JVD. . LUNGS: Clear to auscultation. No wheezes or rhonchi. No intercostal retractions. HEART: Regular rate and rhythm. Systolic murmur. ABDOMEN: Soft No tenderness. EXTREMITIES: Trace bilateral edal edema. No calf tenderness. NEUROLOGICAL: Patient is awake, alert and oriented x3. Assessment: Presyncopal episode secondary to hypotension Acute kidney injury Coronary artery disease status post recent stent of the RCA Valvular heart disease with aortic valve replacement with bioprosthetic PAD Permanent atrial fibrillation Hypertension Dyslipidemia Plan: Discontinue amlodipine and hydrochlorothiazide Obtain limited echocardiogram Start IV fluid 0.9 normal saline at 60 mL per hour Plan for discharge home tomorrow Thank you kindly for this consultation. Nurse practitioner note has been reviewed, I agree with documented findings and plan of care. Patient was seen and examined. Past Medical History Past Medical History: Coronary Artery Disease (CAD), Hyperlipidemia, Hypertension, Musculoskeletal Disorder, Vascular Disorder Additional Past Medical History / Comment(s): AORTIC VALVE REPAIRED W/ COW VALVE; HEMORRHOIDS CURRENT. LEGS GET TIRED, HEAVY WHEN WALKING, OCC EDEMA LT ANKLE, urinary incontinence, probable covid 2019, fully vaccinated for covid now History of Any Multi-Drug Resistant Organisms: None Reported Past Surgical History: Cardiac Valve Replacement, Heart Catheterization With Stent, Orthopedic Surgery Additional Past Surgical History / Comment(s): FACELIFT. AORTIC VALVE REPLACED- COW VALVE, 06/2010, vicente leg balloon angioplasty, cataracts removed, Heart cath with Stentx1 RCA 01/23/2023 Past Anesthesia/Blood Transfusion Reactions: Motion Sickness Additional Past Anesthesia/Blood Transfusion Reaction / Comment(s): MOTION SICK MANY YEARS AGO Date of Last Stent Placement:: 01/23/2023 Smoking Status: Former smoker - Past Family History Mother Family Medical History: Dementia Father Family Medical History: Congestive Heart Failure (CHF), Hypertension Medications and Allergies Home Medications Medication Instructions Recorded Confirmed Type Aspirin [Adult Low Dose Aspirin EC] 81 mg PO DAILY 03/17/18 01/26/23 History Atorvastatin [Lipitor] 40 mg PO HS 03/17/18 01/26/23 History Turmeric Root Extract [Turmeric] 500 mg PO Q48H 05/19/18 01/26/23 History Multivitamins, Thera [Multivitamin 1 tab PO Q48H 04/19/19 01/26/23 History (formulary)] Digoxin [Lanoxin] 125 mcg PO DAILY 09/01/20 01/26/23 History Ubidecarenone [Co Q-10] 100 mg PO Q48H 09/29/20 01/26/23 History Cholecalciferol [Vitamin D3 (25 50 mcg PO TID 07/28/21 01/26/23 History Mcg = 1000 Iu)] Clopidogrel [Plavix] 75 mg PO DAILY #90 tablet 01/24/23 01/26/23 Rx Nitroglycerin Sl Tabs [Nitrostat] 0.4 mg SUBLINGUAL Q5M PRN #100 tab 01/25/23 01/26/23 Rx Ascorbic Acid [Vitamin C] 1,000 mg PO DAILY 01/26/23 01/26/23 History Furosemide [Lasix] 40 mg PO DAILY 01/26/23 01/26/23 History Metoprolol Succinate [Metoprolol 12.5 mg PO DAILY 01/26/23 01/26/23 History Succinate ER] Potassium Chloride ER [K-Dur 10] 10 meq PO Q48H 01/26/23 01/26/23 History lisinopriL [Zestril] 20 mg PO BID 01/26/23 01/26/23 History Allergies Allergy/AdvReac Type Severity Reaction Status Date / Time No Known Allergies Allergy Verified 01/26/23 17:00 Physical Exam Vitals: Vital Signs Temp Pulse Pulse Pulse Pulse Pulse Resp 01/27/23 12:00 64 18 01/27/23 08:00 97.4 F L 57 L 78 64 69 18 01/27/23 04:00 98.0 F 62 19 01/27/23 00:00 98.0 F 51 L 19 01/26/23 20:00 98.0 F 69 19 01/26/23 18:18 97.9 F 78 64 68 16 01/26/23 16:20 64 20 01/26/23 15:30 50 L 22 01/26/23 14:38 98.4 F 52 L 18 BP BP BP BP Pulse Ox 01/27/23 12:00 110/64 98 01/27/23 08:00 112/58 99 01/27/23 04:00 124/66 94 L 01/27/23 00:00 108/52 96 01/26/23 20:00 130/58 97 01/26/23 18:18 117/69 132/55 144/57 99 01/26/23 16:20 100/73 98 01/26/23 15:30 117/45 100 01/26/23 14:38 117/45 100 Intake and Output 01/26/23 01/27/23 01/27/23 22:59 06:59 14:59 Intake Total 20 180 Balance 20 180 Intake: IV 20 Invasive Line 1 20 Oral 180 Other: Voiding Method Toilet Toilet # Voids 2 Weight 58.967 kg Results 01/27/23 13:07 01/27/23 13:07 Cardiac Enzymes 01/26/23 01/26/23 01/26/23 Range/Units 14:54 14:54 17:48 AST 31 (14-36) U/L Troponin I 0.046 H* 0.056 H* (0.000-0.034) ng/mL 01/26/23 Range/Units 20:29 AST (14-36) U/L Troponin I 0.050 H* (0.000-0.034) ng/mL Coagulation 01/26/23 Range/Units 14:54 PT 10.4 (9.0-12.0) sec APTT 23.4 (22.0-30.0) sec CBC 01/26/23 Range/Units 14:54 WBC 8.3 (3.8-10.6) k/uL RBC 4.05 (3.80-5.40) m/uL Hgb 12.7 (11.4-16.0) gm/dL Hct 38.5 (34.0-46.0) % Plt Count 323 (150-450) k/uL Comprehensive Metabolic Panel 01/26/23 Range/Units 14:54 Sodium 136 L (137-145) mmol/L Potassium 4.0 (3.5-5.1) mmol/L Chloride 101 (98-107) mmol/L Carbon Dioxide 22 (22-30) mmol/L BUN 33 H (7-17) mg/dL Creatinine 1.92 H (0.52-1.04) mg/dL Glucose 101 H (74-99) mg/dL Calcium 9.2 (8.4-10.2) mg/dL AST 31 (14-36) U/L ALT 22 (4-34) U/L Alkaline Phosphatase 81 (38-126) U/L Total Protein 6.3 (6.3-8.2) g/dL Albumin 3.8 (3.5-5.0) g/dL Current Medications Generic Name Dose Route Start Last Admin Trade Name Freq PRN Reason Stop Dose Admin Acetaminophen 650 mg 01/26/23 18:17 Acetaminophen Tab 325 Mg Tab PO Q6HR PRN Mild Pain or Fever > 100.5 Amlodipine Besylate 5 mg 01/26/23 21:00 01/27/23 09:27 Amlodipine 5 Mg Tab PO 5 mg BID MICHELLE Administration Ascorbic Acid 1,000 mg 01/27/23 09:00 01/27/23 09:27 Ascorbic Acid 500 Mg Tab PO 1,000 mg DAILY MICHELLE Administration Aspirin 325 mg 01/27/23 09:00 01/27/23 09:27 Aspirin 325 Mg Tab PO 325 mg DAILY MICHELLE Administration Atorvastatin Calcium 40 mg 01/26/23 21:00 01/26/23 20:10 Atorvastatin 40 Mg Tab PO 40 mg HS MICHELLE Administration Cholecalciferol 50 mcg 01/26/23 22:00 10/09/23 09:27 Cholecalciferol 25 Mcg (1000 Iu) Tablet PO 50 mcg TID MICHELLE Administration Clopidogrel Bisulfate 75 mg 01/26/23 18:15 01/27/23 09:27 Clopidogrel 75 Mg Tab PO 75 mg DAILY [facility] Administration Digoxin 125 mcg 01/27/23 09:00 01/27/23 09:27 Digoxin 125 Mcg Tab PO 125 mcg DAILY MICHELLE Administration Furosemide 40 mg 01/27/23 09:00 01/27/23 09:27 Furosemide 40 Mg Tab PO 40 mg DAILY MICHELLE Administration Sodium Chloride 1,000 mls @ 20 mls/hr 01/26/23 18:30 01/26/23 18:53 Saline 0.9% IV Not Given .Q24H [facility] Lisinopril 20 mg 01/26/23 21:00 01/27/23 09:27 Lisinopril 20 Mg Tab PO 20 mg BID [facility] Administration Melatonin 1 mg 01/26/23 21:00 01/26/23 20:09 Melatonin 1 Mg Tab PO 1 mg HS [facility] Administration Metoprolol Succinate 12.5 mg 01/26/23 18:15 01/27/23 09:27 Metoprolol Succinate (Er) 25 Mg Tab.Er.24h PO 12.5 mg DAILY [facility] Administration Naloxone HCl 0.2 mg 01/26/23 18:17 Naloxone 0.4 Mg/Ml 1 Ml Vial IV Q2M PRN Opioid Reversal Nitroglycerin 0.4 mg 01/26/23 16:22 Nitroglycerin Sl Tabs 0.4 Mg Tab SUBLINGUAL Q5M PRN Chest Pain Nitroglycerin 1 inch 01/26/23 18:00 01/27/23 12:34 Nitroglycerin Oint 1 Inch/Gm Packet TOPICAL Not Given Q6HR [facility] Ondansetron HCl 4 mg 01/26/23 18:17 Ondansetron 4 Mg/2 Ml Vial IVP Q8HR PRN Nausea And Vomiting Intake and Output 01/26/23 01/27/23 01/27/23 22:59 06:59 14:59 Intake Total 20 180 Balance 20 180 Intake: IV 20 Invasive Line 1 20 Oral 180 Other: Voiding Method Toilet Toilet # Voids 2 Weight 58.967 kg 01/26/23 14:54 01/26/23 14:54
--- NOTE | 2023-01-27 20:50 | P.HPIM ---
History of Present Illness H&P Date: 01/27/23 Chief Complaint: Chest discomfort Patient is a 83-year-old female with a known history of coronary artery disease status post stent placement, aortic valve replacement several years ago, atrial fibrillation on anticoagulation, PAD, hypertension, hyperlipidemia, prior history of smoking and arthritis presents to ER with complaints of chest pain and felt like fainting. Patient states that she was at at home, sat on the couch and suddenly felt like fainting and vision gets dark. Lasted for few seconds. Was brought to ER for further evaluation. Patient was discharged home on 01/25/2023. She underwent cardiac catheterization on 01/23/2023 with successful stenting of the RCA. Her blood pressure was elevated at the time and SBP was up to 200s. Medications were adjusted prior to discharging home. On admission blood pressure 117/45 pulse is 52 respiration 18 pulse ox 100% on 2 L oxygen via nasal cannula. EKG showed atrial fibrillation with ventricular rate 54. Chest x-ray showed postsurgical changes. Mild cardiomegaly. No acute cardiopulmonary process. Laboratory data showed WBC 8.3 hemoglobin 12.7 platelets 323 Sodium 136 potassium 4.0 chloride 101 bicarb is 22 BUN 33 and creatinine 1.92 and blood sugar 101 Troponin 0.046, 0.056 and 0.050 proBNP 1520. Review of Systems Constitutional: Patient denies any fever or chills . No generalized weakness or weight loss. Abdomen: Patient denied nausea vomiting and diarrhea and abdominal pain. Cardiovascular: Patient denies any chest pain or short of breath no palpitations. Respiratory: patient denied any cough or sputum production. No shortness of breath Neurologic: Patient denied any numbness or tingling headache. Musculoskeletal: Patient denies any complaints of joint swelling or deformity. Skin: Negative Psychiatric: Negative Endocrine: No heat or cold intolerance. No recent weight gain. Genitourinary: No dysuria or hematuria. All other 14 point ROS negative except the above Past Medical History Past Medical History: Coronary Artery Disease (CAD), Hyperlipidemia, Hypertension, Musculoskeletal Disorder, Vascular Disorder Additional Past Medical History / Comment(s): AORTIC VALVE REPAIRED W/ COW MALISSA VE; HEMORRHOIDS CURRENT. LEGS GET TIRED, HEAVY WHEN WALKING, OCC EDEMA LT ANKLE, urinary incontinence, probable covid 2019, fully vaccinated for covid now History of Any Multi-Drug Resistant Organisms: None Reported Past Surgical History: Cardiac Valve Replacement, Heart Catheterization With Stent, Orthopedic Surgery Additional Past Surgical History / Comment(s): FACELIFT. AORTIC VALVE REPLACED- COW VALVE, 06/2010, vicente leg balloon angioplasty, cataracts removed, Heart cath with Stentx1 RCA 01/23/2023 Past Anesthesia/Blood Transfusion Reactions: Motion Sickness Additional Past Anesthesia/Blood Transfusion Reaction / Comment(s): MOTION SICK MANY YEARS AGO Date of Last Stent Placement:: 01/23/2023 Smoking Status: Former smoker - Past Family History Mother Family Medical History: Dementia Father Family Medical History: Congestive Heart Failure (CHF), Hypertension Medications and Allergies Home Medications Medication Instructions Recorded Confirmed Type Aspirin [Adult Low Dose Aspirin EC] 81 mg PO DAILY 03/17/18 01/26/23 History Atorvastatin [Lipitor] 40 mg PO HS 03/17/18 01/26/23 History Turmeric Root Extract [Turmeric] 500 mg PO Q48H 05/19/18 01/26/23 History Multivitamins, Thera [Multivitamin 1 tab PO Q48H 04/19/19 01/26/23 History (formulary)] Digoxin [Lanoxin] 125 mcg PO DAILY 09/01/20 01/26/23 History Ubidecarenone [Co Q-10] 100 mg PO Q48H 09/29/20 01/26/23 History Cholecalciferol [Vitamin D3 (25 50 mcg PO TID 07/28/21 01/26/23 History Mcg = 1000 Iu)] Clopidogrel [Plavix] 75 mg PO DAILY #90 tablet 01/24/23 01/26/23 Rx Nitroglycerin Sl Tabs [Nitrostat] 0.4 mg SUBLINGUAL Q5M PRN #100 tab 01/25/23 01/26/23 Rx Ascorbic Acid [Vitamin C] 1,000 mg PO DAILY 01/26/23 01/26/23 History Furosemide [Lasix] 40 mg PO DAILY 01/26/23 01/26/23 History Metoprolol Succinate [Metoprolol 12.5 mg PO DAILY 01/26/23 01/26/23 History Succinate ER] Potassium Chloride ER [K-Dur 10] 10 meq PO Q48H 01/26/23 01/26/23 History lisinopriL [Zestril] 20 mg PO BID 01/26/23 01/26/23 History Allergies Allergy/AdvReac Type Severity Reaction Status Date / Time No Known Allergies Allergy Verified 01/26/23 17:00 Physical Exam Vitals: Vital Signs Temp Pulse Pulse Pulse Pulse Pulse Resp 01/27/23 08:00 97.4 F L 57 L 18 01/27/23 04:00 98.0 F 62 19 01/27/23 00:00 98.0 F 51 L 19 01/26/23 20:00 98.0 F 69 19 01/26/23 18:18 97.9 F 78 64 68 16 01/26/23 16:20 64 20 01/26/23 15:30 50 L 22 01/26/23 14:38 98.4 F 52 L 18 BP BP BP BP Pulse Ox 01/27/23 08:00 112/58 99 01/27/23 04:00 124/66 94 L 01/27/23 00:00 108/52 96 01/26/23 20:00 130/58 97 01/26/23 18:18 117/69 132/55 144/57 99 01/26/23 16:20 100/73 98 01/26/23 15:30 117/45 100 01/26/23 14:38 117/45 100 Intake and Output 01/26/23 01/27/23 01/27/23 22:59 06:59 14:59 Intake Total 20 180 Balance 20 180 Intake: IV 20 Invasive Line 1 20 Oral 180 Other: Voiding Method Toilet Toilet # Voids 2 Weight 58.967 kg PHYSICAL EXAMINATION: Patient is lying in the bed comfortably, no acute distress, awake alert and oriented.. HEENT: Normocephalic. Neck is supple. Pupils reactive. Nostrils clear. Oral cavity is moist. Neck reveals no JVD, carotid bruits, or thyromegaly. CHEST EXAMINATION: Trachea is central. Symmetrical expansion. Lung alves clear to auscultation and percussion. CARDIAC: Normal S1, S2 with no gallops. Systolic murmur. Irregular rhythm. ABDOMEN: Soft. Bowel sounds normal. No organomegaly. No abdominal bruits. Extremities: reveal no edema. No clubbing or cyanosis Neurologically awake, alert, oriented x3 with well-coordinated movements. No focal deficits noted Skin: No rash or skin lesions. Psychiatric: Cooperative. Nonsuicidal Musculoskeletal: No joint swelling or deformity. Normal range of motion. Results CBC & Chem 7: 01/27/23 13:07 01/27/23 13:07 Labs: Abnormal Lab Results - Last 24 Hours (Table) 01/26/23 01/26/23 01/26/23 Range/Units 14:54 14:54 17:48 Sodium 136 L (137-145) mmol/L BUN 33 H (7-17) mg/dL Creatinine 1.92 H (0.52-1.04) mg/dL Glucose 101 H (74-99) mg/dL Troponin I 0.046 H* 0.056 H* (0.000-0.034) ng/mL 01/26/23 Range/Units 20:29 Sodium (137-145) mmol/L BUN (7-17) mg/dL Creatinine (0.52-1.04) mg/dL Glucose (74-99) mg/dL Troponin I 0.050 H* (0.000-0.034) ng/mL Thrombosis Risk Factor Assmnt - DVT/VTE Prophylaxis DVT/VTE Prophylaxis: Pharmacologic Prophylaxis ordered - Choose All That Apply Any of the Below Risk Factors Present?: Yes Each Factor Represents 1 point: Obesity (BMI >25) Other Risk Factors: Yes Each Risk Factor Represents 2 Points: Age 61-74 years Other congenital or acquired thrombophilia - If yes, enter type in comment: No Thrombosis Risk Factor Assessment Total Risk Factor Score: 3 Thrombosis Risk Factor Assessment Level: Moderate Risk Assessment and Plan Assessment: Presyncopal episode likely secondary to hypotension. 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 Improving. Creatinine at 1.92 on admission. Baseline 0.8. Coronary artery disease status post stent placement to RCA on 01/23/2023. Valvular heart disease with history of aortic valve replacement Chronic atrial fibrillation. Not on anticoagulation at home. Mild elevated troponin level likely due to recent cardiac catheterization. Peripheral vascular disease status post angioplasty of the bilateral SFA. Hypertension Hyperlipidemia Prior history of smoking GI and DVT prophylaxis. Patient is already on full anticoagulation Plan: Patient will be continued on telemetry monitoring. Continue with IV hydration with normal saline. Patient was started back on aspirin, Plavix, metoprolol, lisinopril and Lasix. Amlodipine and hydrochlorothiazide is on hold. Continue with his digoxin. Continue to monitor blood pressure closely. Cardiology is on board. Discussed with the patient at bedside in detail. Time with Patient: Greater than 30
[2023-01-27] MEDS: ATORVASTATIN 40 MG TAB PO SCH (21:12)
[2023-01-27] MEDS: DOCUSATE 100 MG CAP PO PRN (21:12)
[2023-01-27] MEDS: SODIUM CHLORIDE 0.9% 1,000 ML IV SCH ×2 (21:12→21:15)
[2023-01-27] MEDS: MELATONIN 1 MG TAB PO SCH (21:12)
[2023-01-27 23:50] LABS: Chol/HDL Ratio 2.79 Ratio; LDL Cholesterol,Calculated 93.6 mg/dL (0.0-131.0); VLDL Calculation 19.32 mg/dL (5.00-40.00)
[2023-01-28] MEDS: NITROGLYCERIN OINT 1 INCH/GM PACKET TOPICAL SCH ×3 (06:07→17:19)
[2023-01-28] MEDS: SODIUM CHLORIDE 0.9% 1,000 ML IV SCH ×2 (06:09→20:18)
[2023-01-28 09:25] LABS: African American GFR (CKD) 53 (>60 ml/min/1.73 sqM); Anion Gap 11 mmol/L; Blood Urea Nitrogen 33 mg/dL (7-17); Calcium 9.1 mg/dL (8.4-10.2); Carbon Dioxide 23 mmol/L (22-30); Chloride 106 mmol/L (98-107); Glucose 94 mg/dL (74-99); Non-African American GFR(CKD) 46 (>60 ml/min/1.73 sqM); Potassium 4.7 mmol/L (3.5-5.1); Sodium 140 mmol/L (137-145)
[2023-01-28] MEDS: METOPROLOL SUCCINATE (ER) 25 MG TAB.ER.24H PO SCH (09:45)
[2023-01-28] MEDS: CLOPIDOGREL 75 MG TAB PO SCH (09:45)
[2023-01-28] MEDS: CHOLECALCIFEROL 25 MCG (1000 IU) TABLET PO SCH ×3 (09:45→20:16)
[2023-01-28] MEDS: ASPIRIN 325 MG TAB PO SCH (09:45)
[2023-01-28] MEDS: lisinopriL 20 MG TAB PO SCH ×2 (09:45→20:16)
[2023-01-28] MEDS: DIGOXIN 125 MCG TAB PO SCH (09:45)
[2023-01-28] MEDS: ASCORBIC ACID 500 MG TAB PO SCH (09:45)
[2023-01-28] MEDS: FUROSEMIDE 40 MG TAB PO SCH (09:45)
[2023-01-28 11:43] LABS: Basophils % (A) 0 %; Eosinophils # (A) 0.2 k/uL (0-0.7); Eosinophils % (A) 2 %; HCT 37.5 % (34.0-46.0); HGB 11.8 gm/dL (11.4-16.0); Hypochromasia Slight; Lymphocytes # (A) 1.8 k/uL (1.0-4.8); Lymphocytes % (A) 25 %; MCH 30.2 pg (25.0-35.0); MCHC 31.3 g/dL (31.0-37.0); MCV 96.5 fL (80.0-100.0); Mean Platelet Volume 7.5; Monocytes # (A) 0.5 k/uL (0-1.0); Monocytes % (A) 6 %; Neutrophils # (A) 4.7 k/uL (1.3-7.7); Neutrophils % (A) 65 %; Platelet Count 327 k/uL (150-450); RBC 3.89 m/uL (3.80-5.40); RDW 14.8 % (11.5-15.5); WBC 7.3 k/uL (3.8-10.6)
--- NOTE | 2023-01-28 13:55 | CA ---
Transthoracic Echo Report Name: Erika Rogers Age: 83 Gender: F : 1940 Exam Date: 01/28/2023 08:08 Exam Location: [facility] Ht (in): 62 Wt (lb): 130 Ordering Physician: Ashleigh Alcantara Attending/Referring Phys: [id number], [place] Firestopper Technician Jennifer Reese [facility] Procedure CPT: Indications: LVF Cardiac Hx: Technical Quality: Fair Contrast 1: Total Dose (mL): Contrast 2: Total Dose (mL): MEASUREMENTS (Male / Female) Normal Values 2D ECHO LV Diastolic Diameter PLAX 4.3 cm 4.2 - 5.9 / 3.9 - 5.3 cm LV Systolic Diameter PLAX 2.9 cm IVS Diastolic Thickness 1.0 cm 0.6 - 1.0 / 0.6 - 0.9 cm LVPW Diastolic Thickness 1.0 cm 0.6 - 1.0 / 0.6 - 0.9 cm LV Relative Wall Thickness 0.5 DOPPLER Mitral E Point Velocity 127.5 cm/s MV Deceleration Time 325.3 ms LV E' Lateral Velocity 9.1 cm/s Mitral E to LV E' Lateral Ratio 14.1 LV E' Septal Velocity 5.4 cm/s Mitral E to LV E' Septal Ratio 23.7 FINDINGS Left Ventricle Mildly increased left ventricular wall thickness. Left ventricular cavity size normal. Left ventricular ejection fraction is estimated at 60-65%. Right Ventricle Right Atrium Left Atrium Mitral Valve Aortic Valve Tricuspid Valve Pulmonic Valve Pericardium Minimal pericardial effusion (normal variant). Aorta CONCLUSIONS LVH with preserved systolic function Significant biatrial enlargement Previewed by: Dr. Evelio Brooks MD (Electronically Signed) Final Date: 28 January 2023 13:54
--- NOTE | 2023-01-28 15:07 | P.PN ---
Subjective Progress Note Date: 01/28/23 History of present illness: This is an 83-year-old female patient of Dr. 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 We have been asked to evaluate the patient for chest pain. She had a recent hospitalization for cardiac catheterization and stenting of the distal right coronary artery with Dr. Márquez. Blood pressure medications were changed at that time by adding a hydrochlorothiazide and amlodipine as well as Plavix and Nitrostat. Patient states that she went home on Friday and her daughter stayed at the house until around 8:00. She states she had a little bit of discomfort in her chest on and off which she was told was due to the stent. She states she took melatonin she was able to sleep through the night without any issues. The next morning she had taken all of her medications and was trying to get off the couch when she started blacking out. She felt like all the blood work overhead and she is not able to ambulate. She states that her blood pressure recently was 200 systolic and the flank medication changes were made. She states she is eating and drinking okay but she doesn't have much appetite. EKG atrial fibrillation with ventricular rate of 54. Chest x-ray: postsurgical changes. Mild cardiomegaly no acute cardiopulmonary disease. CBC is unremarkable. Electrolytes are normal. BUN initially 33 and repeat 32. Initial creatinine 1.92 with repeat of 1.35. At the time of discharge from the hospital 01/24, creatinine was 0.89. Troponin 0.046, 0.056 and 0.050. Home cardiac medications: amlodipine 5 mg twice daily, aspirin 81 mg daily, atorvastatin 40 mg at bedtime, Plavix 75 mg daily, digoxin 125 g daily, Lasix 40 mg daily, hydrochlorothiazide 25 mg daily, lisinopril 20 mg twice daily, metoprolol succinate 12.5 mg daily, Nitrostat as needed, potassium chloride 10 mEq every 48 hours. CoQ10 100 mg every 48 hours. Echocardiogram 05/16/2022 revealed normal EF, prosthetic AV, moderate TR, mild pulmonary hypertension, moderate MR. 01/28 The patient is seen today in follow-up. Heart rate is running 47-50, blood pressure 167/62, pulse ox 98% on room air she's been afebrile. Patient and her daughter questions of been answered. We will plan to continue to hold both amlodipine and hydrochlorothiazide at discharge. Although patient's bradycardic, most likely her symptoms are related to hypotension. Repeat BUN 33 creatinine 1.11. Limited echocardiogram reveals LVH with preserved systolic function. Significant biatrial enlargement. Physical examination: Gen: This is an 83-year-old female. She is resting in bed appears to be comfortable and in no acute distress VS: reviewed HEENT: Head is atraumatic, normocephalic. Pupils equal, round. Sclerae is anicteric. NECK: Supple. No JVD. . LUNGS: Clear to auscultation. No wheezes or rhonchi. No intercostal retractions. HEART: Regular rate and rhythm. Systolic murmur. ABDOMEN: Soft No tenderness. EXTREMITIES: Trace bilateral edal edema. No calf tenderness. NEUROLOGICAL: Patient is awake, alert and oriented x3. Assessment: Presyncopal episode secondary to hypotension Acute kidney injury Coronary artery disease status post recent stent of the RCA Valvular heart disease with aortic valve replacement with bioprosthetic PAD Permanent atrial fibrillation Hypertension Dyslipidemia Plan: Discontinue amlodipine and hydrochlorothiazide--continue to hold at discharge Patient is cleared from cardiology for discharge home and may follow up with Dr. Márquez in one week. Nurse practitioner note has been reviewed, I agree with documented findings and plan of care. Patient was seen and examined. Objective - Vital Signs Vital signs: Vital Signs Temp 98.1 F 01/28/23 08:00 Pulse 69 01/28/23 08:00 Resp 18 01/28/23 08:00 BP 167/62 01/28/23 08:00 Pulse Ox 98 01/28/23 08:00 FiO2 Intake & Output 01/27/23 01/28/23 01/28/23 18:59 06:59 18:59 Intake Total 1500 Balance 1500 Intake: Oral 1500 Other: Voiding Method Toilet # Voids 2 # Bowel Movements 0 - Labs CBC & Chem 7: 01/28/23 10:06 01/28/23 08:26 Labs: Abnormal Lab Results - Last 24 Hours (Table) 01/27/23 01/28/23 Range/Units 13:07 08:26 BUN 32 H 33 H (7-17) mg/dL Creatinine 1.35 H 1.11 H (0.52-1.04) mg/dL Glucose 148 H (74-99) mg/dL HDL Cholesterol 63.10 H (40.00-60.00) mg/dL
[2023-01-28] MEDS: DOCUSATE 100 MG CAP PO PRN (20:15)
[2023-01-28] MEDS: ATORVASTATIN 40 MG TAB PO SCH (20:16)
[2023-01-28] MEDS: MELATONIN 1 MG TAB PO SCH (20:16)
[2023-01-29] MEDS: NITROGLYCERIN OINT 1 INCH/GM PACKET TOPICAL SCH ×3 (00:20→11:08)
[2023-01-29] MEDS: SODIUM CHLORIDE 0.9% 1,000 ML IV SCH (05:07)
--- NOTE | 2023-01-29 05:43 | P.PN ---
Subjective Progress Note Date: 01/28/23 Patient is a 83-year-old female with a known history of coronary artery disease status post stent placement, aortic valve replacement several years ago, atrial fibrillation on anticoagulation, PAD, hypertension, hyperlipidemia, prior history of smoking and arthritis presents to ER with complaints of chest pain and felt like fainting. Patient states that she was at at home, sat on the couch and suddenly felt like fainting and vision gets dark. Lasted for few seconds. Was brought to ER for further evaluation. Patient was discharged home on 01/25/2023. She underwent cardiac catheterization on 01/23/2023 with successful stenting of the RCA. Her blood pressure was elevated at the time and SBP was up to 200s. Medications were adjusted prior to discharging home. On admission blood pressure 117/45 pulse is 52 respiration 18 pulse ox 100% on 2 L oxygen via nasal cannula. EKG showed atrial fibrillation with ventricular rate 54. Chest x-ray showed postsurgical changes. Mild cardiomegaly. No acute cardiopulmonary process. Laboratory data showed WBC 8.3 hemoglobin 12.7 platelets 323 Sodium 136 potassium 4.0 chloride 101 bicarb is 22 BUN 33 and creatinine 1.92 and blood sugar 101 Troponin 0.046, 0.056 and 0.050 proBNP 1520. 01/28/2023 Patient is seen and evaluated in follow-up this morning with cardiology following as patient was having chest pain with recent stenting to the RCA. Patient with significant weakness reports feeling extremely fatigued with difficulty in ambulation. Will have PT/OT therapy evaluate the patient in case management consulted for possible ECF. Patient is currently afebrile with the reported chest pain or shortness of breath. Patient is tolerating diet although reports not much of an appetite. No reported nausea or vomiting noted. Patient is concerned of going home she reports she lives alone and is high risk for falls Review of systems: Constitutional: No reports of fatigue, fever, or chills Cardiovascular: No reports of chest pain or palpitations Respiratory: No reports of shortness of breath or cough GI: No reports of nausea, vomiting, or diarrhea : No reports of dysuria or retention Neurovascular: reports of generalized weakness and difficulty in ambulation All medications have been reviewed PHYSICAL EXAMINATION: Patient is sitting up in the bed comfortably, no acute distress, awake alert and oriented.. Appears lethargic and weak, elderly appearing HEENT: Normocephalic. Neck is supple. Pupils reactive. Nostrils clear. Oral cav ity is moist. Neck reveals no JVD, carotid bruits, or thyromegaly. CHEST EXAMINATION: Trachea is central. Symmetrical expansion. Lung alves clear to auscultation and percussion. CARDIAC: Normal S1, S2 with no gallops. Systolic murmur. Irregular rhythm. ABDOMEN: Soft. Bowel sounds normal. No organomegaly. No abdominal bruits. Extremities: reveal no edema. No clubbing or cyanosis Neurologically awake, alert, oriented x3 with well-coordinated movements. No focal deficits noted, diffusely weak Skin: No rash or skin lesions. Psychiatric: Cooperative. Nonsuicidal Musculoskeletal: No joint swelling or deformity. Normal range of motion. Assessment: Presyncopal episode likely secondary to hypotension. Acute kidney injury due to nephropathy. Improving. Creatinine at 1.92 on admission. Baseline 0.8. Coronary artery disease status post stent placement to RCA on 01/23/2023. Valvular heart disease with history of aortic valve replacement Chronic atrial fibrillation. Not on anticoagulation at home. Mild elevated troponin level likely due to recent cardiac catheterization. Peripheral vascular disease status post angioplasty of the bilateral SFA. Generalized weakness with gait dysfunction Hypertension Hyperlipidemia Prior history of smoking GI and DVT prophylaxis. Patient is already on full anticoagulation Plan: Patient will be continued on telemetry monitoring. Cardiology evaluating the patient as patient is recent stenting to the RCA Patient with continued weakness and difficulty with ambulation reporting she feels more weak than normal and is extremely nervous on going home alone. Patient reports she was independent in all ADLs prior to recent stenting. Will have physical therapy evaluate the patient Continue with IV hydration with normal saline. Patient was started back on aspirin, Plavix, metoprolol, lisinopril and Lasix. Amlodipine and hydrochlorothiazide is on hold. Continue with digoxin. Adjustments to medications per cardiology Will await PT/OT therapy evaluation and discuss with case management about possible ECF. Patient is agreeable The impression and plan of care has been dictated by Donna Panchal, Nurse Practitioner as directed. Dr. Melva MD I have performed a history and examination and MDM of this patient, discussed the same with the dictator, and agree with the dictator's assessment and plan as written ,documented as a scribe. Based on total visit time, I have performed more than 50% of the visit. Objective - Vital Signs Vital signs: Vital Signs Temp 97.5 F L 01/29/23 04:00 Pulse 46 L 01/29/23 04:00 Resp 16 01/29/23 04:00 BP 124/67 01/29/23 04:00 Pulse Ox 97 01/29/23 04:00 FiO2 Intake & Output 01/28/23 01/28/23 01/29/23 06:59 18:59 06:59 Intake Total 660 Balance 660 Intake: Oral 660 Other: Voiding Method Toilet Toilet # Voids 2 # Bowel Movements 0 - Labs CBC & Chem 7: 01/28/23 10:06 01/28/23 08:26 Labs: Abnormal Lab Results - Last 24 Hours (Table) 01/28/23 Range/Units 08:26 BUN 33 H (7-17) mg/dL Creatinine 1.11 H (0.52-1.04) mg/dL
[2023-01-29] MEDS: ASCORBIC ACID 500 MG TAB PO SCH (08:27)
[2023-01-29] MEDS: CLOPIDOGREL 75 MG TAB PO SCH (08:28)
[2023-01-29] MEDS: CHOLECALCIFEROL 25 MCG (1000 IU) TABLET PO SCH (08:28)
[2023-01-29] MEDS: METOPROLOL SUCCINATE (ER) 25 MG TAB.ER.24H PO SCH (08:28)
[2023-01-29] MEDS: FUROSEMIDE 40 MG TAB PO SCH (08:28)
[2023-01-29] MEDS: lisinopriL 20 MG TAB PO SCH (08:28)
[2023-01-29] MEDS: DIGOXIN 125 MCG TAB PO SCH (08:28)
[2023-01-29] MEDS ORDERED: ASPIRIN 81 MG PO SCH (09:00)
[2023-01-29 10:08] VITALS: PULSE 58
[2023-01-29 12:12] VITALS: BP 154/72; RESP 16; TEMP 97.6
[2023-01-29 12:27] LABS: Basophils % (A) 0 %; Eosinophils # (A) 0.1 k/uL (0-0.7); Eosinophils % (A) 2 %; HCT 39.1 % (34.0-46.0); HGB 12.3 gm/dL (11.4-16.0); Hypochromasia Slight; Lymphocytes # (A) 1.9 k/uL (1.0-4.8); Lymphocytes % (A) 21 %; MCH 30.2 pg (25.0-35.0); MCHC 31.4 g/dL (31.0-37.0); MCV 96.4 fL (80.0-100.0); Mean Platelet Volume 7.4; Monocytes # (A) 0.5 k/uL (0-1.0); Monocytes % (A) 6 %; Neutrophils # (A) 6.2 k/uL (1.3-7.7); Neutrophils % (A) 70 %; Platelet Count 347 k/uL (150-450); RBC 4.06 m/uL (3.80-5.40); RDW 14.7 % (11.5-15.5); WBC 8.9 k/uL (3.8-10.6)
[2023-01-29 12:54] LABS: African American GFR (CKD) 60 (>60 ml/min/1.73 sqM); Anion Gap 10 mmol/L; Blood Urea Nitrogen 30 mg/dL (7-17); Calcium 9.6 mg/dL (8.4-10.2); Carbon Dioxide 27 mmol/L (22-30); Chloride 101 mmol/L (98-107); Glucose 86 mg/dL (74-99); Non-African American GFR(CKD) 52 (>60 ml/min/1.73 sqM); Potassium 4.4 mmol/L (3.5-5.1); Sodium 138 mmol/L (137-145)
--- NOTE | 2023-01-29 23:53 | P.DS ---
Providers Date of admission: 01/26/23 16:22 Attending physician: Jess Epps MD Consults: 01/26/23 16:22 Consult Physician Urgent Consulting Provider: Finn Márquez Consult Reason/Comments: cp Do you want consulting provider notified?: Yes Primary care physician: Jermaine Feldman Hospital Course: Diagnoses: Presyncopal episode likely secondary to hypotension. Acute kidney injury due to nephropathy. Improving. Creatinine at 1.92 on admission. Baseline 0.8. Coronary artery disease status post stent placement to RCA on 01/23/2023. Valvular heart disease with history of aortic valve replacement Chronic atrial fibrillation. Not on anticoagulation at home. Mild elevated troponin level likely due to recent cardiac catheterization. Peripheral vascular disease status post angioplasty of the bilateral SFA. Generalized weakness with gait dysfunction Hypertension Hyperlipidemia Prior history of smoking Hospital course: Patient is a 83-year-old female with a known history of coronary artery disease status post stent placement, aortic valve replacement several years ago, atrial fibrillation on anticoagulation, PAD, hypertension, hyperlipidemia, prior history of smoking and arthritis presents to ER with complaints of chest pain and felt like fainting. Patient states that she was at at home, sat on the couch and suddenly felt like fainting and vision gets dark. Lasted for few seconds. Was brought to ER for further evaluation. Patient came to the hospital on , one with the earlier she underwent cardiac cath with Dr. Márquez for critical disease involving distal RCA status post PCI. Patient involuted by cardiology service, Norvasc and hydrochlorothiazide discontinuation patient informed and she agrees Patient informed to continue with aspirin Plavix with risks benefits are explained for excessively and she is agreeable. She has aspirin, Plavix and to the pharmacy. Patient denies any other symptoms. She was feeling generally weak and PT/OT recommended home with home care. Patient declined home care although risks and benefits are explained for her extensively including risk of fall in while on blood thinner and she verbalized understanding but she still declines and she is going to follow up with her PCP Dr. Feldman and discussed with her further if she needs rehab. Patient was cleared for discharge by clutch mechanic. Problems and management plan were discussed with the patient and he verbalized understanding and acceptance Patient was found stable and can be discharged home in guarded prognosis however he needs follow-up as an outpatient. Patient was instructed to follow up with PCP Dr. Feldman within one week and patient agrees Patient was accepted to follow-up with her clutch mechanic Dr. Márquez in one week and she is agreeable Physical exam Gen: patient is a AAOx3, no distress CVS: S1-S2, RRR, no murmur Lungs: B/L CTA, no wheezing Abdomen: soft, no distention, no tenderness, positive bowel sounds Extremity: no leg edema or induration Time spent more than 35 minutes Plan - Discharge Summary Discharge Rx Participant: No New Discharge Prescriptions: New Docusate [Colace] 100 mg PO DAILY #10 cap Continue Atorvastatin [Lipitor] 40 mg PO HS Turmeric Root Extract [Turmeric] 500 mg PO Q48H Multivitamins, Thera [Multivitamin (formulary)] 1 tab PO Q48H Ubidecarenone [Co Q-10] 100 mg PO Q48H Ascorbic Acid [Vitamin C] 1,000 mg PO DAILY Furosemide [Lasix] 40 mg PO DAILY lisinopriL [Zestril] 20 mg PO BID Metoprolol Succinate [Metoprolol Succinate ER] 12.5 mg PO DAILY Potassium Chloride ER [K-Dur 10] 10 meq PO Q48H Aspirin [Adult Low Dose Aspirin EC] 81 mg PO DAILY #30 tab Clopidogrel [Plavix] 75 mg PO DAILY #30 tablet Digoxin [Lanoxin] 125 mcg PO DAILY Cholecalciferol [Vitamin D3 (25 Mcg = 1000 Iu)] 50 mcg PO TID Nitroglycerin Sl Tabs [Nitrostat] 0.4 mg SUBLINGUAL Q5M PRN #100 tab PRN Reason: Chest Pain Discontinued amLODIPine [Norvasc] 5 mg PO BID #60 tab hydroCHLOROthiazide [Hydrodiuril] 25 mg PO DAILY #90 tab Discharge Medication List Atorvastatin [Lipitor] 40 mg PO HS 03/17/18 [History] Turmeric Root Extract [Turmeric] 500 mg PO Q48H 05/19/18 [History] Multivitamins, Thera [Multivitamin (formulary)] 1 tab PO Q48H 04/19/19 [History] Digoxin [Lanoxin] 125 mcg PO DAILY 09/01/20 [History] Ubidecarenone [Co Q-10] 100 mg PO Q48H 09/29/20 [History] Cholecalciferol [Vitamin D3 (25 Mcg = 1000 Iu)] 50 mcg PO TID 07/28/21 [History] Nitroglycerin Sl Tabs [Nitrostat] 0.4 mg SUBLINGUAL Q5M PRN #100 tab 01/25/23 [Rx] Ascorbic Acid [Vitamin C] 1,000 mg PO DAILY 01/26/23 [History] Furosemide [Lasix] 40 mg PO DAILY 01/26/23 [History] Metoprolol Succinate [Metoprolol Succinate ER] 12.5 mg PO DAILY 01/26/23 [History] Potassium Chloride ER [K-Dur 10] 10 meq PO Q48H 01/26/23 [History] lisinopriL [Zestril] 20 mg PO BID 01/26/23 [History] Aspirin [Adult Low Dose Aspirin EC] 81 mg PO DAILY #30 tab 01/29/23 [Rx] Clopidogrel [Plavix] 75 mg PO DAILY #30 tablet 01/29/23 [Rx] Docusate [Colace] 100 mg PO DAILY #10 cap 01/29/23 [Rx] Follow up Appointment(s)/Referral(s): Finn Márquez MD [STAFF PHYSICIAN] - 1 Week (call and make demarcus) Jermaine Feldman DO [Primary Care Provider] - 1-2 days (call and make demarcus) Patient Instructions/Handouts: Chest Pain (DC) Activity/Diet/Wound Care/Special Instructions: heart healthy diet activity is restricted till you see your doctor Discharge Disposition: HOME SELF-CARE
== END 2023-01-29 14:01 | disposition home or self-care (01) ==
LOC: EC 14:20 → 3SCARD 16:22
PROVIDERS: ADMIT Internal Medicine; ATTEND Internal Medicine
DX: I95.9 Hypotension, unspecified (principal); N17.9 Acute kidney failure, unspecified; I73.9 Peripheral vascular disease, unspecified; I25.10 Atherosclerotic heart disease of native coronary artery without angina pectoris; E78.5 Hyperlipidemia, unspecified; I10 Essential (primary) hypertension; I48.21 Permanent atrial fibrillation; I38 Endocarditis, valve unspecified; Z95.3 Presence of xenogenic heart valve; Z95.5 Presence of coronary angioplasty implant and graft; Z98.62 Peripheral vascular angioplasty status; Z87.891 Personal history of nicotine dependence; Z79.02 Long term (current) use of antithrombotics/antiplatelets; Z79.82 Long term (current) use of aspirin; Z79.899 Other long term (current) drug therapy; Z82.49 Family history of ischemic heart disease and other diseases of the circulatory system
CPT/HCPCS: 96360; 96361; 99285; 36415; 94760; 93005; 93308; 97161; 83880; 80061; 80053; 80048 ×3; 83735 ×2; 84484; 85025 ×3; 85027; 85610; 85730; 71046; G0378 ×4

== ENCOUNTER 2023-09-24 09:15 | Observation (INO) | payer MEDICARE, OTHER ==
--- NOTE | 2023-09-24 09:46 | ED ---
Weakness HPI - General Source: patient, RN notes reviewed Mode of arrival: ambulatory Limitations: no limitations - History of Present Illness MD Complaint: generalized weakness <Quynh Vogel - Last Filed: 09/24/23 09:41> <Demarcus Oscar - Last Filed: 09/24/23 13:56> - General Chief complaint: Weakness Stated complaint: weakness Time Seen by Provider: 09/24/23 09:41 - History of Present Illness Initial comments: Quick Note: This is an 83 year old female who presents to the emergency department for generalized weakness. States that it started a few days ago. Believes that it began around the time she started taking tramadol for her osteoarthritis of the hips. Denies any chest pain, shortness of breath, nausea, vomiting, or abdominal pain. (Quynh Vogel) Dictation was produced using [employer] dictation software. please excuse any grammatical, word or spelling errors. Chief Complaint: 83-year-old female presents with generalized weakness History of Present Illness: Patient 83-year-old female presents with worsening weakness. She lives at home by herself. Patient has chronic hip pain and there is concern that according to her orthopedic surgeon she would need both hips replaced. She is started on tramadol recently states that she feels so weak. States that she stopped the tramadol because she she thinks that her weakness is secondary to tramadol. States that however she is still getting weaker. Patient denies any nausea or vomiting. No fevers or constitutional symptoms. She does not feel safe at home. She does not have family to help take care of her. The ROS documented in this emergency department record has been reviewed and confirmed by me. Those systems with pertinent positive or negative responses have been documented in the HPI. All other systems are other negative and/or noncontributory. (Demarcus Oscar) - Related Data Home Medications Medication Instructions Recorded Confirmed Atorvastatin [Lipitor] 40 mg PO HS 03/17/18 01/26/23 Turmeric Root Extract [Turmeric] 500 mg PO Q48H 05/19/18 01/26/23 Multivitamins, Thera [Multivitamin 1 tab PO Q48H 04/19/19 01/26/23 (formulary)] Digoxin [Lanoxin] 125 mcg PO DAILY 09/01/20 01/26/23 Ubidecarenone [Co Q-10] 100 mg PO Q48H 09/29/20 01/26/23 Cholecalciferol [Vitamin D3 (25 50 mcg PO TID 07/28/21 01/26/23 Mcg = 1000 Iu)] Ascorbic Acid [Vitamin C] 1,000 mg PO DAILY 01/26/23 01/26/23 Furosemide [Lasix] 40 mg PO DAILY 01/26/23 01/26/23 Metoprolol Succinate [Metoprolol 12.5 mg PO DAILY 01/26/23 01/26/23 Succinate ER] Potassium Chloride ER [K-Dur 10] 10 meq PO Q48H 01/26/23 01/26/23 lisinopriL [Zestril] 20 mg PO BID 01/26/23 01/26/23 Previous Rx's Medication Instructions Recorded Nitroglycerin Sl Tabs [Nitrostat] 0.4 mg SUBLINGUAL Q5M PRN #100 tab 01/25/23 Aspirin [Adult Low Dose Aspirin EC] 81 mg PO DAILY #30 tab 01/29/23 Clopidogrel [Plavix] 75 mg PO DAILY #30 tablet 01/29/23 Docusate [Colace] 100 mg PO DAILY #10 cap 01/29/23 Allergies Allergy/AdvReac Type Severity Reaction Status Date / Time No Known Allergies Allergy Verified 09/24/23 09:36 Review of Systems ROS Other: All systems not noted in ROS Statement are negative. <Quynh Vogel - Last Filed: 09/24/23 09:41> ROS Other: All systems not noted in ROS Statement are negative. <Demarcus Oscar - Last Filed: 09/24/23 13:56> ROS Statement: Those systems with pertinent positive or pertinent negative responses have been documented in the HPI. Past Medical History Past Medical History: Coronary Artery Disease (CAD), Hyperlipidemia, Hypertensio n, Musculoskeletal Disorder, Vascular Disorder Additional Past Medical History / Comment(s): AORTIC VALVE REPAIRED W/ COW VALVE; HEMORRHOIDS CURRENT. LEGS GET TIRED, HEAVY WHEN WALKING, OCC EDEMA LT ANKLE, urinary incontinence, probable covid 2019, fully vaccinated for covid now History of Any Multi-Drug Resistant Organisms: None Reported Past Surgical History: Cardiac Valve Replacement, Heart Catheterization With Stent, Orthopedic Surgery Additional Past Surgical History / Comment(s): FACELIFT. AORTIC VALVE REPLACED- COW VALVE, 06/2010, vicente leg balloon angioplasty, cataracts removed, Heart cath with Stentx1 RCA 01/23/2023 Past Anesthesia/Blood Transfusion Reactions: Motion Sickness Additional Past Anesthesia/Blood Transfusion Reaction / Comment(s): MOTION SICK MANY YEARS AGO Date of Last Stent Placement:: 01/23/2023 Past Psychological History: No Psychological Hx Reported Smoking Status: Former smoker Past Alcohol Use History: None Reported Past Drug Use History: None Reported - Past Family History Mother Family Medical History: Dementia Father Family Medical History: Congestive Heart Failure (CHF), Hypertension <Quynh Vogel - Last Filed: 09/24/23 09:41> General Exam Limitations: no limitations <Quynh Vogel - Last Filed: 09/24/23 09:41> <Demarcus Oscar - Last Filed: 09/24/23 13:56> - General Exam Comments Initial Comments: Visual Physical Exam Vital signs reviewed General: Well-appearing, nontoxic, no acute distress. Head: Normocephalic, atraumatic Eyes: PERRLA, EOMI ENT: Airway patent Chest: Nonlabored breathing Skin: No visual rash, normal skin tone Neuro: Alert and oriented 3 Musculoskeletal: No gross abnormalities (Quynh Vogel) PHYSICAL EXAM: General Impression: Alert and oriented x3, not in acute distress HEENT: Normocephalic atraumatic, extra-ocular movements intact, pupils equal and reactive to light bilaterally, mucous membranes moist. Cardiovascular: Heart regular rate and rhythm Chest: Able to complete full sentences, no retractions, no tachypnea Abdomen: abdomen soft, non-tender, non-distended, no organomegaly Musculoskeletal: Pulses present and equal in all extremities, no peripheral edema Motor: no focal deficits noted Neurological: CN II-XII grossly intact, no focal motor or sensory deficits noted Skin: Intact with no visualized rashes Psych: Normal affect and mood (Demarcus Oscar) Course Vital Signs 09/24/23 09:30 Temperature 98 F Pulse Rate 50 L Respiratory 18 Rate Blood Pressure 195/63 O2 Sat by Pulse 98 Oximetry Medical Decision Making <Quynh Vogel - Last Filed: 09/24/23 09:41> - Lab Data Result diagrams: 09/24/23 09:52 09/24/23 09:52 <CelestinaDemarcus D - Last Filed: 09/24/23 13:56> - Medical Decision Making I performed the QuickNote portion of this chart. Signed Quynh Vogel PA-C. (Quynh Vogel) Was pt. sent in by a medical professional or institution ([facility], SECURITY ASSESSOR, urgent care, hospital, or halfway...) When possible be specific @ -No Did you speak to anyone other than the patient for history (EMS, parent, family, police, friend...)? What history was obtained from this source @ -No Did you review nursing and triage notes (agree or disagree)? Why? @ -I reviewed and agree with nursing and triage notes Were old charts reviewed (outside hosp., previous admission, EMS record, old EKG, old radiological studies, urgent care reports/EKG's, halfway records)? Report findings @ -No old charts were reviewed Differential Diagnosis (chest pain, altered mental status, abdominal pain women, abdominal pain men, vaginal bleeding, musculoskeletal, weakness, fever, dyspnea, syncope, headache, dizziness, GI bleed, back pain, seizure, CVA, palpatations, mental health)? @ -Differential Weakness: Hypoglycemia, shock, sepsis, hyponatremia, anemia, infection, SD, ETOH, adverse medicine reaction, overdose, stroke, this is not meant to be an all-inclusive list. EKG interpreted by me (3pts min.). @ -None done X-rays interpreted by me (1pt min.). @ -Chest x-ray is unremarkable. CT interpreted by me (1pt min.). @ -None done U/S interpreted by me (1pt. min.). @ -None done What testing was considered but not performed or refused? (CT, X-rays, U/S, labs)? Why? @ -None What meds were considered but not given or refused? Why? @ -None Did you discuss the management of the patient with other professionals (pro fessionals i.e. [facility], SECURITY ASSESSOR, lab, RT, psych nurse, social service director, metal drill press operator, teacher, signals officer, case planner)? Give summary @ -Case discussed with hospitalist for admission Was smoking cessation discussed for >3mins.? @ -No Was critical care preformed (if so, how long)? @ -No Were there social determinants of health that impacted care today? How? (Homelessness, low income, unemployed, alcoholism, drug addiction, transportation, low edu. Level, literacy, decrease access to med. care, intermediate, rehab)? @ -No Was there de-escalation of care discussed even if they declined (Discuss DNR or withdrawal of care, Hospice)? DNR status @ -No What co-morbidities impacted this encounter? (DM, HTN, Smoking, COPD, CAD, Cancer, CVA, ARF, Chemo, Hep., AIDS, mental health diagnosis, sleep apnea, morbid obesity)? @ -None Was patient admitted / discharged? Hospital course, mention meds given and route, prescriptions, significant lab abnormalities, going to OR and other pertinent info. @ -83-year-old female with chronic hip arthritis presents to the ER for worsening weakness. She has a poor social situation without any family or social support. Vital signs stable. Physical examination is benign. Patient well-appearing at the bedside. Patient does not feel safe at home by herself. She is having difficulties performing her activities of daily living. Labs and imaging unremarkable. Patient will be admitted for grave disability Undiagnosed new problem with uncertain prognosis? @ -No Drug Therapy requiring intensive monitoring for toxicity (Heparin, Nitro, Insulin, Cardizem)? @ -No Were any procedures done? @ -No Diagnosis/symptom? Acute, or Chronic, or Acute on Chronic? Uncomplicated (without systemic symptoms) or Complicated (systemic symptoms)? @ -Gravely disabled Side effects of treatment? @ -No Exacerbation, Progression, or Severe Exacerbation? @ -No Poses a threat to life or bodily function? How? (Chest pain, USA, SD, pneumonia, PE, COPD, DKA, ARF, appy, cholecystitis, CVA, Diverticulitis, Homicidal, Suicidal, threat to staff... and all critical care pts) @ -yes (Demarcus Oscar) - Lab Data Lab Results 09/24/23 09/24/23 09/24/23 Range/Units 09:52 09:52 09:52 WBC 4.8 (3.8-10.6) k/uL RBC 4.03 (3.80-5.40) m/uL Hgb 12.6 (11.4-16.0) gm/dL Hct 38.2 (34.0-46.0) % MCV 94.8 (80.0-100.0) fL MCH 31.4 (25.0-35.0) pg MCHC 33.1 (31.0-37.0) g/dL RDW 14.0 (11.5-15.5) % Plt Count 256 (150-450) k/uL MPV 7.1 Neutrophils % 70 % Lymphocytes % 19 % Monocytes % 7 % Eosinophils % 2 % Basophils % 0 % Neutrophils # 3.4 (1.3-7.7) k/uL Lymphocytes # 0.9 L (1.0-4.8) k/uL Monocytes # 0.3 (0-1.0) k/uL Eosinophils # 0.1 (0-0.7) k/uL Basophils # 0.0 (0-0.2) k/uL PT 33.5 H (10.0-12.5) sec INR 3.4 H (<1.2) APTT 36.3 H (22.0-30.0) sec Sodium (137-145) mmol/L Potassium (3.5-5.1) mmol/L Chloride (98-107) mmol/L Carbon Dioxide (22-30) mmol/L Anion Gap mmol/L BUN (7-17) mg/dL Creatinine (0.52-1.04) mg/dL Est GFR (CKD-EPI)AfAm (>60 ml/min/1.73 sqM) Est GFR (CKD-EPI)NonAf (>60 ml/min/1.73 sqM) Glucose (74-99) mg/dL Plasma Lactic Acid Mik (0.7-2.0) mmol/L Calcium (8.4-10.2) mg/dL Phosphorus (2.5-4.5) mg/dL Magnesium (1.6-2.3) mg/dL Total Bilirubin (0.2-1.3) mg/dL AST (14-36) U/L ALT (4-34) U/L Alkaline Phosphatase (38-126) U/L Troponin I (0.000-0.034) ng/mL Total Protein (6.3-8.2) g/dL Albumin (3.5-5.0) g/dL Urine Color Colorless Urine Appearance Clear (Clear) Urine pH 7.0 (5.0-8.0) Ur Specific [place] 1.003 (1.001-1.035) Urine Protein Negative (Negative) Urine Glucose (UA) Negative (Negative) Urine Ketones Negative (Negative) Urine Blood Negative (Negative) Urine Nitrite Negative (Negative) Urine Bilirubin Negative (Negative) Urine Urobilinogen <2.0 (<2.0) mg/dL Ur Leukocyte Esterase Negative (Negative) 09/24/23 09/24/23 09/24/23 Range/Units 09:52 09:52 09:52 WBC (3.8-10.6) k/uL RBC (3.80-5.40) m/uL Hgb (11.4-16.0) gm/dL Hct (34.0-46.0) % MCV (80.0-100.0) fL MCH (25.0-35.0) pg MCHC (31.0-37.0) g/dL RDW (11.5-15.5) % Plt Count (150-450) k/uL MPV Neutrophils % % Lymphocytes % % Monocytes % % Eosinophils % % Basophils % % Neutrophils # (1.3-7.7) k/uL Lymphocytes # (1.0-4.8) k/uL Monocytes # (0-1.0) k/uL Eosinophils # (0-0.7) k/uL Basophils # (0-0.2) k/uL PT (10.0-12.5) sec INR (<1.2) APTT (22.0-30.0) sec Sodium 138 (137-145) mmol/L Potassium 3.7 (3.5-5.1) mmol/L Chloride 103 (98-107) mmol/L Carbon Dioxide 30 (22-30) mmol/L Anion Gap 5 mmol/L BUN 18 H (7-17) mg/dL Creatinine 0.85 (0.52-1.04) mg/dL Est GFR (CKD-EPI)AfAm 73 (>60 ml/min/1.73 sqM) Est GFR (CKD-EPI)NonAf 63 (>60 ml/min/1.73 sqM) Glucose 93 (74-99) mg/dL Plasma Lactic Acid Mik 1.0 (0.7-2.0) mmol/L Calcium 9.1 (8.4-10.2) mg/dL Phosphorus 3.0 (2.5-4.5) mg/dL Magnesium 1.9 (1.6-2.3) mg/dL Total Bilirubin 1.0 (0.2-1.3) mg/dL AST 32 (14-36) U/L ALT 18 (4-34) U/L Alkaline Phosphatase 99 (38-126) U/L Troponin I 0.014 (0.000-0.034) ng/mL Total Protein 6.4 (6.3-8.2) g/dL Albumin 4.1 (3.5-5.0) g/dL Urine Color Urine Appearance (Clear) Urine pH (5.0-8.0) Ur Specific [place] (1.001-1.035) Urine Protein (Negative) Urine Glucose (UA) (Negative) Urine Ketones (Negative) Urine Blood (Negative) Urine Nitrite (Negative) Urine Bilirubin (Negative) Urine Urobilinogen (<2.0) mg/dL Ur Leukocyte Esterase (Negative) Disposition <Quynh Vogel - Last Filed: 09/24/23 09:41> Decision Time: 13:44 <Demarcus Oscar - Last Filed: 09/24/23 13:56> Clinical Impression: Gravely disabled Disposition: ADMITTED IP TO THIS [facility] Condition: Fair Referrals: Jermaine Feldman DO [Primary Care Provider] - 1-2 days
[2023-09-24 10:04] LABS: Basophils % (A) 0 %; Eosinophils # (A) 0.1 k/uL (0-0.7); Eosinophils % (A) 2 %; HCT 38.2 % (34.0-46.0); HGB 12.6 gm/dL (11.4-16.0); Lymphocytes # (A) 0.9 k/uL (1.0-4.8); Lymphocytes % (A) 19 %; MCH 31.4 pg (25.0-35.0); MCHC 33.1 g/dL (31.0-37.0); MCV 94.8 fL (80.0-100.0); Mean Platelet Volume 7.1; Monocytes # (A) 0.3 k/uL (0-1.0); Monocytes % (A) 7 %; Neutrophils # (A) 3.4 k/uL (1.3-7.7); Neutrophils % (A) 70 %; Platelet Count 256 k/uL (150-450); RBC 4.03 m/uL (3.80-5.40); WBC 4.8 k/uL (3.8-10.6)
[2023-09-24 10:12] LABS: INR 3.4 (<1.2); Partial Thromboplastin Time 36.3 sec (22.0-30.0); Prothrombin Time 33.5 sec (10.0-12.5)
[2023-09-24 10:34] LABS: ALT 18 U/L (4-34); AST 32 U/L (14-36); African American GFR (CKD) 73 (>60 ml/min/1.73 sqM); Albumin 4.1 g/dL (3.5-5.0); Alkaline Phosphatase 99 U/L (38-126); Anion Gap 5 mmol/L; Blood Urea Nitrogen 18 mg/dL (7-17); Calcium 9.1 mg/dL (8.4-10.2); Carbon Dioxide 30 mmol/L (22-30); Chloride 103 mmol/L (98-107); Glucose 93 mg/dL (74-99); Magnesium 1.9 mg/dL (1.6-2.3); Non-African American GFR(CKD) 63 (>60 ml/min/1.73 sqM); Potassium 3.7 mmol/L (3.5-5.1); Sodium 138 mmol/L (137-145); Total Protein 6.4 g/dL (6.3-8.2)
[2023-09-24 10:42] LABS: Appearance,Urine Clear (Clear); Bilirubin,Urine Negative (Negative); Blood,Urine Negative (Negative); Color,Urine Colorless; Glucose,Urine (UA) Negative (Negative); Ketones,Urine Negative (Negative); Leukocyte Esterase,Urine Negative (Negative); Nitrite,Urine Negative (Negative); Protein,Urine Negative (Negative); Specific Gravity,Urine 1.003 (1.001-1.035); Urobilinogen,Urine <2.0 mg/dL (<2.0)
--- NOTE | 2023-09-24 11:07 | XR ---
EXAMINATION TYPE: XR chest 2V DATE OF EXAM: 09/24/2023 10:58 AM CLINICAL INDICATION:Female, 83 years old with history of Weakness; COMPARISON: Chest radiographs from 01/26/2023 TECHNIQUE: XR chest 2V Frontal and lateral views of the chest. FINDINGS: Lungs/Pleura: There is flattening of the diaphragm with increased lucency of the lungs. No evidence o f pneumothorax, pleural effusion or focal consolidation. Pulmonary vascularity: Unremarkable. Heart/mediastinum: Cardiomediastinal silhouette is unremarkable. Musculoskeletal: No acute osseous pathology. Midline sternotomy wires are noted. IMPRESSION: 1. No acute cardiopulmonary disease process. 2. COPD changes.
[2023-09-24] MEDS ORDERED: NALOXONE 0.4 MG/ML 1 ML VIAL IV PRN (13:54)
--- NOTE | 2023-09-24 19:16 | P.HPIM ---
History of Present Illness This is a pleasant 83 years old female with past medical history of multiple medical problems. Patient presents from home because of her generalized weakness and bilateral hip pain. She has history of severe advanced osteoarthritis of the hip treated conservatively. Will consider for hip replacement surgery by About a week ago her primary physician started her on Ultram which she was taking and patient started having drowsiness and generalized weakness more than usual. Patient today was very weak when she was trying to wake up and could not get up. She was going to fall twice but went to clients she slipped slowly without significant trauma. At baseline she could use a walker or a stretcher She denies any difficulty breathing. No chest pain. No abdominal pain vomiting diarrhea, no urinary complaint or dizziness. She has a wound on her right wrist With no evidence of active bleeding Patient is hemodynamically stable, blood pressure was slightly on the high side came back to 128/57, heart rate is around 50 Labs unremarkable, we reviewed CBC, BMP, liver test and troponin 0.014 Urinalysis negative, chest x-ray showed COPD changes with no acute findings Patient also at home was on aspirin and Plavix documented part of her home medication. Review of Systems Review of systems CONSTITUTIONAL: No fever, no malaise, no fatigue. HEENT: No recent visual problems or hearing problems. Denied any sore throat. CARDIOVASCULAR: No orthopnea, PND, no palpitations, no syncope. PULMONARY: No shortness of breath, no cough, no hemoptysis. GASTROINTESTINAL: No diarrhea, no nausea, no vomiting, no abdominal pain. Normoactive bowel sounds. NEUROLOGICAL: No headaches, no weakness, no numbness. HEMATOLOGICAL: Denies any bleeding or petechiae. GENITOURINARY: Denies any burning micturition, frequency, or urgency. MUSCULOSKELETAL/RHEUMATOLOGICAL: Denies any joint pain, swelling, or any muscle pain. ENDOCRINE: Denies any polyuria or polydipsia. Past Medical History Past Medical History: Atrial Fibrillation, Coronary Artery Disease (CAD), Hyperlipidemia, Hypertension, Musculoskeletal Disorder, Vascular Disorder Additional Past Medical History / Comment(s): AORTIC VALVE REPAIRED W/ COW VALVE; HEMORRHOIDS CURRENT. LEGS GET TIRED, HEAVY WHEN WALKING, OCC EDEMA LT ANKLE, urinary incontinence, probable covid 2019, fully vaccinated for covid now History of Any Multi-Drug Resistant Organisms: None Reported Past Surgical History: Cardiac Valve Replacement, Heart Catheterization With Stent, Orthopedic Surgery Additional Past Surgical History / Comment(s): FACELIFT. AORTIC VALVE REPLACED- COW VALVE, 06/2010, vicente leg balloon angioplasty, cataracts removed, Heart cath with Stentx1 RCA 01/23/2023 Past Anesthesia/Blood Transfusion Reactions: Motion Sickness Additional Past Anesthesia/Blood Transfusion Reaction / Comment(s): MOTION SICK MANY YEARS AGO Date of Last Stent Placement:: 01/23/2023 Past Psychological History: No Psychological Hx Reported Smoking Status: Former smoker Past Alcohol Use History: None Reported Past Drug Use History: None Reported - Past Family History Mother Family Medical History: Dementia Father Family Medical History: Congestive Heart Failure (CHF), Hypertension Medications and Allergies Home Medications Medication Instructions Recorded Confirmed Type Atorvastatin [Lipitor] 80 mg PO HS 03/17/18 09/24/23 History Turmeric Root Extract [Turmeric] 500 mg PO Q2D 05/19/18 09/24/23 History Multivitamins, Thera [Multivitamin 1 tab PO Q2D 04/19/19 09/24/23 History (formulary)] Digoxin [Lanoxin] 125 mcg PO DAILY 09/01/20 09/24/23 History Ubidecarenone [Co Q-10] 100 mg PO Q2D 09/29/20 09/24/23 History Cholecalciferol [Vitamin D3 (25 25 mcg PO Q2D 07/28/21 09/24/23 History Mcg = 1000 Iu)] Nitroglycerin Sl Tabs [Nitrostat] 0.4 mg SUBLINGUAL Q5M PRN #100 tab 01/25/23 09/24/23 Rx Ascorbic Acid [Vitamin C] 1,000 mg PO Q2D 01/26/23 09/24/23 History Furosemide [Lasix] 40 mg PO DAILY 01/26/23 09/24/23 History Metoprolol Succinate [Metoprolol 12.5 mg PO DAILY 01/26/23 09/24/23 History Succinate ER] lisinopriL [Zestril] 20 mg PO BID 01/26/23 09/24/23 History Aspirin [Adult Low Dose Aspirin EC] 81 mg PO DAILY #30 tab 01/29/23 09/24/23 Rx Clopidogrel [Plavix] 75 mg PO DAILY #30 tablet 01/29/23 09/24/23 Rx Calcium Carbonate [Calcium] 600 mg PO Q2D 09/24/23 09/24/23 History Cyanocobalamin [Vitamin B-12] 500 mcg PO Q2D 09/24/23 09/24/23 History Docusate [Colace] 100 mg PO DAILY PRN 09/24/23 09/24/23 History Glucosa [place] 2Kcl/Chondroitin [place] 1 cap PO Q2D 09/24/23 09/24/23 History [Glucosamine-Chondroitin Cap] Melatonin 3 mg PO HS 09/24/23 09/24/23 History Potassium Chloride [Klor-Con 8] 8 meq PO DAILY 09/24/23 09/24/23 History Warfarin [Coumadin] 2.5 mg PO [id number]@209909/24/23 09/24/23 History Warfarin [Coumadin] 5 mg PO [id number]@209909/24/23 09/24/23 History traMADol HCl [Ultram] 50 mg PO Q6H PRN 09/24/23 09/24/23 History Allergies Allergy/AdvReac Type Severity Reaction Status Date / Time No Known Allergies Allergy Verified 09/24/23 15:07 Physical Exam Vitals: Vital Signs Temp Pulse Pulse Resp BP BP Pulse Ox 09/24/23 18:44 99.3 F 50 L 18 128/57 95 09/24/23 17:42 98.4 F 54 L 18 135/57 98 09/24/23 17:32 88 18 148/76 98 09/24/23 16:08 54 L 18 166/55 98 09/24/23 09:30 98 F 50 L 18 195/63 98 Intake and Output 09/24/23 09/24/23 09/24/23 06:59 14:59 22:59 Other: Weight 55.338 kg -GENERAL: The patient is alert and oriented x3, not in any acute distress. patient is thin built, looks malnourished. Generally weak HEENT: Pupils are round and equally reacting to light. EOMI. No scleral icterus. No conjunctival pallor. Normocephalic, atraumatic. No pharyngeal erythema. No thyromegaly. CARDIOVASCULAR: S1 and S2 present. No murmurs, rubs, or gallops. PULMONARY: Chest is clear to auscultation, no wheezing , no crackles. ABDOMEN: Soft, nontender, nondistended, normoactive bowel sounds. No palpable organomegaly. MUSCULOSKELETAL: No joint swelling or deformity. EXTREMITIES: No cyanosis, clubbing, or pedal edema. NEUROLOGICAL: Gross neurological examination did not reveal any focal deficits. SKIN: No rashes. no petechiae. Results CBC & Chem 7: 09/24/23 09:52 09/24/23 09:52 Labs: Abnormal Lab Results - Last 24 Hours (Table) 09/24/23 09/24/23 09/24/23 Range/Units 09:52 09:52 09:52 Lymphocytes # 0.9 L (1.0-4.8) k/uL PT 33.5 H (10.0-12.5) sec INR 3.4 H (<1.2) APTT 36.3 H (22.0-30.0) sec BUN 18 H (7-17) mg/dL Assessment and Plan Assessment: Generalized weakness with fall without syncope or head trauma. Mild metabolic/toxic encephalopathy secondary to medication Ultram which can be discontinued Mild coagulopathy secondary to Coumadin Sinus bradycardia History of aortic valve replacement Coronary artery disease s/p RCA stent Permanent atrial fibrillation on warfarin Plan: Continue close monitoring Monitor INR and for signs of bleeding Cardiology consult Continue with metoprolol, Lasix and lisinopril.. Further reduction. Check vitamin B12 and folate Check TSH Check lipid panel Dietary team consult Labs and medication were reviewed.. Continue same treatment. Continue with symptomatic treatment. Resume home medication. Monitor labs and vitals. DVT and GI prophylaxis. Further recommendations as per clinical course of the patient DVT prophylaxis: Subcutaneous heparin GI Prophylaxis: Pepcid PT/OT: Pending Prognosis is guarded
[2023-09-24] MEDS: lisinopriL 20 MG TAB PO SCH (20:00)
[2023-09-24] MEDS: ATORVASTATIN 80 MG TAB PO SCH (20:00)
[2023-09-24] MEDS: MELATONIN 3 MG TABLET PO SCH (20:00)
[2023-09-25] MEDS ORDERED: FAMOTIDINE 20 MG/2 ML VIAL IV SCH (09:00)
[2023-09-25] MEDS: FAMOTIDINE 20 MG TAB PO SCH (09:00)
[2023-09-25 09:28] LABS: INR 3.07 sec (0.93-1.11); Prothrombin Time 30.8 sec (9.9-11.9)
[2023-09-25 09:43] LABS: Chol/HDL Ratio 2.43 Ratio; LDL Cholesterol,Calculated 83.4 mg/dL (0.0-131.0); VLDL Calculation 14.16 mg/dL (5.00-40.00)
[2023-09-25 09:46] LABS: HCT 36.5 % (37.2-46.3); HGB 11.9 g/dL (12.0-15.0); MCH 30.6 pg (27.0-32.0); MCHC 32.6 g/dL (32.0-37.0); MCV 93.8 FL (80.0-97.0); Mean Platelet Volume 9.6 FL (9.5-12.2); NRBC Per 100 WBC 0 X 10*3/uL (0.00-0.01); Platelet Count 237 X 10*3/uL (140-440); RBC 3.89 X 10*6/uL (4.10-5.20); RDW 14.3 % (11.5-14.5); WBC 5.53 X 10*3/uL (4.50-10.00)
--- NOTE | 2023-09-25 11:19 | P.PN ---
Subjective This is a pleasant 83 years old female with past medical history of multiple medical problems. Patient presents from home because of her generalized weakness and bilateral hip pain. She has history of severe advanced osteoarthritis of the hip treated conservatively. Will consider for hip replacement surgery by About a week ago her primary physician started her on Ultram which she was taking and patient started having drowsiness and gener alized weakness more than usual. Patient today was very weak when she was trying to wake up and could not get up. She was going to fall twice but went to clients she slipped slowly without significant trauma. At baseline she could use a walker or a stretcher She denies any difficulty breathing. No chest pain. No abdominal pain vomiting diarrhea, no urinary complaint or dizziness. She has a wound on her right wrist With no evidence of active bleeding Patient is hemodynamically stable, blood pressure was slightly on the high side came back to 128/57, heart rate is around 50 Labs unremarkable, we reviewed CBC, BMP, liver test and troponin 0.014 Urinalysis negative, chest x-ray showed COPD changes with no acute findings Patient also at home was on aspirin and Plavix documented part of her home medication. 09/25/2023 Patient still feels generally weak and tired She is afebrile, no leukocytosis, hemoglobin mildly low at baseline B12 is elevated 966 folate 32, TSH is normal 2.2. Urine analysis is negative for acute process. Her INR has 3.0 her Coumadin started with pharmacy to dose She is still mildly bradycardic with heart rate 43-50 Physical therapy evaluation is requested She is on aspirin and Plavix, Coumadin as above Review of systems CONSTITUTIONAL: No fever, no malaise, no fatigue. HEENT: No recent visual problems or hearing problems. Denied any sore throat. CARDIOVASCULAR: No orthopnea, PND, no palpitations, no syncope. PULMONARY: No shortness of breath, no cough, no hemoptysis. Active Medications Generic Name Dose Route Start Last Admin Trade Name Freq PRN Reason Stop Dose Admin Aspirin 81 mg 09/25/23 10:15 Aspirin 81 Mg PO DAILY [facility] Atorvastatin Calcium 80 mg 09/24/23 21:00 09/24/23 20:00 Atorvastatin 80 Mg Tab PO 80 mg HS MICHELLE Administration Clopidogrel Bisulfate 75 mg 09/25/23 10:15 Clopidogrel 75 Mg Tab PO DAILY [facility] Digoxin 125 mcg 09/25/23 10:15 Digoxin 125 Mcg Tab PO DAILY [facility] Docusate Sodium 100 mg 09/24/23 18:10 Docusate 100 Mg Cap PO DAILY PRN Constipation Famotidine 20 mg 09/25/23 09:00 09/25/23 09:00 Famotidine 20 Mg Tab PO 20 mg DAILY MICHELLE Administration Furosemide 40 mg 09/25/23 10:15 Furosemide 40 Mg Tab PO DAILY [facility] Lisinopril 20 mg 09/24/23 21:00 09/25/23 09:00 Lisinopril 20 Mg Tab PO 20 mg BID [facility] Administration Melatonin 3 mg 09/24/23 21:00 09/24/23 20:00 Melatonin 3 Mg Tablet PO 3 mg HS MICHELLE Administration Miscellaneous Information 1 each 09/25/23 10:06 Warfarin Per Pharmacy MISCELLANE DIRECTED PRN Per Protocol Protocol Naloxone HCl 0.2 mg 09/24/23 13:54 Naloxone 0.4 Mg/Ml 1 Ml Vial IV Q2M PRN Opioid Reversal Warfarin Sodium 2.5 mg 09/26/23 21:00 Warfarin 2.5 Mg Tab PO MOFR@2100 [facility] Protocol Warfarin Sodium 5 mg 09/25/23 21:00 Warfarin 5 Mg Tab PO SUTUWETHSA@2100 [facility] Protocol Objective - Vital Signs Vital signs: Vital Signs Temp 97.7 F 09/25/23 07:11 Pulse 61 09/25/23 11:12 Resp 16 09/25/23 07:11 BP 162/68 09/25/23 11:12 Pulse Ox 97 09/25/23 02:00 FiO2 Intake & Output 09/24/23 09/25/23 09/25/23 18:59 06:59 18:59 Intake Total 590 Balance 590 Weight 55.338 kg 55.338 kg Intake: Oral 590 Other: Voiding Method Toilet # Voids 1 - Exam GENERAL: The patient is alert and oriented x3, not in any acute distress. Well developed, well nourished. HEENT: Pupils are round and equally reacting to light. EOMI. No scleral icterus. No conjunctival pallor. Normocephalic, atraumatic. No pharyngeal erythema. No thyromegaly. CARDIOVASCULAR: S1 and S2 present. No murmurs, rubs, or gallops. PULMONARY: Chest is clear to auscultation, no wheezing , no crackles. ABDOMEN: Soft, nontender, nondistended, normoactive bowel sounds. No palpable organomegaly. MUSCULOSKELETAL: No joint swelling or deformity. EXTREMITIES: No cyanosis, clubbing, or pedal edema. NEUROLOGICAL: Gross neurological examination did not reveal any focal deficits. SKIN: No rashes. no petechiae. - Labs CBC & Chem 7: 09/25/23 04:42 09/24/23 09:52 Labs: Abnormal Lab Results - Last 24 Hours (Table) 09/24/23 09/24/23 09/25/23 Range/Units 09:52 09:52 04:42 RBC (4.10-5.20) X 10*6/uL Hgb (12.0-15.0) g/dL Hct (37.2-46.3) % PT 30.8 H (9.9-11.9) sec INR 3.07 H (0.93-1.11) sec HDL Cholesterol (40.00-60.00) mg/dL Vitamin B12 966.0 H (200.0-944.0) pg/mL Folate 32.00 H (4.40-31.00) ng/mL 09/25/23 09/25/23 Range/Units 04:42 04:42 RBC 3.89 L (4.10-5.20) X 10*6/uL Hgb 11.9 L (12.0-15.0) g/dL Hct 36.5 L (37.2-46.3) % PT (9.9-11.9) sec INR (0.93-1.11) sec HDL Cholesterol 68.40 H (40.00-60.00) mg/dL Vitamin B12 (200.0-944.0) pg/mL Folate (4.40-31.00) ng/mL Assessment and Plan Assessment: Generalized weakness with fall without syncope or head trauma. Mild metabolic/toxic encephalopathy secondary to medication Ultram which can be discontinued Mild coagulopathy secondary to Coumadin Sinus bradycardia History of aortic valve replacement Coronary artery disease s/p RCA stent Permanent atrial fibrillation on warfarin Plan: Continue close monitoring Monitor INR and for signs of bleeding Cardiology consult Continue with metoprolol, Lasix and lisinopril. lipid panel reviewed Dietary team consult Labs and medication were reviewed.. Continue same treatment. Continue with symptomatic treatment. Resume home medication. Monitor labs and vitals. DVT and GI prophylaxis. Further recommendations as per clinical course of the pat ient DVT prophylaxis: Subcutaneous heparin GI Prophylaxis: Pepcid PT/OT: Pending Prognosis is guarded
[2023-09-25] MEDS: METOPROLOL SUCCINATE (ER) 25 MG TAB.ER.24H PO SCH (11:28)
[2023-09-25] MEDS: CLOPIDOGREL 75 MG TAB PO SCH (11:28)
[2023-09-25] MEDS: FUROSEMIDE 40 MG TAB PO SCH (11:28)
[2023-09-25] MEDS: DIGOXIN 125 MCG TAB PO SCH (11:42)
[2023-09-25] MEDS: ASPIRIN 81 MG PO SCH (11:42)
--- NOTE | 2023-09-25 12:42 | P.CRDCN ---
History of Present Illness History of present illness: HISTORY OF PRESENT ILLNESS: This is a 83-year-old female with a past medical history significant for valvular heart disease, status post aortic valve replacement with a bioprosthetic valve, mitral regurgitation, coronary artery disease with previous PCI, peripheral arterial disease with previous angioplasty of bilateral SFA, atrial fibrillation, hypertension, and hyperlipidemia. Patient follows in the office with Dr. Márquez. We have been asked to see the patient in consultation for bradycardia, CAD, and A-fib. Patient examined at the bedside. Patient came to the hospital with a chief complaint of bilateral hip pain. She states that she needs to have both of her hips replaced but due to her comorbidities she has not been approved to undergo surgery. She denies chest pain or pressure. Denies SOB. Vital signs are stable. She remains in atrial fibrillation with a HR in the 50s. She denies any dizziness or lightheadedness. Denies any syncopal episodes. DIAGNOSTICS: - EKG reveals atrial fibrillation with heart rate in the 50s - Chest xray negative for acute process. COPD changes. - Laboratory data: WBC 5.53. Hemoglobin 11.9. Platelet count 237. INR 3.07. Sodium 138. Potassium 3.7. BUN 18. Creatinine 0.85. Lactic acid 1.0. - Current home cardiac medications include lisinopril 20 mg twice a day, warfarin 5 mg Friday and 2.5 mg Friday, metoprolol succinate 12.5 mg daily, Lasix 40 mg daily, digoxin 125 mcg daily, Plavix 75 mg daily, Lipitor 80 mg at night, aspirin 81 mg daily. - Most recent echocardiogram obtained in January 2023 with an ejection fraction 60-65% - Cardiac catheterization history: January 2023 with stenting of the distal RCA REVIEW OF SYSTEMS: At the time of my exam: CONSTITUTIONAL: Denies fever or chills. HEENT: Denies blurred vision, vision changes, or eye pain. Denies hemoptysis CARDIOVASCULAR: Denies chest pain. Denies orthopnea. Denies PND. Denies palpitations RESPIRATORY: Denies shortness of breath. GASTROINTESTINAL: Denies abdominal pain. Denies nausea or vomiting. HEMATOLOGIC: Denies bleeding disorders. GENITOURINARY: Denies any blood in urine. SKIN: Denies pruitis. Denies rash. PHYSICAL EXAM: VITAL SIGNS: Reviewed. GENERAL: Well-developed in no acute distress. HEENT: Head is normocephalic. Pupils are equal, round. Sclerae anicteric. Mucous membranes of the mouth are moist. Neck supple. No JVD or thyromegaly LUNGS: Respirations even and unlabored. Lungs essentially clear to auscultation bilaterally. HEART: Irregular rate and rhythm. S1 and S2 heard. Systolic murmur noted. ABDOMEN: Soft. Nondistended. Nontender. EXTREMITIES: Normal range of motion. No clubbing or cyanosis. Peripheral pulses intact. No lower extremity edema NEUROLOGIC: Awake and alert. Oriented x 3. ASSESSMENT: Generalized weakness and bilateral hip pain Coronary artery disease with previous stenting, most recently to RCA in January 2023 Permanent atrial fibrillation with slow ventricular rate, asymptomatic History of bioprosthetic aortic valve replacement Peripheral arterial disease with previous angioplasty of bilateral SFA Hypertension Hyperlipidemia PLAN: Discontinue Digoxin Continue metoprolol with parameters to hold for HR less than 60 Discontinue aspirin as patient is also prescribed Plavix and Coumadin Patient is currently stable from a cardiac standpoint with no further inpatient recommendations Discharge per medicine We will sign off. Please reconsult if needed. Nurse practitioner note has been reviewed by physician. Signing provider agrees with the documented findings, assessment, and plan of care documented by NUTRITION SPECIALIST as a scribe. Past Medical History Past Medical History: Atrial Fibrillation, Coronary Artery Disease (CAD), Hyperlipidemia, Hypertension, Musculoskeletal Disorder, Vascular Disorder Additional Past Medical History / Comment(s): AORTIC VALVE REPAIRED W/ COW VALVE; HEMORRHOIDS CURRENT. LEGS GET TIRED, HEAVY WHEN WALKING, OCC EDEMA LT ANKLE, urinary incontinence, probable covid 2019, fully vaccinated for covid now History of Any Multi-Drug Resistant Organisms: None Reported Past Surgical History: Cardiac Valve Replacement, Heart Catheterization With Stent, Orthopedic Surgery Additional Past Surgical History / Comment(s): FACELIFT. AORTIC VALVE REPLACED- COW VALVE, 06/2010, vicente leg balloon angioplasty, cataracts removed, Heart cath with Stentx1 RCA 01/23/2023 Past Anesthesia/Blood Transfusion Reactions: Motion Sickness Additional Past Anesthesia/Blood Transfusion Reaction / Comment(s): MOTION SICK MANY YEARS AGO Date of Last Stent Placement:: 01/23/2023 Past Psychological History: No Psychological Hx Reported Smoking Status: Former smoker Past Alcohol Use History: None Reported Additional Past Alcohol Use History / Comment(s): SMOKED AGE 16, 1 PPD OR LESS, QUIT 1994 EST. WINE AND/OR BEER, 1/2-1 GLASS 5X WK AVG Past Drug Use History: None Reported - Past Family History Mother Family Medical History: Dementia Father Family Medical History: Congestive Heart Failure (CHF), Hypertension Medications and Allergies Home Medications Medication Instructions Recorded Confirmed Type Atorvastatin [Lipitor] 80 mg PO HS 03/17/18 09/24/23 History Turmeric Root Extract [Turmeric] 500 mg PO Q2D 05/19/18 09/24/23 History Multivitamins, Thera [Multivitamin 1 tab PO Q2D 04/19/19 09/24/23 History (formulary)] Digoxin [Lanoxin] 125 mcg PO DAILY 09/01/20 09/24/23 History Ubidecarenone [Co Q-10] 100 mg PO Q2D 09/29/20 09/24/23 History Cholecalciferol [Vitamin D3 (25 25 mcg PO Q2D 07/28/21 09/24/23 History Mcg = 1000 Iu)] Nitroglycerin Sl Tabs [Nitrostat] 0.4 mg SUBLINGUAL Q5M PRN #100 tab 01/25/23 09/24/23 Rx Ascorbic Acid [Vitamin C] 1,000 mg PO Q2D 01/26/23 09/24/23 History Furosemide [Lasix] 40 mg PO DAILY 01/26/23 09/24/23 History Metoprolol Succinate [Metoprolol 12.5 mg PO DAILY 01/26/23 09/24/23 History Succinate ER] lisinopriL [Zestril] 20 mg PO BID 01/26/23 09/24/23 History Aspirin [Adult Low Dose Aspirin EC] 81 mg PO DAILY #30 tab 01/29/23 09/24/23 Rx Clopidogrel [Plavix] 75 mg PO DAILY #30 tablet 01/29/23 09/24/23 Rx Calcium Carbonate [Calcium] 600 mg PO Q2D 09/24/23 09/24/23 History Cyanocobalamin [Vitamin B-12] 500 mcg PO Q2D 09/24/23 09/24/23 History Docusate [Colace] 100 mg PO DAILY PRN 09/24/23 09/24/23 History Glucosa Almaguer 2Kcl/Chondroitin Almaguer 1 cap PO Q2D 09/24/23 09/24/23 History [Glucosamine-Chondroitin Cap] Melatonin 3 mg PO HS 09/24/23 09/24/23 History Potassium Chloride [Klor-Con 8] 8 meq PO DAILY 09/24/23 09/24/23 History Warfarin [Coumadin] 2.5 mg PO MOFR@209909/24/23 09/24/23 History Warfarin [Coumadin] 5 mg PO SUTUWETHSA@209909/24/23 09/24/23 History traMADol HCl [Ultram] 50 mg PO Q6H PRN 09/24/23 09/24/23 History Allergies Allergy/AdvReac Type Severity Reaction Status Date / Time No Known Allergies Allergy Verified 09/24/23 15:07 Physical Exam Vitals: Vital Signs Temp Pulse Pulse Resp BP BP Pulse Ox 09/25/23 07:11 97.7 F 43 L 16 197/76 09/25/23 02:00 97.8 F 59 L 16 159/58 97 09/24/23 19:30 50 L 18 09/24/23 18:44 99.3 F 50 L 18 128/57 95 09/24/23 17:42 98.4 F 54 L 18 135/57 98 09/24/23 17:32 88 18 148/76 98 09/24/23 16:08 54 L 18 166/55 98 Intake and Output 09/24/23 09/25/23 09/25/23 22:59 06:59 14:59 Intake Total 590 Balance 590 Intake: Oral 590 Other: Voiding Method Toilet # Voids 1 Weight 55.338 kg Results 09/25/23 04:42 09/24/23 09:52 Cardiac Enzymes 09/24/23 09/24/23 Range/Units 09:52 09:52 AST 32 (14-36) U/L Troponin I 0.014 (0.000-0.034) ng/mL Coagulation 09/24/23 09/25/23 Range/Units 09:52 04:42 PT 33.5 H 30.8 H (10.0-12.5) sec APTT 36.3 H (22.0-30.0) sec Lipids 09/25/23 Range/Units 04:42 Triglycerides 70.80 (0.00-149.00) mg/dL Cholesterol 166.00 (0.00-200.00) mg/dL HDL Cholesterol 68.40 H (40.00-60.00) mg/dL Cholesterol/HDL Ratio 2.43 Ratio CBC 09/24/23 09/25/23 Range/Units 09:52 04:42 WBC 4.8 5.53 (3.8-10.6) k/uL RBC 4.03 3.89 L (3.80-5.40) m/uL Hgb 12.6 11.9 L (11.4-16.0) gm/dL Hct 38.2 36.5 L (34.0-46.0) % Plt Count 256 237 (150-450) k/uL Comprehensive Metabolic Panel 09/24/23 Range/Units 09:52 Sodium 138 (137-145) mmol/L Potassium 3.7 (3.5-5.1) mmol/L Chloride 103 (98-107) mmol/L Carbon Dioxide 30 (22-30) mmol/L BUN 18 H (7-17) mg/dL Creatinine 0.85 (0.52-1.04) mg/dL Glucose 93 (74-99) mg/dL Calcium 9.1 (8.4-10.2) mg/dL AST 32 (14-36) U/L ALT 18 (4-34) U/L Alkaline Phosphatase 99 (38-126) U/L Total Protein 6.4 (6.3-8.2) g/dL Albumin 4.1 (3.5-5.0) g/dL Current Medications Generic Name Dose Route Start Last Admin Trade Name Freq PRN Reason Stop Dose Admin Atorvastatin Calcium 80 mg 09/24/23 21:00 09/24/23 20:00 Atorvastatin 80 Mg Tab PO 80 mg HS MICHELLE Administration Docusate Sodium 100 mg 09/24/23 18:10 Docusate 100 Mg Cap PO DAILY PRN Constipation Famotidine 20 mg 09/25/23 09:00 09/25/23 09:00 Famotidine 20 Mg Tab PO 20 mg DAILY MICHELLE Administration Lisinopril 20 mg 09/24/23 21:00 09/25/23 09:00 Lisinopril 20 Mg Tab PO 20 mg BID MICHELLE Administration Melatonin 3 mg 09/24/23 21:00 09/24/23 20:00 Melatonin 3 Mg Tablet PO 3 mg HS MICHELLE Administration Naloxone HCl 0.2 mg 09/24/23 13:54 Naloxone 0.4 Mg/Ml 1 Ml Vial IV Q2M PRN Opioid Reversal Intake and Output 09/24/23 09/25/23 09/25/23 22:59 06:59 14:59 Intake Total 590 Balance 590 Intake: Oral 590 Other: Voiding Method Toilet # Voids 1 Weight 55.338 kg 09/25/23 04:42 09/24/23 09:52
[2023-09-25 15:21] VITALS: BMI 22.3
[2023-09-25] MEDS: WARFARIN 5 MG TAB PO SCH (20:09)
[2023-09-25] MEDS: DOCUSATE 100 MG CAP PO PRN (20:09)
[2023-09-26 07:26] LABS: INR 2.6 (<1.2); Prothrombin Time 25.7 sec (10.0-12.5)
[2023-09-26 07:50] VITALS: RESP 16
--- NOTE | 2023-09-26 11:38 | XR ---
EXAMINATION TYPE: XR knee limited RT DATE OF EXAM: 09/26/2023 11:04 AM CLINICAL INDICATION:Female, 83 years old with history of knee pain; H COMPARISON: None. TECHNIQUE: XR knee limited RT; examined in Frontal, lateral and oblique projections. FINDINGS: No evidence of any acute osseous pathology, soft tissue swelling. Small joint effusion pr esent. Tricompartmental osteophyte formation involving the femoral condyles, tibial plateau and zaldivar la. Mild joint space narrowing. Chondrocalcinosis. Arthrosis course of the arterial vasculature. IMPRESSION: 1. No acute osseous pathology. 2. 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 3. Chondrocalcinosis. 4. Small joint effusion.
[2023-09-26 13:43] VITALS: BP 138/61; PULSE 55; TEMP 98.7
--- NOTE | 2023-09-26 15:03 | P.DS ---
Providers Date of admission: 09/24/23 14:18 Expected date of discharge: 09/26/23 Attending physician: Dg Adame MD Consults: 09/26/23 12:24 Consult Physician Urgent Consulting Provider: Aleksandr Hernandez Consult Reason/Comments: R knee effusion, ? injection Do you want consulting provider notified?: Already Contacted Primary care physician: Jermaine Feldman Hospital Course: Final diagnosis Generalized weakness with fall without syncope or head trauma. Mild metabolic/toxic encephalopathy secondary to medication Ultram, improved Mild coagulopathy secondary to Coumadin Sinus bradycardia History of aortic valve replacement Coronary artery disease s/p RCA stent Permanent atrial fibrillation on warfarin GI prophylaxis DVT prophylaxis Full code Discharge disposition Patient is being discharged in a stable condition with guarded prognosis to [facility]. Patient will follow-up with Dr. Feldman in the outpatient setting upon discharge. Patient is to continue with current medication regimen and outpatient follow-up with orthopedics as well as cardiology as scheduled. Total time taken is greater than 35 minutes. Hospital course This is a 83-year-old female who was recently admitted with generalized weakness with hip pain with increased generalized weakness and falls and difficulty ambulating being closely monitored. Patient evaluated by physical therapy recommending rehab and patient was agreeable. Patient also noted to have a skin tear on her right wrist that is dressed with a nonadherent gauze and pressure dressing as patient takes blood thinners and need to monitor for any further bleeding. Patient also noted to have right knee pain after fall and x-ray was done showing no acute osseous pathology with moderate to severe tricompartmental osteoarthritic changes chondrocalcinosis and a small joint effusion. Orthopedics consulted and will be providing a pain injection and recommend outpatient follow-up. Patient was following with orthopedics outpatient scheduled to undergo possible hip surgery. Patient is agreeable to rehab and has been accepted by [facility]. Patient instructed to follow-up with primary care provider on discharge. Recommend close monitoring of PT/INR for Coumadin therapy. Please refer to other consultation notes for further HPI. Currently no reports of chest pain, shortness of breath, or palpitations. Patient is afebrile. No reports of nausea or vomiting and patient is tolerating diet. Patient will be going to [facility] today. Guarded prognosis Physical exam: Gen: This is a 83-year-old female who is awake, alert and oriented x 3, well- developed, elderly appearing, thin built HEENT: Head is atraumatic, normocephalic. Pupils equal, round. Sclerae is anicteric. NECK: Supple. No JVD. No lymphadenopathy. No thyromegaly. LUNGS: Diminished breath sounds bilaterally otherwise clear to auscultation. No wheezes or rhonchi. No intercostal retractions. HEART: S1, S2 are muffled, irregular ABDOMEN: Soft. Bowel sounds are present. No masses. No tenderness. EXTREMITIES: No pedal edema. No calf tenderness. Right knee pain and tenderness on palpation above the kneecap with mild scant amount of effusion felt NEUROLOGICAL: Patient is awake, alert and oriented x3. Cranial nerves 2 through 12 are grossly intact. Diffusely weak Please refer to medication reconciliation sheet for a list of medications. The impression and plan of care has been dictated by Donna Panchal, Nurse Practitioner as directed. Dr. Willard MD I have performed a history and examination and MDM of this patient, discussed the same with the dictator, and agree with the dictator's assessment and plan as written ,documented as a scribe. Based on total visit time, I have performed more than 50% of the visit. Patient Condition at Discharge: Fair Plan - Discharge Summary Discharge Rx Participant: Yes New Discharge Prescriptions: New Famotidine [Pepcid] 20 mg PO DAILY tab Continue Atorvastatin [Lipitor] 80 mg PO HS Turmeric Root Extract [Turmeric] 500 mg PO Q2D Multivitamins, Thera [Multivitamin (formulary)] 1 tab PO Q2D Ubidecarenone [Co Q-10] 100 mg PO Q2D Ascorbic Acid [Vitamin C] 1,000 mg PO Q2D Furosemide [Lasix] 40 mg PO DAILY lisinopriL [Zestril] 20 mg PO BID Metoprolol Succinate [Metoprolol Succinate ER] 12.5 mg PO DAILY Clopidogrel [Plavix] 75 mg PO DAILY #30 tablet Melatonin 3 mg PO HS Cyanocobalamin [Vitamin B-12] 500 mcg PO Q2D traMADol HCl [Ultram] 50 mg PO Q6H PRN #4 tab PRN Reason: Pain Cholecalciferol [Vitamin D3 (25 Mcg = 1000 Iu)] 25 mcg PO Q2D Nitroglycerin Sl Tabs [Nitrostat] 0.4 mg SUBLINGUAL Q5M PRN #100 tab PRN Reason: Chest Pain Warfarin [Coumadin] 2.5 mg PO MOFR@2099 Warfarin [Coumadin] 5 mg PO SUTUWETHSA@2099 Docusate [Colace] 100 mg PO DAILY PRN PRN Reason: Constipation Potassium Chloride [Klor-Con 8] 8 meq PO DAILY Glucosa Almaguer 2Kcl/Chondroitin Almaguer [Glucosamine-Chondroitin Cap] 1 cap PO Q2D Discontinued Aspirin [Adult Low Dose Aspirin EC] 81 mg PO DAILY #30 tab Calcium Carbonate [Calcium] 600 mg PO Q2D Digoxin [Lanoxin] 125 mcg PO DAILY Discharge Medication List Atorvastatin [Lipitor] 80 mg PO HS 03/17/18 [History] Turmeric Root Extract [Turmeric] 500 mg PO Q2D 05/19/18 [History] Multivitamins, Thera [Multivitamin (formulary)] 1 tab PO Q2D 04/19/19 [History] Ubidecarenone [Co Q-10] 100 mg PO Q2D 09/29/20 [History] Cholecalciferol [Vitamin D3 (25 Mcg = 1000 Iu)] 25 mcg PO Q2D 07/28/21 [History] Nitroglycerin Sl Tabs [Nitrostat] 0.4 mg SUBLINGUAL Q5M PRN #100 tab 01/25/23 [R x] Ascorbic Acid [Vitamin C] 1,000 mg PO Q2D 01/26/23 [History] Furosemide [Lasix] 40 mg PO DAILY 01/26/23 [History] Metoprolol Succinate [Metoprolol Succinate ER] 12.5 mg PO DAILY 01/26/23 [History] lisinopriL [Zestril] 20 mg PO BID 01/26/23 [History] Clopidogrel [Plavix] 75 mg PO DAILY #30 tablet 01/29/23 [Rx] Cyanocobalamin [Vitamin B-12] 500 mcg PO Q2D 09/24/23 [History] Docusate [Colace] 100 mg PO DAILY PRN 09/24/23 [History] Glucosa Almaguer 2Kcl/Chondroitin Almaguer [Glucosamine-Chondroitin Cap] 1 cap PO Q2D 09/24/23 [History] Melatonin 3 mg PO HS 09/24/23 [History] Potassium Chloride [Klor-Con 8] 8 meq PO DAILY 09/24/23 [History] Warfarin [Coumadin] 2.5 mg PO MOFR@209909/24/23 [History] Warfarin [Coumadin] 5 mg PO SUTUWETHSA@209909/24/23 [History] Famotidine [Pepcid] 20 mg PO DAILY tab 09/26/23 [Rx] traMADol HCl [Ultram] 50 mg PO Q6H PRN #4 tab 09/26/23 [Rx] Follow up Appointment(s)/Referral(s): [facility] [facility] [NON-STAFF] - (Contact regarding meals on wheels and a aid to help with cooking at home. ) Jermaine Feldman DO [Primary Care Provider] - 1-2 days Negro Zambrano, PAC [PHYSICIAN DIRECTOR OF MATH] - As Needed (Follow-up outpatient with orthopedics) Activity/Diet/Wound Care/Special Instructions: Patient is going to [facility] Activity as tolerated Continue heart healthy diet Follow-up on repeat PT/INR to monitor Coumadin levels Follow-up cardiology outpatient Follow-up primary care provider on discharge Continue right wrist wound care instructions regarding skin tear. Patient has nonadherent gauze along with pressured tape to continue for now Discharge/Stand Alone Forms: Community Resources, Personal Pressure Welder Discharge Disposition: TRANSFER TO SNF/ECF
[2023-09-26] MEDS: methylPREDNISolone ACETATE 40 MG/ML 1 ML VIAL INTRAARTIC STA (17:05)
[2023-09-26] MEDS: BUPIVACAINE (PF) 0.5% 30 ML VIAL INTRAARTIC STA (17:06)
[2023-09-26] MEDS ORDERED: WARFARIN 2.5 MG TAB PO SCH (21:00)
--- NOTE | 2023-09-26 22:11 | P.CNOR ---
History of Present Illness - [facility] Consult date: 09/26/23 Consult reason: joint pain History of present illness: Patient is seen at bedside today in consultation for right knee pain. She states that she developed increased right knee pain and swelling over the past few days. She has had no new injury. She is on blood thinner. Pain worsens with range of motion and weightbearing. She denies numbness or calf pain. She has no other current complaints. Review of Systems All systems: negative Constitutional: Denies chills, Denies fever Eyes: denies blurred vision, denies pain Ears, nose, mouth and throat: Denies headache, Denies sore throat Cardiovascular: Denies chest pain, Denies shortness of breath Respiratory: Denies cough Gastrointestinal: Denies abdominal pain, Denies diarrhea, Denies nausea, Denies vomiting Genitourinary: Denies dysuria, Denies hematuria Musculoskeletal: Denies myalgias Integumentary: Denies pruritus, Denies rash Neurological: Denies numbness, Denies weakness Psychiatric: Denies anxiety, Denies depression Endocrine: Denies fatigue, Denies weight change Past Medical History Past Medical History: Atrial Fibrillation, Coronary Artery Disease (CAD), Hyperlipidemia, Hypertension, Musculoskeletal Disorder, Vascular Disorder Additional Past Medical History / Comment(s): AORTIC VALVE REPAIRED W/ COW VALVE; HEMORRHOIDS CURRENT. LEGS GET TIRED, HEAVY WHEN WALKING, OCC EDEMA LT ANKLE, urinary incontinence, probable covid 2019, fully vaccinated for covid now History of Any Multi-Drug Resistant Organisms: None Reported Past Surgical History: Cardiac Valve Replacement, Heart Catheterization With Stent, Orthopedic Surgery Additional Past Surgical History / Comment(s): FACELIFT. AORTIC VALVE REPLACED- COW VALVE, 06/2010, vicente leg balloon angioplasty, cataracts removed, Heart cath with Stentx1 RCA 01/23/2023 Past Anesthesia/Blood Transfusion Reactions: Motion Sickness Additional Past Anesthesia/Blood Transfusion Reaction / Comm: MOTION SICK MANY YEARS AGO Date of Last Stent Placement:: 01/23/2023 Past Psychological History: No Psychological Hx Reported Smoking Status: Former smoker Past Alcohol Use History: None Reported Additional Past Alcohol Use History / Comment(s): SMOKED AGE 16, 1 PPD OR LESS, QUIT 1994 EST. WINE AND/OR BEER, 1/2-1 GLASS 5X WK AVG Past Drug Use History: None Reported - Past Family History Mother Family Medical History: Dementia Father Family Medical History: Congestive Heart Failure (CHF), Hypertension Medications and Allergies Home Medications Medication Instructions Recorded Confirmed Type Atorvastatin [Lipitor] 80 mg PO HS 03/17/18 09/24/23 History Turmeric Root Extract [Turmeric] 500 mg PO Q2D 05/19/18 09/24/23 History Multivitamins, Thera [Multivitamin 1 tab PO Q2D 04/19/19 09/24/23 History (formulary)] Ubidecarenone [Co Q-10] 100 mg PO Q2D 09/29/20 09/24/23 History Cholecalciferol [Vitamin D3 (25 25 mcg PO Q2D 07/28/21 09/24/23 History Mcg = 1000 Iu)] Nitroglycerin Sl Tabs [Nitrostat] 0.4 mg SUBLINGUAL Q5M PRN #100 tab 01/25/23 09/24/23 Rx Ascorbic Acid [Vitamin C] 1,000 mg PO Q2D 01/26/23 09/24/23 History Furosemide [Lasix] 40 mg PO DAILY 01/26/23 09/24/23 History Metoprolol Succinate [Metoprolol 12.5 mg PO DAILY 01/26/23 09/24/23 History Succinate ER] lisinopriL [Zestril] 20 mg PO BID 01/26/23 09/24/23 History Clopidogrel [Plavix] 75 mg PO DAILY #30 tablet 01/29/23 09/24/23 Rx Cyanocobalamin [Vitamin B-12] 500 mcg PO Q2D 09/24/23 09/24/23 History Docusate [Colace] 100 mg PO DAILY PRN 09/24/23 09/24/23 History Glucosa Almaguer 2Kcl/Chondroitin Almaguer 1 cap PO Q2D 09/24/23 09/24/23 History [Glucosamine-Chondroitin Cap] Melatonin 3 mg PO HS 09/24/23 09/24/23 History Potassium Chloride [Klor-Con 8] 8 meq PO DAILY 09/24/23 09/24/23 History Warfarin [Coumadin] 2.5 mg PO MOFR@209909/24/23 09/24/23 History Warfarin [Coumadin] 5 mg PO SUTUWETHSA@209909/24/23 09/24/23 History Famotidine [Pepcid] 20 mg PO DAILY tab 09/26/23 Rx traMADol HCl [Ultram] 50 mg PO Q6H PRN #4 tab 09/26/23 Rx Allergies Allergy/AdvReac Type Severity Reaction Status Date / Time No Known Allergies Allergy Verified 09/24/23 15:07 Physical Examination Inspection of the right knee shows moderate effusion. There is no erythema or wounds. It is not hot to touch. She has extension to 0. She can flex to 90 which produces pain. The knee appears ligamentously stable. There is medial and lateral joint line tenderness. Calf is soft and nontender. 2+ dorsalis pedis pulse and less than Александр capillary refill is present. Results x-rays of the right knee show advanced tricompartmental osteoarthritis. There is calcification of the meniscus. There are no fractures. - Labs Labs: Abnormal Lab Results - Last 24 Hours (Table) 09/26/23 Range/Units 06:51 PT 25.7 H (10.0-12.5) sec INR 2.6 H (<1.2) H & H 09/24/23 09/25/23 Range/Units 09:52 04:42 Hgb 12.6 11.9 L (11.4-16.0) gm/dL Hct 38.2 36.5 L (34.0-46.0) % Coagulation 09/24/23 09/25/23 09/26/23 Range/Units 09:52 04:42 06:51 INR 3.4 H 3.07 H 2.6 H (<1.2) Result Diagrams: 09/25/23 04:42 09/24/23 09:52 - Diagnostic results Knee x-ray: report reviewed, image reviewed Assessment and Plan (1) Osteoarthritis of right knee Narrative/Plan: The patient elected to receive an intra-articular corticosteroid injection at the right knee. Utilizing sterile technique I injected 2 cc of Depo-Medrol and 4 cc of Marcaine. She tolerated well without complication. I also applied appropriate fitting compression Checo bandage. Also advised on utilizing ice pack to the right knee for 30 minutes 4 times a day. She may be weightbearing as tolerated as well as activity as tolerated. She will follow-up as an outpatient for further evaluation and management. Status: Acute Priority: Medium Code(s): M17.11 - UNILATERAL PRIMARY OSTEOARTHRITIS, RIGHT KNEE SNOMED Code(s): 550045567577584 Time with Patient: Less than 30
== END 2023-09-26 17:45 ==
LOC: EC 09:15 → 5NMEDONC 14:18
PROVIDERS: ADMIT Internal Medicine; ATTEND Internal Medicine
DX: G92.8 Other toxic encephalopathy (principal); T40.425A Adverse effect of tramadol, initial encounter; I48.91 Unspecified atrial fibrillation; E78.5 Hyperlipidemia, unspecified; I10 Essential (primary) hypertension; M16.0 Bilateral primary osteoarthritis of hip; G89.29 Other chronic pain; I48.21 Permanent atrial fibrillation; R00.1 Bradycardia, unspecified; I25.10 Atherosclerotic heart disease of native coronary artery without angina pectoris; Z95.5 Presence of coronary angioplasty implant and graft; Z95.3 Presence of xenogenic heart valve; Z87.891 Personal history of nicotine dependence; Z86.16 Personal history of COVID-19; Z82.49 Family history of ischemic heart disease and other diseases of the circulatory system; Z79.899 Other long term (current) drug therapy; Z79.82 Long term (current) use of aspirin; Z79.02 Long term (current) use of antithrombotics/antiplatelets; Z79.01 Long term (current) use of anticoagulants
CPT/HCPCS: 99285; 36415; 93005 ×2; 97162; 80061; 80053; 84443; 82607; 80162; 82746; 83605; 83735; 84100; 84484; 85025; 85027; 85610 ×3; 85730; 81003; 73560; 71046; G0378 ×3; J0665; J1010

== ENCOUNTER → 2023-12-05 | Outpatient (CLI) | payer MEDICARE, OTHER | END | disposition home or self-care (01) | LOC: LABWHC1 14:21 | PROVIDERS: ATTEND Orthopaedic Surgery | DX: Z01.818 Encounter for other preprocedural examination | CPT/HCPCS: 87070 ==

== ENCOUNTER 2023-12-16 05:42 | Inpatient (IN) | payer MEDICARE, OTHER ==
[~2023-12-16 05:42] MED LIST changes: -ALPRAZolam 0.25 MG TAB PO PRN; -ALPRAZolam 0.5 MG TAB PO PRN; -ASPIRIN 325 MG TAB PO PRN; -ASPIRIN 325 MG TAB PO STA; -ATORVASTATIN 80 MG TAB PO STA; -HEPARIN SODIUM,PORCINE (1 ML) 2,500 UNIT in SODIUM CHLORIDE 0.9% 250 ML IRRIGATION PRN; -HEPARIN SODIUM,PORCINE 10,000 UNIT in SODIUM CHLORIDE 0.9% 1,000 ML IRRIGATION PRN; +LIDOCAINE 1% (10MG/ML) FOR IV START INTRADERMA PRN; -NITROGLYCERIN SL TABS 0.4 MG TAB SUBLINGUAL PRN; -SODIUM CHLORIDE 0.9% 1,000 ML in EMPTY BAG 1 BAG IV ONE; +TRANEXAMIC 1,000 MG/100ML-NACL 1,000 MG in SALINE 1 100ML.BAG IVPB PRN
[2023-12-16] MEDS: IV FLUID CONTINUATION 1,000 ML IV ONE ×2 (06:02→09:03)
[2023-12-16] MEDS: LACTATED RINGERS 1,000 ML IV SCH (06:39)
[2023-12-16] MEDS: ACETAMINOPHEN TAB 500 MG TAB PO PRN (06:45)
[2023-12-16] MEDS: ONDANSETRON 4 MG/2 ML VIAL IVP ONE (06:46)
[2023-12-16] MEDS: DEXAMETHASONE SOD PHOSPHATE 4 MG/ML 1 ML VIAL IV ONE (06:46)
[2023-12-16] MEDS: MELOXICAM 7.5 MG TAB PO PRN (06:46)
[2023-12-16] MEDS: GABAPENTIN 300 MG CAP PO PRN (06:46)
[2023-12-16] MEDS: MIDAZOLAM 2 MG/2 ML VIAL IVP ONE (06:58)
[2023-12-16] MEDS ORDERED: HYDROmorphone 0.5 MG/0.5 ML SYRINGE IVP PRN ×3 (07:00→07:09)
[2023-12-16] MEDS ORDERED: MIDAZOLAM 2 MG/2 ML VIAL IV PRN (07:00)
[2023-12-16] MEDS ORDERED: fentaNYL (PF) 50 MCG/ML 2 ML AMP IVP PRN (07:00)
[2023-12-16] MEDS ORDERED: ONDANSETRON 4 MG/2 ML VIAL IVP PRN (07:09)
[2023-12-16] MEDS ORDERED: NALOXONE 0.4 MG/ML 1 ML VIAL IV PRN (07:09)
[2023-12-16] MEDS ORDERED: HYDROcodone/APAP 7.5-325MG 1 EACH TAB PO PRN (07:10)
[2023-12-16 07:29] LABS: INR 1.3 (<1.2); Prothrombin Time 13.8 sec (10.0-12.5)
[2023-12-16] MEDS ORDERED: MIDAZOLAM 2 MG/2 ML VIAL ONE (07:33)
[2023-12-16] MEDS ORDERED: SODIUM CHLORIDE 0.9% (PF) 10 ML VIAL ONE (07:33)
[2023-12-16] MEDS ORDERED: ROPIVACAINE 5 MG/ML 30 ML VIAL ONE (07:33)
[2023-12-16] MEDS ORDERED: PROPOFOL 10 MG/ML 20 ML VIAL IV ONE (07:33)
[2023-12-16] MEDS ORDERED: DEXAMETHASONE SOD PHOSPHATE 4 MG/ML 1 ML VIAL ONE (07:33)
[2023-12-16] MEDS ORDERED: TRANEXAMIC 1,000 MG/100ML-NACL PREMIX BAG ONE (07:33)
[2023-12-16] MEDS: ceFAZolin 1,000 MG in SODIUM CHLORIDE 0.9% 1,000 ML IRRIGATION ONE (07:37)
[2023-12-16] MEDS: ROPIVACAINE 5 MG/ML 30 ML VIAL MISCELLANE ONE ×2 (08:11→08:35)
--- NOTE | 2023-12-16 08:20 | P.ANPRN ---
Procedure Note - Anesthesia - Nerve Block Performed Left Jaime Single Time Out Performed: Yes Date of Procedure: 12/16/23 Procedure Start Time: 06:57 Procedure Stop Time: 07:04 Location of Patient: PreOp Indication: Acute Post-Operative Pain, Requested by Surgeon Sedation Type: Sedate with meaningful contact maintained Preparation: Sterile Prep Position: Supine Needle Types: Pajunk Needle Gauge: 21 Ultrasound used to visualize needle placement: Yes Ultrasound used to observe medication spread: Yes Injectate: 0.5% Ropivacaine (see comment for volume) (20 ml + 10 ml NS + 4 mg Dexamethasone) Blood Aspirated: No Pain Paresthesia on Injection Noted: No Resistance on Injection: Normal Image Stored and Saved: Yes Events: Uneventful and Well Tolerated
--- NOTE | 2023-12-16 08:42 | P.OP ---
Date of Procedure: 12/16/23 Preoperative Diagnosis: Severe osteoarthritis left hip Postoperative Diagnosis: Severe osteoarthritis left hip Procedure(s) Performed: Left total hip arthroplasty with a direct anterior approach Implants: [employer] Polarstem standard size 3 with a collar [employer] R3, 3 hole hemispherical acetabular shell, 52 mm [employer] Reflection 6.5 mm cancellus screws, 20 mm, 25 mm [employer] R3, XLPE 20 acetabular liner [employer] Oxinium femoral head 36 mm, +0 All components were press-fit. The articulation is Oxinium on polyethylene. Anesthesia: spinal Surgeon: Fortino Caldera Accounting Manager #1: Ada Campbell Estimated Blood Loss (ml): 250 Pathology: none sent Condition: stable Disposition: PACU Indications for Procedure: After failure of conservative treatment we discussed the surgical and non surgical treatment options at length. Patient wishes to proceed with a total hip arthroplasty with a direct anterior approach. Complications specific to this procedure were discussed at length, including but not limited to infection, leg length discrepancy, dislocation, nerve injury, and fracture. Covid-19 was also discussed at length with the patient, and they are aware of the current policies and procedures. The patient was given the option of delaying surgery, but they elect to proceed knowing these risks. Patient is aware of all these complications and informed consent was obtained Operative Findings: The operative findings are consistent with severe osteoarthritis of the left hip Description of Procedure: The patient was seen and evaluated in the preoperative area and the consent was reviewed. The operative site was marked with a skin marker. The patient verified the procedure and operative site. A CLAUDIA block was placed by anesthesia in the preoperative area. The patient was then brought to the operating room and given preoperative antibiotics intravenously. 1 g of Tranexamic acid was also given intravenously. A spinal anesthetic was administered by the anesthesia department. The patient was then placed on the [place] table with the bony prominences well-padded. The hip area was then prepped with a ChloraPrep solution and draped in the usual sterile fashion. A universal timeout was then performed, which confirmed the patient's name, surgical site, ALLERGIES, and procedure being performed on the consent. Next the incision site was located at 1 cm distal and 4 cm lateral to the anterior superior iliac spine. The skin and subcutaneous tissues were sharply incised. Incision was carefully dissected down to the fascia overlying the tensor fascia siddhartha muscle. This fascia was then incised in line with the muscle fibers. Care was taken to stay laterally in order to avoid injuring the lateral femoral cutaneous nerve. Next, using blunt finger dissection, the tensor fascia siddhartha muscle was dissected off its investing fascia. The muscle was then carefully retracted laterally with a cobra retractor over the lateral neck of the femur. Next, the circumflex vessels were identified and cauterized using the Aquamantis device. The anterior hip capsule was then exposed. The capsule was then opened and an inverted T fashion. The retractors were then placed intracapsularly. The retractors were maintained intracapsular throughout the procedure. The proximal femur was then visualized. Fluoroscopic x-rays were then taken in order to evaluate the preoperative leg lengths. A small amount of traction was placed on the leg. The femoral neck was then osteotomized at the appropriate level above the lesser trochanter. A small wedge of bone was then removed from the remaining femoral head. Next, using a corkscrew the femoral head was removed from the acetabulum. On gross visual inspection, the femoral head had complete loss of articular cartilage and multiple periarticular osteophytes. The femoral head was then measured. Attention was then turned to the acetabulum. The acetabulum was exposed and any remaining labrum was excised. Sequential reaming of the acetabulum was performed using fluoroscopic guidance until there was a good bed of bleeding cancellus bone. When the appropriate size was reached, a trial was then placed. The position and fit of the trial was checked with fluoroscopy. The trial was then removed. Then, using fluoroscopic guidance, the final implant was impacted at 20 of anteversion and 40 of abduction, and fully seated in the acetabulum. 2 screws were then placed in the acetabulum. Again fluoroscopy was used to check position of the screws. Next, the liner was then impacted, with a 20 elevated liner located in the anterior superior quadrant. Component locking was confirmed. Attention was then directed to the femur. With the aid of the [place] table, the femur was externally rotated to approximately 130, extended, and adducted under the opposite leg. A side hook was then placed under the proximal femur, and the side hook elevator was used to elevate the proximal femur while releasing the capsule. Retractors were then placed. A capsular release was performed, as well as a release of the conjoined tendon, which afforded excellent visualization of the proximal femur. Next, a box osteotome was used to lateralize the proximal femur. A paper handler was then used to locate the femoral canal. Sequential broaching was then performed with appropriate size which afforded excellent fixation in the proximal femur. A trial was then placed with appropriate head and neck, and the hip was gently reduced with the aid of the [place] table. Fluoroscopy was then used to check position of the components, as well as to evaluate the leg lengths and offset. The leg lengths and offset were measured as closely as possible to ensure stability of the hip. The hip was then gently dislocated and the trials were then removed. Final implants were then impacted and the hip was again reduced. Final fluoroscopic x-rays confirmed that the components were in anatomic position. The leg lengths and offset were measured and were found to coincide with the trial measurements. The hip was also taken through range of motion, and found to be stable. The hip was then copiously irrigated with antibiotic solution with pulsatile lavage. The hip was then irrigated with Irrisept solution. The soft tissues were then injected with a ropivacaine solution. A second dose of 1 g of Tranexamic acid was also given intravenously. The fascia was then closed with 2-0 strata fix suture. The subcutaneous tissue was closed with 3-0 Vicryl. The subcuticular tissue was closed with 3-0 strata fix suture. The skin was then closed with Exofin skin glue. After the glue and dried, and Optifoam silver impregnated dressing was applied. The patient was then transferred to the recovery room in stable condition. The assistant district attorney ARPITA Ferrara was required due to the complexity of surgery, and the need for skilled child life assistant for positioning, draping, exposure, retraction, and closure of the wound.
--- NOTE | 2023-12-16 09:15 | FL ---
EXAMINATION TYPE: FL guidance operating room, XR Hip Limited LT Intraoperative/procedural fluoroscopi c services were provided. Total fluoroscopy time is 38 seconds with a total of 6 submitted images to PACS. Please see the operative/procedural note for further details. DAP: 1.4657 mGym2
--- NOTE | 2023-12-16 09:52 | XR ---
EXAMINATION TYPE: XR Hip Limited LT DATE OF EXAM: 12/16/2023 9:36 AM CLINICAL INDICATION: Female, 83 years old with history of Status post hip surgery, assess surgical al ignment; COMPARISON: 08/01/2022. TECHNIQUE: XR Hip Limited LT; hip was examined in the frontal and lateral projections and a AP pelvis . FINDINGS: Post arthroplasty changes, hardware is intact, alignment is appropriate. No evidence of fra cture. Postoperative changes of the soft tissues with subcutaneous gas. No evidence of any acute osse ous pathology or joint dislocation. There is close of the arterial vasculature. IMPRESSION: Hip arthroplasty with hardware intact and in appropriate alignment. No acute fracture.
[2023-12-16] MEDS: LACTATED RINGERS 1,000 ML IV ONE (11:44)
[2023-12-16] MEDS: HYDROmorphone 0.5 MG/0.5 ML SYRINGE IVP PRN (14:45)
[2023-12-16] MEDS: SODIUM CHLORIDE 0.9% 1,000 ML IV SCH (20:49)
[2023-12-16] MEDS: SENNOSIDES-DOCUSATE SODIUM 1 EACH TAB PO SCH (20:49)
[2023-12-16] MEDS: WARFARIN 5 MG TAB PO ONE (21:49)
[2023-12-17] MEDS: HYDROcodone/APAP 7.5-325MG 1 EACH TAB PO PRN (07:01)
[2023-12-17 09:41] LABS: Basophils # (A) 0.02 X 10*3/uL (0.00-0.10); Basophils % (A) 0.3 %; Eosinophils # (A) 0.03 X 10*3/uL (0.04-0.35); Eosinophils % (A) 0.4 %; HCT 23.8 % (37.2-46.3); HGB 7.5 g/dL (12.0-15.0); Lymphocytes # (A) 1.29 X 10*3/uL (0.90-5.00); Lymphocytes % (A) 16.2 %; MCH 31.1 pg (27.0-32.0); MCHC 31.5 g/dL (32.0-37.0); MCV 98.8 FL (80.0-97.0); Mean Platelet Volume 9.6 FL (9.5-12.2); Monocytes # (A) 0.98 X 10*3/uL (0.20-1.00); Monocytes % (A) 12.3 %; NRBC Per 100 WBC 0 X 10*3/uL (0.00-0.01); Neutrophils # (A) 5.59 X 10*3/uL (1.80-7.70); Neutrophils % (A) 70.4 %; Platelet Count 239 X 10*3/uL (140-440); RBC 2.41 X 10*6/uL (4.10-5.20); RDW 14.6 % (11.5-14.5); WBC 7.94 X 10*3/uL (4.50-10.00)
--- NOTE | 2023-12-17 10:13 | P.PN ---
Subjective Progress Note Date: 12/17/23 This is an 83-year-old female who is status post left total hip arthroplasty. This is postoperative day #1 and patient is seen and evaluated at bedside today. Patient states that the hip is quite sore today and she felt somewhat dizzy when she attempted to work with physical therapy. Patient states that she is feeling better now after resting in a chair. Objective - Vital Signs Vital signs: Vital Signs Temp 98.2 F 12/17/23 07:55 Pulse 81 12/17/23 07:55 Resp 17 12/17/23 07:55 BP 108/46 12/17/23 07:55 Pulse Ox 91 L 12/17/23 07:55 FiO2 Intake & Output 12/16/23 12/17/23 12/17/23 18:59 06:59 18:59 Intake Total 1251 Output Total 550 100 Balance 701 -100 Weight 53.52 kg Intake: IV 1251 Output: Urine 300 100 Estimated Blood Loss 250 Other: Voiding Method Toilet # Voids 1 - Exam Vital signs are stable. Patient is in no acute distress and is alert and oriented 3. Calf is soft and nontender to palpation. Dressing is clean, dry, and intact. Patient has full foot and ankle motion without pain or difficulty. Sensation intact. Neurovascular status and circulatory status are intact. - Labs CBC & Chem 7: 12/17/23 05:02 Labs: Abnormal Lab Results - Last 24 Hours (Table) 12/17/23 Range/Units 05:02 RBC 2.41 L (4.10-5.20) X 10*6/uL Hgb 7.5 L (12.0-15.0) g/dL Hct 23.8 L (37.2-46.3) % MCV 98.8 H (80.0-97.0) FL MCHC 31.5 L (32.0-37.0) g/dL RDW 14.6 H (11.5-14.5) % Eosinophils # 0.03 L (0.04-0.35) X 10*3/uL Assessment and Plan (1) Osteoarthritis of left hip Current Visit: Yes Status: Acute Code(s): M16.12 - UNILATERAL PRIMARY OSTEOARTHRITIS, LEFT HIP SNOMED Code(s): 877546420699821 (2) S/P total hip arthroplasty Current Visit: Yes Status: Acute Code(s): Z96.649 - PRESENCE OF UNSPECIFIED ARTIFICIAL HIP JOINT SNOMED Code(s): 545549408165 Plan: Continue routine postop care and pain control. Continue anticoagulation regimen per internal medicine. Weightbearing as tolerated with a walker. Leave dressing in place for 7 days. Appreciate input from internal medicine. Anticipate discharge to [facility] in the next 24-48 hours.
[2023-12-17 11:32] LABS: INR 1.18 sec (0.93-1.11); Prothrombin Time 12.6 sec (9.9-11.9)
--- NOTE | 2023-12-17 12:58 | P.CONS ---
History of Present Illness - Reason for Consult Consult date: 12/17/23 Medical management - History of Present Illness History of present illness; patient is a 83-year-old lady with past medical history significant for coronary disease, atrial fibrillation who presented to the hospital for elective left hip arthroplasty. Patient has been followed up outpatient with orthopedic surgery for her left hip pain. Patient had tried all conservative measures but it had failed. Patient discussed with orthopedic surgery and they scheduled patient for left hip total arthroplasty. REVIEW OF SYSTEMS: CONSTITUTIONAL: No fever, no malaise, no fatigue. HEENT: No recent visual problems or hearing problems. Denied any sore throat. CARDIOVASCULAR: No chest pain, orthopnea, PND, no palpitations, no syncope. PULMONARY: No shortness of breath, no cough, no hemoptysis. GASTROINTESTINAL: No diarrhea, no nausea, no vomiting, no abdominal pain. NEUROLOGICAL: No headaches, no weakness, no numbness. HEMATOLOGICAL: Denies any bleeding or petechiae. GENITOURINARY: Denies any burning micturition, frequency, or urgency. MUSCULOSKELETAL/RHEUMATOLOGICAL: Hip pain ENDOCRINE: Denies any polyuria or polydipsia. The rest of the 14-point review of systems is negative. PHYSICAL EXAMINATION: GENERAL: The patient is alert and oriented x3, not in any acute distress. Well developed, well nourished. HEENT: Pupils are round and equally reacting to light. EOMI. No scleral icterus. No conjunctival pallor. Normocephalic, atraumatic. No pharyngeal erythema. No thyromegaly. CARDIOVASCULAR: S1 and S2 present. No murmurs, rubs, or gallops. PULMONARY: Chest is clear to auscultation, no wheezing or crackles. ABDOMEN: Soft, nontender, nondistended, normoactive bowel sounds. No palpable organomegaly. MUSCULOSKELETAL: No joint swelling or deformity. EXTREMITIES: No cyanosis, clubbing, or pedal edema. NEUROLOGICAL: Gross neurological examination did not reveal any focal deficits. SKIN: Left hip surgical incision seen Assessment and plan Left hip osteoarthritis status post left hip arthroplasty Hypertension Coronary artery disease with previous stenting, most recently to RCA in January 2023 Permanent atrial fibrillation with slow ventricular rate, asymptomatic History of bioprosthetic aortic valve replacement Hyperlipidemia Monitor vital signs Monitor CBC Monitor CMP Continue pain management per orthopedics Continue DVT prophylaxis per orthopedics Resume home meds, hold blood pressure medication as patient is currently normotensive and was complaining of dizziness this morning Continue Coumadin PT and OT consulted Labs and medication were reviewed.. Continue same treatment. Continue with symptomatic treatment. Resume home medication. Monitor labs and vitals. DVT and GI prophylaxis. Further recommendations as per clinical course of the patient Dictation was produced using PrepClass dictation software. please excuse any grammatical, word or spelling errors. Past Medical History Past Medical History: Atrial Fibrillation, Coronary Artery Disease (CAD), Hyperlipidemia, Hypertension, Musculoskeletal Disorder, Vascular Disorder Additional Past Medical History / Comment(s): AORTIC VALVE REPAIRED W/ COW MALISSA VE; HEMORRHOIDS CURRENT. LEGS GET TIRED, HEAVY WHEN WALKING, OCC EDEMA LT ANKLE, urinary incontinence, probable covid 2019, fully vaccinated for covid now History of Any Multi-Drug Resistant Organisms: None Reported Past Surgical History: Cardiac Valve Replacement, Heart Catheterization With Stent, Orthopedic Surgery Additional Past Surgical History / Comment(s): FACELIFT. AORTIC VALVE REPLACED- COW VALVE, 06/2010, vicente leg balloon angioplasty, cataracts removed, Heart cath with Stentx1 RCA 01/23/2023 Past Anesthesia/Blood Transfusion Reactions: Motion Sickness Additional Past Anesthesia/Blood Transfusion Reaction / Comm: MOTION SICK MANY YEARS AGO Date of Last Stent Placement:: 01/23/2023 Past Psychological History: No Psychological Hx Reported Smoking Status: Former smoker Past Alcohol Use History: None Reported Additional Past Alcohol Use History / Comment(s): SMOKED AGE 16, 1 PPD OR LESS, QUIT 1994 EST. WINE AND/OR BEER, 1/2-1 GLASS 5X WK AVG Past Drug Use History: None Reported - Past Family History Mother Family Medical History: Dementia Father Family Medical History: Congestive Heart Failure (CHF), Hypertension Medications and Allergies Home Medications Medication Instructions Recorded Confirmed Type Atorvastatin [Lipitor] 80 mg PO HS 03/17/18 12/16/23 History Nitroglycerin Sl Tabs [Nitrostat] 0.4 mg SUBLINGUAL Q5M PRN #100 tab 01/25/23 12/16/23 Rx Furosemide [Lasix] 40 mg PO DAILY 01/26/23 12/16/23 History Metoprolol Succinate [Metoprolol 12.5 mg PO DAILY 01/26/23 12/16/23 History Succinate ER] lisinopriL [Zestril] 20 mg PO BID 01/26/23 12/16/23 History Clopidogrel [Plavix] 75 mg PO DAILY #30 tablet 01/29/23 12/16/23 Rx Melatonin 3 mg PO HS 09/24/23 12/16/23 History Potassium Chloride [Klor-Con 8] 8 meq PO DAILY 09/24/23 12/16/23 History Warfarin [Coumadin] 2.5 mg PO MOFR@209909/24/23 12/16/23 History Warfarin [Coumadin] 5 mg PO SUTUWETHSA@209909/24/23 12/16/23 History Acetaminophen [Tylenol Arthritis] 2 tablet PO QAM 12/15/23 12/16/23 History Aspirin 81 mg PO DAILY 12/15/23 12/16/23 History Sertraline [Zoloft] 50 mg PO DAILY 12/15/23 12/16/23 History HYDROcodone/APAP 7.5-325MG [[place] 1 - 2 tab PO Q6H PRN #32 tab 12/17/23 Rx 7.5-325] Sennosides [Senokot] 2 tab PO DAILY PRN #60 tablet 12/17/23 Rx Allergies Allergy/AdvReac Type Severity Reaction Status Date / Time No Known Allergies Allergy Verified 12/16/23 06:24 Physical Exam Vitals: Vital Signs Temp Pulse Resp BP Pulse Ox 12/17/23 07:55 98.2 F 81 17 108/46 91 L 12/17/23 02:00 98.2 F 75 19 110/67 97 12/16/23 19:59 98.1 F 78 20 97/50 98 12/16/23 13:53 97.7 F 95 17 109/65 98 12/16/23 13:00 70 18 125/60 96 Intake and Output 12/16/23 12/17/23 12/17/23 22:59 06:59 14:59 Output Total 300 100 Balance -300 -100 Output: Urine 300 100 Other: Voiding Method Toilet # Voids 1 Results CBC & Chem 7: 12/17/23 05:02 Labs: Abnormal Lab Results - Last 24 Hours (Table) 12/17/23 12/17/23 Range/Units 05:02 05:02 RBC 2.41 L (4.10-5.20) X 10*6/uL Hgb 7.5 L (12.0-15.0) g/dL Hct 23.8 L (37.2-46.3) % MCV 98.8 H (80.0-97.0) FL MCHC 31.5 L (32.0-37.0) g/dL RDW 14.6 H (11.5-14.5) % Eosinophils # 0.03 L (0.04-0.35) X 10*3/uL PT 12.6 H (9.9-11.9) sec INR 1.18 H (0.93-1.11) sec
[2023-12-17] MEDS: MAGNESIUM HYDROXIDE 2,400 MG/30 ML CUP PO PRN (15:47)
[2023-12-17] MEDS: WARFARIN 3 MG TAB PO ONE (21:25)
[2023-12-17] MEDS ORDERED: HYDROcodone/APAP 7.5-325MG 1 EACH TAB ONE (21:25)
[2023-12-17] MEDS: ATORVASTATIN 80 MG TAB PO SCH (21:25)
[2023-12-18 06:17] LABS: INR 1.4 (<1.2); Prothrombin Time 14.7 sec (10.0-12.5)
[2023-12-18 07:52] VITALS: BP 102/58; PULSE 89; RESP 16; TEMP 98.7
[2023-12-18] MEDS: SERTRALINE 50 MG TAB PO SCH (08:12)
--- NOTE | 2023-12-18 13:40 | P.PN ---
Subjective Progress Note Date: 12/18/23 patient is a 83-year-old lady with past medical history significant for coronary disease, atrial fibrillation who presented to the hospital for elective left hip arthroplasty. Patient has been followed up outpatient with orthopedic surgery for her left hip pain. Patient had tried all conservative measures but it had failed. Patient discussed with orthopedic surgery and they scheduled patient for left hip total arthroplasty. 12/17. Patient seen and examined. States she does not feel well. Complaining of lightheadedness. Denies any fever or chills REVIEW OF SYSTEMS: CONSTITUTIONAL: No fever, no malaise,. CARDIOVASCULAR: No chest pain, no palpitations, no syncope. PULMONARY: No shortness of breath, no cough, GASTROINTESTINAL: No diarrhea, no nausea, no vomiting, no abdominal pain. NEUROLOGICAL: No headaches, no weakness, PHYSICAL EXAMINATION: GENERAL: The patient is alert and oriented x3, not in any acute distress. Well developed, well nourished. HEENT: Pupils are round and equally reacting to light. EOMI. No scleral icterus. No conjunctival pallor. Normocephalic, atraumatic. No pharyngeal erythema. No thyromegaly. CARDIOVASCULAR: S1 and S2 present. No murmurs, rubs, or gallops. PULMONARY: Chest is clear to auscultation, no wheezing or crackles. ABDOMEN: Soft, nontender, nondistended, normoactive bowel sounds. No palpable organomegaly. MUSCULOSKELETAL: No joint swelling or deformity. EXTREMITIES: No cyanosis, clubbing, or pedal edema. NEUROLOGICAL: Gross neurological examination did not reveal any focal deficits. SKIN: Left hip surgical incision seen Assessment and plan Left hip osteoarthritis status post left hip arthroplasty Hypertension Coronary artery disease with previous stenting, most recently to RCA in January 2023 Permanent atrial fibrillation with slow ventricular rate, asymptomatic History of bioprosthetic aortic valve replacement Hyperlipidemia Monitor vital signs Monitor CBC Monitor CMP Continue pain management per orthopedics Continue DVT prophylaxis per orthopedics Continue to hold blood pressure meds Continue Coumadin PT and OT consulted Labs and medication were reviewed.. Continue same treatment. Continue with symptomatic treatment. Resume home medication. Monitor labs and vitals. DVT and GI prophylaxis. Further recommendations as per clinical course of the patient Dictation was produced using [employer] dictation software. please excuse any grammatical, word or spelling errors. Objective - Vital Signs Vital signs: Vital Signs Temp 98.7 F 12/18/23 06:57 Pulse 89 12/18/23 06:57 Resp 16 12/18/23 06:57 BP 102/58 12/18/23 06:57 Pulse Ox 96 12/18/23 06:57 FiO2 Intake & Output 12/17/23 12/18/23 12/18/23 18:59 06:59 18:59 Other: # Voids 2 1 - Labs CBC & Chem 7: 12/17/23 05:02 Labs: Abnormal Lab Results - Last 24 Hours (Table) 12/18/23 Range/Units 05:36 PT 14.7 H (10.0-12.5) sec INR 1.4 H (<1.2)
--- NOTE | 2023-12-18 14:23 | P.DS ---
Providers Date of admission: 12/16/23 09:00 Expected date of discharge: 12/18/23 Attending physician: Fortino Caldera Consults: 12/16/23 07:09 Consult Physician Routine Consulting Provider: Pham Dyson Consult Reason/Comments: medical management and anticoagulation Do you want consulting provider notified?: Yes Primary care physician: Jermaine Feldman - Discharge Diagnosis(es) (1) Osteoarthritis of left hip Current Visit: Yes Status: Acute (2) S/P total hip arthroplasty Current Visit: Yes Status: Acute Hospital Course: This is an 83-year-old female with known history of degenerative arthritis of the left hip. The patient presented for evaluation as an outpatient. After discussion and consideration patient elects to proceed with total hip arthroplasty. The patient is seen preoperatively by Dr. Caldera and medically cleared for surgery by their primary care physician. Patient is admitted to [facility] on 12/16/2023 for total hip arthroplasty. The procedure is performed without complication or sequelae. The patient is doing well postoperatively. Labs and vital signs are stable on day of discharge. On day of discharge patient's hip incision is healing well. There is minimal erythema. There is no drainage noted at this time. There is minimal soft tissue swelling to the hip and thigh. Patient has full foot and ankle motion without difficulty or pain. Calf is soft and nontender to palpation. N eurovascular status to the left lower extremity is intact. Patient is discharged to rehab in good condition. Please see med rec for accurate list of home medications. Plan - Discharge Summary Discharge Rx Participant: Yes New Discharge Prescriptions: New Sennosides [Senokot] 2 tab PO DAILY PRN #60 tablet PRN Reason: Constipation Sennosides-Docusate Sodium [Senokot-S] 2 each PO HS tab HYDROcodone/APAP 7.5-325MG [[place] 7.5-325] 1 - 2 tab PO Q6H PRN #32 tab PRN Reason: Pain Magnesium Hydroxide [Milk of Magnesia] 2,400 mg PO DAILY PRN ml PRN Reason: Constipation Continue Atorvastatin [Lipitor] 80 mg PO HS Furosemide [Lasix] 40 mg PO DAILY lisinopriL [Zestril] 20 mg PO BID Metoprolol Succinate [Metoprolol Succinate ER] 12.5 mg PO DAILY Clopidogrel [Plavix] 75 mg PO DAILY #30 tablet Melatonin 3 mg PO HS Aspirin 81 mg PO DAILY Acetaminophen [Tylenol Arthritis] 2 tablet PO QAM Sertraline [Zoloft] 50 mg PO DAILY Nitroglycerin Sl Tabs [Nitrostat] 0.4 mg SUBLINGUAL Q5M PRN #100 tab PRN Reason: Chest Pain Warfarin [Coumadin] 2.5 mg PO MOFR@2100 Warfarin [Coumadin] 5 mg PO SUTUWETHSA@2100 Potassium Chloride [Klor-Con 8] 8 meq PO DAILY Discharge Medication List Atorvastatin [Lipitor] 80 mg PO HS 03/17/18 [History] Nitroglycerin Sl Tabs [Nitrostat] 0.4 mg SUBLINGUAL Q5M PRN #100 tab 01/25/23 [Rx] Furosemide [Lasix] 40 mg PO DAILY 01/26/23 [History] Metoprolol Succinate [Metoprolol Succinate ER] 12.5 mg PO DAILY 01/26/23 [History] lisinopriL [Zestril] 20 mg PO BID 01/26/23 [History] Clopidogrel [Plavix] 75 mg PO DAILY #30 tablet 01/29/23 [Rx] Melatonin 3 mg PO HS 09/24/23 [History] Potassium Chloride [Klor-Con 8] 8 meq PO DAILY 09/24/23 [History] Warfarin [Coumadin] 2.5 mg PO MOFR@209909/24/23 [History] Warfarin [Coumadin] 5 mg PO SUTUWETHSA@2100 09/24/23 [History] Acetaminophen [Tylenol Arthritis] 2 tablet PO QAM 12/15/23 [History] Aspirin 81 mg PO DAILY 12/15/23 [History] Sertraline [Zoloft] 50 mg PO DAILY 12/15/23 [History] HYDROcodone/APAP 7.5-325MG [[place] 7.5-325] 1 - 2 tab PO Q6H PRN #32 tab 12/17/23 [Rx] Sennosides [Senokot] 2 tab PO DAILY PRN #60 tablet 12/17/23 [Rx] Magnesium Hydroxide [Milk of Magnesia] 2,400 mg PO DAILY PRN ml 12/18/23 [Rx] Sennosides-Docusate Sodium [Senokot-S] 2 each PO HS tab 12/18/23 [Rx] Follow up Appointment(s)/Referral(s): Radha nguyen [facility], [NON-STAFF] - As Needed Fortino Caldera DO [Doctor of Osteopathic Medicine] - 12/26/23 1:30 pm (with Ada) Activity/Diet/Wound Care/Special Instructions: Weightbearing as tolerated with walker. Leave dressing intact. Dressing may be removed by home care nurse or by patient in 7 days. Then change dressing twice daily until follow up. May shower with initial dressing intact and after removal. If dressing become saturated, please remove. Please resume anticoagulation regimen per internal medicine recommendation. Recommend use of compression stockings daily until follow up to help prevent swelling and blood clots. May remove at night before sleeping. Please follow[facility]up with [facility] in 2 weeks and call with any questions or concerns, . Discharge Disposition: TRANSFER TO SNF/ECF
[2023-12-18] MEDS ORDERED: WARFARIN 3 MG TAB PO ONE (21:00)
== END 2023-12-18 15:46 | DRG 470 ==
LOC: OR 05:42 → 4SSUR 09:00
PROVIDERS: ADMIT Orthopaedic Surgery; ATTEND Orthopaedic Surgery
PROC: 0SRB06A Replacement of Left Hip Joint with Oxidized Zirconium on Polyethylene Synthetic Substitute, Uncemented, Open Approach (ICD-10-PCS; principal; 2023-12-16 07:00)
DX: M16.12 Unilateral primary osteoarthritis, left hip (principal); I48.21 Permanent atrial fibrillation; I10 Essential (primary) hypertension; E78.5 Hyperlipidemia, unspecified; I25.10 Atherosclerotic heart disease of native coronary artery without angina pectoris; Z79.82 Long term (current) use of aspirin; Z79.02 Long term (current) use of antithrombotics/antiplatelets; Z87.891 Personal history of nicotine dependence; Z79.01 Long term (current) use of anticoagulants; Z95.3 Presence of xenogenic heart valve; Z79.899 Other long term (current) drug therapy; Z86.16 Personal history of COVID-19; Z95.5 Presence of coronary angioplasty implant and graft

== ENCOUNTER 2024-06-15 09:39 | Day surgery (SDC) | payer MEDICARE, OTHER ==
[~2024-06-15 09:39] MED LIST changes: +ACETAMINOPHEN TAB 500 MG TAB PO PRN; +HYDROmorphone 0.5 MG/0.5 ML SYRINGE IVP PRN; -LIDOCAINE 1% (10MG/ML) FOR IV START INTRADERMA PRN
[2024-06-15] MEDS: IV FLUID CONTINUATION 1,000 ML IV ONE (09:58)
[2024-06-15] MEDS: LACTATED RINGERS 1,000 ML IV SCH (10:42)
[2024-06-15] MEDS: GABAPENTIN 300 MG CAP PO PRN (10:43)
[2024-06-15] MEDS: MELOXICAM 7.5 MG TAB PO PRN (10:43)
[2024-06-15 10:44] LABS: INR 1.1 (<1.2); Prothrombin Time 12.2 sec (10.0-12.5)
[2024-06-15] MEDS: DEXAMETHASONE SOD PHOSPHATE 4 MG/ML 1 ML VIAL IV ONE (10:44)
[2024-06-15] MEDS: ONDANSETRON 4 MG/2 ML VIAL IVP ONE (10:44)
[2024-06-15] MEDS: MIDAZOLAM 2 MG/2 ML VIAL IV STA (10:48)
[2024-06-15] MEDS: ROPIVACAINE 5 MG/ML 30 ML VIAL MISCELLANE ONE ×2 (11:04→12:14)
[2024-06-15] MEDS ORDERED: DEXAMETHASONE SOD PHOSPHATE 4 MG/ML 1 ML VIAL ONE (11:15)
[2024-06-15] MEDS ORDERED: MIDAZOLAM 2 MG/2 ML VIAL ONE (11:15)
[2024-06-15] MEDS ORDERED: fentaNYL (PF) 50 MCG/ML 2 ML AMP ONE (11:15)
[2024-06-15] MEDS ORDERED: LIDOCAINE 1% INJ 10MG/ML (20 ML MDV) ONE (11:15)
[2024-06-15] MEDS ORDERED: ROPIVACAINE 5 MG/ML 30 ML VIAL ONE (11:15)
[2024-06-15] MEDS ORDERED: TRANEXAMIC 1,000 MG/100ML-NACL PREMIX BAG ONE (11:15)
[2024-06-15] MEDS ORDERED: PROPOFOL 10 MG/ML 20 ML VIAL IV ONE (11:15)
[2024-06-15] MEDS ORDERED: SODIUM CHLORIDE 0.9% (PF) 10 ML VIAL ONE (11:15)
--- NOTE | 2024-06-15 11:15 | P.ANPRN ---
Procedure Note - Anesthesia - Nerve Block Performed Right Jaime Single Time Out Performed: Yes Date of Procedure: 06/15/24 Procedure Start Time: 10:48 Procedure Stop Time: 10:53 Location of Patient: PreOp Indication: Acute Post-Operative Pain, Requested by Surgeon Sedation Type: Sedate with meaningful contact maintained Preparation: Sterile Prep Position: Supine Needle Types: Pajunk Needle Gauge: 21 Ultrasound used to visualize needle placement: Yes Ultrasound used to observe medication spread: Yes Injectate: 0.5% Ropivacaine (see comment for volume) (10 mL +10 mL of normal saline +4 mg of dexamethasone) Blood Aspirated: No Pain Paresthesia on Injection Noted: No Resistance on Injection: Normal Image Stored and Saved: Yes Events: Uneventful and Well Tolerated
[2024-06-15] MEDS ORDERED: NALOXONE 0.4 MG/ML 1 ML VIAL IV PRN (11:19)
[2024-06-15] MEDS ORDERED: MAGNESIUM HYDROXIDE 2,400 MG/30 ML CUP PO PRN (11:19)
[2024-06-15] MEDS ORDERED: ONDANSETRON 4 MG/2 ML VIAL IVP PRN (11:19)
[2024-06-15] MEDS ORDERED: HYDROmorphone 0.5 MG/0.5 ML SYRINGE IVP PRN ×3 (11:19)
[2024-06-15] MEDS: ceFAZolin 1,000 MG in SODIUM CHLORIDE 0.9% 1,000 ML IRRIGATION ONE (11:20)
--- NOTE | 2024-06-15 12:19 | P.OP ---
Date of Procedure: 06/15/24 Preoperative Diagnosis: Severe osteoarthritis right hip Postoperative Diagnosis: Severe osteoarthritis right hip Procedure(s) Performed: Right total hip arthroplasty with a direct anterior approach Implants: [employer] Polarstem standard size 2with a collar [employer] R3, 3 hole hemispherical acetabular shell, 50 mm [employer] Reflection 6.5 mm cancellus screws, 20 mm, 25 mm [employer] R3, XLPE 20 acetabular liner [employer] Oxinium femoral head 36 mm, +4 All components were press-fit. The articulation is Oxinium on polyethylene. Anesthesia: spinal Surgeon: Fortino Caldera Fire Chief'S Aide #1: Ada Campbell Estimated Blood Loss (ml): 150 Pathology: none sent Condition: stable Disposition: PACU Indications for Procedure: After failure of conservative treatment we discussed the surgical and n onsurgical treatment options at length. Patient wishes to proceed with a total hip arthroplasty with a direct anterior approach. Complications specific to this procedure were discussed at length, including but not limited to infection, leg length discrepancy, dislocation, nerve injury, and fracture. Covid-19 was also discussed at length with the patient, and they are aware of the current policies and procedures. The patient was given the option of delaying surgery, but they elect to proceed knowing these risks. Patient is aware of all these complications and informed consent was obtained Operative Findings: The operative findings are consistent with severe osteoarthritis of the right hip Description of Procedure: The patient was seen and evaluated in the preoperative area and the consent was reviewed. The operative site was marked with a skin marker. The patient verified the procedure and operative site. A CLAUDIA block was placed by anesthesia in the preoperative area. The patient was then brought to the operating room and given preoperative antibiotics intravenously. 1 g of Tranexamic acid was also given intravenously. A spinal anesthetic was administered by the anesthesia department. The patient was then placed on the [place] table with the bony prominences well-padded. The hip area was then prepped with a ChloraPrep solution and draped in the usual sterile fashion. A universal timeout was then performed, which confirmed the patient's name, surgical site, ALLERGIES, and procedure being performed on the consent. Next the incision site was located at 1 cm distal and 4 cm lateral to the anterior superior iliac spine. The skin and subcutaneous tissues were sharply incised. Incision was carefully dissected down to the fascia overlying the tensor fascia siddhartha muscle. This fascia was then incised in line with the muscle fibers. Care was taken to stay laterally in order to avoid injuring the lateral femoral cutaneous nerve. Next, using blunt finger dissection, the tensor fascia siddhartha muscle was dissected off its investing fascia. The muscle was then carefully retracted laterally with a cobra retractor over the lateral neck of the femur. Next, the circumflex vessels were identified and cauterized using the Aquamantis device. The anterior hip capsule was then exposed. The capsule was then opened and an inverted T fashion. The retractors were then placed intracapsularly. The retractors were maintained intracapsular throughout the procedure. The proximal femur was then visualized. Fluoroscopic x-rays were then taken in order to evaluate the preoperative leg lengths. A small amount of traction was placed on the leg. The femoral neck was then osteotomized at the appropriate level above the lesser trochanter. A small wedge of bone was then removed from the remaining femoral head. Next, using a corkscrew the femoral head was removed from the acetabulum. On gross visual inspection, the femoral head had complete loss of articular cartilage and multiple periarticular osteophytes. The femoral head was then measured. Attention was then turned to the acetabulum. The acetabulum was exposed and any remaining labrum was excised. Sequential reaming of the acetabulum was performed using fluoroscopic guidance until there was a good bed of bleeding cancellus bone. When the appropriate size was reached, a trial was then placed. The position and fit of the trial was checked with fluoroscopy. The trial was then removed. Then, using fluoroscopic guidance, the final implant was impacted at 20 of anteversion and 40 of abduction, and fully seated in the acetabulum. 2 screws were then placed in the acetabulum. Again fluoroscopy was used to check position of the screws. Next, the liner was then impacted, with a 20 elevated liner located in the anterior superior quadrant. Component locking was confirmed. Attention was then directed to the femur. With the aid of the [place] table, the femur was externally rotated to approximately 130, extended, and adducted under the opposite leg. A side hook was then placed under the proximal femur, and the side hook elevator was used to elevate the proximal femur while releasing the capsule. Retractors were then placed. A capsular release was performed, as well as a release of the conjoined tendon, which afforded excellent visualization of the proximal femur. Next, a box osteotome was used to lateralize the proximal femur. A kiss setter hand was then used to locate the femoral canal. Sequential broaching was then performed with appropriate size which afforded excellent fixation in the proximal femur. A trial was then placed with appropriate head and neck, and the hip was gently reduced with the aid of the [place] table. Fluoroscopy was then used to check position of the components, as well as to evaluate the leg lengths and offset. The leg lengths and offset were measured as closely as possible to ensure stability of the hip. The hip was then gently dislocated and the trials were then removed. Final implants were then impacted and the hip was again reduced. Final fluoroscopic x-rays confirmed that the components were in anatomic position. The leg lengths and offset were measured and were found to coincide with the trial measurements. The hip was also taken through range of motion, and found to be stable. The hip was then copiously irrigated with antibiotic solution with pulsatile lavage. The hip was then irrigated with Irrisept solution. The soft tissues were then injected with a ropivacaine solution. A second dose of 1 g of Tranexamic acid was also given intravenously. The fascia was then closed with 2-0 strata fix suture. The subcutaneous tissue was closed with 3-0 Vicryl. The subcuticular tissue was closed with 3-0 moncryl suture. The skin was then closed with Exofin skin glue. After the glue and dried, and Optifoam silver impregnated dressing was applied. The patient was then transferred to the recovery room in stable condition. The dental hygiene administrative assistant ARPITA Ferrara was required due to the complexity of surgery, and the need for skilled certified surgical first assistant for positioning, draping, exposure, retraction, and closure of the wound.
--- NOTE | 2024-06-15 12:35 | FL ---
EXAMINATION TYPE: FL guidance operating room, XR Hip Limited RT DATE OF EXAM: 06/15/2024 CLINICAL HISTORY: Right hip pain and osteoarthritis. TECHNIQUE: Fluoroscopy. Limited intraoperative views right hip. COMPARISON: None. FINDINGS: Fluoroscopic guidance was provided during right hip replacement procedure performed by Dr. Caldera. A total of 43.3 seconds of fluoroscopic time was utilized during the procedure and 3 spot images was acquired. Total dose area product (DAP) in uGy*m?, mGy*cm? (or similar: 1.4259. Intraoperative images acquired show metallic hardware from total right hip arthroplasty satisfactory in position on frontal projection. IMPRESSION: As Above. [facility], Workstation: [id number], 06/15/2024 12:32 PM
--- NOTE | 2024-06-15 13:18 | XR ---
EXAMINATION TYPE: XR Hip Limited RT DATE OF EXAM: 06/15/2024 1:11 PM COMPARISON: None. CLINICAL INDICATION: Female, 84 years old with history of Status post hip surgery, assess surgical al ignment, pain TECHNIQUE: Single AP portable view of the right hip is obtained immediately postoperatively. FINDINGS: Metallic hardware from the right hip arthroplasty is seen and appears satisfactory in alig nment and position. There is evidence of recent surgery with subcutaneous gas noted laterally. Mode rate to severe calcified atherosclerotic plaque right groin region is noted. IMPRESSION: Metallic hardware from the right hip arthroplasty is satisfactory in position. [facility], , 06/15/2024 1:16 PM
[2024-06-15] MEDS: SODIUM CHLORIDE 0.9% 1,000 ML IV SCH (19:37)
[2024-06-15] MEDS ORDERED: NITROGLYCERIN SL TABS 0.4 MG TAB SUBLINGUAL PRN (19:48)
[2024-06-15] MEDS: MELATONIN 3 MG TABLET PO SCH (20:09)
[2024-06-15] MEDS: SENNOSIDES-DOCUSATE SODIUM 1 EACH TAB PO SCH (20:10)
[2024-06-15] MEDS: lisinopriL 20 MG TAB PO SCH (20:10)
[2024-06-15] MEDS: WARFARIN 5 MG TAB PO ONE (20:10)
[2024-06-15] MEDS: ATORVASTATIN 80 MG TAB PO SCH (20:10)
[2024-06-15] MEDS: FLUoxetine HCL 10 MG CAP PO SCH (22:46)
[2024-06-16] MEDS: POTASSIUM CHLORIDE ER 10 MEQ TAB.ER.PRT PO SCH (07:56)
[2024-06-16] MEDS: FERROUS SULFATE 325 MG TAB PO SCH (07:57)
[2024-06-16] MEDS: METOPROLOL SUCCINATE (ER) 25 MG TAB.ER.24H PO SCH (07:57)
[2024-06-16] MEDS: HYDROcodone/APAP 5-325MG 1 EACH TAB PO PRN (07:57)
[2024-06-16] MEDS ORDERED: SERTRALINE 50 MG TAB PO SCH (09:00)
--- NOTE | 2024-06-16 10:25 | P.PN ---
Subjective Progress Note Date: 06/16/24 This is an 84-year-old female who is status post right total hip arthroplasty. This is postoperative day #1 and patient is seen and evaluated at bedside today. Patient states that her pain is well-controlled and she denies any new complaints today. Objective - Vital Signs Vital signs: Vital Signs Temp 98.0 F 06/16/24 08:22 Pulse 74 06/16/24 08:22 Resp 18 06/16/24 08:22 BP 156/66 06/16/24 08:22 Pulse Ox 95 06/16/24 08:22 FiO2 Intake & Output 06/15/24 06/16/24 06/16/24 18:59 06:59 18:59 Intake Total 1161 Output Total 150 Balance 1011 Weight 57 kg Intake: IV 701 Intake, IV Titration 260 Amount Sodium Chloride 0.9% 1, 260 000 ml @ 65 mls/hr IV . [id number] MICHELLE Rx#:[id number] Oral 200 Output: Estimated Blood Loss 150 Other: Voiding Method Toilet Toilet # Voids 3 1 - Exam Vital signs are stable. Patient is in no acute distress and is alert and oriented 3. Calf is soft and nontender to palpation. Dressing is clean, dry, and intact. Patient has full foot and ankle motion without pain or difficulty. Sensation intact. Neurovascular status and circulatory status are intact. Assessment and Plan (1) Osteoarthritis of right hip Current Visit: Yes Status: Acute Code(s): M16.11 - UNILATERAL PRIMARY OSTEOARTHRITIS, RIGHT HIP SNOMED Code(s): 119647606541120 (2) S/P total right hip arthroplasty Current Visit: Yes Status: Acute Code(s): Z96.641 - PRESENCE OF RIGHT ARTIFICIAL HIP JOINT SNOMED Code(s): 155963541228 Plan: Continue routine postop care and pain control. Continue anticoagulation with Coumadin. Weightbearing as tolerated with a walker Leave dressing in place for 7 days. Appreciate input from internal medicine. Anticipate discharge to [facility] in the next 24-48 hours.
[2024-06-16 12:19] LABS: Basophils # (A) 0.02 X 10*3/uL (0.00-0.10); Basophils % (A) 0.2 %; Eosinophils # (A) 0.03 X 10*3/uL (0.04-0.35); Eosinophils % (A) 0.3 %; HCT 32.9 % (37.2-46.3); HGB 10.3 g/dL (12.0-15.0); Lymphocytes # (A) 0.88 X 10*3/uL (0.90-5.00); Lymphocytes % (A) 8.3 %; MCH 30.4 pg (27.0-32.0); MCHC 31.3 g/dL (32.0-37.0); MCV 97.1 FL (80.0-97.0); Mean Platelet Volume 10.6 FL (9.5-12.2); Monocytes # (A) 1.06 X 10*3/uL (0.20-1.00); NRBC Per 100 WBC 0 X 10*3/uL (0.00-0.01); Neutrophils # (A) 8.61 X 10*3/uL (1.80-7.70); Neutrophils % (A) 80.8 %; Platelet Count 230 X 10*3/uL (140-440); RBC 3.39 X 10*6/uL (4.10-5.20); WBC 10.64 X 10*3/uL (4.50-10.00)
[2024-06-16 12:54] LABS: INR 1.01 sec (0.93-1.11); Prothrombin Time 11.3 sec (9.9-11.9)
--- NOTE | 2024-06-16 14:44 | P.CONS ---
History of Present Illness - Reason for Consult Consult date: 06/16/24 - History of Present Illness This is an 84-year-old female medical history significant for atrial fibrillation anticoagulated with warfarin, coronary artery disease with prior cardiac stenting, hypertension, hyperlipidemia, former smoker. Patient comes into the hospital for a scheduled right hip total arthroplasty and is evaluated in the medical floor postoperative day #1. Patient currently sitting up in the chair states she has been up ambulating with walker to the bathroom and back. Reports moderate pain to the right hip today, using norco for pain and states this is controlling her pain. She is not having any shortness of breath or chest discomfort. She is awake alert and oriented. Passing gas and tolerating diet. INR today is 1.01. White blood cell count 10.64. Patient is afebrile, heart rate 74, blood pressure 156/66, 95% on room air. REVIEW OF SYSTEMS: CONSTITUTIONAL: No fever, no malaise, no fatigue. HEENT: No recent visual problems or hearing problems. Denied any sore throat. CARDIOVASCULAR: No chest pain, orthopnea, PND, no palpitations, no syncope. PULMONARY: No shortness of breath, no cough, no hemoptysis. GASTROINTESTINAL: No diarrhea, no nausea, no vomiting, no abdominal pain. NEUROLOGICAL: No headaches, no weakness, no numbness. HEMATOLOGICAL: Denies any bleeding or petechiae. GENITOURINARY: Denies any burning micturition, frequency, or urgency. MUSCULOSKELETAL/RHEUMATOLOGICAL: Denies any joint pain, swelling, or any muscle pain. ENDOCRINE: Denies any polyuria or polydipsia. The rest of the 14-point review of systems is negative. PHYSICAL EXAMINATION: GENERAL: The patient is alert and oriented x3, not in any acute distress. Well developed, well nourished. Pale. Elderly. HEENT: Pupils are round and equally reacting to light. EOMI. No scleral icterus. No conjunctival pallor. Normocephalic, atraumatic. No pharyngeal erythema. No thyromegaly. CARDIOVASCULAR: S1 and S2 present. No murmurs, rubs, or gallops. PULMONARY: Chest is clear to auscultation, no wheezing or crackles. ABDOMEN: Soft, nontender, nondistended, normoactive bowel sounds. No palpable organomegaly. MUSCULOSKELETAL: No joint swelling or deformity. EXTREMITIES: No cyanosis, clubbing, or pedal edema. NEUROLOGICAL: Gross neurological examination did not reveal any focal deficits. SKIN: No rashes. Right hip surgical dressing intact. Assessment and Plan Osteoarthritis postoperative day #1 total right hip arthroplasty Leukocytosis, reactive History of atrial fibrillation, rate controlled anticoagulated with warfarin Subtherapeutic INR History of coronary artery disease with prior cardiac stenting 2022 Chronic diastolic dysfunction, moderate to severe TR and normal EF, no acute ex acerbation History of aortic valve replacement, bovine Hypertension Hyperlipidemia Reynauds Former Smoker GI prophylaxis DVT prophylaxis warfarin Full Code Plan Check PT/INR daily, warfarin resumed Hold lasix and monitor volume status currently patient is euvolemic PT/OT consultation in place Continue IV and PO pain medication Bowel regimen in place BMP, CBC in the AM Thank you for this consultation The impression and plan of care has been dictated by Litzy Hernandez, Nurse Practitioner as directed. Dr. Willard MD I have performed a history and physical examination and medical decision making of this patient, discussed the same with the dictator, and agree with the dictators assessment and plan as written, documented as a scribe. Based on total visit time, I have performed more than 50% of this visit. Past Medical History Past Medical History: Atrial Fibrillation, Coronary Artery Disease (CAD), Hyperlipidemia, Hypertension, Musculoskeletal Disorder Additional Past Medical History / Comment(s): AORTIC VALVE REPAIRED W/ COW VALVE; HEMORRHOIDS CURRENT. LEGS GET TIRED, HEAVY WHEN WALKING, OCC EDEMA LT foot , urinary incontinence has a red area to lft heel raynaud's History of Any Multi-Drug Resistant Organisms: None Reported Past Surgical History: Cardiac Valve Replacement, Heart Catheterization With Stent, Joint Replacement, Orthopedic Surgery Additional Past Surgical History / Comment(s): FACELIFT. AORTIC VALVE REPLACED- COW VALVE, 06/2010, vicente leg balloon angioplasty, cataracts removed, Heart cath with Stentx1 RCA 01/23/2023 left hip replaced Past Anesthesia/Blood Transfusion Reactions: Motion Sickness Additional Past Anesthesia/Blood Transfusion Reaction / Comm: MOTION SICK MANY YEARS AGO Date of Last Stent Placement:: 01/23/2023 Past Psychological History: No Psychological Hx Reported Smoking Status: Former smoker Past Alcohol Use History: None Reported Additional Past Alcohol Use History / Comment(s): SMOKED AGE 16, 1 PPD OR LESS, QUIT 1994. Past Drug Use History: None Reported - Past Family History Mother Family Medical History: Dementia Father Family Medical History: Congestive Heart Failure (CHF), Hypertension Medications and Allergies Home Medications Medication Instructions Recorded Confirmed Type Atorvastatin [Lipitor] 80 mg PO HS 03/17/18 06/15/24 History Nitroglycerin Sl Tabs [Nitrostat] 0.4 mg SUBLINGUAL Q5M PRN #100 tab 01/25/23 06/15/24 Rx Furosemide [Lasix] 40 mg PO DAILY 01/26/23 06/15/24 History Metoprolol Succinate [Metoprolol 12.5 mg PO DAILY 01/26/23 06/15/24 History Succinate ER] lisinopriL [Zestril] 20 mg PO BID 01/26/23 06/15/24 History Melatonin 3 mg PO HS 09/24/23 06/15/24 History Potassium Chloride [Klor-Con 8] 8 meq PO DAILY 09/24/23 06/15/24 History Warfarin [Coumadin] 2.5 mg PO MOFR@209909/24/23 06/15/24 History Warfarin [Coumadin] 5 mg PO SUTUWETHSA@209909/24/23 06/15/24 History Acetaminophen [Tylenol Arthritis] 2 tablet PO QAM 12/15/23 06/15/24 History Aspirin 81 mg PO DAILY 12/15/23 06/15/24 History Sertraline [Zoloft] 50 mg PO DAILY 12/15/23 06/15/24 History FLUoxetine HCL [PROzac] 10 mg PO HS 06/10/24 06/15/24 History Ferrous Sulfate [Feosol] 325 mg PO DAILY 06/10/24 06/15/24 History HYDROcodone/APAP 5-325MG [[place] 1 - 2 tab PO Q6HR PRN #32 tab 06/15/24 Rx 5-325] Sennosides [Senokot] 2 tab PO DAILY PRN #60 tablet 06/15/24 Rx Allergies Allergy/AdvReac Type Severity Reaction Status Date / Time No Known Allergies Allergy Verified 06/15/24 10:12 Physical Exam Vitals: Vital Signs Temp Pulse Pulse Resp BP BP BP 06/16/24 08:22 98.0 F 74 18 156/66 06/16/24 07:45 74 18 06/16/24 01:32 98.1 F 84 16 114/65 06/15/24 19:24 97.8 F 68 16 171/79 06/15/24 15:47 97.7 F 76 17 185/82 06/15/24 14:45 72 16 143/80 06/15/24 14:15 63 16 156/72 06/15/24 14:00 64 16 174/80 06/15/24 13:45 58 L 16 165/83 06/15/24 13:30 61 16 158/74 06/15/24 13:15 65 16 153/81 06/15/24 13:00 70 16 128/74 06/15/24 12:45 64 16 111/60 06/15/24 12:41 96.9 F L 71 19 116/56 06/15/24 11:01 65 16 150/65 Pulse Ox 06/16/24 08:22 95 06/16/24 07:45 06/16/24 01:32 99 06/15/24 19:24 97 06/15/24 15:47 99 06/15/24 14:45 97 06/15/24 14:15 97 06/15/24 14:00 98 06/15/24 13:45 100 06/15/24 13:30 100 06/15/24 13:15 100 06/15/24 13:00 100 06/15/24 12:45 100 06/15/24 12:41 100 06/15/24 11:01 100 Intake and Output 06/15/24 06/16/24 06/16/24 22:59 06:59 14:59 Intake Total 610 Balance 610 Intake: IV 150 Intake, IV Titration 260 Amount Sodium Chloride 0.9% 1, 260 000 ml @ 65 mls/hr IV . [id number] [facility] Rx#:[id number] Oral 200 Other: Voiding Method Toilet Toilet # Voids 3 1 Weight 57 kg Results CBC & Chem 7: 06/16/24 04:17 Assessment and Plan Time with Patient: Less than 30
[2024-06-16] MEDS: WARFARIN 3 MG TAB PO ONE (18:24)
[2024-06-17] MEDS: HYDROcodone/APAP 5-325MG 1 EACH TAB PO PRN (02:00)
[2024-06-17] MEDS: FAMOTIDINE 20 MG TAB PO SCH (08:16)
[2024-06-17 10:44] LABS: BUN/Creat Ratio 30.22 Ratio (12.00-20.00); Blood Urea Nitrogen 27.2 mg/dL (9.0-27.0); Chloride 104 mmol/L (96-109); Glucose 123 mg/dL (70-110); Potassium 4.6 mmol/L (3.5-5.5); Sodium 138 mmol/L (135-145)
[2024-06-17 10:45] LABS: Calcium 8.7 mg/dL (8.7-10.3); Carbon Dioxide 24.5 mmol/L (21.6-31.8)
--- NOTE | 2024-06-17 13:05 | P.PN ---
Subjective Progress Note Date: 06/17/24 This is an 84-year-old female medical history significant for atrial fibrillation anticoagulated with warfarin, coronary artery disease with prior cardiac stenting, hypertension, hyperlipidemia, former smoker. Patient comes into the hospital for a scheduled right hip total arthroplasty and is evaluated in the medical floor postoperative day #1. Patient currently sitting up in the chair states she has been up ambulating with walker to the bathroom and back. Reports moderate pain to the right hip today, using norco for pain and states this is controlling her pain. She is not having any shortness of breath or chest discomfort. She is awake alert and oriented. Passing gas and tolerating diet. INR today is 1.01. White blood cell count 10.64. Patient is afebrile, heart rate 74, blood pressure 156/66, 95% on room air. 06/17/2024 Patient is evaluated she is postoperative day #2 right hip total arthroplasty. Patient states that she feels that she is not ready for discharge to rehab today although insurance authorization was obtained. She is awake alert oriented sitting up in the chair she states that she is having increased pain today to the right hip however she is receiving [place] has not needed to use the IV Dilaudid. She states that she has not had a good bowel movement since surgery a nd MiraLAX was added. She states that after her prior left hip surgery she did have issues with constipation and would recommend to continue a bowel regimen strictly for this patient. Medically she is doing well she is not having any shortness of breath or chest pain no nausea vomiting or diarrhea her bowel sounds are active and she is urinating without difficulty and tolerating diet. Medically she could be discharged to subacute rehab today if cleared by orthopedics. REVIEW OF SYSTEMS: CONSTITUTIONAL: No fever, no malaise, no fatigue. HEENT: No recent visual problems or hearing problems. Denied any sore throat. CARDIOVASCULAR: No chest pain, orthopnea, PND, no palpitations, no syncope. PULMONARY: No shortness of breath, no cough, no hemoptysis. GASTROINTESTINAL: No diarrhea, no nausea, no vomiting, no abdominal pain. NEUROLOGICAL: No headaches, no weakness, no numbness. PHYSICAL EXAMINATION: GENERAL: The patient is alert and oriented x3, not in any acute distress. Well d eveloped, well nourished. Pale. Elderly. HEENT: Pupils are round and equally reacting to light. EOMI. No scleral icterus. No conjunctival pallor. Normocephalic, atraumatic. No pharyngeal erythema. No thyromegaly. CARDIOVASCULAR: S1 and S2 present. No murmurs, rubs, or gallops. PULMONARY: Chest is clear to auscultation, no wheezing or crackles. ABDOMEN: Soft, nontender, nondistended, normoactive bowel sounds. No palpable organomegaly. MUSCULOSKELETAL: No joint swelling or deformity. EXTREMITIES: No cyanosis, clubbing, or pedal edema. NEUROLOGICAL: Gross neurological examination did not reveal any focal deficits. SKIN: No rashes. Right hip surgical dressing intact. Assessment and Plan Osteoarthritis postoperative day #1 total right hip arthroplasty Leukocytosis, reactive History of atrial fibrillation, rate controlled anticoagulated with warfarin Subtherapeutic INR History of coronary artery disease with prior cardiac stenting 2022 Chronic diastolic dysfunction, moderate to severe TR and normal EF, no acute exacerbation History of aortic valve replacement, bovine Hypertension Hyperlipidemia Reynauds Former Smoker GI prophylaxis DVT prophylaxis warfarin Full Code Plan Check PT/INR daily, warfarin resumed and continue same home dose of warfarin. Recommend to resume oral lasix on discharge Cut back lisinopril to 10 mg daily for weight any postoperative hypotension PT/OT consultation in place subacute rehab and patient has received insurance authorization for discharge Continue oral norco Bowel regimen in place and miralax daily has been added Thank you for this consultation medically patient can be discharged to rehab if cleared by orthopedics. The impression and plan of care has been dictated by Litzy Hernandez, Nurse Practitioner as directed. Dr. Willard MD I have performed a history and physical examination and medical decision making of this patient, discussed the same with the dictator, and agree with the dictators assessment and plan as written, documented as a scribe. Based on total visit time, I have performed more than 50% of this visit. Objective - Vital Signs Vital signs: Vital Signs Temp 98.3 F 06/17/24 07:00 Pulse 66 06/17/24 07:00 Resp 15 06/17/24 07:00 BP 123/73 06/17/24 07:00 Pulse Ox 98 06/17/24 07:00 FiO2 Intake & Output 06/16/24 06/17/24 06/17/24 18:59 06:59 18:59 Output Total 300 Balance -300 Output: Urine 300 Other: Voiding Method Toilet Toilet # Voids 1 4 # Bowel Movements 1 - Labs CBC & Chem 7: 06/16/24 04:17 06/17/24 04:37 Labs: Abnormal Lab Results - Last 24 Hours (Table) 06/16/24 Range/Units 04:17 WBC 10.64 H (4.50-10.00) X 10*3/uL RBC 3.39 L (4.10-5.20) X 10*6/uL Hgb 10.3 L (12.0-15.0) g/dL Hct 32.9 L (37.2-46.3) % MCV 97.1 H (80.0-97.0) FL MCHC 31.3 L (32.0-37.0) g/dL RDW 15.0 H (11.5-14.5) % Neutrophils # 8.61 H (1.80-7.70) X 10*3/uL Lymphocytes # 0.88 L (0.90-5.00) X 10*3/uL Monocytes # 1.06 H (0.20-1.00) X 10*3/uL Eosinophils # 0.03 L (0.04-0.35) X 10*3/uL
--- NOTE | 2024-06-17 13:33 | P.DS ---
Providers Expected date of discharge: 06/17/24 Attending physician: Fortino Caldera Consults: 06/15/24 15:24 Consult Physician Routine Consulting Provider: Pham Dyson Consult Reason/Comments: Medical management Do you want consulting provider notified?: Already Contacted Primary care physician: Jermaine Feldman - Discharge Diagnosis(es) (1) Osteoarthritis of right hip Current Visit: Yes Status: Acute (2) S/P total right hip arthroplasty Current Visit: Yes Status: Acute Hospital Course: This is an 84-year-old female with known history of degenerative arthritis of the right hip. The patient presented for evaluation as an outpatient. After discussion and consideration patient elects to proceed with total hip arthroplasty. The patient is seen preoperatively by Dr. Caldera and medically cleared for surgery by their primary care physician. Patient is admitted to [facility] on 06/15/2024 for total hip arthroplasty. The procedure is performed without complication or sequelae. The patient is doing well postoperatively. Labs and vital signs are stable on day of discharge. On day of discharge patient's hip incision is healing well. There is minimal erythema. There is no drainage noted at this time. There is minimal soft tissue swelling to the hip and thigh. Patient has full foot and ankle motion without difficulty or pain. Calf is soft and nontender to palpation. Neurovascular status to the right lower extremity is intact. Patient is discharged to rehab in good condition. Please see med rec for accurate list of home medications. Plan - Discharge Summary Discharge Rx Participant: Yes New Discharge Prescriptions: New HYDROcodone/APAP 5-325MG [[place] 5-325] 1 - 2 tab PO Q6HR PRN #32 tab PRN Reason: Pain Sennosides [Senokot] 2 tab PO DAILY PRN #60 tablet PRN Reason: Constipation polyethylene glycoL 3350 [Miralax] 17 gm PO DAILY #30 packet Continue Atorvastatin [Lipitor] 80 mg PO HS Furosemide [Lasix] 40 mg PO DAILY Metoprolol Succinate [Metoprolol Succinate ER] 12.5 mg PO DAILY Melatonin 3 mg PO HS Aspirin 81 mg PO DAILY Acetaminophen [Tylenol Arthritis] 2 tablet PO QAM Sertraline [Zoloft] 50 mg PO DAILY FLUoxetine HCL [PROzac] 10 mg PO HS Nitroglycerin Sl Tabs [Nitrostat] 0.4 mg SUBLINGUAL Q5M PRN #100 tab PRN Reason: Chest Pain Warfarin [Coumadin] 2.5 mg PO MOFR@2099 Warfarin [Coumadin] 5 mg PO SUTUWETHSA@2099 Potassium Chloride [Klor-Con 8] 8 meq PO DAILY Ferrous Sulfate [Feosol] 325 mg PO DAILY Changed lisinopriL [Zestril] 10 mg PO DAILY #0 Discharge Medication List Atorvastatin [Lipitor] 80 mg PO HS 03/17/18 [History] Nitroglycerin Sl Tabs [Nitrostat] 0.4 mg SUBLINGUAL Q5M PRN #100 tab 01/25/23 [Rx] Furosemide [Lasix] 40 mg PO DAILY 01/26/23 [History] Metoprolol Succinate [Metoprolol Succinate ER] 12.5 mg PO DAILY 01/26/23 [History] Melatonin 3 mg PO HS 09/24/23 [History] Potassium Chloride [Klor-Con 8] 8 meq PO DAILY 09/24/23 [History] Warfarin [Coumadin] 2.5 mg PO MOFR@209909/24/23 [History] Warfarin [Coumadin] 5 mg PO SUTUWETHSA@209909/24/23 [History] Acetaminophen [Tylenol Arthritis] 2 tablet PO QAM 12/15/23 [History] Aspirin 81 mg PO DAILY 12/15/23 [History] Sertraline [Zoloft] 50 mg PO DAILY 12/15/23 [History] FLUoxetine HCL [PROzac] 10 mg PO HS 06/10/24 [History] Ferrous Sulfate [Feosol] 325 mg PO DAILY 06/10/24 [History] HYDROcodone/APAP 5-325MG [[place] 5-325] 1 - 2 tab PO Q6HR PRN #32 tab 06/15/24 [Rx] Sennosides [Senokot] 2 tab PO DAILY PRN #60 tablet 06/15/24 [Rx] lisinopriL [Zestril] 10 mg PO DAILY #0 06/17/24 [Rx] polyethylene glycoL 3350 [Miralax] 17 gm PO DAILY #30 packet 06/17/24 [Rx] Follow up Appointment(s)/Referral(s): Jermaine Feldman DO [Primary Care Provider] - 1 Week Fortino Caldera DO [Doctor of Osteopathic Medicine] - 06/28/24 2:00 pm (With Ada) Ambulatory/Diagnostic Orders: Prothrombin Time INR [LAB.AMB] Time Frame: 3 Days, Location: None Selected Activity/Diet/Wound Care/Special Instructions: Weightbearing as tolerated with walker. Leave dressing intact. Dressing may be removed by home care nurse or by patient in 7 days. Then change dressing twice daily until follow up. May shower with initial dressing intact and after removal. If dressing become saturated, please remove. Please resume Coumadin. Recommend use of compression stockings daily until follow up to help prevent swelling and blood clots. May remove at night before sleeping. Please follow-up with [facility] in 2 weeks and call with any questions or concerns, . Discharge Disposition: TRANSFER TO SNF/ECF
[2024-06-17 13:41] LABS: INR 1.23 sec (0.93-1.11); Prothrombin Time 13.8 sec (9.9-11.9)
[2024-06-17 14:03] LABS: INR 1.4 (<1.2); Prothrombin Time 14.4 sec (10.0-12.5)
[2024-06-17] MEDS: polyethylene glycoL 3350 17 GM POWD.PACK PO SCH (14:44)
[2024-06-17 14:57] VITALS: BP 105/52; PULSE 64; RESP 16; TEMP 99
[2024-06-17] MEDS ORDERED: WARFARIN 5 MG TAB PO ONE (18:00)
== END 2024-06-17 14:29 ==
LOC: OR 09:39 → 4SSUR 14:36 → OR 06-17 14:29
PROVIDERS: ATTEND Orthopaedic Surgery
DX: M16.11 Unilateral primary osteoarthritis, right hip (principal); I48.91 Unspecified atrial fibrillation; I25.10 Atherosclerotic heart disease of native coronary artery without angina pectoris; I10 Essential (primary) hypertension; G89.18 Other acute postprocedural pain; D72.829 Elevated white blood cell count, unspecified; E78.5 Hyperlipidemia, unspecified; Z79.01 Long term (current) use of anticoagulants; Z79.82 Long term (current) use of aspirin; Z79.899 Other long term (current) drug therapy; Z87.891 Personal history of nicotine dependence; Z95.2 Presence of prosthetic heart valve; Z95.5 Presence of coronary angioplasty implant and graft
CPT/HCPCS: 97161; 97166; 64999; 85025; 85610 ×2; 73501; 27130; C1776; J2250; J1100; J0690 ×3; J2405; J2795; 80048